=== PATIENT | male | born 1960 | race Two or more races ===

== ENCOUNTER 2020-05-11 13:43 | Inpatient (IN) | payer OTHER ==
[~2020-05-11] VITALS: Ht 165.1 cm; Wt 67.6 kg
[2020-05-11 14:25] VITALS: BP 196/66
[2020-05-11 14:31] LABS: BASOPHILS % (AUTO) 0.3 % (0.0-2.0); HEMATOCRIT 39.4 % (42.0-52.0); HEMOGLOBIN 13.6 G/DL (14.2-18.0); LYMPHOCYTES % (AUTO) 9.6 % (20.0-45.0); MEAN CORPUSCULAR VOLUME 82 FL (80-99); MONOCYTES % (AUTO) 8.8 % (1.0-10.0); NEUTROPHILS % (AUTO) 81.3 % (45.0-75.0); PLATELET COUNT 132 K/UL (150-450); RED BLOOD COUNT 4.82 M/UL (4.70-6.10); RED CELL DISTRIBUTION WIDTH 12.6 % (11.6-14.8); WHITE BLOOD COUNT 3.5 K/UL (4.8-10.8)
[2020-05-11 15:03] LABS: ANION GAP 9 mmol/L (5-15); BLOOD UREA NITROGEN 16 mg/dL (7-18); CALCIUM 8.4 MG/DL (8.5-10.1); CARBON DIOXIDE 25 MMOL/L (21-32); CHLORIDE 94 MMOL/L (98-107); CREATININE 1.1 MG/DL (0.55-1.30); POTASSIUM 4.6 MMOL/L (3.5-5.1); SODIUM 128 MMOL/L (136-145)
[2020-05-11 15:08] LABS: FERRITIN 1217 NG/ML (8-388)
[2020-05-11 15:08] LABS: APPEARANCE,URINE CLEAR; BILIRUBIN, URINE NEGATIVE (NEGATIVE); GLUCOSE, URINE (UA) 4+ (NEGATIVE); KETONES,URINE 4+ (NEGATIVE); LEUKOCYTE ESTERASE ,URINE NEGATIVE (NEGATIVE); NITRITE,URINE NEGATIVE (NEGATIVE); PH,URINE 6 (4.5-8.0); PROTEIN,URINE 3+ (NEGATIVE); UROBILINOGEN,URINE 8 MG/DL (0.0-1.0)
[2020-05-11 15:09] LABS: ALANINE AMINOTRANSFERASE 61 U/L (12-78); ALBUMIN 3.5 G/DL (3.4-5.0); ALBUMIN/GLOBULIN RATIO 0.8 (1.0-2.7); ASPARTATE AMINO TRANSFERASE 62 U/L (15-37); BILIRUBIN,TOTAL 0.7 MG/DL (0.2-1.0); CKMB 1.5 NG/ML (0.0-3.6); CREATINE KINASE 334 U/L (26-140); LACTATE DEHYDROGENASE 588 U/L (135-225)
[2020-05-11 15:10] LABS: COLOR,URINE YELLOW
[2020-05-11 15:10] LABS: ALKALINE PHOSPHATASE 92 U/L (46-116)
[2020-05-11] MEDS ORDERED: Azithromycin 500 MG in NS 275 ML IV ONE (15:15)
[2020-05-11] MEDS ORDERED: cefTRIAXone 1 GM in NS 55 ML IVPB ONE (15:15)
--- NOTE | 2020-05-11 15:18 | Emergency Room Report ---
History of Present Illness General Chief Complaint: Dyspnea/Respdistress Source: Patient (Sixto Blood MD) Present Illness HPI Patient is a 59-year-old male brought in by EMS after increased difficulty with breathing. Prior history of type 2 diabetes. Patient had previous coronavirus testing on Friday which was positive. Had been more short of breath today. Patient presented via EMS and was noted to have diminished oxygen saturation. He was started on supplemental oxygen. Patient reports being compliant with his medications. Reports of increased fever. Denies any leg pain or swelling. Nonproductive cough. (Sixto Blood MD) Allergies: Coded Allergies: No Known Allergies (Unverified , 05/11/20) COVID-19 Screening Contact w/high risk pt: No Experienced COVID-19 symptoms?: Yes COVID-19 Testing performed WEAVER TIRE CORD: Yes - 05/05/20 COVID-19 Screening: Positive COVID-19 COVID-19 Testing Source: clinic (Sixto Blood MD) Patient History Past Medical History: see triage record Reviewed Nursing Documentation: PMH: Agreed; PSxH: Agreed (Sixto Blood MD) Nursing Documentation-PMH Past Medical History: No Stated History (Sixto Blood MD) Review of Systems All Other Systems: negative except mentioned in HPI (Sixto Blood MD) Physical Exam Vital Signs Date Time Temp Pulse Resp B/P (MAP) Pulse Ox O2 Delivery O2 Flow Rate FiO2 05/11/20 13:37 100.9 125 24 158/90 (112) 85 Room Air 05/11/20 14:25 2.0 General Appearance: alert, GCS 15, moderate distress ENT: normal ENT inspection Neck: normal inspection, full range of motion Respiratory: normal inspection, lungs clear Cardiovascular #1: tachycardia Gastrointestinal: normal inspection, soft Musculoskeletal: normal inspection, back normal Neurologic: alert, motor strength/tone normal, 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 Total critical care time excluding procedures approximately 45 minutes. (Sixto Blood MD) Critical Care Time Total critical care time: Approximately 35 minutes. Due to a high probability of clinically significant, life threatening deterioration, the patient required my highest level of preparedness to intervene emergently and I personally spent this critical care time directly and personally managing the patient. This critical care time included obtaining a history; examining the patient; pulse oximetry; ordering and review of studies; arranging urgent treatment with development of a management plan; evaluation of patient's response to treatment; frequent reassessment; and, discussions with other providers.This critical care time was performed to assess and manage the high probability of imminent, life- threatening deterioration that could result in multi-organ failure. It was e xclusive of separately billable procedures and treating other patients and teaching time. Please see MDM section and the rest of the note for further information on patient assessment and treatment. (Marisa Dior M.D.) Medical Decision Making Diagnostic Impression: Primary Impression: Coronavirus infection Additional Impressions: Abnormal EKG Lactic acid acidosis Diabetes ER Course Patient presented for increased fever and generalized shortness of breath. Differential diagnosis include was not limited to coronavirus infection, myocardial infarction, congestive heart failure, pneumonia among others. Because of complexity of patient's case laboratory tests and imaging studies were ordered. Patient was noted to have prior history of coronavirus infection with diminished oxygen saturation. He was maintained on supplemental oxygen. He was given IV steroids. He was started on IV fluids and given Tylenol. Patient was noted to have significant difficulty with respirations. Lactic acid levels noted be somewhat elevated. Patient was leukopenic. Patient was endorsed to Dr. Dior pending authorization for admission. Patient will barb require hospitalization due to hypoxia. Labs Test 05/11/20 14:10 05/11/20 14:45 White Blood Count 3.5 K/UL (4.8-10.8) Red Blood Count 4.82 M/UL (4.70-6.10) Hemoglobin 13.6 G/DL (14.2-18.0) Hematocrit 39.4 % (42.0-52.0) Mean Corpuscular Volume 82 FL (80-99) Mean Corpuscular Hemoglobin 28.3 PG (27.0-31.0) Mean Corpuscular Hemoglobin Concent 34.6 G/DL (32.0-36.0) Red Cell Distribution Width 12.6 % (11.6-14.8) Platelet Count 132 K/UL (150-450) Mean Platelet Volume 7.4 FL (6.5-10.1) Neutrophils (%) (Auto) 81.3 % (45.0-75.0) Lymphocytes (%) (Auto) 9.6 % (20.0-45.0) Monocytes (%) (Auto) 8.8 % (1.0-10.0) Eosinophils (%) (Auto) 0.0 % (0.0-3.0) Basophils (%) (Auto) 0.3 % (0.0-2.0) Prothrombin Time 10.6 SEC (9.30-11.50) Prothromb Time International Ratio 1.0 (0.9-1.1) Activated Partial Thromboplast Time 31 SEC (23-33) D-Dimer 0.58 mg/L FEU (0.00-0.49) Sodium Level 128 MMOL/L (136-145) Potassium Level 4.6 MMOL/L (3.5-5.1) Chloride Level 94 MMOL/L (98-107) Carbon Dioxide Level 25 MMOL/L (21-32) Anion Gap 9 mmol/L (5-15) Blood Urea Nitrogen 16 mg/dL (7-18) Creatinine 1.1 MG/DL (0.55-1.30) Estimat Glomerular Filtration Rate > 60 mL/min (>60) Glucose Level 331 MG/DL (74-106) Lactic Acid Level 2.80 mmol/L (0.4-2.0) Calcium Level 8.4 MG/DL (8.5-10.1) Ferritin 1217 NG/ML (8-388) Total Bilirubin 0.7 MG/DL (0.2-1.0) Aspartate Amino Transf (AST/SGOT) 62 U/L (15-37) Alanine Aminotransferase (ALT/SGPT) 61 U/L (12-78) Alkaline Phosphatase 92 U/L (46-116) Lactate Dehydrogenase 588 U/L (135-225) Total Creatine Kinase 334 U/L (26-140) Creatine Kinase MB 1.5 NG/ML (0.0-3.6) Creatine Kinase MB Relative Index 0.4 Troponin I 0.048 ng/mL (0.000-0.056) C-Reactive Protein, Quantitative 24.9 mg/dL (0.00-0.90) Pro-B-Type Natriuretic Peptide 115 pg/mL (0-125) Total Protein 8.1 G/DL (6.4-8.2) Albumin 3.5 G/DL (3.4-5.0) Globulin 4.6 g/dL Albumin/Globulin Ratio 0.8 (1.0-2.7) Lipase 204 U/L (73-393) Urine Color Yellow Urine Appearance Clear Urine pH 6 (4.5-8.0) Urine Specific [place] 1.015 (1.005-1.035) Urine Protein 3+ (NEGATIVE) Urine Glucose (UA) 4+ (NEGATIVE) Urine Ketones 4+ (NEGATIVE) Urine Blood 2+ (NEGATIVE) Urine Nitrite Negative (NEGATIVE) Urine Bilirubin Negative (NEGATIVE) Urine Urobilinogen 8 MG/DL (0.0-1.0) Urine Leukocyte Esterase Negative (NEGATIVE) (Sixto Blood MD) ER Course Patient signed out by Dr. Blood pending insurance approval. Patient has been approved for admission to stepdown unit at our facility. I have paged Dr. Jung at 1415 p.m. to inform him of the admission. (Marisa Dior M.D.) EKG Diagnostic Results Rate: tachycardiac Rhythm: NSR ST Segments: other - st depression (Sixto Blood MD) Last Vital Signs Date Time Temp Pulse Resp B/P (MAP) Pulse Ox O2 Delivery O2 Flow Rate FiO2 05/11/20 14:56 100.6 05/11/20 14:25 113 32 Nasal Cannula 2.0 05/11/20 14:25 196/66 96 Status: unchanged (Sixto Blood MD) Disposition: ADMITTED INPATIENT Condition: Serious Referrals: Pedro DURON,REFERRING (PCP) Sixto Blood MD May 11, 2020 15:18 Marisa Dior M.D. May 11, 2020 16:14
[2020-05-11] MEDS: Albuterol ud Inhalation HHN SCH ×2 (15:35→15:36)
[2020-05-11 15:57] VITALS: BP 177/88
[2020-05-11] MEDS ORDERED: Labetalol 5mg/ml 20ml vial IV ONE (16:15)
[2020-05-11 16:35] VITALS: BP 124/66
--- NOTE | 2020-05-11 16:56 | Diagnostic Imaging Report ---
Indication: Shortness of breath Technique: One view of the chest Comparison: none Findings: Lungs and pleural spaces are clear. Heart size is normal. Impression: No acute process
[2020-05-11] MEDS ORDERED: METFORMIN HCL500 M1 ORAL (16:58)
[2020-05-11] MEDS ORDERED: LISINOPRIL10 MG ORAL (16:58)
[2020-05-11] MEDS ORDERED: Albuterol/Ipratropium 3ml neb HHN PRN (18:15)
[2020-05-11] MEDS ORDERED: Miralax 17gm pkt ORAL PRN (18:15)
[2020-05-11 19:27] VITALS: BP 157/77
[2020-05-11] MEDS: Heparin 5000 units/ml inj SUBQ SCH (23:19)
[2020-05-11 23:38] VITALS: BP 144/75
[2020-05-12 04:00] VITALS: BP 148/81
[2020-05-12 05:27] LABS: HEMOGLOBIN 13.7 G/DL (14.2-18.0); MEAN CORPUSCULAR VOLUME 83 FL (80-99); PLATELET COUNT 153 K/UL (150-450); RED BLOOD COUNT 4.82 M/UL (4.70-6.10); RED CELL DISTRIBUTION WIDTH 13.3 % (11.6-14.8); WHITE BLOOD COUNT 3.1 K/UL (4.8-10.8)
[2020-05-12 05:44] LABS: ALBUMIN 2.9 G/DL (3.4-5.0); ANION GAP 17 mmol/L (5-15); BLOOD UREA NITROGEN 18 mg/dL (7-18); CALCIUM 7.5 MG/DL (8.5-10.1); CARBON DIOXIDE 17 MMOL/L (21-32); CHLORIDE 100 MMOL/L (98-107); CREATININE 1.2 MG/DL (0.55-1.30); PHOSPHORUS 3.8 MG/DL (2.5-4.9); POTASSIUM 4.4 MMOL/L (3.5-5.1); SODIUM 134 MMOL/L (136-145)
[2020-05-12 08:00] VITALS: BP 153/76
[2020-05-12] MEDS: Heparin 5000 units/ml inj SUBQ SCH ×2 (08:58→21:59)
--- NOTE | 2020-05-12 09:05 | Consultation ---
History of Present Illness General Date patient seen: May 12, 2020 Time patient seen: 12:38 Chief Complaint: Dyspnea/Respdistress Referring physician: PCP Reason for Consultation: COVID pna Present Illness HPI 59yo M who p/w SOB, had COVID testing Saturday 05/05 which was positive. PMH of DM2. Pt febrile to 100.9, on NRB mask due to SOB. Doing well, feels better than day prior, sitting up and eating lunch Denies any fevers/chills, minimal cough, no pain. Reports he was tested via a nasal swab on Saturday 05/05 and received a phone call saying that his test for Coronavirus was positive Allergies: Coded Allergies: No Known Allergies (Unverified , 05/11/20) Medication History Scheduled Lisinopril* (Lisinopril*), 10 MG ORAL DAILY, (Reported) Metformin Hcl* (Metformin Hcl*), 500 MG ORAL TWICE A DAY, (Reported) Metformin Hcl* (Metformin Hcl*), 500 MG ORAL TWICE A DAY, (Reported) Patient History Healthcare decision maker N Resuscitation status Advanced Directive on File Review of Systems ROS Narrative 10-point ROS neg except as noted in HPI Physical Exam Physical Exam Narrative Gen: NAD HEENT: NCAT Pulm: BL chest rise on NRB Abd: Non-distended Ext: No c/c/e Skin: No visible rashes Neuro: Awake, alert, interactive en espanol Last 24 Hour Vital Signs Date Time Temp Pulse Resp B/P (MAP) Pulse Ox O2 Delivery O2 Flow Rate FiO2 05/12/20 04:00 97.2 104 20 148/81 (103) 100 05/12/20 04:00 15.0 05/12/20 04:00 Non-Rebreather 15.0 05/12/20 04:00 104 05/12/20 00:00 Non-Rebreather 15.0 05/12/20 00:00 93 05/12/20 00:00 15.0 05/11/20 23:38 96.5 96 20 144/75 (98) 100 05/11/20 23:37 Non-Rebreather 15.0 05/11/20 22:25 99.1 102 28 157/77 100 Simple Mask 15.0 05/11/20 19:27 102 28 157/77 100 15.0 05/11/20 16:35 99.1 102 37 124/66 95 Simple Mask 10.0 05/11/20 16:13 137 151/73 05/11/20 16:03 99.3 05/11/20 15:57 100.2 126 35 177/88 100 Nasal Cannula 2.0 05/11/20 14:56 100.6 05/11/20 14:25 113 32 Nasal Cannula 2.0 05/11/20 14:25 100.2 113 32 196/66 96 Nasal Cannula 2.0 05/11/20 13:37 100.9 125 24 158/90 (112) 85 Room Air Intake and Output 05/11/20 05/12/20 19:00 07:00 Intake Total 1275 ml 300 ml Output Total 700 ml Balance 1275 ml -400 ml Intake Oral 300 ml IV Total 1275 ml Output Urine Total 700 ml # Voids 1 Laboratory Tests Test 05/11/20 14:10 05/11/20 14:45 05/11/20 15:36 05/11/20 15:40 White Blood Count 3.5 K/UL (4.8-10.8) L Red Blood Count 4.82 M/UL (4.70-6.10) Hemoglobin 13.6 G/DL (14.2-18.0) L Hematocrit 39.4 % (42.0-52.0) L Mean Corpuscular Volume 82 FL (80-99) Mean Corpuscular Hemoglobin 28.3 PG (27.0-31.0) Mean Corpuscular Hemoglobin Concent 34.6 G/DL (32.0-36.0) Red Cell Distribution Width 12.6 % (11.6-14.8) Platelet Count 132 K/UL (150-450) L Mean Platelet Volume 7.4 FL (6.5-10.1) Neutrophils (%) (Auto) 81.3 % (45.0-75.0) H Lymphocytes (%) (Auto) 9.6 % (20.0-45.0) L Monocytes (%) (Auto) 8.8 % (1.0-10.0) Eosinophils (%) (Auto) 0.0 % (0.0-3.0) Basophils (%) (Auto) 0.3 % (0.0-2.0) Prothrombin Time 10.6 SEC (9.30-11.50) Prothromb Time International Ratio 1.0 (0.9-1.1) Activated Partial Thromboplast Time 31 SEC (23-33) D-Dimer 0.58 mg/L FEU (0.00-0.49) H Sodium Level 128 MMOL/L (136-145) L Potassium Level 4.6 MMOL/L (3.5-5.1) Chloride Level 94 MMOL/L (98-107) L Carbon Dioxide Level 25 MMOL/L (21-32) Anion Gap 9 mmol/L (5-15) Blood Urea Nitrogen 16 mg/dL (7-18) Creatinine 1.1 MG/DL (0.55-1.30) Estimat Glomerular Filtration Rate > 60 mL/min (>60) Glucose Level 331 MG/DL (74-106) H Lactic Acid Level 2.80 mmol/L (0.4-2.0) H 1.90 mmol/L (0.66-2.22) Calcium Level 8.4 MG/DL (8.5-10.1) L Ferritin 1217 NG/ML (8-388) H Total Bilirubin 0.7 MG/DL (0.2-1.0) Aspartate Amino Transf (AST/SGOT) 62 U/L (15-37) H Alanine Aminotransferase (ALT/SGPT) 61 U/L (12-78) Alkaline Phosphatase 92 U/L (46-116) Lactate Dehydrogenase 588 U/L (135-225) H Total Creatine Kinase 334 U/L (26-140) H Creatine Kinase MB 1.5 NG/ML (0.0-3.6) Creatine Kinase MB Relative Index 0.4 Troponin I 0.048 ng/mL (0.000-0.056) C-Reactive Protein, Quantitative 24.9 mg/dL (0.00-0.90) H Pro-B-Type Natriuretic Peptide 115 pg/mL (0-125) Total Protein 8.1 G/DL (6.4-8.2) Albumin 3.5 G/DL (3.4-5.0) Globulin 4.6 g/dL Albumin/Globulin Ratio 0.8 (1.0-2.7) L Lipase 204 U/L (73-393) Urine Color Yellow Urine Appearance Clear Urine pH 6 (4.5-8.0) Urine Specific [place] 1.015 (1.005-1.035) Urine Protein 3+ (NEGATIVE) H Urine Glucose (UA) 4+ (NEGATIVE) H Urine Ketones 4+ (NEGATIVE) H Urine Blood 2+ (NEGATIVE) H Urine Nitrite Negative (NEGATIVE) Urine Bilirubin Negative (NEGATIVE) Urine Urobilinogen 8 MG/DL (0.0-1.0) H Urine Leukocyte Esterase Negative (NEGATIVE) Urine RBC 0-2 /HPF (0 - 0) H Urine WBC 0-2 /HPF (0 - 0) Urine Squamous Epithelial Cells Occasional /LPF Urine Bacteria Occasional /HPF (NONE) Arterial Blood pH 7.399 (7.350-7.450) Arterial Blood Partial Pressure CO2 34.3 mmHg (35.0-45.0) L Arterial Blood Partial Pressure O2 93.2 mmHg (75.0-100.0) Arterial Blood HCO3 20.7 mmol/L (22.0-26.0) L Arterial Blood Oxygen Saturation 96.8 % (95-100) Arterial Blood Base Excess -3.4 (-2-2) L Haim Test Positive Test 05/12/20 04:00 White Blood Count 3.1 K/UL (4.8-10.8) L Red Blood Count 4.82 M/UL (4.70-6.10) Hemoglobin 13.7 G/DL (14.2-18.0) L Hematocrit 40.0 % (42.0-52.0) L Mean Corpuscular Volume 83 FL (80-99) Mean Corpuscular Hemoglobin 28.4 PG (27.0-31.0) Mean Corpuscular Hemoglobin Concent 34.3 G/DL (32.0-36.0) Red Cell Distribution Width 13.3 % (11.6-14.8) Platelet Count 153 K/UL (150-450) Mean Platelet Volume 7.5 FL (6.5-10.1) Neutrophils (%) (Auto) % (45.0-75.0) Lymphocytes (%) (Auto) % (20.0-45.0) Monocytes (%) (Auto) % (1.0-10.0) Eosinophils (%) (Auto) % (0.0-3.0) Basophils (%) (Auto) % (0.0-2.0) Neutrophils % (Manual) Pending Lymphocytes % (Manual) Pending Platelet Estimate Pending Platelet Morphology Pending Sodium Level 134 MMOL/L (136-145) L Potassium Level 4.4 MMOL/L (3.5-5.1) Chloride Level 100 MMOL/L (98-107) Carbon Dioxide Level 17 MMOL/L (21-32) L Anion Gap 17 mmol/L (5-15) H Blood Urea Nitrogen 18 mg/dL (7-18) Creatinine 1.2 MG/DL (0.55-1.30) Estimat Glomerular Filtration Rate > 60 mL/min (>60) Glucose Level 409 MG/DL (74-106) H Calcium Level 7.5 MG/DL (8.5-10.1) L Phosphorus Level 3.8 MG/DL (2.5-4.9) Albumin 2.9 G/DL (3.4-5.0) L Microbiology Date/Time Source Procedure Growth Status 05/11/20 15:40 Nasal Nares - Final Complete 05/11/20 15:40 Nasal Nares - Final Complete Height (Feet): 5 Height (Inches): 5.00 Weight (Pounds): 149 Medications Current Medications Medications (Trade) Dose Ordered Sig/Vasiliy Route PRN Reason Start Time Stop Time Status Last Admin Dose Admin Acetaminophen (Tylenol) 650 mg Q4H PRN ORAL Temp >100.5 05/11/20 18:15 06/10/20 18:14 Albuterol/ Ipratropium (Combivent Respimat) 1 puff Q4H PRN INH Shortness of Breath 05/11/20 21:30 06/10/20 21:29 Azithromycin 250 mg/Dextrose 275 ml @ 275 mls/hr Q24HRS IV 05/12/20 15:00 05/17/20 14:59 Ceftriaxone Sodium 1 gm/ Dextrose 55 ml @ 110 mls/hr Q24H IVPB 05/12/20 15:00 05/19/20 14:59 Dexamethasone (Decadron) 6 mg DAILY ORAL 05/12/20 09:00 05/21/20 09:01 05/12/20 08:58 Dextrose (Dextrose 50%) 25 ml Q30M PRN IV Hypoglycemia 05/11/20 18:15 08/09/20 18:14 Dextrose (Dextrose 50%) 50 ml Q30M PRN IV Hypoglycemia 05/11/20 18:15 08/09/20 18:14 Heparin Sodium (Porcine) (Heparin 5000 units/ml) 5,000 units EVERY 12 HOURS SUBQ 05/11/20 22:00 06/25/20 21:59 05/12/20 08:58 Ondansetron HCl (Zofran) 4 mg Q6H PRN IVP Nausea & Vomiting 05/11/20 18:15 06/10/20 18:14 Polyethylene Glycol (Miralax) 17 gm DAILYPRN PRN ORAL Constipation 05/11/20 18:15 06/10/20 18:14 Promethazine HCl/ Codeine (Phenergan with Codeine) 5 ml Q6H PRN ORAL cough 05/11/20 18:15 06/10/20 18:14 Assessment/Plan Assessment/Plan: 59yo M with: Febrile to 100.9 Normal WBC Lymphopenia Hypoxic resp failure 07/11 COVID pna, on NRB mask Severe COVID pna, tested positive 05/05 05/05 COVID positive 05/11 BCx p Resp cx p COVID PCR p CXR: No acute process DM2 Plan: Start remdesivir #1/5 given COVID+, hypoxia on NRB and appropriate labs - awaiting approval, RN to f/u approval and make sure it is started this PM Cont CTX/azithro #2/5 Cont dexamethasone 6mg daily #2 This [facility] does not have convalescent plasma, and as pt 1 week out from diagnosis, unlikely to benefit from it at this point F/u BCx, Resp cx Monitor CBC/CMP Monitor temp curve, hemodynamics Monitor resp status D/w RN Thank you for this consult. [facility] will continue to follow. Meme Leggett M.D. May 12, 2020 09:05
--- NOTE | 2020-05-12 11:03 | Consultation ---
History of Present Illness General Date patient seen: May 12, 2020 Chief Complaint: Dyspnea/Respdistress Referring physician: PCP Reason for Consultation: COVID pna Present Illness HPI 59-year-old male with hx of DM brought in by EMS with CC of difficulty with breathing. Patient had previous coronavirus testing on Friday which was positive. Had been more short of breath today. Patient presented via EMS and was noted to have diminished oxygen saturation. . Reports of increased fever. Denies any leg pain or swelling. Nonproductive cough. Allergies: Coded Allergies: No Known Allergies (Unverified , 05/11/20) Medication History Scheduled Lisinopril* (Lisinopril*), 10 MG ORAL DAILY, (Reported) Metformin Hcl* (Metformin Hcl*), 500 MG ORAL TWICE A DAY, (Reported) Metformin Hcl* (Metformin Hcl*), 500 MG ORAL TWICE A DAY, (Reported) Patient History Healthcare decision maker N Resuscitation status Advanced Directive on File Past Medical/Surgical History Past Medical/Surgical History: (1) Coronavirus infection (2) Diabetes Review of Systems All Other Systems: negative except mentioned in HPI Physical Exam General Appearance: WD/WN, no apparent distress Lines, tubes and drains: peripheral HEENT: normocephalic, atraumatic Neck: non-tender, normal alignment Respiratory/Chest: chest wall non-tender, lungs clear Cardiovascular/Chest: normal peripheral pulses, normal rate Abdomen: normal bowel sounds, non tender Genitourinary/Rectal: normal genital exam Last 24 Hour Vital Signs Date Time Temp Pulse Resp B/P (MAP) Pulse Ox O2 Delivery O2 Flow Rate FiO2 05/12/20 08:00 103 05/12/20 08:00 Non-Rebreather 15.0 05/12/20 08:00 97.2 107 22 153/76 (101) 100 05/12/20 08:00 15.0 05/12/20 04:00 97.2 104 20 148/81 (103) 100 05/12/20 04:00 15.0 05/12/20 04:00 Non-Rebreather 15.0 05/12/20 04:00 104 05/12/20 00:00 Non-Rebreather 15.0 05/12/20 00:00 93 05/12/20 00:00 15.0 05/11/20 23:38 96.5 96 20 144/75 (98) 100 05/11/20 23:37 Non-Rebreather 15.0 05/11/20 22:25 99.1 102 28 157/77 100 Simple Mask 15.0 05/11/20 19:27 102 28 157/77 100 15.0 05/11/20 16:35 99.1 102 37 124/66 95 Simple Mask 10.0 05/11/20 16:13 137 151/73 05/11/20 16:03 99.3 05/11/20 15:57 100.2 126 35 177/88 100 Nasal Cannula 2.0 05/11/20 14:56 100.6 05/11/20 14:25 113 32 Nasal Cannula 2.0 05/11/20 14:25 100.2 113 32 196/66 96 Nasal Cannula 2.0 05/11/20 13:37 100.9 125 24 158/90 (112) 85 Room Air Intake and Output 05/11/20 05/12/20 19:00 07:00 Intake Total 1275 ml 300 ml Output Total 700 ml Balance 1275 ml -400 ml Intake Oral 300 ml IV Total 1275 ml Output Urine Total 700 ml # Voids 1 Laboratory Tests Test 05/11/20 14:10 05/11/20 14:45 05/11/20 15:36 05/11/20 15:40 White Blood Count 3.5 K/UL (4.8-10.8) L Red Blood Count 4.82 M/UL (4.70-6.10) Hemoglobin 13.6 G/DL (14.2-18.0) L Hematocrit 39.4 % (42.0-52.0) L Mean Corpuscular Volume 82 FL (80-99) Mean Corpuscular Hemoglobin 28.3 PG (27.0-31.0) Mean Corpuscular Hemoglobin Concent 34.6 G/DL (32.0-36.0) Red Cell Distribution Width 12.6 % (11.6-14.8) Platelet Count 132 K/UL (150-450) L Mean Platelet Volume 7.4 FL (6.5-10.1) Neutrophils (%) (Auto) 81.3 % (45.0-75.0) H Lymphocytes (%) (Auto) 9.6 % (20.0-45.0) L Monocytes (%) (Auto) 8.8 % (1.0-10.0) Eosinophils (%) (Auto) 0.0 % (0.0-3.0) Basophils (%) (Auto) 0.3 % (0.0-2.0) Prothrombin Time 10.6 SEC (9.30-11.50) Prothromb Time International Ratio 1.0 (0.9-1.1) Activated Partial Thromboplast Time 31 SEC (23-33) D-Dimer 0.58 mg/L FEU (0.00-0.49) H Sodium Level 128 MMOL/L (136-145) L Potassium Level 4.6 MMOL/L (3.5-5.1) Chloride Level 94 MMOL/L (98-107) L Carbon Dioxide Level 25 MMOL/L (21-32) Anion Gap 9 mmol/L (5-15) Blood Urea Nitrogen 16 mg/dL (7-18) Creatinine 1.1 MG/DL (0.55-1.30) Estimat Glomerular Filtration Rate > 60 mL/min (>60) Glucose Level 331 MG/DL (74-106) H Lactic Acid Level 2.80 mmol/L (0.4-2.0) H 1.90 mmol/L (0.66-2.22) Calcium Level 8.4 MG/DL (8.5-10.1) L Ferritin 1217 NG/ML (8-388) H Total Bilirubin 0.7 MG/DL (0.2-1.0) Aspartate Amino Transf (AST/SGOT) 62 U/L (15-37) H Alanine Aminotransferase (ALT/SGPT) 61 U/L (12-78) Alkaline Phosphatase 92 U/L (46-116) Lactate Dehydrogenase 588 U/L (135-225) H Total Creatine Kinase 334 U/L (26-140) H Creatine Kinase MB 1.5 NG/ML (0.0-3.6) Creatine Kinase MB Relative Index 0.4 Troponin I 0.048 ng/mL (0.000-0.056) C-Reactive Protein, Quantitative 24.9 mg/dL (0.00-0.90) H Pro-B-Type Natriuretic Peptide 115 pg/mL (0-125) Total Protein 8.1 G/DL (6.4-8.2) Albumin 3.5 G/DL (3.4-5.0) Globulin 4.6 g/dL Albumin/Globulin Ratio 0.8 (1.0-2.7) L Lipase 204 U/L (73-393) Urine Color Yellow Urine Appearance Clear Urine pH 6 (4.5-8.0) Urine Specific [place] 1.015 (1.005-1.035) Urine Protein 3+ (NEGATIVE) H Urine Glucose (UA) 4+ (NEGATIVE) H Urine Ketones 4+ (NEGATIVE) H Urine Blood 2+ (NEGATIVE) H Urine Nitrite Negative (NEGATIVE) Urine Bilirubin Negative (NEGATIVE) Urine Urobilinogen 8 MG/DL (0.0-1.0) H Urine Leukocyte Esterase Negative (NEGATIVE) Urine RBC 0-2 /HPF (0 - 0) H Urine WBC 0-2 /HPF (0 - 0) Urine Squamous Epithelial Cells Occasional /LPF Urine Bacteria Occasional /HPF (NONE) Arterial Blood pH 7.399 (7.350-7.450) Arterial Blood Partial Pressure CO2 34.3 mmHg (35.0-45.0) L Arterial Blood Partial Pressure O2 93.2 mmHg (75.0-100.0) Arterial Blood HCO3 20.7 mmol/L (22.0-26.0) L Arterial Blood Oxygen Saturation 96.8 % (95-100) Arterial Blood Base Excess -3.4 (-2-2) L Haim Test Positive Test 05/12/20 04:00 White Blood Count 3.1 K/UL (4.8-10.8) L Red Blood Count 4.82 M/UL (4.70-6.10) Hemoglobin 13.7 G/DL (14.2-18.0) L Hematocrit 40.0 % (42.0-52.0) L Mean Corpuscular Volume 83 FL (80-99) Mean Corpuscular Hemoglobin 28.4 PG (27.0-31.0) Mean Corpuscular Hemoglobin Concent 34.3 G/DL (32.0-36.0) Red Cell Distribution Width 13.3 % (11.6-14.8) Platelet Count 153 K/UL (150-450) Mean Platelet Volume 7.5 FL (6.5-10.1) Neutrophils (%) (Auto) % (45.0-75.0) Lymphocytes (%) (Auto) % (20.0-45.0) Monocytes (%) (Auto) % (1.0-10.0) Eosinophils (%) (Auto) % (0.0-3.0) Basophils (%) (Auto) % (0.0-2.0) Differential Total Cells Counted 100 Neutrophils % (Manual) 73 % (45-75) Lymphocytes % (Manual) 19 % (20-45) L Monocytes % (Manual) 7 % (1-10) Eosinophils % (Manual) 0 % (0-3) Basophils % (Manual) 0 % (0-2) Band Neutrophils 1 % (0-8) Platelet Estimate Adequate Platelet Morphology Normal Red Blood Cell Morphology Normal Sodium Level 134 MMOL/L (136-145) L Potassium Level 4.4 MMOL/L (3.5-5.1) Chloride Level 100 MMOL/L (98-107) Carbon Dioxide Level 17 MMOL/L (21-32) L Anion Gap 17 mmol/L (5-15) H Blood Urea Nitrogen 18 mg/dL (7-18) Creatinine 1.2 MG/DL (0.55-1.30) Estimat Glomerular Filtration Rate > 60 mL/min (>60) Glucose Level 409 MG/DL (74-106) H Calcium Level 7.5 MG/DL (8.5-10.1) L Phosphorus Level 3.8 MG/DL (2.5-4.9) Albumin 2.9 G/DL (3.4-5.0) L Microbiology Date/Time Source Procedure Growth Status 05/11/20 15:40 Nasal Nares - Final Complete 05/11/20 15:40 Nasal Nares - Final Complete Height (Feet): 5 Height (Inches): 5.00 Weight (Pounds): 149 Medications Current Medications Medications (Trade) Dose Ordered Sig/Vasiliy Route PRN Reason Start Time Stop Time Status Last Admin Dose Admin Acetaminophen (Tylenol) 650 mg Q4H PRN ORAL Temp >100.5 05/11/20 18:15 06/10/20 18:14 Albuterol/ Ipratropium (Combivent Respimat) 1 puff Q4H PRN INH Shortness of Breath 05/11/20 21:30 06/10/20 21:29 Azithromycin 250 mg/Dextrose 275 ml @ 275 mls/hr Q24HRS IV 05/12/20 15:00 05/17/20 14:59 Ceftriaxone Sodium 1 gm/ Dextrose 55 ml @ 110 mls/hr Q24H IVPB 05/12/20 15:00 05/19/20 14:59 Dexamethasone (Decadron) 6 mg DAILY ORAL 05/12/20 09:00 05/21/20 09:01 05/12/20 08:58 Dextrose (Dextrose 50%) 25 ml Q30M PRN IV Hypoglycemia 05/11/20 18:15 08/09/20 18:14 Dextrose (Dextrose 50%) 50 ml Q30M PRN IV Hypoglycemia 05/11/20 18:15 08/09/20 18:14 Heparin Sodium (Porcine) (Heparin 5000 units/ml) 5,000 units EVERY 12 HOURS SUBQ 05/11/20 22:00 06/25/20 21:59 05/12/20 08:58 Ondansetron HCl (Zofran) 4 mg Q6H PRN IVP Nausea & Vomiting 05/11/20 18:15 06/10/20 18:14 Polyethylene Glycol (Miralax) 17 gm DAILYPRN PRN ORAL Constipation 05/11/20 18:15 06/10/20 18:14 Promethazine HCl/ Codeine (Phenergan with Codeine) 5 ml Q6H PRN ORAL cough 05/11/20 18:15 06/10/20 18:14 Assessment/Plan Problem List: (1) Coronavirus infection ICD Codes: B34.2 - Coronavirus infection, unspecified SNOMED: 424569030 (2) Diabetes ICD Codes: E11.9 - Type 2 diabetes mellitus without complications SNOMED: [id number] Assessment/Plan: check sputum ani-virals and abx by ID respiratory isolation titrate fio2 to sat of 92% dvt prophylaxis Yohannes Gibson MD May 12, 2020 11:03
[2020-05-12 12:00] VITALS: BP 159/81
[2020-05-12] MEDS: NovoLOG Insulin Flexpen SUBQ SCH ×3 (12:42→22:08)
[2020-05-12] MEDS: Azithromycin 250 MG in D5W 275 ML IV SCH (15:17)
[2020-05-12] MEDS: cefTRIAXone 1 GM in D5W 55 ML IVPB SCH (15:18)
[2020-05-12 16:00] VITALS: BP 140/86
[2020-05-12] MEDS ORDERED: Loading Dose:Remdesivir 200mg/NS 210ml IV SCH ×2 (16:00)
[2020-05-12 20:00] VITALS: BP 160/87
[2020-05-12] MEDS: Promethazine/Codeine 5ml UD ORAL PRN (22:10)
[2020-05-13] VITALS: BP 155/84
[2020-05-13 04:00] VITALS: BP 162/88
[2020-05-13 04:02] LABS: HEMATOCRIT 36.2 % (42.0-52.0); HEMOGLOBIN 12.8 G/DL (14.2-18.0); MEAN CORPUSCULAR VOLUME 80 FL (80-99); PLATELET COUNT 194 K/UL (150-450); RED BLOOD COUNT 4.54 M/UL (4.70-6.10); RED CELL DISTRIBUTION WIDTH 13.3 % (11.6-14.8); WHITE BLOOD COUNT 8.4 K/UL (4.8-10.8)
[2020-05-13 04:24] LABS: ALANINE AMINOTRANSFERASE 64 U/L (12-78); ALBUMIN 2.6 G/DL (3.4-5.0); ALBUMIN/GLOBULIN RATIO 0.7 (1.0-2.7); ALKALINE PHOSPHATASE 88 U/L (46-116); ANION GAP 12 mmol/L (5-15); ASPARTATE AMINO TRANSFERASE 76 U/L (15-37); BILIRUBIN,TOTAL 0.5 MG/DL (0.2-1.0); BLOOD UREA NITROGEN 23 mg/dL (7-18); CALCIUM 7.7 MG/DL (8.5-10.1); CARBON DIOXIDE 23 MMOL/L (21-32); CHLORIDE 102 MMOL/L (98-107); CREATININE 0.8 MG/DL (0.55-1.30); SODIUM 137 MMOL/L (136-145)
[2020-05-13] MEDS: NovoLOG Insulin Flexpen SUBQ SCH ×5 (05:52→20:42)
[2020-05-13 07:57] VITALS: BP 147/76
--- NOTE | 2020-05-13 08:55 | Diagnostic Imaging Report ---
EXAM: US Duplex Bilateral Upper Extremities Veins CLINICAL HISTORY: DVT TECHNIQUE: Real-time duplex ultrasound scan of the bilateral upper extremity veins integrating B-mode two-dimensional vascular structure, Doppler spectral analysis, color flow Doppler imaging and compression. COMPARISON: No relevant prior studies available. FINDINGS: Right deep veins: No DVT in the right internal jugular, subclavian, axillary, or brachial veins. The veins demonstrate normal color flow, are normally compressible, with normal phasic flow and/or augmentation response. Right superficial veins: No thrombus in the visualized right basilic and cephalic veins. ----- Left deep veins: No DVT in the left internal jugular, subclavian, axillary, or brachial veins. The veins demonstrate normal color flow, are normally compressible, with normal phasic flow and/or augmentation response. Left superficial veins: No thrombus in the visualized left basilic and cephalic veins. IMPRESSION: No deep venous thrombosis of the bilateral lower extremities.
[2020-05-13] MEDS ORDERED: NS 275ml ONE (09:09)
[2020-05-13] MEDS: Heparin 5000 units/ml inj SUBQ SCH ×2 (09:22→20:42)
[2020-05-13 12:00] VITALS: BP 161/80
--- NOTE | 2020-05-13 13:03 | Cardiology Report ---
APPROVED REPORT EKG Measurement Heart [id number] <Conclusion> Sinus tachycardia ST & T wave abnormality, consider inferolateral ischemia Abnormal ECG
[2020-05-13] MEDS: cefTRIAXone 1 GM in D5W 55 ML IVPB SCH (14:54)
[2020-05-13] MEDS: Azithromycin 250 MG in D5W 275 ML IV SCH (15:00)
[2020-05-13 16:00] VITALS: BP 165/89
[2020-05-13] MEDS: Maintenance Dose:Remdesivir 100mg/NS 230ml x 4 Doses IV SCH ×2 (16:14)
--- NOTE | 2020-05-13 16:55 | Infectious Diseases Prog Note ---
Assessment/Plan 59yo M with: Febrile to 100.9; SP Normal WBC Lymphopenia Hypoxic resp failure / COVID pna, on NRB mask Severe COVID pna, tested positive 05/05 05/05 COVID positive 05/11 BCx NTD Resp cx p COVID PCR + CXR: No acute process Influenza EIA neg DM2 Plan: Start remdesivir #2/5 given COVID+, hypoxia on NRB and appropriate labs - awaiting approval, RN to f/u approval and make sure it is started this PM Cont CTX/azithro #3/ Cont dexamethasone 6mg daily #08/16 [facility] does not have convalescent plasma, and as pt 1 week out from diagnosis, unlikely to benefit from it at this point F/u BCx, Resp cx Monitor CBC/CMP Monitor temp curve, hemodynamics Monitor resp status CXR am D/w RN Thank you for this consult. [facility] will continue to follow. Subjective Allergies: Coded Allergies: No Known Allergies (Unverified , 05/11/20) afebrile >48hrs on NRB no leukocytosis Objective Last 24 Hour Vital Signs Date Time Temp Pulse Resp B/P (MAP) Pulse Ox O2 Delivery O2 Flow Rate FiO2 05/13/20 16:00 98.2 89 21 165/89 (114) 98 05/13/20 16:00 Non-Rebreather 15.0 05/13/20 12:00 97.7 93 21 161/80 (107) 98 05/13/20 12:00 Non-Rebreather 15.0 05/13/20 12:00 107 05/13/20 08:00 Non-Rebreather 15.0 05/13/20 08:00 95 05/13/20 07:57 96.4 87 21 147/76 (99) 98 05/13/20 04:00 Non-Rebreather 15.0 05/13/20 04:00 15.0 05/13/20 04:00 97.6 85 20 162/88 (112) 98 05/13/20 04:00 82 05/13/20 00:00 97.5 104 20 155/84 (107) 98 05/13/20 00:00 Non-Rebreather 15.0 05/13/20 00:00 87 05/12/20 20:00 Non-Rebreather 15.0 05/12/20 20:00 104 05/12/20 20:00 15.0 05/12/20 20:00 97.2 84 20 160/87 (111) 98 05/12/20 18:57 100 Non-Rebreather 15.0 100 Height (Feet): 5 Height (Inches): 5.00 Weight (Pounds): 149 Gen: NAD HEENT: NCAT Pulm: BL chest rise on NRB Abd: Non-distended Ext: No c/c/e Skin: No visible rashes Neuro: Awake, alert, interactive en espanol Microbiology Date/Time Source Procedure Growth Status 05/11/20 15:40 Nasal Nares - Final Complete 05/11/20 15:40 Nasal Nares - Final Complete 05/11/20 15:40 Nasopharynx Coronavirus COVID-19 PCR ([facility]ANSA) - Final Complete 05/11/20 14:10 Blood Blood Culture - Preliminary NO GROWTH AFTER 24 HOURS Resulted 05/11/20 13:55 Blood Blood Culture - Preliminary NO GROWTH AFTER 24 HOURS Resulted Laboratory Tests Test 05/12/20 22:02 05/13/20 03:25 05/13/20 05:44 05/13/20 11:40 POC Whole Blood Glucose 361 MG/DL (74-106) H 348 MG/DL (74-106) H 303 MG/DL (74-106) H White Blood Count 8.4 K/UL (4.8-10.8) # Red Blood Count 4.54 M/UL (4.70-6.10) L Hemoglobin 12.8 G/DL (14.2-18.0) L Hematocrit 36.2 % (42.0-52.0) L Mean Corpuscular Volume 80 FL (80-99) Mean Corpuscular Hemoglobin 28.3 PG (27.0-31.0) Mean Corpuscular Hemoglobin Concent 35.4 G/DL (32.0-36.0) Red Cell Distribution Width 13.3 % (11.6-14.8) Platelet Count 194 K/UL (150-450) Mean Platelet Volume 7.8 FL (6.5-10.1) Neutrophils (%) (Auto) % (45.0-75.0) Lymphocytes (%) (Auto) % (20.0-45.0) Monocytes (%) (Auto) % (1.0-10.0) Eosinophils (%) (Auto) % (0.0-3.0) Basophils (%) (Auto) % (0.0-2.0) Differential Total Cells Counted 100 Neutrophils % (Manual) 85 % (45-75) H Lymphocytes % (Manual) 4 % (20-45) L Monocytes % (Manual) 11 % (1-10) H Eosinophils % (Manual) 0 % (0-3) Basophils % (Manual) 0 % (0-2) Band Neutrophils 0 % (0-8) Platelet Estimate Adequate Platelet Morphology Normal Red Blood Cell Morphology Normal Erythrocyte Sedimentation Rate 40 MM/HR (0-20) H Sodium Level 137 MMOL/L (136-145) Potassium Level 4.0 MMOL/L (3.5-5.1) Chloride Level 102 MMOL/L (98-107) Carbon Dioxide Level 23 MMOL/L (21-32) Anion Gap 12 mmol/L (5-15) Blood Urea Nitrogen 23 mg/dL (7-18) H Creatinine 0.8 MG/DL (0.55-1.30) Estimat Glomerular Filtration Rate > 60 mL/min (>60) Glucose Level 316 MG/DL (74-106) H Calcium Level 7.7 MG/DL (8.5-10.1) L Phosphorus Level 3.0 MG/DL (2.5-4.9) Magnesium Level 2.5 MG/DL (1.8-2.4) H Total Bilirubin 0.5 MG/DL (0.2-1.0) Direct Bilirubin 0.2 MG/DL (0.0-0.3) Aspartate Amino Transf (AST/SGOT) 76 U/L (15-37) H Alanine Aminotransferase (ALT/SGPT) 64 U/L (12-78) Alkaline Phosphatase 88 U/L (46-116) C-Reactive Protein, Quantitative 7.2 mg/dL (0.00-0.90) H Total Protein 6.5 G/DL (6.4-8.2) Albumin 2.6 G/DL (3.4-5.0) L Globulin 3.9 g/dL Albumin/Globulin Ratio 0.7 (1.0-2.7) L Current Medications Medications (Trade) Dose Ordered Sig/Vasiliy Route PRN Reason Start Time Stop Time Status Last Admin Dose Admin Acetaminophen (Tylenol) 650 mg Q4H PRN ORAL Temp >100.5 05/11/20 18:15 06/10/20 18:14 Albuterol/ Ipratropium (Combivent Respimat) 1 puff Q4H PRN INH Shortness of Breath 05/11/20 21:30 06/10/20 21:29 Azithromycin 250 mg/Dextrose 275 ml @ 275 mls/hr Q24HRS IV 05/12/20 15:00 05/17/20 14:59 05/12/20 15:17 Ceftriaxone Sodium 1 gm/ Dextrose 55 ml @ 110 mls/hr Q24H IVPB 05/12/20 15:00 05/19/20 14:59 05/13/20 14:54 Dexamethasone (Decadron) 6 mg DAILY ORAL 05/12/20 09:00 05/21/20 09:01 05/13/20 09:19 Dextrose (Dextrose 50%) 25 ml Q30M PRN IV Hypoglycemia 05/12/20 11:00 08/10/20 10:59 Dextrose (Dextrose 50%) 50 ml Q30M PRN IV Hypoglycemia 05/12/20 11:00 08/10/20 10:59 Heparin Sodium (Porcine) (Heparin 5000 units/ml) 5,000 units EVERY 12 HOURS SUBQ 05/11/20 22:00 06/25/20 21:59 05/13/20 09:22 Insulin Aspart (NovoLOG) BEFORE MEALS AND HS SUBQ 05/13/20 10:00 08/10/20 09:59 05/13/20 10:00 Ondansetron HCl (Zofran) 4 mg Q6H PRN IVP Nausea & Vomiting 05/11/20 18:15 06/10/20 18:14 Polyethylene Glycol (Miralax) 17 gm DAILYPRN PRN ORAL Constipation 05/11/20 18:15 06/10/20 18:14 Promethazine HCl/ Codeine (Phenergan with Codeine) 5 ml Q6H PRN ORAL cough 05/11/20 18:15 06/10/20 18:14 05/12/20 22:10 Remdesivir 100 mg/ Sodium Chloride 250 ml @ 250 mls/hr Q24H IV 05/13/20 16:00 05/16/20 16:59 05/13/20 16:14 Carmen Steve M.D. May 13, 2020 16:54
--- NOTE | 2020-05-13 17:10 | History & Physical ---
History and Physical History & Physicial Dictated for Int Med-DR Jung no. [id number] Frederick Chirinos MD May 13, 2020 17:10
[2020-05-13] MEDS ORDERED: Promethazine/Codeine 5ml UD ORAL PRN (17:15)
[2020-05-13] MEDS: Promethazine/Codeine 5ml UD ORAL PRN (17:27)
--- NOTE | 2020-05-13 19:15 | History and Physical Report ---
DATE OF ADMISSION: 05/11/2020 CHIEF COMPLAINT: The patient is a 59-year-old male who presents with chief complaint of increased difficulty breathing. HISTORY OF PRESENT ILLNESS: The patient states he has been feeling ill for about a week. The patient had coronavirus testing on May 12, 2020. COVID test was positive. He wad noted to have a COVID test on May 05, which was positive. The patient began to have increased difficulty breathing on May 11, 2020. The patient is admitted with respiratory distress and probable COVID-19 pneumonia. REVIEW OF SYSTEMS: CONSTITUTIONAL: The patient denies weight loss or weight gain. The patient denies fevers or chills. HEENT: The patient denies ear or throat pain. The patient denies headache. CARDIOVASCULAR: The patient denies palpitations or chest pain. CHEST: The patient complains of shortness of breath as above. The patient denies wheezes or cough. ABDOMEN: The patient denies nausea, vomiting, diarrhea, or constipation. GENITOURINARY: The patient denies dysuria or increased frequency of urination. NEUROMUSCULAR: The patient denies seizures or generalized weakness. PAST MEDICAL HISTORY: Significant for: 1. Type 2 diabetes. 2. Hypertension. PAST SURGICAL HISTORY: The patient denies. CURRENT MEDICATIONS: 1. Lisinopril 10 mg p.o. daily. 2. Metformin 500 mg p.o. twice daily. ALLERGIES: No known drug allergies. SOCIAL HISTORY: The patient is single and lives alone. The patient denies tobacco or alcohol use. PHYSICAL EXAMINATION: VITAL SIGNS: Temperature 100.9, respirations 24, pulse 125, and blood pressure 150/90. GENERAL: The patient is a well-developed, well-nourished male, in no apparent distress. HEENT: Eyes, pupils equal and responsive to light and accommodation. Extraocular movements are intact. NECK: Supple without lymphadenopathy. CHEST: Lungs with decreased breath sounds at bilateral bases without wheezes or rales. CARDIOVASCULAR: Regular rhythm and rate. S1, S2 normal without murmurs, rubs, or gallops. ABDOMEN: Soft, nontender, and nondistended. Positive bowel sounds. No evidence of hepatosplenomegaly. Currently, no rebound or guarding noted. EXTREMITIES: Negative for clubbing, cyanosis, or edema. RECTAL: Not performed. GENITAL: Not performed. NEUROLOGIC: Cranial nerves II through XII are grossly intact without focal deficits. Motor strength is 5/5 bilaterally intact. Deep tendon reflexes are 2+, plantar. LABORATORY AND DIAGNOSTIC DATA: A chest x-ray revealed no acute process. Laboratory studies, WBC 3.5, hemoglobin 13.6, hematocrit 39.4, platelets 132,000. Sodium 137, potassium 4.0, chloride 102, CO2 of 23, BUN 23, creatinine 0.8, and glucose 316. ASSESSMENT: This is a 59-year-old male with: 1. COVID-19 positive. 2. COVID-19 pneumonia. 3. Respiratory failure. 4. Diabetes type 2. 5. Hypertension. TREATMENT: 1. COVID-19 positive/pneumonia. An Infectious Diseases consultation has been obtained with Dr. Craft. Follow recommendations of Infectious Disease. The patient has been started empirically on remdesivir and Decadron per Infectious Disease. The patient has been started on azithromycin intravenously. 2. Respiratory failure. A Pulmonary consultation has been obtained with Dr. Yohannes Gibson. The patient is currently tolerating a simple mask. Follow recommendations of Pulmonary. 3. Diabetes type 2. NovoLog sliding scale has been instituted. 4. Hypertension. Continue lisinopril as above. Frederick Chirinos M.D. DR: Charity JOB#: [id number] CC:
[2020-05-13 20:00] VITALS: BP 151/81
[2020-05-14] VITALS: BP 148/72
[2020-05-14 04:00] VITALS: BP 147/75
[2020-05-14 06:02] LABS: HEMATOCRIT 35.2 % (42.0-52.0); HEMOGLOBIN 12.6 G/DL (14.2-18.0); MEAN CORPUSCULAR VOLUME 80 FL (80-99); PLATELET COUNT 202 K/UL (150-450); RED BLOOD COUNT 4.39 M/UL (4.70-6.10); WHITE BLOOD COUNT 8.7 K/UL (4.8-10.8)
[2020-05-14] MEDS: NovoLOG Insulin Flexpen SUBQ SCH ×4 (06:10→20:37)
[2020-05-14 06:42] LABS: ALANINE AMINOTRANSFERASE 62 U/L (12-78); ALBUMIN 2.6 G/DL (3.4-5.0); ALBUMIN/GLOBULIN RATIO 0.7 (1.0-2.7); ALKALINE PHOSPHATASE 104 U/L (46-116); ANION GAP 9 mmol/L (5-15); ASPARTATE AMINO TRANSFERASE 50 U/L (15-37); BILIRUBIN,DIRECT 0.1 MG/DL (0.0-0.3); BILIRUBIN,TOTAL 0.4 MG/DL (0.2-1.0); BLOOD UREA NITROGEN 26 mg/dL (7-18); CALCIUM 7.8 MG/DL (8.5-10.1); CARBON DIOXIDE 27 MMOL/L (21-32); CHLORIDE 103 MMOL/L (98-107); CREATININE 0.7 MG/DL (0.55-1.30); POTASSIUM 3.8 MMOL/L (3.5-5.1); SODIUM 139 MMOL/L (136-145)
[2020-05-14 08:19] VITALS: BP 141/69
[2020-05-14] MEDS: Promethazine/Codeine 5ml UD ORAL PRN (09:13)
[2020-05-14] MEDS: Heparin 5000 units/ml inj SUBQ SCH ×2 (09:21→20:40)
--- NOTE | 2020-05-14 11:08 | Diagnostic Imaging Report ---
EXAM: XR Chest, 1 View CLINICAL HISTORY: COUGH TECHNIQUE: Frontal view of the chest. COMPARISON: Chest x-rays dated 05/11/20 FINDINGS: Lungs: Mildly increased interstitial markings. The lungs are otherwise clear without focal consolidation. Pleural space: Unremarkable. The costophrenic angles are sharp. No visible pneumothorax. Heart: Unremarkable. No cardiomegaly. Mediastinum: Unremarkable. Bones/joints: Unremarkable. IMPRESSION: Mildly increased interstitial markings. This is nonspecific but may suggest mild pulmonary vascular congestion or pneumonitis. No focal consolidation.
[2020-05-14 12:00] VITALS: BP 138/72
--- NOTE | 2020-05-14 14:16 | Internal Med Progress Note ---
Subjective Date of Service: May 14, 2020 Physician Name Frederick Chirinos Attending Physician Daniel Jung MD Current Medications Medications (Trade) Dose Ordered Sig/Vasiliy Route PRN Reason Start Time Stop Time Status Last Admin Dose Admin Acetaminophen (Tylenol) 650 mg Q4H PRN ORAL Temp >100.5 05/11/20 18:15 06/10/20 18:14 Albuterol/ Ipratropium (Combivent Respimat) 1 puff Q4H PRN INH Shortness of Breath 05/11/20 21:30 06/10/20 21:29 Azithromycin 250 mg/Dextrose 275 ml @ 275 mls/hr Q24HRS IV 05/12/20 15:00 05/17/20 14:59 05/13/20 15:00 Ceftriaxone Sodium 1 gm/ Dextrose 55 ml @ 110 mls/hr Q24H IVPB 05/12/20 15:00 05/19/20 14:59 05/13/20 14:54 Dexamethasone (Decadron) 6 mg DAILY ORAL 05/12/20 09:00 05/21/20 09:01 05/14/20 09:13 Dextrose (Dextrose 50%) 25 ml Q30M PRN IV Hypoglycemia 05/12/20 11:00 08/10/20 10:59 Dextrose (Dextrose 50%) 50 ml Q30M PRN IV Hypoglycemia 05/12/20 11:00 08/10/20 10:59 Heparin Sodium (Porcine) (Heparin 5000 units/ml) 5,000 units EVERY 12 HOURS SUBQ 05/11/20 22:00 06/25/20 21:59 05/14/20 09:21 Insulin Aspart (NovoLOG) BEFORE MEALS AND HS SUBQ 05/13/20 10:00 08/10/20 09:59 05/14/20 11:29 Ondansetron HCl (Zofran) 4 mg Q6H PRN IVP Nausea & Vomiting 05/11/20 18:15 06/10/20 18:14 Polyethylene Glycol (Miralax) 17 gm DAILYPRN PRN ORAL Constipation 05/11/20 18:15 06/10/20 18:14 Promethazine HCl/ Codeine (Phenergan with Codeine) 5 ml Q4H PRN ORAL For Cough 05/13/20 17:15 06/12/20 17:14 05/13/20 22:50 Remdesivir 100 mg/ Sodium Chloride 250 ml @ 250 mls/hr Q24H IV 05/13/20 16:00 05/16/20 16:59 05/13/20 16:14 Allergies: Coded Allergies: No Known Allergies (Unverified , 05/11/20) ROS Limited/Unobtainable: Yes Subjective 59 YO M admitted with respiratory failure. Now COVID 19 pneumonia. Cover for Int Med-DR Jung. Step down unit Objective Last Vital Signs Date Time Temp Pulse Resp B/P (MAP) Pulse Ox O2 Delivery O2 Flow Rate FiO2 05/14/20 12:18 98 05/14/20 12:00 97.4 16 138/72 (94) 96 05/14/20 11:13 Non-Rebreather 15.0 05/13/20 19:44 100 Laboratory Tests Test 05/13/20 17:40 05/13/20 20:10 05/14/20 03:30 05/14/20 05:55 POC Whole Blood Glucose 315 MG/DL (74-106) H 296 MG/DL (74-106) H 229 MG/DL (74-106) H White Blood Count 8.7 K/UL (4.8-10.8) Red Blood Count 4.39 M/UL (4.70-6.10) L Hemoglobin 12.6 G/DL (14.2-18.0) L Hematocrit 35.2 % (42.0-52.0) L Mean Corpuscular Volume 80 FL (80-99) Mean Corpuscular Hemoglobin 28.6 PG (27.0-31.0) Mean Corpuscular Hemoglobin Concent 35.7 G/DL (32.0-36.0) Red Cell Distribution Width 13.0 % (11.6-14.8) Platelet Count 202 K/UL (150-450) Mean Platelet Volume 6.7 FL (6.5-10.1) Neutrophils (%) (Auto) % (45.0-75.0) Lymphocytes (%) (Auto) % (20.0-45.0) Monocytes (%) (Auto) % (1.0-10.0) Eosinophils (%) (Auto) % (0.0-3.0) Basophils (%) (Auto) % (0.0-2.0) Differential Total Cells Counted 100 Neutrophils % (Manual) 86 % (45-75) H Lymphocytes % (Manual) 6 % (20-45) L Monocytes % (Manual) 8 % (1-10) Eosinophils % (Manual) 0 % (0-3) Basophils % (Manual) 0 % (0-2) Band Neutrophils 0 % (0-8) Platelet Estimate Adequate Platelet Morphology Normal Red Blood Cell Morphology Normal Sodium Level 139 MMOL/L (136-145) Potassium Level 3.8 MMOL/L (3.5-5.1) Chloride Level 103 MMOL/L (98-107) Carbon Dioxide Level 27 MMOL/L (21-32) Anion Gap 9 mmol/L (5-15) Blood Urea Nitrogen 26 mg/dL (7-18) H Creatinine 0.7 MG/DL (0.55-1.30) Estimat Glomerular Filtration Rate > 60 mL/min (>60) Glucose Level 227 MG/DL (74-106) H Calcium Level 7.8 MG/DL (8.5-10.1) L Total Bilirubin 0.4 MG/DL (0.2-1.0) Direct Bilirubin 0.1 MG/DL (0.0-0.3) Aspartate Amino Transf (AST/SGOT) 50 U/L (15-37) H Alanine Aminotransferase (ALT/SGPT) 62 U/L (12-78) Alkaline Phosphatase 104 U/L (46-116) Total Protein 6.5 G/DL (6.4-8.2) Albumin 2.6 G/DL (3.4-5.0) L Globulin 3.9 g/dL Albumin/Globulin Ratio 0.7 (1.0-2.7) L Microbiology Date/Time Source Procedure Growth Status 05/11/20 15:40 Nasal Nares - Final Complete 05/11/20 15:40 Nasal Nares - Final Complete 05/11/20 15:40 Nasopharynx Coronavirus COVID-19 PCR ([facility]) - Final Complete Intake and Output 05/13/20 05/14/20 19:00 07:00 Intake Total 630 ml 240 ml Output Total 400 ml Balance 630 ml -160 ml Intake Oral 630 ml 240 ml Output Urine Total 400 ml # Voids 2 2 Objective PHYSICAL EXAMINATION: GENERAL: The patient is a well-developed, well-nourished male, in no apparent distress. HEENT: Eyes, pupils equal and responsive to light and accommodation. Extraocular movements are intact. NECK: Supple without lymphadenopathy. CHEST: Nonrebreather mask; Lungs with decreased breath sounds at bilateral bases without wheezes or rales. CARDIOVASCULAR: Regular rhythm and rate. S1, S2 normal without murmurs, rubs, or gallops. ABDOMEN: Soft, nontender, and nondistended. Positive bowel sounds. No evidence of hepatosplenomegaly. Currently, no rebound or guarding noted. EXTREMITIES: Negative for clubbing, cyanosis, or edema. RECTAL: Not performed. GENITAL: Not performed. NEUROLOGIC: Cranial nerves II through XII are grossly intact without focal deficits. Motor strength is 5/5 bilaterally intact. Deep tendon reflexes are 2+ bilat Assessment/Plan Assessment/Plan ASSESSMENT: This is a 59-year-old male with: 1. COVID-19 positive. 2. COVID-19 pneumonia. 3. Respiratory failure. 4. Diabetes type 2. 5. Hypertension. TREATMENT: 1. COVID-19 positive/pneumonia. Infectious Disease= Dr. Craft. Follow recommendations of Infectious Disease. Continue remdesivir and Decadron per Infectious Disease. ABX= azithromycin and ceftriaxone 2. Respiratory failure. Pulmonary/critical care= Dr. Yohannes Gibson. The patient is currently on 100% nonrebreather mask. Follow recommendations of Pulmonary. 3. Diabetes type 2. NovoLog sliding scale has been instituted. 4. Hypertension. Continue lisinopril as above. Frederick Chirinos MD May 14, 2020 14:16
[2020-05-14] MEDS: cefTRIAXone 1 GM in D5W 55 ML IVPB SCH (15:00)
[2020-05-14] MEDS: Azithromycin 250 MG in D5W 275 ML IV SCH (15:00)
[2020-05-14 15:51] VITALS: BP 147/75
[2020-05-14] MEDS: Maintenance Dose:Remdesivir 100mg/NS 230ml x 4 Doses IV SCH ×2 (16:25)
[2020-05-14 20:00] VITALS: BP 159/83
[2020-05-15] VITALS: BP 162/91
[2020-05-15 04:00] VITALS: BP 151/73
[2020-05-15] MEDS: NovoLOG Insulin Flexpen SUBQ SCH ×7 (05:41→20:45)
[2020-05-15 07:10] LABS: ALANINE AMINOTRANSFERASE 73 U/L (12-78); ALBUMIN 2.6 G/DL (3.4-5.0); ALBUMIN/GLOBULIN RATIO 0.7 (1.0-2.7); ALKALINE PHOSPHATASE 117 U/L (46-116); ANION GAP 8 mmol/L (5-15); ASPARTATE AMINO TRANSFERASE 46 U/L (15-37); BILIRUBIN,DIRECT 0.1 MG/DL (0.0-0.3); BILIRUBIN,TOTAL 0.4 MG/DL (0.2-1.0); BLOOD UREA NITROGEN 20 mg/dL (7-18); CALCIUM 7.8 MG/DL (8.5-10.1); CARBON DIOXIDE 29 MMOL/L (21-32); CHLORIDE 102 MMOL/L (98-107); CREATININE 0.5 MG/DL (0.55-1.30); POTASSIUM 3.5 MMOL/L (3.5-5.1); SODIUM 138 MMOL/L (136-145)
[2020-05-15 07:15] LABS: BASOPHILS % (AUTO) 0.1 % (0.0-2.0); EOSINOPHILS % (AUTO) 0.2 % (0.0-3.0); HEMATOCRIT 36.2 % (42.0-52.0); HEMOGLOBIN 12.9 G/DL (14.2-18.0); LYMPHOCYTES % (AUTO) 6.1 % (20.0-45.0); MEAN CORPUSCULAR VOLUME 80 FL (80-99); MONOCYTES % (AUTO) 9.9 % (1.0-10.0); NEUTROPHILS % (AUTO) 83.7 % (45.0-75.0); PLATELET COUNT 242 K/UL (150-450); RED BLOOD COUNT 4.54 M/UL (4.70-6.10); RED CELL DISTRIBUTION WIDTH 12.9 % (11.6-14.8)
--- NOTE | 2020-05-15 07:15 | Consultation ---
DATE OF CONSULTATION: 05/15/2020 ENDOCRINOLOGY CONSULTATION CONSULTING PHYSICIAN: Jose Brown MD. REFERRING PHYSICIAN: Daniel Jung MD. REASON FOR CONSULTATION: Diabetes management. HISTORY OF PRESENT ILLNESS: The patient is a 59-year-old male with past medical history of diabetes on metformin therapy who presents to the hospital with COVID pneumonia, admitted in the isolation. The patient is started on dexamethasone which raised the glucose. Endocrinology was consulted. PAST MEDICAL HISTORY: Type 2 diabetes. PAST SURGICAL HISTORY: None. ALLERGIES TO MEDICATIONS: None. MEDICATIONS: Reviewed and reconciled. FAMILY HISTORY: Diabetes. SOCIAL HISTORY: No smoking, alcohol, or drug use. REVIEW OF SYSTEMS: As per HPI. LABORATORY VALUES: WBC 8.7, hemoglobin 12.6, hematocrit 35.2, platelets of 203. Sodium 139, potassium 3.8, chloride 103, bicarb 27, BUN 26, creatinine 0.7. DIAGNOSES: 1. Diabetes out of control exacerbated by steroids. 2. COVID pneumonia. PLAN: 1. Start Levemir 14 units daily. 2. Start NovoLog 6 units before each meal. 3. NovoLog sliding scale before meals and at bedtime. 4. Further adjustment according to blood glucose values. Thank you Dr. Jung, for the courtesy of this consultation. Jose Brown M.D. DR: Alexis JOB#: [id number] CC: ROBERTO CARLOS
[2020-05-15 08:00] VITALS: BP 165/77
[2020-05-15] MEDS: Heparin 5000 units/ml inj SUBQ SCH ×2 (08:44→20:44)
[2020-05-15] MEDS: Levemir Flexpen SUBQ SCH (08:44)
--- NOTE | 2020-05-15 08:54 | Pulmonology Progress Note ---
Subjective ROS Limited/Unobtainable: No Interval Events: still on 100% NRM Allergies: Coded Allergies: No Known Allergies (Unverified , 05/11/20) Objective Last 24 Hour Vital Signs Date Time Temp Pulse Resp B/P (MAP) Pulse Ox O2 Delivery O2 Flow Rate FiO2 05/15/20 08:00 97.1 88 22 165/77 (106) 97 05/15/20 04:00 96.1 74 20 151/73 (99) 100 05/15/20 04:00 Non-Rebreather 15.0 05/15/20 03:37 88 05/15/20 00:00 97.3 83 20 162/91 (114) 100 05/15/20 00:00 Non-Rebreather 15.0 05/14/20 23:28 79 05/14/20 20:00 Non-Rebreather 15.0 05/14/20 20:00 98.2 94 22 159/83 (108) 98 05/14/20 19:54 88 05/14/20 19:11 100 Non-Rebreather 15.0 100 05/14/20 16:00 94 05/14/20 15:51 98.2 89 20 147/75 (99) 98 05/14/20 15:51 Non-Rebreather 15.0 05/14/20 12:18 98 05/14/20 12:00 97.4 101 16 138/72 (94) 96 05/14/20 11:13 Non-Rebreather 15.0 Intake and Output 05/14/20 05/15/20 19:00 07:00 Intake Total 600 ml 100 ml Balance 600 ml 100 ml Intake Oral 600 ml 100 ml # Voids 2 2 General Appearance: cachetic HEENT: normocephalic, atraumatic Respiratory: chest wall non-tender, lungs clear Cardiovascular: normal peripheral pulses, normal rate, regular rhythm Abdomen: normal bowel sounds, soft, non tender Genitourinary: normal external genitalia Skin: no rash 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: 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 II-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 grossly normal Laboratory Tests 05/14/20 20:34: POC Whole Blood Glucose 317H 05/15/20 03:31: White Blood Count 9.0, Red Blood Count 4.54L, Hemoglobin 12.9L, Hematocrit 36.2L , Mean Corpuscular Volume 80, Mean Corpuscular Hemoglobin 28.4, Mean Corpuscular Hemoglobin Concent 35.7, Red Cell Distribution Width 12.9, Platelet Count 242, Mean Platelet Volume 6.6, Neutrophils (%) (Auto) 83.7H, Lymphocytes (%) (Auto) 6.1L, Monocytes (%) (Auto) 9.9, Eosinophils (%) (Auto) 0.2, Basophils (%) (Auto) 0.1, Sodium Level 138, Potassium Level 3.5, Chloride Level 102, Carbon Dioxide Level 29, Anion Gap 8, Blood Urea Nitrogen 20H, Creatinine 0.5L, Estimat Glomerular Filtration Rate > 60, Glucose Level 217H, Calcium Level 7.8L, Total Bilirubin 0.4, Direct Bilirubin 0.1, Aspartate Amino Transf (AST/SGOT) 46H, Alanine Aminotransferase (ALT/SGPT) 73, Alkaline Phosphatase 117H, Total Protein 6.4, Albumin 2.6L, Globulin 3.8, Albumin/Globulin Ratio 0.7L 05/15/20 05:34: POC Whole Blood Glucose 216H Current Medications Medications (Trade) Dose Ordered Sig/Vasiliy Route PRN Reason Start Time Stop Time Status Last Admin Dose Admin Acetaminophen (Tylenol) 650 mg Q4H PRN ORAL Temp >100.5 05/11/20 18:15 06/10/20 18:14 Albuterol/ Ipratropium (Combivent Respimat) 1 puff Q4H PRN INH Shortness of Breath 05/11/20 21:30 06/10/20 21:29 Azithromycin 250 mg/Dextrose 275 ml @ 275 mls/hr Q24HRS IV 05/12/20 15:00 05/17/20 14:59 05/14/20 15:00 Ceftriaxone Sodium 1 gm/ Dextrose 55 ml @ 110 mls/hr Q24H IVPB 05/12/20 15:00 05/19/20 14:59 05/14/20 15:00 Dexamethasone (Decadron) 6 mg DAILY ORAL 05/12/20 09:00 05/21/20 09:01 05/15/20 08:42 Dextrose (Dextrose 50%) 25 ml Q30M PRN IV Hypoglycemia 05/12/20 11:00 08/10/20 10:59 Dextrose (Dextrose 50%) 50 ml Q30M PRN IV Hypoglycemia 05/12/20 11:00 08/10/20 10:59 Heparin Sodium (Porcine) (Heparin 5000 units/ml) 5,000 units EVERY 12 HOURS SUBQ 05/11/20 22:00 06/25/20 21:59 05/15/20 08:44 Insulin Aspart (NovoLOG) BEFORE MEALS AND HS SUBQ 05/13/20 10:00 08/10/20 09:59 05/15/20 05:41 Insulin Aspart (NovoLOG) 6 units NOVOTIAC SUBQ 05/15/20 06:30 08/13/20 06:29 Insulin Detemir (Levemir) 14 units DAILY SUBQ 05/15/20 09:00 08/13/20 08:59 05/15/20 08:44 Ondansetron HCl (Zofran) 4 mg Q6H PRN IVP Nausea & Vomiting 05/11/20 18:15 06/10/20 18:14 Polyethylene Glycol (Miralax) 17 gm DAILYPRN PRN ORAL Constipation 05/11/20 18:15 06/10/20 18:14 Promethazine HCl/ Codeine (Phenergan with Codeine) 5 ml Q4H PRN ORAL For Cough 05/13/20 17:15 06/12/20 17:14 05/13/20 22:50 Remdesivir 100 mg/ Sodium Chloride 250 ml @ 250 mls/hr Q24H IV 05/13/20 16:00 05/16/20 16:59 05/14/20 16:25 Assessment/Plan Problems: (1) Acute respiratory failure (2) Coronavirus infection (3) Diabetes Assessment/Plan still needs NRM on Remdesivir and Decadron sliding scale BS better Endo note appreciated. Yohannes Gibson MD May 15, 2020 08:54
--- NOTE | 2020-05-15 08:58 | Infectious Diseases Prog Note ---
Assessment/Plan 59yo M with: Febrile to 100.9; SP Normal WBC Lymphopenia Hypoxic resp failure / COVID pna, on NRB mask Severe COVID pna, tested positive 05/05 05/05 COVID positive 05/11 BCx NTD Resp cx p COVID PCR+ CXR: No acute process Influenza EIA neg 05/14 CXR: Mildly increased interstitial markings. This is nonspecific but m ay suggest mild pulmonary vascular congestion or pneumonitis. No focal consolidation. BLE US neg for DVT DM2 Plan: Cont remdesivir #4/5 Cont CTX/azithro #5/5 Cont dexamethasone 6mg daily #10/16 This medical center does not have convalescent plasma, and as pt 1 week out from diagnosis, unlikely to benefit from it at this point Monitor CBC/CMP Monitor temp curve, hemodynamics Monitor resp status CXR am D/w RN Thank you for this consult. [facility] will continue to follow. Subjective Allergies: Coded Allergies: No Known Allergies (Unverified , 05/11/20) AF WBC 9.0 On 15L NRB mask NAD, sitting up on side of bed, eating lunch, feels that breathing is slightly improving Objective Last 24 Hour Vital Signs Date Time Temp Pulse Resp B/P (MAP) Pulse Ox O2 Delivery O2 Flow Rate FiO2 05/15/20 08:00 97.1 88 22 165/77 (106) 97 05/15/20 04:00 96.1 74 20 151/73 (99) 100 05/15/20 04:00 Non-Rebreather 15.0 05/15/20 03:37 88 05/15/20 00:00 97.3 83 20 162/91 (114) 100 05/15/20 00:00 Non-Rebreather 15.0 05/14/20 23:28 79 05/14/20 20:00 Non-Rebreather 15.0 05/14/20 20:00 98.2 94 22 159/83 (108) 98 05/14/20 19:54 88 05/14/20 19:11 100 Non-Rebreather 15.0 100 05/14/20 16:00 94 05/14/20 15:51 98.2 89 20 147/75 (99) 98 05/14/20 15:51 Non-Rebreather 15.0 05/14/20 12:18 98 05/14/20 12:00 97.4 101 16 138/72 (94) 96 05/14/20 11:13 Non-Rebreather 15.0 Height (Feet): 5 Height (Inches): 5.00 Weight (Pounds): 149 Gen: NAD HEENT: NCAT Pulm: BL chest rise Abd: Non-distended Ext: No c/c/e Skin: No visible rashes Neuro: Awake Laboratory Tests Test 05/14/20 20:34 05/15/20 03:31 05/15/20 05:34 POC Whole Blood Glucose 317 MG/DL (74-106) H 216 MG/DL (74-106) H White Blood Count 9.0 K/UL (4.8-10.8) Red Blood Count 4.54 M/UL (4.70-6.10) L Hemoglobin 12.9 G/DL (14.2-18.0) L Hematocrit 36.2 % (42.0-52.0) L Mean Corpuscular Volume 80 FL (80-99) Mean Corpuscular Hemoglobin 28.4 PG (27.0-31.0) Mean Corpuscular Hemoglobin Concent 35.7 G/DL (32.0-36.0) Red Cell Distribution Width 12.9 % (11.6-14.8) Platelet Count 242 K/UL (150-450) Mean Platelet Volume 6.6 FL (6.5-10.1) Neutrophils (%) (Auto) 83.7 % (45.0-75.0) H Lymphocytes (%) (Auto) 6.1 % (20.0-45.0) L Monocytes (%) (Auto) 9.9 % (1.0-10.0) Eosinophils (%) (Auto) 0.2 % (0.0-3.0) Basophils (%) (Auto) 0.1 % (0.0-2.0) Sodium Level 138 MMOL/L (136-145) Potassium Level 3.5 MMOL/L (3.5-5.1) Chloride Level 102 MMOL/L (98-107) Carbon Dioxide Level 29 MMOL/L (21-32) Anion Gap 8 mmol/L (5-15) Blood Urea Nitrogen 20 mg/dL (7-18) H Creatinine 0.5 MG/DL (0.55-1.30) L Estimat Glomerular Filtration Rate > 60 mL/min (>60) Glucose Level 217 MG/DL (74-106) H Calcium Level 7.8 MG/DL (8.5-10.1) L Total Bilirubin 0.4 MG/DL (0.2-1.0) Direct Bilirubin 0.1 MG/DL (0.0-0.3) Aspartate Amino Transf (AST/SGOT) 46 U/L (15-37) H Alanine Aminotransferase (ALT/SGPT) 73 U/L (12-78) Alkaline Phosphatase 117 U/L (46-116) H Total Protein 6.4 G/DL (6.4-8.2) Albumin 2.6 G/DL (3.4-5.0) L Globulin 3.8 g/dL Albumin/Globulin Ratio 0.7 (1.0-2.7) L Current Medications Medications (Trade) Dose Ordered Sig/Vasiliy Route PRN Reason Start Time Stop Time Status Last Admin Dose Admin Acetaminophen (Tylenol) 650 mg Q4H PRN ORAL Temp >100.5 05/11/20 18:15 06/10/20 18:14 Albuterol/ Ipratropium (Combivent Respimat) 1 puff Q4H PRN INH Shortness of Breath 05/11/20 21:30 06/10/20 21:29 Azithromycin 250 mg/Dextrose 275 ml @ 275 mls/hr Q24HRS IV 05/12/20 15:00 05/17/20 14:59 05/14/20 15:00 Ceftriaxone Sodium 1 gm/ Dextrose 55 ml @ 110 mls/hr Q24H IVPB 05/12/20 15:00 05/19/20 14:59 05/14/20 15:00 Dexamethasone (Decadron) 6 mg DAILY ORAL 05/12/20 09:00 05/21/20 09:01 05/15/20 08:42 Dextrose (Dextrose 50%) 25 ml Q30M PRN IV Hypoglycemia 05/12/20 11:00 08/10/20 10:59 Dextrose (Dextrose 50%) 50 ml Q30M PRN IV Hypoglycemia 05/12/20 11:00 08/10/20 10:59 Heparin Sodium (Porcine) (Heparin 5000 units/ml) 5,000 units EVERY 12 HOURS SUBQ 05/11/20 22:00 06/25/20 21:59 05/15/20 08:44 Insulin Aspart (NovoLOG) BEFORE MEALS AND HS SUBQ 05/13/20 10:00 08/10/20 09:59 05/15/20 05:41 Insulin Aspart (NovoLOG) 6 units NOVOTIAC SUBQ 05/15/20 06:30 08/13/20 06:29 Insulin Detemir (Levemir) 14 units DAILY SUBQ 05/15/20 09:00 08/13/20 08:59 05/15/20 08:44 Ondansetron HCl (Zofran) 4 mg Q6H PRN IVP Nausea & Vomiting 05/11/20 18:15 06/10/20 18:14 Polyethylene Glycol (Miralax) 17 gm DAILYPRN PRN ORAL Constipation 05/11/20 18:15 06/10/20 18:14 Promethazine HCl/ Codeine (Phenergan with Codeine) 5 ml Q4H PRN ORAL For Cough 05/13/20 17:15 06/12/20 17:14 05/13/20 22:50 Remdesivir 100 mg/ Sodium Chloride 250 ml @ 250 mls/hr Q24H IV 05/13/20 16:00 05/16/20 16:59 05/14/20 16:25 Meme Leggett M.D. May 15, 2020 08:58
[2020-05-15 12:00] VITALS: BP 158/83
--- NOTE | 2020-05-15 13:05 | Internal Med Progress Note ---
Subjective Date of Service: May 15, 2020 Physician Name Frederick Chirinos Attending Physician Daniel Jung MD Current Medications Medications (Trade) Dose Ordered Sig/Vasiliy Route PRN Reason Start Time Stop Time Status Last Admin Dose Admin Acetaminophen (Tylenol) 650 mg Q4H PRN ORAL Temp >100.5 05/11/20 18:15 06/10/20 18:14 Albuterol/ Ipratropium (Combivent Respimat) 1 puff Q4H PRN INH Shortness of Breath 05/11/20 21:30 06/10/20 21:29 Azithromycin 250 mg/Dextrose 275 ml @ 275 mls/hr Q24HRS IV 05/12/20 15:00 05/17/20 14:59 05/14/20 15:00 Ceftriaxone Sodium 1 gm/ Dextrose 55 ml @ 110 mls/hr Q24H IVPB 05/12/20 15:00 05/19/20 14:59 05/14/20 15:00 Dexamethasone (Decadron) 6 mg DAILY ORAL 05/12/20 09:00 05/21/20 09:01 05/15/20 08:42 Dextrose (Dextrose 50%) 25 ml Q30M PRN IV Hypoglycemia 05/12/20 11:00 08/10/20 10:59 Dextrose (Dextrose 50%) 50 ml Q30M PRN IV Hypoglycemia 05/12/20 11:00 08/10/20 10:59 Heparin Sodium (Porcine) (Heparin 5000 units/ml) 5,000 units EVERY 12 HOURS SUBQ 05/11/20 22:00 06/25/20 21:59 05/15/20 08:44 Insulin Aspart (NovoLOG) BEFORE MEALS AND HS SUBQ 05/13/20 10:00 08/10/20 09:59 05/15/20 12:16 Insulin Aspart (NovoLOG) 6 units NOVOTIAC SUBQ 05/15/20 06:30 08/13/20 06:29 05/15/20 12:17 Insulin Detemir (Levemir) 14 units DAILY SUBQ 05/15/20 09:00 08/13/20 08:59 05/15/20 08:44 Ondansetron HCl (Zofran) 4 mg Q6H PRN IVP Nausea & Vomiting 05/11/20 18:15 06/10/20 18:14 Polyethylene Glycol (Miralax) 17 gm DAILYPRN PRN ORAL Constipation 05/11/20 18:15 06/10/20 18:14 Promethazine HCl/ Codeine (Phenergan with Codeine) 5 ml Q4H PRN ORAL For Cough 05/13/20 17:15 06/12/20 17:14 05/13/20 22:50 Remdesivir 100 mg/ Sodium Chloride 250 ml @ 250 mls/hr Q24H IV 05/13/20 16:00 05/16/20 16:59 05/14/20 16:25 Allergies: Coded Allergies: No Known Allergies (Unverified , 05/11/20) ROS Limited/Unobtainable: No Constitutional: Reports: no symptoms HEENT: Reports: no symptoms Cardiovascular: Reports: no symptoms Respiratory: Reports: shortness of breath Gastrointestinal/Abdominal: Reports: no symptoms Genitourinary: Reports: no symptoms Neurologic/Psychiatric: Reports: no symptoms Subjective 59 YO M admitted with respiratory failure. Now COVID 19 pneumonia. Cover for Int Med-DR Jung. Step down unit Objective Last Vital Signs Date Time Temp Pulse Resp B/P (MAP) Pulse Ox O2 Delivery O2 Flow Rate FiO2 05/15/20 08:00 Non-Rebreather 15.0 05/15/20 08:00 90 05/15/20 08:00 97.1 22 165/77 (106) 97 05/14/20 19:11 100 Laboratory Tests Test 05/14/20 20:34 05/15/20 03:31 05/15/20 05:34 05/15/20 12:09 POC Whole Blood Glucose 317 MG/DL (74-106) H 216 MG/DL (74-106) H Pending White Blood Count 9.0 K/UL (4.8-10.8) Red Blood Count 4.54 M/UL (4.70-6.10) L Hemoglobin 12.9 G/DL (14.2-18.0) L Hematocrit 36.2 % (42.0-52.0) L Mean Corpuscular Volume 80 FL (80-99) Mean Corpuscular Hemoglobin 28.4 PG (27.0-31.0) Mean Corpuscular Hemoglobin Concent 35.7 G/DL (32.0-36.0) Red Cell Distribution Width 12.9 % (11.6-14.8) Platelet Count 242 K/UL (150-450) Mean Platelet Volume 6.6 FL (6.5-10.1) Neutrophils (%) (Auto) 83.7 % (45.0-75.0) H Lymphocytes (%) (Auto) 6.1 % (20.0-45.0) L Monocytes (%) (Auto) 9.9 % (1.0-10.0) Eosinophils (%) (Auto) 0.2 % (0.0-3.0) Basophils (%) (Auto) 0.1 % (0.0-2.0) Sodium Level 138 MMOL/L (136-145) Potassium Level 3.5 MMOL/L (3.5-5.1) Chloride Level 102 MMOL/L (98-107) Carbon Dioxide Level 29 MMOL/L (21-32) Anion Gap 8 mmol/L (5-15) Blood Urea Nitrogen 20 mg/dL (7-18) H Creatinine 0.5 MG/DL (0.55-1.30) L Estimat Glomerular Filtration Rate > 60 mL/min (>60) Glucose Level 217 MG/DL (74-106) H Calcium Level 7.8 MG/DL (8.5-10.1) L Total Bilirubin 0.4 MG/DL (0.2-1.0) Direct Bilirubin 0.1 MG/DL (0.0-0.3) Aspartate Amino Transf (AST/SGOT) 46 U/L (15-37) H Alanine Aminotransferase (ALT/SGPT) 73 U/L (12-78) Alkaline Phosphatase 117 U/L (46-116) H Total Protein 6.4 G/DL (6.4-8.2) Albumin 2.6 G/DL (3.4-5.0) L Globulin 3.8 g/dL Albumin/Globulin Ratio 0.7 (1.0-2.7) L Intake and Output 05/14/20 05/15/20 19:00 07:00 Intake Total 600 ml 100 ml Balance 600 ml 100 ml Intake Oral 600 ml 100 ml # Voids 2 2 Objective PHYSICAL EXAMINATION: GENERAL: The patient is a well-developed, well-nourished male, in no apparent distress. HEENT: Eyes, pupils equal and responsive to light and accommodation. Extraocular movements are intact. NECK: Supple without lymphadenopathy. CHEST: Nonrebreather mask; Lungs with decreased breath sounds at bilateral bases without wheezes or rales. CARDIOVASCULAR: Regular rhythm and rate. S1, S2 normal without murmurs, rubs, or gallops. ABDOMEN: Soft, nontender, and nondistended. Positive bowel sounds. No evidence of hepatosplenomegaly. Currently, no rebound or guarding noted. EXTREMITIES: Negative for clubbing, cyanosis, or edema. RECTAL: Not performed. GENITAL: Not performed. NEUROLOGIC: Cranial nerves II through XII are grossly intact without focal deficits. Motor strength is 5/5 bilaterally intact. Deep tendon reflexes are 2+ bilat Assessment/Plan Assessment/Plan ASSESSMENT: This is a 59-year-old male with: 1. COVID-19 positive. 2. COVID-19 pneumonia. 3. Respiratory failure. 4. Diabetes type 2. 5. Hypertension. TREATMENT: 1. COVID-19 positive/pneumonia. Infectious Disease= Dr. Craft. Follow recommendations of Infectious Disease. Continue remdesivir and Decadron per Infectious Disease. ABX= azithromycin and ceftriaxone 2. Respiratory failure. Pulmonary/critical care= Dr. Yohannes Gibson. The patient is currently on 100% nonrebreather mask. Follow recommendations of Pulmonary. 3. Diabetes type 2. NovoLog sliding scale has been instituted. 4. Hypertension. Continue lisinopril as above. Frederick Chirinos MD May 15, 2020 13:05
[2020-05-15] MEDS: cefTRIAXone 1 GM in D5W 55 ML IVPB SCH (15:07)
[2020-05-15] MEDS: Azithromycin 250 MG in D5W 275 ML IV SCH (15:09)
[2020-05-15 15:52] VITALS: BP 164/92
[2020-05-15] MEDS: Maintenance Dose:Remdesivir 100mg/NS 230ml x 4 Doses IV SCH ×2 (17:20)
[2020-05-15 20:00] VITALS: BP 168/94
[2020-05-16] VITALS (7 sets, daily range): BP systolic 132–167; BP diastolic 59–90
[2020-05-16 05:00] LABS: BASOPHILS % (AUTO) 0.4 % (0.0-2.0); HEMATOCRIT 36.3 % (42.0-52.0); HEMOGLOBIN 13.3 G/DL (14.2-18.0); LYMPHOCYTES % (AUTO) 7.5 % (20.0-45.0); MEAN CORPUSCULAR VOLUME 79 FL (80-99); MONOCYTES % (AUTO) 8.8 % (1.0-10.0); NEUTROPHILS % (AUTO) 83.4 % (45.0-75.0); PLATELET COUNT 331 K/UL (150-450); RED BLOOD COUNT 4.61 M/UL (4.70-6.10); RED CELL DISTRIBUTION WIDTH 12.7 % (11.6-14.8); WHITE BLOOD COUNT 10.5 K/UL (4.8-10.8)
[2020-05-16 05:42] LABS: PHOSPHORUS 3.4 MG/DL (2.5-4.9)
[2020-05-16 05:48] LABS: ALANINE AMINOTRANSFERASE 73 U/L (12-78); ALBUMIN 2.7 G/DL (3.4-5.0); ALBUMIN/GLOBULIN RATIO 0.7 (1.0-2.7); ALKALINE PHOSPHATASE 114 U/L (46-116); ASPARTATE AMINO TRANSFERASE 35 U/L (15-37); BILIRUBIN,DIRECT 0.1 MG/DL (0.0-0.3); BILIRUBIN,TOTAL 0.6 MG/DL (0.2-1.0); BLOOD UREA NITROGEN 20 mg/dL (7-18); CALCIUM 7.9 MG/DL (8.5-10.1); CARBON DIOXIDE 28 MMOL/L (21-32); CHLORIDE 102 MMOL/L (98-107); CREATININE 0.6 MG/DL (0.55-1.30); POTASSIUM 3.4 MMOL/L (3.5-5.1); SODIUM 138 MMOL/L (136-145)
[2020-05-16] MEDS: NovoLOG Insulin Flexpen SUBQ SCH ×7 (06:24→22:07)
--- NOTE | 2020-05-16 06:32 | General Progress Note ---
Subjective ROS Limited/Unobtainable: Yes Allergies: Coded Allergies: No Known Allergies (Unverified , 05/11/20) Subjective events noted fasting glucose improved mealtime glucose still elevated in COVID insolation Item Value Date Time Bedside Blood Glucose 149 mg/dl H 05/16/20 0626 Bedside Blood Glucose 354 mg/dl H 05/15/20 2100 Bedside Blood Glucose 354 mg/dl H 05/15/20 1730 Bedside Blood Glucose 293 mg/dl H 05/15/20 1217 Bedside Blood Glucose 217 mg/dl H 05/15/20 0844 Objective Last 24 Hour Vital Signs Date Time Temp Pulse Resp B/P (MAP) Pulse Ox O2 Delivery O2 Flow Rate FiO2 05/16/20 04:00 97.9 89 26 150/78 (102) 93 05/16/20 04:00 Non-Rebreather 15.0 05/16/20 03:30 92 05/16/20 00:00 85 05/16/20 00:00 98.4 92 32 167/89 (115) 99 05/16/20 00:00 Non-Rebreather 15.0 05/15/20 20:00 98.1 96 22 168/94 (118) 99 05/15/20 20:00 Non-Rebreather 15.0 05/15/20 19:26 100 Non-Rebreather 15.0 100 05/15/20 19:09 105 05/15/20 16:05 Non-Rebreather 15.0 05/15/20 16:00 102 05/15/20 15:52 98.2 94 20 164/92 (116) 98 05/15/20 12:00 102 05/15/20 12:00 Non-Rebreather 15.0 05/15/20 12:00 97.2 101 20 158/83 (108) 97 05/15/20 08:00 Non-Rebreather 15.0 05/15/20 08:00 90 05/15/20 08:00 97.1 88 22 165/77 (106) 97 Intake and Output 05/15/20 05/16/20 19:00 07:00 Intake Total 780 ml Output Total 1250 ml Balance -470 ml Intake Oral 780 ml Output Urine Total 1250 ml Laboratory Tests 05/15/20 12:09: POC Whole Blood Glucose [Pending] 05/15/20 17:23: POC Whole Blood Glucose 354H 05/15/20 20:33: POC Whole Blood Glucose [Pending] 05/16/20 03:45: White Blood Count 10.5, Red Blood Count 4.61L, Hemoglobin 13.3L, Hematocrit 36 .3L, Mean Corpuscular Volume 79L, Mean Corpuscular Hemoglobin 28.8, Mean Corpuscular Hemoglobin Concent 36.6H, Red Cell Distribution Width 12.7, Platelet Count 331, Mean Platelet Volume 6.9, Neutrophils (%) (Auto) 83.4H, Lymphocytes (%) (Auto) 7.5L, Monocytes (%) (Auto) 8.8, Eosinophils (%) (Auto) 0.0, Basophils (%) (Auto) 0.4, Erythrocyte Sedimentation Rate 52H, Sodium Level 138, Potassium Level 3.4L, Chloride Level 102, Carbon Dioxide Level 28, Blood Urea Nitrogen 20H, Creatinine 0.6, Estimat Glomerular Filtration Rate > 60, Glucose Level 152H , Calcium Level 7.9L, Phosphorus Level 3.4, Magnesium Level 2.2, Total Bilirubin 0.6, Direct Bilirubin 0.1, Aspartate Amino Transf (AST/SGOT) 35, Alanine Aminotransferase (ALT/SGPT) 73, Alkaline Phosphatase 114, C-Reactive Protein, Quantitative 5.1H, Total Protein 6.6, Albumin 2.7L, Globulin 3.9, Albumin/Globulin Ratio 0.7L 05/16/20 05:03: POC Whole Blood Glucose 149H Height (Feet): 5 Height (Inches): 5.00 Weight (Pounds): 149 Objective Current Medications Medications (Trade) Dose Ordered Sig/Vasiliy Route PRN Reason Start Time Stop Time Status Last Admin Dose Admin Acetaminophen (Tylenol) 650 mg Q4H PRN ORAL Temp >100.5 05/11/20 18:15 06/10/20 18:14 Albuterol/ Ipratropium (Combivent Respimat) 1 puff Q4H PRN INH Shortness of Breath 05/11/20 21:30 06/10/20 21:29 Azithromycin 250 mg/Dextrose 275 ml @ 275 mls/hr Q24HRS IV 05/12/20 15:00 05/17/20 14:59 05/15/20 15:09 Ceftriaxone Sodium 1 gm/ Dextrose 55 ml @ 110 mls/hr Q24H IVPB 05/12/20 15:00 05/19/20 14:59 05/15/20 15:07 Dexamethasone (Decadron) 6 mg DAILY ORAL 05/12/20 09:00 05/21/20 09:01 05/15/20 08:42 Dextrose (Dextrose 50%) 25 ml Q30M PRN IV Hypoglycemia 05/12/20 11:00 08/10/20 10:59 Dextrose (Dextrose 50%) 50 ml Q30M PRN IV Hypoglycemia 05/12/20 11:00 08/10/20 10:59 Heparin Sodium (Porcine) (Heparin 5000 units/ml) 5,000 units EVERY 12 HOURS SUBQ 05/11/20 22:00 06/25/20 21:59 05/15/20 20:44 Insulin Aspart (NovoLOG) BEFORE MEALS AND HS SUBQ 05/13/20 10:00 08/10/20 09:59 05/16/20 06:24 Insulin Aspart (NovoLOG) 6 units NOVOTIAC SUBQ 05/15/20 06:30 08/13/20 06:29 05/16/20 06:26 Insulin Detemir (Levemir) 14 units DAILY SUBQ 05/15/20 09:00 08/13/20 08:59 05/15/20 08:44 Ondansetron HCl (Zofran) 4 mg Q6H PRN IVP Nausea & Vomiting 05/11/20 18:15 06/10/20 18:14 Polyethylene Glycol (Miralax) 17 gm DAILYPRN PRN ORAL Constipation 05/11/20 18:15 06/10/20 18:14 Promethazine HCl/ Codeine (Phenergan with Codeine) 5 ml Q4H PRN ORAL For Cough 05/13/20 17:15 06/12/20 17:14 05/13/20 22:50 Remdesivir 100 mg/ Sodium Chloride 250 ml @ 250 mls/hr Q24H IV 05/13/20 16:00 05/16/20 16:59 05/15/20 17:20 Assessment/Plan Problem List: (1) Coronavirus infection ICD Codes: B34.2 - Coronavirus infection, unspecified SNOMED: 894445874 (2) Diabetes ICD Codes: E11.9 - Type 2 diabetes mellitus without complications SNOMED: 56327813 (3) Lactic acid acidosis ICD Codes: E87.2 - Acidosis SNOMED: 19506350 Assessment/Plan: increase Novolog to 10 units ac tid continue Levemir 14 units daily continue to hold Metformin due to lactic acidosis on presentation start Januvia 100 mg daily continue Novolog sliding scale ac hs hypoglycemia protocol in order Jose Brown MD May 16, 2020 06:31
--- NOTE | 2020-05-16 08:37 | Infectious Diseases Prog Note ---
Assessment/Plan 59yo M with: Febrile to 100.9; SP Normal WBC Lymphopenia Hypoxic resp failure / COVID pna, on NRB mask Severe COVID pna, tested positive 05/05 05/05 COVID positive 05/11 BCx NTD Resp cx p COVID PCR+ CXR: No acute process Influenza EIA neg 05/14 CXR: Mildly increased interstitial markings. This is nonspecific but m ay suggest mild pulmonary vascular congestion or pneumonitis. No focal consolidation. BLE US neg for DVT DM2 Plan: Stop CTX/azithro #5/5 Cont remdesivir #5/5 Cont dexamethasone 6mg daily #11/16 This medical center does not have convalescent plasma, and as pt 1 week out from diagnosis, unlikely to benefit from it at this point Monitor CBC/CMP Monitor temp curve, hemodynamics Monitor resp status D/w RN Thank you for this consult. [facility] will continue to follow. Subjective Allergies: Coded Allergies: No Known Allergies (Unverified , 05/11/20) AF WBC 10.5 On 15L NRB mask still Objective Last 24 Hour Vital Signs Date Time Temp Pulse Resp B/P (MAP) Pulse Ox O2 Delivery O2 Flow Rate FiO2 05/16/20 07:16 96 Non-Rebreather 15.0 100 05/16/20 04:00 97.9 89 26 150/78 (102) 93 05/16/20 04:00 Non-Rebreather 15.0 05/16/20 03:30 92 05/16/20 00:00 85 05/16/20 00:00 98.4 92 32 167/89 (115) 99 05/16/20 00:00 Non-Rebreather 15.0 05/15/20 20:00 98.1 96 22 168/94 (118) 99 05/15/20 20:00 Non-Rebreather 15.0 05/15/20 19:26 100 Non-Rebreather 15.0 100 05/15/20 19:09 105 05/15/20 16:05 Non-Rebreather 15.0 05/15/20 16:00 102 05/15/20 15:52 98.2 94 20 164/92 (116) 98 05/15/20 12:00 102 05/15/20 12:00 Non-Rebreather 15.0 05/15/20 12:00 97.2 101 20 158/83 (108) 97 Height (Feet): 5 Height (Inches): 5.00 Weight (Pounds): 149 Gen: NAD HEENT: NCAT Pulm: BL chest rise Abd: Non-distended Ext: No c/c/e Skin: No visible rashes Neuro: Awake Laboratory Tests Test 05/15/20 12:09 05/15/20 17:23 05/15/20 20:33 05/16/20 03:45 POC Whole Blood Glucose Pending 354 MG/DL (74-106) H Pending White Blood Count 10.5 K/UL (4.8-10.8) Red Blood Count 4.61 M/UL (4.70-6.10) L Hemoglobin 13.3 G/DL (14.2-18.0) L Hematocrit 36.3 % (42.0-52.0) L Mean Corpuscular Volume 79 FL (80-99) L Mean Corpuscular Hemoglobin 28.8 PG (27.0-31.0) Mean Corpuscular Hemoglobin Concent 36.6 G/DL (32.0-36.0) H Red Cell Distribution Width 12.7 % (11.6-14.8) Platelet Count 331 K/UL (150-450) Mean Platelet Volume 6.9 FL (6.5-10.1) Neutrophils (%) (Auto) 83.4 % (45.0-75.0) H Lymphocytes (%) (Auto) 7.5 % (20.0-45.0) L Monocytes (%) (Auto) 8.8 % (1.0-10.0) Eosinophils (%) (Auto) 0.0 % (0.0-3.0) Basophils (%) (Auto) 0.4 % (0.0-2.0) Erythrocyte Sedimentation Rate 52 MM/HR (0-20) H Sodium Level 138 MMOL/L (136-145) Potassium Level 3.4 MMOL/L (3.5-5.1) L Chloride Level 102 MMOL/L (98-107) Carbon Dioxide Level 28 MMOL/L (21-32) Blood Urea Nitrogen 20 mg/dL (7-18) H Creatinine 0.6 MG/DL (0.55-1.30) Estimat Glomerular Filtration Rate > 60 mL/min (>60) Glucose Level 152 MG/DL (74-106) H Calcium Level 7.9 MG/DL (8.5-10.1) L Phosphorus Level 3.4 MG/DL (2.5-4.9) Magnesium Level 2.2 MG/DL (1.8-2.4) Total Bilirubin 0.6 MG/DL (0.2-1.0) Direct Bilirubin 0.1 MG/DL (0.0-0.3) Aspartate Amino Transf (AST/SGOT) 35 U/L (15-37) Alanine Aminotransferase (ALT/SGPT) 73 U/L (12-78) Alkaline Phosphatase 114 U/L (46-116) C-Reactive Protein, Quantitative 5.1 mg/dL (0.00-0.90) H Total Protein 6.6 G/DL (6.4-8.2) Albumin 2.7 G/DL (3.4-5.0) L Globulin 3.9 g/dL Albumin/Globulin Ratio 0.7 (1.0-2.7) L Test 05/16/20 05:03 POC Whole Blood Glucose 149 MG/DL (74-106) H Current Medications Medications (Trade) Dose Ordered Sig/Vasiliy Route PRN Reason Start Time Stop Time Status Last Admin Dose Admin Acetaminophen (Tylenol) 650 mg Q4H PRN ORAL Temp >100.5 05/11/20 18:15 06/10/20 18:14 Albuterol/ Ipratropium (Combivent Respimat) 1 puff Q4H PRN INH Shortness of Breath 05/11/20 21:30 06/10/20 21:29 Azithromycin 250 mg/Dextrose 275 ml @ 275 mls/hr Q24HRS IV 05/12/20 15:00 05/17/20 14:59 05/15/20 15:09 Ceftriaxone Sodium 1 gm/ Dextrose 55 ml @ 110 mls/hr Q24H IVPB 05/12/20 15:00 05/19/20 14:59 05/15/20 15:07 Dexamethasone (Decadron) 6 mg DAILY ORAL 05/12/20 09:00 05/21/20 09:01 05/15/20 08:42 Dextrose (Dextrose 50%) 25 ml Q30M PRN IV Hypoglycemia 05/12/20 11:00 08/10/20 10:59 Dextrose (Dextrose 50%) 50 ml Q30M PRN IV Hypoglycemia 05/12/20 11:00 08/10/20 10:59 Heparin Sodium (Porcine) (Heparin 5000 units/ml) 5,000 units EVERY 12 HOURS SUBQ 05/11/20 22:00 06/25/20 21:59 05/15/20 20:44 Insulin Aspart (NovoLOG) BEFORE MEALS AND HS SUBQ 05/13/20 10:00 08/10/20 09:59 05/16/20 06:24 Insulin Aspart (NovoLOG) 10 units NOVOTIAC SUBQ 05/16/20 11:50 08/13/20 06:29 Insulin Detemir (Levemir) 14 units DAILY SUBQ 05/15/20 09:00 08/13/20 08:59 05/15/20 08:44 Ondansetron HCl (Zofran) 4 mg Q6H PRN IVP Nausea & Vomiting 05/11/20 18:15 06/10/20 18:14 Polyethylene Glycol (Miralax) 17 gm DAILYPRN PRN ORAL Constipation 05/11/20 18:15 06/10/20 18:14 Promethazine HCl/ Codeine (Phenergan with Codeine) 5 ml Q4H PRN ORAL For Cough 05/13/20 17:15 06/12/20 17:14 05/13/20 22:50 Remdesivir 100 mg/ Sodium Chloride 250 ml @ 250 mls/hr Q24H IV 05/13/20 16:00 05/16/20 16:59 05/15/20 17:20 Sitagliptin Phosphate (Januvia) 100 mg ACBREAKFAST ORAL 05/16/20 08:00 06/15/20 06:29 Meme Leggett M.D. May 16, 2020 08:37
[2020-05-16] MEDS: Heparin 5000 units/ml inj SUBQ SCH (08:59)
[2020-05-16] MEDS: Levemir Flexpen SUBQ SCH (09:19)
--- NOTE | 2020-05-16 12:07 | Pulmonology Progress Note ---
Subjective ROS Limited/Unobtainable: Yes Interval Events: still on 100% NRM Allergies: Coded Allergies: No Known Allergies (Unverified , 05/11/20) Objective Last 24 Hour Vital Signs Date Time Temp Pulse Resp B/P (MAP) Pulse Ox O2 Delivery O2 Flow Rate FiO2 05/16/20 08:00 98.0 107 23 132/59 (83) 97 05/16/20 08:00 94 05/16/20 07:16 96 Non-Rebreather 15.0 100 05/16/20 04:00 97.9 89 26 150/78 (102) 93 05/16/20 04:00 Non-Rebreather 15.0 05/16/20 03:30 92 05/16/20 00:00 85 05/16/20 00:00 98.4 92 32 167/89 (115) 99 05/16/20 00:00 Non-Rebreather 15.0 05/15/20 20:00 98.1 96 22 168/94 (118) 99 05/15/20 20:00 Non-Rebreather 15.0 05/15/20 19:26 100 Non-Rebreather 15.0 100 05/15/20 19:09 105 05/15/20 16:05 Non-Rebreather 15.0 05/15/20 16:00 102 05/15/20 15:52 98.2 94 20 164/92 (116) 98 Intake and Output 05/15/20 05/16/20 19:00 07:00 Intake Total 780 ml 100 ml Output Total 1250 ml 350 ml Balance -470 ml -250 ml Intake Oral 780 ml 100 ml Output Urine Total 1250 ml 350 ml General Appearance: cachetic HEENT: normocephalic, atraumatic Respiratory: chest wall non-tender, lungs clear Cardiovascular: normal peripheral pulses, normal rate, regular rhythm Abdomen: normal bowel sounds, soft, non tender Genitourinary: normal external genitalia Skin: no rash 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 Laboratory Tests 05/15/20 12:09: POC Whole Blood Glucose [Pending] 05/15/20 17:23: POC Whole Blood Glucose 354H 05/15/20 20:33: POC Whole Blood Glucose [Pending] 05/16/20 03:45: White Blood Count 10.5, Red Blood Count 4.61L, Hemoglobin 13.3L, Hematocrit 36.3L, Mean Corpuscular Volume 79L, Mean Corpuscular Hemoglobin 28.8, Mean Corpuscular Hemoglobin Concent 36.6H, Red Cell Distribution Width 12.7, Platelet Count 331, Mean Platelet Volume 6.9, Neutrophils (%) (Auto) 83.4H, Lymphocytes (%) (Auto) 7.5L, Monocytes (%) (Auto) 8.8, Eosinophils (%) (Auto) 0.0, Basophils (%) (Auto) 0.4, Erythrocyte Sedimentation Rate 52H, Sodium Level 138, Potassium Level 3.4L, Chloride Level 102, Carbon Dioxide Level 28, Blood Urea Nitrogen 20H, Creatinine 0.6, Estimat Glomerular Filtration Rate > 60, Glucose Level 152H , Calcium Level 7.9L, Phosphorus Level 3.4, Magnesium Level 2.2, Total Bilirubin 0.6, Direct Bilirubin 0.1, Aspartate Amino Transf (AST/SGOT) 35, Alanine Aminotransferase (ALT/SGPT) 73, Alkaline Phosphatase 114, C-Reactive Protein, Quantitative 5.1H, Total Protein 6.6, Albumin 2.7L, Globulin 3.9, Albumin/Globulin Ratio 0.7L 05/16/20 05:03: POC Whole Blood Glucose 149H 05/16/20 09:03: POC Whole Blood Glucose [Pending] 05/16/20 11:13: POC Whole Blood Glucose [Pending] Current Medications Medications (Trade) Dose Ordered Sig/Vasiliy Route PRN Reason Start Time Stop Time Status Last Admin Dose Admin Acetaminophen (Tylenol) 650 mg Q4H PRN ORAL Temp >100.5 05/11/20 18:15 06/10/20 18:14 Albuterol/ Ipratropium (Combivent Respimat) 1 puff Q4H PRN INH Shortness of Breath 05/11/20 21:30 06/10/20 21:29 Dexamethasone (Decadron) 6 mg DAILY ORAL 05/12/20 09:00 05/21/20 09:01 05/16/20 08:58 Dextrose (Dextrose 50%) 25 ml Q30M PRN IV Hypoglycemia 05/12/20 11:00 08/10/20 10:59 Dextrose (Dextrose 50%) 50 ml Q30M PRN IV Hypoglycemia 05/12/20 11:00 08/10/20 10:59 Heparin Sodium (Porcine) (Heparin 5000 units/ml) 5,000 units EVERY 12 HOURS SUBQ 05/11/20 22:00 06/25/20 21:59 05/16/20 08:59 Insulin Aspart (NovoLOG) BEFORE MEALS AND HS SUBQ 05/13/20 10:00 08/10/20 09:59 05/16/20 11:19 Insulin Aspart (NovoLOG) 10 units NOVOTIAC SUBQ 05/16/20 11:50 08/13/20 06:29 05/16/20 11:20 Insulin Detemir (Levemir) 14 units DAILY SUBQ 05/15/20 09:00 08/13/20 08:59 05/16/20 09:19 Ondansetron HCl (Zofran) 4 mg Q6H PRN IVP Nausea & Vomiting 05/11/20 18:15 06/10/20 18:14 Polyethylene Glycol (Miralax) 17 gm DAILYPRN PRN ORAL Constipation 05/11/20 18:15 06/10/20 18:14 Promethazine HCl/ Codeine (Phenergan with Codeine) 5 ml Q4H PRN ORAL For Cough 05/13/20 17:15 06/12/20 17:14 05/13/20 22:50 Remdesivir 100 mg/ Sodium Chloride 250 ml @ 250 mls/hr Q24H IV 05/13/20 16:00 05/16/20 16:59 05/15/20 17:20 Sitagliptin Phosphate (Januvia) 100 mg ACBREAKFAST ORAL 05/16/20 08:00 06/15/20 06:29 05/16/20 08:58 Assessment/Plan Problems: (1) Acute respiratory failure (2) Coronavirus infection (3) Diabetes Assessment/Plan still needs NRM CRP is down to 5 on Remdesivir and Decadron sliding scale BS better repeat CXR in am Yohannes Gibson MD May 16, 2020 12:07
[2020-05-16] MEDS: Maintenance Dose:Remdesivir 100mg/NS 230ml x 4 Doses IV SCH ×2 (15:56)
--- NOTE | 2020-05-16 17:48 | Internal Med Progress Note ---
Subjective Date of Service: May 16, 2020 Physician Name CandisFrederick Attending Physician Daniel Jung MD Current Medications Medications (Trade) Dose Ordered Sig/Vasiliy Route PRN Reason Start Time Stop Time Status Last Admin Dose Admin Acetaminophen (Tylenol) 650 mg Q4H PRN ORAL Temp >100.5 05/11/20 18:15 06/10/20 18:14 Albuterol/ Ipratropium (Combivent Respimat) 1 puff Q4H PRN INH Shortness of Breath 05/11/20 21:30 06/10/20 21:29 Dexamethasone (Decadron) 6 mg DAILY ORAL 05/12/20 09:00 05/21/20 09:01 05/16/20 08:58 Dextrose (Dextrose 50%) 25 ml Q30M PRN IV Hypoglycemia 05/12/20 11:00 08/10/20 10:59 Dextrose (Dextrose 50%) 50 ml Q30M PRN IV Hypoglycemia 05/12/20 11:00 08/10/20 10:59 Heparin Sodium (Porcine) (Heparin 5000 units/ml) 5,000 units EVERY 12 HOURS SUBQ 05/11/20 22:00 06/25/20 21:59 05/16/20 08:59 Insulin Aspart (NovoLOG) BEFORE MEALS AND HS SUBQ 05/13/20 10:00 08/10/20 09:59 05/16/20 17:04 Insulin Aspart (NovoLOG) 10 units NOVOTIAC SUBQ 05/16/20 11:50 08/13/20 06:29 05/16/20 17:05 Insulin Detemir (Levemir) 14 units DAILY SUBQ 05/15/20 09:00 08/13/20 08:59 05/16/20 09:19 Ondansetron HCl (Zofran) 4 mg Q6H PRN IVP Nausea & Vomiting 05/11/20 18:15 06/10/20 18:14 Polyethylene Glycol (Miralax) 17 gm DAILYPRN PRN ORAL Constipation 05/11/20 18:15 06/10/20 18:14 Promethazine HCl/ Codeine (Phenergan with Codeine) 5 ml Q4H PRN ORAL For Cough 05/13/20 17:15 06/12/20 17:14 05/13/20 22:50 Sitagliptin Phosphate (Januvia) 100 mg ACBREAKFAST ORAL 05/16/20 08:00 06/15/20 06:29 05/16/20 08:58 Allergies: Coded Allergies: No Known Allergies (Unverified , 05/11/20) ROS Limited/Unobtainable: No Constitutional: Reports: no symptoms HEENT: Reports: no symptoms Cardiovascular: Reports: no symptoms Respiratory: Reports: no symptoms Gastrointestinal/Abdominal: Reports: no symptoms Genitourinary: Reports: no symptoms Neurologic/Psychiatric: Reports: no symptoms Subjective 59 YO M admitted with respiratory failure. Now COVID 19 pneumonia. Cover for Int Med-DR Jung. Step down unit Objective Last Vital Signs Date Time Temp Pulse Resp B/P (MAP) Pulse Ox O2 Delivery O2 Flow Rate FiO2 05/16/20 12:00 103 05/16/20 12:00 97.9 20 151/86 (107) 95 05/16/20 12:00 Non-Rebreather 15.0 05/16/20 07:16 100 Laboratory Tests Test 05/15/20 20:33 05/16/20 03:45 05/16/20 05:03 05/16/20 09:03 POC Whole Blood Glucose Pending 149 MG/DL (74-106) H Pending White Blood Count 10.5 K/UL (4.8-10.8) Red Blood Count 4.61 M/UL (4.70-6.10) L Hemoglobin 13.3 G/DL (14.2-18.0) L Hematocrit 36.3 % (42.0-52.0) L Mean Corpuscular Volume 79 FL (80-99) L Mean Corpuscular Hemoglobin 28.8 PG (27.0-31.0) Mean Corpuscular Hemoglobin Concent 36.6 G/DL (32.0-36.0) H Red Cell Distribution Width 12.7 % (11.6-14.8) Platelet Count 331 K/UL (150-450) Mean Platelet Volume 6.9 FL (6.5-10.1) Neutrophils (%) (Auto) 83.4 % (45.0-75.0) H Lymphocytes (%) (Auto) 7.5 % (20.0-45.0) L Monocytes (%) (Auto) 8.8 % (1.0-10.0) Eosinophils (%) (Auto) 0.0 % (0.0-3.0) Basophils (%) (Auto) 0.4 % (0.0-2.0) Erythrocyte Sedimentation Rate 52 MM/HR (0-20) H Sodium Level 138 MMOL/L (136-145) Potassium Level 3.4 MMOL/L (3.5-5.1) L Chloride Level 102 MMOL/L (98-107) Carbon Dioxide Level 28 MMOL/L (21-32) Blood Urea Nitrogen 20 mg/dL (7-18) H Creatinine 0.6 MG/DL (0.55-1.30) Estimat Glomerular Filtration Rate > 60 mL/min (>60) Glucose Level 152 MG/DL (74-106) H Calcium Level 7.9 MG/DL (8.5-10.1) L Phosphorus Level 3.4 MG/DL (2.5-4.9) Magnesium Level 2.2 MG/DL (1.8-2.4) Total Bilirubin 0.6 MG/DL (0.2-1.0) Direct Bilirubin 0.1 MG/DL (0.0-0.3) Aspartate Amino Transf (AST/SGOT) 35 U/L (15-37) Alanine Aminotransferase (ALT/SGPT) 73 U/L (12-78) Alkaline Phosphatase 114 U/L (46-116) C-Reactive Protein, Quantitative 5.1 mg/dL (0.00-0.90) H Total Protein 6.6 G/DL (6.4-8.2) Albumin 2.7 G/DL (3.4-5.0) L Globulin 3.9 g/dL Albumin/Globulin Ratio 0.7 (1.0-2.7) L Test 05/16/20 11:13 05/16/20 15:58 POC Whole Blood Glucose Pending Pending Intake and Output 05/15/20 05/16/20 18:59 06:59 Intake Total 780 ml 100 ml Output Total 1250 ml 350 ml Balance -470 ml -250 ml Intake Oral 780 ml 100 ml Output Urine Total 1250 ml 350 ml Objective PHYSICAL EXAMINATION: GENERAL: The patient is a well-developed, well-nourished male, in no apparent distress. HEENT: Eyes, pupils equal and responsive to light and accommodation. Extraocular movements are intact. NECK: Supple without lymphadenopathy. CHEST: Nonrebreather mask; Lungs with decreased breath sounds at bilateral bases without wheezes or rales. CARDIOVASCULAR: Regular rhythm and rate. S1, S2 normal without murmurs, rubs, or gallops. ABDOMEN: Soft, nontender, and nondistended. Positive bowel sounds. No evidence of hepatosplenomegaly. Currently, no rebound or guarding noted. EXTREMITIES: Negative for clubbing, cyanosis, or edema. RECTAL: Not performed. GENITAL: Not performed. NEUROLOGIC: Cranial nerves II through XII are grossly intact without focal deficits. Motor strength is 5/5 bilaterally intact. Deep tendon reflexes are 2+ bilat Assessment/Plan Assessment/Plan ASSESSMENT: This is a 59-year-old male with: 1. COVID-19 positive. 2. COVID-19 pneumonia. 3. Respiratory failure. 4. Diabetes type 2. 5. Hypertension. TREATMENT: 1. COVID-19 positive/pneumonia. Infectious Disease= Dr. Craft. Follow recommendations of Infectious Disease. Continue remdesivir and Decadron per Infectious Disease. ABX= azithromycin and ceftriaxone 2. Respiratory failure. Pulmonary/critical care= Dr. Yohannes Gibson. The patient is currently on 100% nonrebreather mask. Follow recommendations of Pulmonary. 3. Diabetes type 2. NovoLog sliding scale has been instituted. 4. Hypertension. Continue lisinopril as above. Frederick Chirinos MD May 16, 2020 17:48
[2020-05-16] MEDS ORDERED: Digoxin 0.5mg/2ml Inj IVP SCH (19:15)
[2020-05-16] MEDS ORDERED: dilTIAZem HCl 25mg/5ml Inj IVP SCH (20:00)
[2020-05-16] MEDS ORDERED: dilTIAZem Premix 125mg/125ml 125 ML IVPB SCH (20:00)
[2020-05-16] MEDS ORDERED: Heparin 25,000u/D5W 500ml 500 ML IV SCH (20:45)
[2020-05-16] MEDS ORDERED: Heparin 5000 units/ml inj IV SCH (20:45)
[2020-05-17] VITALS (24 sets, daily range): BP systolic 121–178; BP diastolic 49–80
[2020-05-17 03:00] LABS: HEMATOCRIT 37.6 % (42.0-52.0); HEMOGLOBIN 13.6 G/DL (14.2-18.0); MEAN CORPUSCULAR VOLUME 77 FL (80-99); PLATELET COUNT 346 K/UL (150-450); RED BLOOD COUNT 4.85 M/UL (4.70-6.10); RED CELL DISTRIBUTION WIDTH 13.9 % (11.6-14.8); WHITE BLOOD COUNT 12.2 K/UL (4.8-10.8)
[2020-05-17 03:21] LABS: ALANINE AMINOTRANSFERASE 53 U/L (12-78); ALBUMIN 2.4 G/DL (3.4-5.0); ALBUMIN/GLOBULIN RATIO 0.6 (1.0-2.7); ALKALINE PHOSPHATASE 120 U/L (46-116); ANION GAP 9 mmol/L (5-15); ASPARTATE AMINO TRANSFERASE 20 U/L (15-37); BILIRUBIN,TOTAL 0.6 MG/DL (0.2-1.0); BLOOD UREA NITROGEN 21 mg/dL (7-18); CALCIUM 7.9 MG/DL (8.5-10.1); CARBON DIOXIDE 26 MMOL/L (21-32); CHLORIDE 103 MMOL/L (98-107); PHOSPHORUS 3.3 MG/DL (2.5-4.9); POTASSIUM 3.8 MMOL/L (3.5-5.1); SODIUM 138 MMOL/L (136-145)
[2020-05-17] MEDS ORDERED: Heparin 5000 units/ml inj IV SCH ×2 (03:45→11:05)
[2020-05-17] MEDS ORDERED: Heparin 25,000u/D5W 500ml 500 ML IV SCH (03:45)
[2020-05-17] MEDS: NovoLOG Insulin Flexpen SUBQ SCH ×7 (06:32→21:08)
--- NOTE | 2020-05-17 06:46 | General Progress Note ---
Subjective Allergies: Coded Allergies: No Known Allergies (Unverified , 05/11/20) All Systems: reviewed and negative except above Subjective events noted on NRB mask transferred to ICU for Cardizem drip mealtime glucose still elevated Item Value Date Time Bedside Blood Glucose 222 mg/dl H 05/17/20 0632 Bedside Blood Glucose 348 mg/dl H 05/16/20 2207 Bedside Blood Glucose 344 mg/dl H 05/16/20 1705 Bedside Blood Glucose 199 mg/dl H 05/16/20 1130 Bedside Blood Glucose 198 mg/dl H 05/16/20 0919 Bedside Blood Glucose 149 mg/dl H 05/16/20 0630 Objective Last 24 Hour Vital Signs Date Time Temp Pulse Resp B/P (MAP) Pulse Ox O2 Delivery O2 Flow Rate FiO2 05/17/20 06:00 107 26 164/65 (98) 93 05/17/20 05:00 104 27 128/53 (78) 94 05/17/20 04:00 98.0 104 28 138/61 (86) 91 05/17/20 04:00 Non-Rebreather 15.0 05/17/20 03:27 99 05/17/20 03:00 102 32 121/49 (73) 88 05/17/20 02:00 94 28 134/67 (89) 92 05/17/20 01:00 93 27 130/66 (87) 93 05/17/20 00:47 88 05/17/20 00:12 98 134/75 05/17/20 00:00 Non-Rebreather 15.0 05/17/20 00:00 98.3 96 29 134/75 (94) 96 05/16/20 23:44 103 05/16/20 23:30 Non-Rebreather 15.0 05/16/20 20:15 156 134/79 05/16/20 20:00 Non-Rebreather 15.0 05/16/20 20:00 98.1 156 25 134/77 (96) 95 05/16/20 20:00 125 05/16/20 19:09 165 05/16/20 18:53 151 05/16/20 18:52 100 Non-Rebreather 15.0 100 05/16/20 18:30 97.8 141 20 160/90 (113) 95 05/16/20 16:00 Non-Rebreather 15.0 05/16/20 16:00 97.7 108 20 155/87 (109) 98 05/16/20 15:57 108 05/16/20 12:00 103 05/16/20 12:00 97.9 103 20 151/86 (107) 95 05/16/20 12:00 Non-Rebreather 15.0 05/16/20 08:00 98.0 107 23 132/59 (83) 97 05/16/20 08:00 94 05/16/20 08:00 Non-Rebreather 15.0 05/16/20 07:16 96 Non-Rebreather 15.0 100 Intake and Output 05/16/20 05/17/20 19:00 07:00 Intake Total 1000 ml 480.1706 ml Output Total 1800 ml 400 ml Balance -800 ml 80.1706 ml Intake Oral 1000 ml 300 ml IV Total 180.1706 ml Output Urine Total 1800 ml 400 ml # Voids 5 1 # Bowel Movements 2 Laboratory Tests 05/16/20 09:03: POC Whole Blood Glucose [Pending] 05/16/20 11:13: POC Whole Blood Glucose [Pending] 05/16/20 15:58: POC Whole Blood Glucose [Pending] 05/16/20 20:22: Activated Partial Thromboplast Time 23 05/16/20 22:00: POC Whole Blood Glucose 348H 05/17/20 02:50: White Blood Count 12.2H, Red Blood Count 4.85, Hemoglobin 13.6L, Hematocrit 37.6L, Mean Corpuscular Volume 77L, Mean Corpuscular Hemoglobin 28.0, Mean Corpuscular Hemoglobin Concent 36.1H, Red Cell Distribution Width 13.9, Platelet Count 346, Mean Platelet Volume 6.8, Neutrophils (%) (Auto) , Lymphocytes (%) (Auto) , Monocytes (%) (Auto) , Eosinophils (%) (Auto) , Basophils (%) (Auto) , Erythrocyte Sedimentation Rate 72H, Activated Partial Thromboplast Time 59H, Sodium Level 138, Potassium Level 3.8, Chloride Level 103, Carbon Dioxide Level 26, Anion Gap 9, Blood Urea Nitrogen 21H, Creatinine 1.0#, Estimat Glomerular Filtration Rate > 60, Glucose Level 212H, Calcium Level 7.9L, Phosphorus Level 3.3, Magnesium Level 2.2, Total Bilirubin 0.6, Aspartate Amino Transf (AST/SGOT) 20, Alanine Aminotransferase (ALT/SGPT) 53, Alkaline Phosphatase 120H, C- Reactive Protein, Quantitative 9.8H, Total Protein 6.4, Albumin 2.4L, Globulin 4.0, Albumin/Globulin Ratio 0.6L Height (Feet): 5 Height (Inches): 5.00 Weight (Pounds): 149 Objective Current Medications Medications (Trade) Dose Ordered Sig/Vasiliy Route PRN Reason Start Time Stop Time Status Last Admin Dose Admin Acetaminophen (Tylenol) 650 mg Q4H PRN ORAL Temp >100.5 05/11/20 18:15 06/10/20 18:14 Albuterol/ Ipratropium (Combivent Respimat) 1 puff Q4H PRN INH Shortness of Breath 05/11/20 21:30 06/10/20 21:29 Dexamethasone (Decadron) 6 mg DAILY ORAL 05/12/20 09:00 05/21/20 09:01 05/16/20 08:58 Dextrose (Dextrose 50%) 25 ml Q30M PRN IV Hypoglycemia 05/12/20 11:00 08/10/20 10:59 Dextrose (Dextrose 50%) 50 ml Q30M PRN IV Hypoglycemia 05/12/20 11:00 08/10/20 10:59 Diltiazem HCl 125 mg/Dextrose 125 ml @ 0 mls/hr Q24H IVPB 05/16/20 21:00 05/17/20 20:59 Heparin Sodium/ Dextrose 500 ml @ 24.76 mls/ hr ADJUST PER PROTOCOL IV 05/17/20 03:45 06/16/20 03:44 05/17/20 03:53 Insulin Aspart (NovoLOG) BEFORE MEALS AND HS SUBQ 05/13/20 10:00 08/10/20 09:59 05/17/20 06:32 Insulin Aspart (NovoLOG) 10 units NOVOTIAC SUBQ 05/16/20 11:50 08/13/20 06:29 05/17/20 06:32 Insulin Detemir (Levemir) 14 units DAILY SUBQ 05/15/20 09:00 08/13/20 08:59 05/16/20 09:19 Metoprolol Tartrate (Lopressor) 5 mg Q1H PRN IVP SBP more than 120 05/16/20 19:45 08/14/20 19:44 Ondansetron HCl (Zofran) 4 mg Q6H PRN IVP Nausea & Vomiting 05/11/20 18:15 06/10/20 18:14 Polyethylene Glycol (Miralax) 17 gm DAILYPRN PRN ORAL Constipation 05/11/20 18:15 06/10/20 18:14 Promethazine HCl/ Codeine (Phenergan with Codeine) 5 ml Q4H PRN ORAL For Cough 05/13/20 17:15 06/12/20 17:14 05/13/20 22:50 Sitagliptin Phosphate (Januvia) 100 mg ACBREAKFAST ORAL 05/16/20 08:00 06/15/20 06:29 05/17/20 06:31 Assessment/Plan Problem List: (1) Coronavirus infection ICD Codes: B34.2 - Coronavirus infection, unspecified SNOMED: 448522955 (2) Diabetes ICD Codes: E11.9 - Type 2 diabetes mellitus without complications SNOMED: 44755171 (3) Lactic acid acidosis ICD Codes: E87.2 - Acidosis SNOMED: 07367534 Assessment/Plan: increase Novolog to 12 units ac tid continue Levemir 14 units daily continue to hold Metformin due to lactic acidosis on presentation continue Januvia 100 mg daily continue Novolog sliding scale ac hs hypoglycemia protocol in order Jose Brown MD May 17, 2020 06:46
[2020-05-17] MEDS: Levemir Flexpen SUBQ SCH (08:33)
--- NOTE | 2020-05-17 09:03 | Cardiac Electrophysiology PN ---
Subjective Subjective [id number] Objective Last 24 Hour Vital Signs Date Time Temp Pulse Resp B/P (MAP) Pulse Ox O2 Delivery O2 Flow Rate FiO2 05/17/20 08:00 Non-Rebreather 15.0 05/17/20 07:00 107 25 146/74 (98) 87 05/17/20 06:00 107 26 164/65 (98) 93 05/17/20 05:00 104 27 128/53 (78) 94 05/17/20 04:00 98.0 104 28 138/61 (86) 91 05/17/20 04:00 Non-Rebreather 15.0 05/17/20 03:27 99 05/17/20 03:00 102 32 121/49 (73) 88 05/17/20 02:00 94 28 134/67 (89) 92 05/17/20 01:00 93 27 130/66 (87) 93 05/17/20 00:47 88 05/17/20 00:12 98 134/75 05/17/20 00:00 Non-Rebreather 15.0 05/17/20 00:00 98.3 96 29 134/75 (94) 96 05/16/20 23:44 103 05/16/20 23:30 Non-Rebreather 15.0 05/16/20 20:15 156 134/79 05/16/20 20:00 Non-Rebreather 15.0 05/16/20 20:00 98.1 156 25 134/77 (96) 95 05/16/20 20:00 125 05/16/20 19:09 165 05/16/20 18:53 151 05/16/20 18:52 100 Non-Rebreather 15.0 100 05/16/20 18:30 97.8 141 20 160/90 (113) 95 05/16/20 16:00 Non-Rebreather 15.0 05/16/20 16:00 97.7 108 20 155/87 (109) 98 05/16/20 15:57 108 05/16/20 12:00 103 05/16/20 12:00 97.9 103 20 151/86 (107) 95 05/16/20 12:00 Non-Rebreather 15.0 Intake and Output0 05/16/20 05/17/20 19:00 07:00 Intake Total 1000 ml 504.9306 ml Output Total 1800 ml 400 ml Balance -800 ml 104.9306 ml Intake Oral 1000 ml 300 ml IV Total 204.9306 ml Output Urine Total 1800 ml 400 ml # Voids 5 1 # Bowel Movements 2 Laboratory Tests Test 05/16/20 09:03 05/16/20 11:13 05/16/20 15:58 05/16/20 20:22 POC Whole Blood Glucose Pending Pending Pending Activated Partial Thromboplast Time 23 SEC (23-33) Test 05/16/20 22:00 05/17/20 02:50 POC Whole Blood Glucose 348 MG/DL (74-106) H White Blood Count 12.2 K/UL (4.8-10.8) H Red Blood Count 4.85 M/UL (4.70-6.10) Hemoglobin 13.6 G/DL (14.2-18.0) L Hematocrit 37.6 % (42.0-52.0) L Mean Corpuscular Volume 77 FL (80-99) L Mean Corpuscular Hemoglobin 28.0 PG (27.0-31.0) Mean Corpuscular Hemoglobin Concent 36.1 G/DL (32.0-36.0) H Red Cell Distribution Width 13.9 % (11.6-14.8) Platelet Count 346 K/UL (150-450) Mean Platelet Volume 6.8 FL (6.5-10.1) Neutrophils (%) (Auto) % (45.0-75.0) Lymphocytes (%) (Auto) % (20.0-45.0) Monocytes (%) (Auto) % (1.0-10.0) Eosinophils (%) (Auto) % (0.0-3.0) Basophils (%) (Auto) % (0.0-2.0) Erythrocyte Sedimentation Rate 72 MM/HR (0-20) H Activated Partial Thromboplast Time 59 SEC (23-33) H Sodium Level 138 MMOL/L (136-145) Potassium Level 3.8 MMOL/L (3.5-5.1) Chloride Level 103 MMOL/L (98-107) Carbon Dioxide Level 26 MMOL/L (21-32) Anion Gap 9 mmol/L (5-15) Blood Urea Nitrogen 21 mg/dL (7-18) H Creatinine 1.0 MG/DL (0.55-1.30) # Estimat Glomerular Filtration Rate > 60 mL/min (>60) Glucose Level 212 MG/DL (74-106) H Calcium Level 7.9 MG/DL (8.5-10.1) L Phosphorus Level 3.3 MG/DL (2.5-4.9) Magnesium Level 2.2 MG/DL (1.8-2.4) Total Bilirubin 0.6 MG/DL (0.2-1.0) Aspartate Amino Transf (AST/SGOT) 20 U/L (15-37) Alanine Aminotransferase (ALT/SGPT) 53 U/L (12-78) Alkaline Phosphatase 120 U/L (46-116) H C-Reactive Protein, Quantitative 9.8 mg/dL (0.00-0.90) H Total Protein 6.4 G/DL (6.4-8.2) Albumin 2.4 G/DL (3.4-5.0) L Globulin 4.0 g/dL Albumin/Globulin Ratio 0.6 (1.0-2.7) L Al Alarcon MD May 17, 2020 09:03
--- NOTE | 2020-05-17 09:20 | Infectious Diseases Prog Note ---
Assessment/Plan 59yo M with: Febrile to 100.9; SP Normal WBC Lymphopenia Hypoxic resp failure 2/2 COVID pna, on NRB mask Severe COVID pna, tested positive 05/05 05/05 COVID positive 05/11 BCx NTD Resp cx p COVID PCR+ CXR: No acute process Influenza EIA neg 05/14 CXR: Mildly increased interstitial markings. This is nonspecific but m ay suggest mild pulmonary vascular congestion or pneumonitis. No focal consolidation. BLE US neg for DVT DM2 Plan: Cont dexamethasone 6mg daily #7/10 12 SP CTX/azithro #5 05/16 SP RDV #5 This medical center does not have convalescent plasma, and as pt 1 week out from diagnosis, unlikely to benefit from it at this point Monitor CBC/CMP Monitor temp curve, hemodynamics Monitor resp status D/w RN Thank you for this consult. [facility] will continue to follow. Subjective Allergies: Coded Allergies: No Known Allergies (Unverified , 05/11/20) AF WBC 12 on steroids On 15L NRB mask still, now in ICU given Afib w/ RVR overnight, HR improved to 100s Objective Last 24 Hour Vital Signs Date Time Temp Pulse Resp B/P (MAP) Pulse Ox O2 Delivery O2 Flow Rate FiO2 05/17/20 08:00 Non-Rebreather 15.0 05/17/20 07:00 107 25 146/74 (98) 87 05/17/20 06:00 107 26 164/65 (98) 93 05/17/20 05:00 104 27 128/53 (78) 94 05/17/20 04:00 98.0 104 28 138/61 (86) 91 05/17/20 04:00 Non-Rebreather 15.0 05/17/20 03:27 99 05/17/20 03:00 102 32 121/49 (73) 88 05/17/20 02:00 94 28 134/67 (89) 92 05/17/20 01:00 93 27 130/66 (87) 93 05/17/20 00:47 88 05/17/20 00:12 98 134/75 05/17/20 00:00 Non-Rebreather 15.0 05/17/20 00:00 98.3 96 29 134/75 (94) 96 05/16/20 23:44 103 05/16/20 23:30 Non-Rebreather 15.0 05/16/20 20:15 156 134/79 05/16/20 20:00 Non-Rebreather 15.0 05/16/20 20:00 98.1 156 25 134/77 (96) 95 05/16/20 20:00 125 05/16/20 19:09 165 05/16/20 18:53 151 05/16/20 18:52 100 Non-Rebreather 15.0 100 05/16/20 18:30 97.8 141 20 160/90 (113) 95 05/16/20 16:00 Non-Rebreather 15.0 05/16/20 16:00 97.7 108 20 155/87 (109) 98 05/16/20 15:57 108 05/16/20 12:00 103 05/16/20 12:00 97.9 103 20 151/86 (107) 95 05/16/20 12:00 Non-Rebreather 15.0 Height (Feet): 5 Height (Inches): 5.00 Weight (Pounds): 149 Gen: NAD HEENT: NCAT Pulm: BL chest rise Abd: Non-distended Ext: No c/c/e Skin: No visible rashes Neuro: Awake Laboratory Tests Test 05/16/20 11:13 05/16/20 15:58 05/16/20 20:22 05/16/20 22:00 POC Whole Blood Glucose Pending Pending 348 MG/DL (74-106) H Activated Partial Thromboplast Time 23 SEC (23-33) Test 05/17/20 02:50 White Blood Count 12.2 K/UL (4.8-10.8) H Red Blood Count 4.85 M/UL (4.70-6.10) Hemoglobin 13.6 G/DL (14.2-18.0) L Hematocrit 37.6 % (42.0-52.0) L Mean Corpuscular Volume 77 FL (80-99) L Mean Corpuscular Hemoglobin 28.0 PG (27.0-31.0) Mean Corpuscular Hemoglobin Concent 36.1 G/DL (32.0-36.0) H Red Cell Distribution Width 13.9 % (11.6-14.8) Platelet Count 346 K/UL (150-450) Mean Platelet Volume 6.8 FL (6.5-10.1) Neutrophils (%) (Auto) % (45.0-75.0) Lymphocytes (%) (Auto) % (20.0-45.0) Monocytes (%) (Auto) % (1.0-10.0) Eosinophils (%) (Auto) % (0.0-3.0) Basophils (%) (Auto) % (0.0-2.0) Erythrocyte Sedimentation Rate 72 MM/HR (0-20) H Activated Partial Thromboplast Time 59 SEC (23-33) H Sodium Level 138 MMOL/L (136-145) Potassium Level 3.8 MMOL/L (3.5-5.1) Chloride Level 103 MMOL/L (98-107) Carbon Dioxide Level 26 MMOL/L (21-32) Anion Gap 9 mmol/L (5-15) Blood Urea Nitrogen 21 mg/dL (7-18) H Creatinine 1.0 MG/DL (0.55-1.30) # Estimat Glomerular Filtration Rate > 60 mL/min (>60) Glucose Level 212 MG/DL (74-106) H Calcium Level 7.9 MG/DL (8.5-10.1) L Phosphorus Level 3.3 MG/DL (2.5-4.9) Magnesium Level 2.2 MG/DL (1.8-2.4) Total Bilirubin 0.6 MG/DL (0.2-1.0) Aspartate Amino Transf (AST/SGOT) 20 U/L (15-37) Alanine Aminotransferase (ALT/SGPT) 53 U/L (12-78) Alkaline Phosphatase 120 U/L (46-116) H C-Reactive Protein, Quantitative 9.8 mg/dL (0.00-0.90) H Total Protein 6.4 G/DL (6.4-8.2) Albumin 2.4 G/DL (3.4-5.0) L Globulin 4.0 g/dL Albumin/Globulin Ratio 0.6 (1.0-2.7) L Current Medications Medications (Trade) Dose Ordered Sig/Vasiliy Route PRN Reason Start Time Stop Time Status Last Admin Dose Admin Acetaminophen (Tylenol) 650 mg Q4H PRN ORAL Temp >100.5 05/11/20 18:15 06/10/20 18:14 Albuterol/ Ipratropium (Combivent Respimat) 1 puff Q4H PRN INH Shortness of Breath 05/11/20 21:30 06/10/20 21:29 Dexamethasone (Decadron) 6 mg DAILY ORAL 05/12/20 09:00 05/21/20 09:01 05/17/20 08:33 Dextrose (Dextrose 50%) 25 ml Q30M PRN IV Hypoglycemia 05/12/20 11:00 08/10/20 10:59 Dextrose (Dextrose 50%) 50 ml Q30M PRN IV Hypoglycemia 05/12/20 11:00 08/10/20 10:59 Diltiazem HCl (Cardizem Tab) 60 mg EVERY 6 HOURS ORAL 05/17/20 12:00 06/16/20 11:59 Diltiazem HCl 125 mg/Dextrose 125 ml @ 0 mls/hr Q24H IVPB 05/16/20 21:00 05/17/20 20:59 Heparin Sodium/ Dextrose 500 ml @ 24.76 mls/ hr ADJUST PER PROTOCOL IV 05/17/20 03:45 06/16/20 03:44 05/17/20 03:53 Insulin Aspart (NovoLOG) BEFORE MEALS AND HS SUBQ 05/13/20 10:00 08/10/20 09:59 05/17/20 06:32 Insulin Aspart (NovoLOG) 12 units NOVOTIAC SUBQ 05/17/20 11:50 08/13/20 06:29 Insulin Detemir (Levemir) 14 units DAILY SUBQ 05/15/20 09:00 08/13/20 08:59 05/17/20 08:33 Metoprolol Tartrate (Lopressor) 5 mg Q1H PRN IVP SBP more than 120 05/16/20 19:45 08/14/20 19:44 Ondansetron HCl (Zofran) 4 mg Q6H PRN IVP Nausea & Vomiting 05/11/20 18:15 06/10/20 18:14 Polyethylene Glycol (Miralax) 17 gm DAILYPRN PRN ORAL Constipation 05/11/20 18:15 06/10/20 18:14 Promethazine HCl/ Codeine (Phenergan with Codeine) 5 ml Q4H PRN ORAL For Cough 05/13/20 17:15 06/12/20 17:14 05/13/20 22:50 Sitagliptin Phosphate (Januvia) 100 mg ACBREAKFAST ORAL 05/16/20 08:00 06/15/20 06:29 05/17/20 06:31 Meme Leggett M.D. May 17, 2020 09:20
--- NOTE | 2020-05-17 10:00 | Consultation ---
DATE OF CONSULTATION: 05/17/2020 CARDIOLOGY CONSULTATION CONSULTING PHYSICIAN: lA Alarcon MD REFERRING PHYSICIAN: Daniel Jung MD REASON FOR CONSULTATION: Atrial fibrillation with rapid ventricular response. HISTORY OF PRESENT ILLNESS: The patient is a 59-year-old gentleman with history of hypertension, diabetes brought in by paramedics for difficulty breathing. The patient had a positive [place] test last Friday and has become more short of breath. The patient was admitted and initially was in sinus rhythm. The patient yesterday however developed atrial fibrillation with rapid ventricular response with heart rate of 160s. The patient received 10 mg of IV Cardizem and started on Cardizem drip and transferred to intensive care unit. Overnight, the patient converted to sinus rhythm. At the time of my evaluation, the patient is still on 100% non-rebreather face mask with saturation of 93% and is already on heparin drip. REVIEW OF SYSTEMS: Negative other than what was mentioned in the history of present illness. PAST MEDICAL HISTORY: As mentioned above. FAMILY HISTORY: Noncontributory. SOCIAL HISTORY: Does not smoke or drink alcohol. PHYSICAL EXAMINATION: VITAL SIGNS: Blood pressure of , pulse is 100, it was up to 160s last night. HEAD AND NECK: Showed no JVD. LUNGS: Coarse rhonchi. CARDIOVASCULAR: Regular S1 and S2 with no gallop. ABDOMEN: Soft. EXTREMITIES: No pitting edema. LABORATORY AND DIAGNOSTIC DATA: Labs show white count of 12.2, hemoglobin of 13.6, hematocrit 37.6, and platelet count is 346. Sodium is 138, potassium 3.8, BUN of 21, creatinine 1.1, glucose of 212. ASSESSMENT AND PLAN: 1. Atrial fibrillation with rapid ventricular response, heart rate of 160s. This is in the setting of COVID. He already converted back to sinus rhythm after he got 10 mg of IV Cardizem. Switch IV Cardizem to Cardizem 60 mg p.o. every 6 hours. We will completely rule out NM protocol and get an echocardiogram to evaluate for ejection fraction and wall motion abnormality. In the meantime, keep the patient on heparin drip as well. If he has recurrence of atrial fibrillation, I will start him on antiarrhythmics. 2. COVID pneumonia. The patient is on isolation, 100% non-rebreather face mask. Saturations 93%. 3. Diabetes on insulin and Januvia, per Dr. Brown. 4. Lactic acidosis. Thank you very much for allowing me to participate in the care of this patient. Please do not hesitate to contact me for any questions regarding my evaluation. The case was discussed with the ICU team. I will transfer the patient out of intensive care unit as currently he is off Cardizem drip. Al Alarcon M.D. DR: Dorcas JOB#: [id number] CC:
[2020-05-17] MEDS: dilTIAZem HCl 60mg tab ORAL SCH ×3 (11:45→23:53)
[2020-05-17] MEDS: Metoprolol Tartrate 5mg/5ml Inj IVP PRN (11:45)
--- NOTE | 2020-05-17 12:00 | Pulmonolgy Critical Care Note ---
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, ID Critical Care - Objective Last 24 Hour Vital Signs Date Time Temp Pulse Resp B/P (MAP) Pulse Ox O2 Delivery O2 Flow Rate FiO2 05/17/20 11:45 112 178/80 05/17/20 11:45 112 178/80 05/17/20 10:00 111 29 143/56 (85) 91 05/17/20 09:00 111 28 143/56 (85) 94 05/17/20 08:00 Non-Rebreather 15.0 05/17/20 08:00 110 05/17/20 08:00 97.8 114 29 131/64 (86) 91 05/17/20 07:00 107 25 146/74 (98) 87 05/17/20 06:00 107 26 164/65 (98) 93 05/17/20 05:00 104 27 128/53 (78) 94 05/17/20 04:00 98.0 104 28 138/61 (86) 91 05/17/20 04:00 Non-Rebreather 15.0 05/17/20 03:27 99 05/17/20 03:00 102 32 121/49 (73) 88 05/17/20 02:00 94 28 134/67 (89) 92 05/17/20 01:00 93 27 130/66 (87) 93 05/17/20 00:47 88 05/17/20 00:12 98 134/75 05/17/20 00:00 Non-Rebreather 15.0 05/17/20 00:00 98.3 96 29 134/75 (94) 96 05/16/20 23:44 103 05/16/20 23:30 Non-Rebreather 15.0 05/16/20 20:15 156 134/79 05/16/20 20:00 Non-Rebreather 15.0 05/16/20 20:00 98.1 156 25 134/77 (96) 95 05/16/20 20:00 125 05/16/20 19:09 165 05/16/20 18:53 151 05/16/20 18:52 100 Non-Rebreather 15.0 100 05/16/20 18:30 97.8 141 20 160/90 (113) 95 05/16/20 16:00 Non-Rebreather 15.0 05/16/20 16:00 97.7 108 20 155/87 (109) 98 05/16/20 15:57 108 05/16/20 12:00 103 05/16/20 12:00 97.9 103 20 151/86 (107) 95 05/16/20 12:00 Non-Rebreather 15.0 Status: awake Condition: improving HEENT: atraumatic Lungs: rales, rhonchi Heart: HR/BP stable Abdomen: soft Extremities: no C/C/E Accucheck: 222 Critical Care - Subjective ROS Limited/Unobtainable: Yes Interval Events: had a new onset afib last night and transferred to ICU FI02: 100 I&O: Intake and Output 05/16/20 05/17/20 19:00 07:00 Intake Total 1000 ml 504.9306 ml Output Total 1800 ml 400 ml Balance -800 ml 104.9306 ml Intake Oral 1000 ml 300 ml IV Total 204.9306 ml Output Urine Total 1800 ml 400 ml # Voids 5 1 # Bowel Movements 2 Labs: Laboratory Tests Test 05/16/20 15:58 05/16/20 20:22 05/16/20 22:00 05/17/20 02:50 POC Whole Blood Glucose Pending 348 MG/DL (74-106) H Activated Partial Thromboplast Time 23 SEC (23-33) 59 SEC (23-33) H White Blood Count 12.2 K/UL (4.8-10.8) H Red Blood Count 4.85 M/UL (4.70-6.10) Hemoglobin 13.6 G/DL (14.2-18.0) L Hematocrit 37.6 % (42.0-52.0) L Mean Corpuscular Volume 77 FL (80-99) L Mean Corpuscular Hemoglobin 28.0 PG (27.0-31.0) Mean Corpuscular Hemoglobin Concent 36.1 G/DL (32.0-36.0) H Red Cell Distribution Width 13.9 % (11.6-14.8) Platelet Count 346 K/UL (150-450) Mean Platelet Volume 6.8 FL (6.5-10.1) Neutrophils (%) (Auto) % (45.0-75.0) Lymphocytes (%) (Auto) % (20.0-45.0) Monocytes (%) (Auto) % (1.0-10.0) Eosinophils (%) (Auto) % (0.0-3.0) Basophils (%) (Auto) % (0.0-2.0) Erythrocyte Sedimentation Rate 72 MM/HR (0-20) H Sodium Level 138 MMOL/L (136-145) Potassium Level 3.8 MMOL/L (3.5-5.1) Chloride Level 103 MMOL/L (98-107) Carbon Dioxide Level 26 MMOL/L (21-32) Anion Gap 9 mmol/L (5-15) Blood Urea Nitrogen 21 mg/dL (7-18) H Creatinine 1.0 MG/DL (0.55-1.30) # Estimat Glomerular Filtration Rate > 60 mL/min (>60) Glucose Level 212 MG/DL (74-106) H Calcium Level 7.9 MG/DL (8.5-10.1) L Phosphorus Level 3.3 MG/DL (2.5-4.9) Magnesium Level 2.2 MG/DL (1.8-2.4) Total Bilirubin 0.6 MG/DL (0.2-1.0) Aspartate Amino Transf (AST/SGOT) 20 U/L (15-37) Alanine Aminotransferase (ALT/SGPT) 53 U/L (12-78) Alkaline Phosphatase 120 U/L (46-116) H C-Reactive Protein, Quantitative 9.8 mg/dL (0.00-0.90) H Total Protein 6.4 G/DL (6.4-8.2) Albumin 2.4 G/DL (3.4-5.0) L Globulin 4.0 g/dL Albumin/Globulin Ratio 0.6 (1.0-2.7) L Test 05/17/20 10:25 Activated Partial Thromboplast Time 59 SEC (23-33) H Troponin I 0.230 ng/mL (0.000-0.056) Yohannes Gibson MD May 17, 2020 12:00
[2020-05-17] MEDS: Heparin 25,000u/D5W 500ml 500 ML IV SCH ×2 (12:01→17:23)
--- NOTE | 2020-05-17 12:39 | Internal Med Progress Note ---
Subjective Date of Service: May 17, 2020 Physician Name Frederick Chirinos Attending Physician Daniel Jung MD Current Medications Medications (Trade) Dose Ordered Sig/Vasiliy Route PRN Reason Start Time Stop Time Status Last Admin Dose Admin Acetaminophen (Tylenol) 650 mg Q4H PRN ORAL Temp >100.5 05/11/20 18:15 06/10/20 18:14 Albuterol/ Ipratropium (Combivent Respimat) 1 puff Q4H PRN INH Shortness of Breath 05/11/20 21:30 06/10/20 21:29 Dexamethasone (Decadron) 6 mg DAILY ORAL 05/12/20 09:00 05/21/20 09:01 05/17/20 08:33 Dextrose (Dextrose 50%) 25 ml Q30M PRN IV Hypoglycemia 05/12/20 11:00 08/10/20 10:59 Dextrose (Dextrose 50%) 50 ml Q30M PRN IV Hypoglycemia 05/12/20 11:00 08/10/20 10:59 Diltiazem HCl (Cardizem Tab) 60 mg EVERY 6 HOURS ORAL 05/17/20 12:00 06/16/20 11:59 05/17/20 11:45 Diltiazem HCl 125 mg/Dextrose 125 ml @ 0 mls/hr Q24H IVPB 05/16/20 21:00 05/17/20 20:59 Heparin Sodium (Porcine) (Heparin 5000 units/ml) 2,500 units ONCE IV 05/17/20 11:05 05/17/20 14:00 05/17/20 12:03 Heparin Sodium/ Dextrose 500 ml @ 27.236 mls/ hr ADJUST PER PROTOCOL IV 05/17/20 11:05 06/16/20 11:04 05/17/20 12:01 Insulin Aspart (NovoLOG) BEFORE MEALS AND HS SUBQ 05/13/20 10:00 08/10/20 09:59 05/17/20 06:32 Insulin Aspart (NovoLOG) 12 units NOVOTIAC SUBQ 05/17/20 11:50 08/13/20 06:29 Insulin Detemir (Levemir) 14 units DAILY SUBQ 05/15/20 09:00 08/13/20 08:59 05/17/20 08:33 Metoprolol Tartrate (Lopressor) 5 mg Q1H PRN IVP SBP more than 120 05/16/20 19:45 08/14/20 19:44 05/17/20 11:45 Ondansetron HCl (Zofran) 4 mg Q6H PRN IVP Nausea & Vomiting 05/11/20 18:15 06/10/20 18:14 Polyethylene Glycol (Miralax) 17 gm DAILYPRN PRN ORAL Constipation 05/11/20 18:15 06/10/20 18:14 Promethazine HCl/ Codeine (Phenergan with Codeine) 5 ml Q4H PRN ORAL For Cough 05/13/20 17:15 06/12/20 17:14 05/13/20 22:50 Sitagliptin Phosphate (Januvia) 100 mg ACBREAKFAST ORAL 05/16/20 08:00 06/15/20 06:29 05/17/20 06:31 Allergies: Coded Allergies: No Known Allergies (Unverified , 05/11/20) ROS Limited/Unobtainable: Yes Subjective 59 YO M admitted with respiratory failure. Now COVID 19 pneumonia. Cover for Int Med-DR Jung. ICU. 100% nonrebreather mask Objective Last Vital Signs Date Time Temp Pulse Resp B/P (MAP) Pulse Ox O2 Delivery O2 Flow Rate FiO2 05/17/20 11:45 112 178/80 05/17/20 10:00 29 91 05/17/20 08:00 Non-Rebreather 15.0 05/17/20 08:00 97.8 05/16/20 18:52 100 Laboratory Tests Test 05/16/20 15:58 05/16/20 20:22 05/16/20 22:00 05/17/20 02:50 POC Whole Blood Glucose Pending 348 MG/DL (74-106) H Activated Partial Thromboplast Time 23 SEC (23-33) 59 SEC (23-33) H White Blood Count 12.2 K/UL (4.8-10.8) H Red Blood Count 4.85 M/UL (4.70-6.10) Hemoglobin 13.6 G/DL (14.2-18.0) L Hematocrit 37.6 % (42.0-52.0) L Mean Corpuscular Volume 77 FL (80-99) L Mean Corpuscular Hemoglobin 28.0 PG (27.0-31.0) Mean Corpuscular Hemoglobin Concent 36.1 G/DL (32.0-36.0) H Red Cell Distribution Width 13.9 % (11.6-14.8) Platelet Count 346 K/UL (150-450) Mean Platelet Volume 6.8 FL (6.5-10.1) Neutrophils (%) (Auto) % (45.0-75.0) Lymphocytes (%) (Auto) % (20.0-45.0) Monocytes (%) (Auto) % (1.0-10.0) Eosinophils (%) (Auto) % (0.0-3.0) Basophils (%) (Auto) % (0.0-2.0) Erythrocyte Sedimentation Rate 72 MM/HR (0-20) H Sodium Level 138 MMOL/L (136-145) Potassium Level 3.8 MMOL/L (3.5-5.1) Chloride Level 103 MMOL/L (98-107) Carbon Dioxide Level 26 MMOL/L (21-32) Anion Gap 9 mmol/L (5-15) Blood Urea Nitrogen 21 mg/dL (7-18) H Creatinine 1.0 MG/DL (0.55-1.30) # Estimat Glomerular Filtration Rate > 60 mL/min (>60) Glucose Level 212 MG/DL (74-106) H Calcium Level 7.9 MG/DL (8.5-10.1) L Phosphorus Level 3.3 MG/DL (2.5-4.9) Magnesium Level 2.2 MG/DL (1.8-2.4) Total Bilirubin 0.6 MG/DL (0.2-1.0) Aspartate Amino Transf (AST/SGOT) 20 U/L (15-37) Alanine Aminotransferase (ALT/SGPT) 53 U/L (12-78) Alkaline Phosphatase 120 U/L (46-116) H C-Reactive Protein, Quantitative 9.8 mg/dL (0.00-0.90) H Total Protein 6.4 G/DL (6.4-8.2) Albumin 2.4 G/DL (3.4-5.0) L Globulin 4.0 g/dL Albumin/Globulin Ratio 0.6 (1.0-2.7) L Test 05/17/20 10:25 Activated Partial Thromboplast Time 59 SEC (23-33) H Troponin I 0.230 ng/mL (0.000-0.056) Intake and Output 05/16/20 05/17/20 19:00 07:00 Intake Total 1000 ml 504.9306 ml Output Total 1800 ml 400 ml Balance -800 ml 104.9306 ml Intake Oral 1000 ml 300 ml IV Total 204.9306 ml Output Urine Total 1800 ml 400 ml # Voids 5 1 # Bowel Movements 2 Objective PHYSICAL EXAMINATION: GENERAL: The patient is a well-developed, well-nourished male, in no apparent distress. HEENT: Eyes, pupils equal and responsive to light and accommodation. Extraocular movements are intact. NECK: Supple without lymphadenopathy. CHEST: Nonrebreather mask; Lungs with decreased breath sounds at bilateral bases without wheezes or rales. CARDIOVASCULAR: Regular rhythm and rate. S1, S2 normal without murmurs, rubs, or gallops. ABDOMEN: Soft, nontender, and nondistended. Positive bowel sounds. No evidence of hepatosplenomegaly. Currently, no rebound or guarding noted. EXTREMITIES: Negative for clubbing, cyanosis, or edema. RECTAL: Not performed. GENITAL: Not performed. NEUROLOGIC: Cranial nerves II through XII are grossly intact without focal deficits. Motor strength is 5/5 bilaterally intact. Deep tendon reflexes are 2+ bilat Assessment/Plan Assessment/Plan ASSESSMENT: This is a 59-year-old male with: 1. COVID-19 positive. 2. COVID-19 pneumonia. 3. Respiratory failure. 4. Diabetes type 2. 5. Hypertension. TREATMENT: 1. COVID-19 positive/pneumonia. Infectious Disease= Dr. Craft. Follow recommendations of Infectious Disease. Continue remdesivir per Infectious Disease. S/P ceftriaxone, azithromycin and decadron 2. Respiratory failure. Pulmonary/critical care= Dr. Yohannes Gibson. The patient is currently on 100% nonrebreather mask. Follow recommendations of Pulmonary. 3. Diabetes type 2. NovoLog sliding scale has been instituted. 4. Hypertension. Continue lisinopril as above. Frederick Chirinos MD May 17, 2020 12:39
--- NOTE | 2020-05-17 16:41 | Diagnostic Imaging Report ---
Indication: Reason For Exam: DYSPNEA Technique: Single AP view of the chest. Comparison: Chest radiograph dated 05/14/2020 Findings: Heart is unchanged in size. There is new lucency projecting over the left heart border and upper mediastinum. New moderate right apical pneumothorax. Interval development of diffuse bilateral interstitial opacities as well as patchy scattered airspace opacities. No pleural effusion. There is bilateral supraclavicular subcutaneous emphysema. IMPRESSION: 1. New moderate right apical pneumothorax. 2. New pneumomediastinum. 3. New supraclavicular bilateral subcutaneous emphysema. 4. Development of bilateral airspace disease suspicious for atypical/viral pneumonia. Clinical findings reported to nurse Webb at 1630 on 05/17/2020
[2020-05-18] VITALS (24 sets, daily range): BP systolic 127–163; BP diastolic 50–67
[2020-05-18 04:09] LABS: HEMATOCRIT 33.3 % (42.0-52.0); HEMOGLOBIN 12.2 G/DL (14.2-18.0); MEAN CORPUSCULAR VOLUME 78 FL (80-99); PLATELET COUNT 316 K/UL (150-450); RED BLOOD COUNT 4.29 M/UL (4.70-6.10); RED CELL DISTRIBUTION WIDTH 13.9 % (11.6-14.8); WHITE BLOOD COUNT 10.2 K/UL (4.8-10.8)
[2020-05-18 04:26] LABS: PHOSPHORUS 2.8 MG/DL (2.5-4.9)
[2020-05-18 04:49] LABS: ALANINE AMINOTRANSFERASE 36 U/L (12-78); ALBUMIN 2.2 G/DL (3.4-5.0); ALBUMIN/GLOBULIN RATIO 0.6 (1.0-2.7); ALKALINE PHOSPHATASE 109 U/L (46-116); ANION GAP 10 mmol/L (5-15); ASPARTATE AMINO TRANSFERASE 19 U/L (15-37); BILIRUBIN,TOTAL 0.5 MG/DL (0.2-1.0); BLOOD UREA NITROGEN 21 mg/dL (7-18); CALCIUM 7.7 MG/DL (8.5-10.1); CARBON DIOXIDE 24 MMOL/L (21-32); CHLORIDE 101 MMOL/L (98-107); CREATININE 0.6 MG/DL (0.55-1.30); POTASSIUM 3.7 MMOL/L (3.5-5.1); SODIUM 135 MMOL/L (136-145)
[2020-05-18] MEDS: dilTIAZem HCl 60mg tab ORAL SCH ×3 (06:20→17:41)
[2020-05-18] MEDS: NovoLOG Insulin Flexpen SUBQ SCH ×6 (06:30→20:24)
[2020-05-18] MEDS: Levemir Flexpen SUBQ SCH (08:58)
--- NOTE | 2020-05-18 09:15 | Infectious Diseases Prog Note ---
Assessment/Plan 59yo M with: Febrile to 100.9; SP Normal WBC Lymphopenia Hypoxic resp failure 2/2 COVID pna, on NRB mask Severe COVID pna, tested positive 05/05 R apical PTX and pneumomediastinum, new 05/17, awaiting chest tube placement 05/05 COVID positive 05/11 BCx NTD Resp cx p COVID PCR+ CXR: No acute process Influenza EIA neg 05/14 CXR: Mildly increased interstitial markings. This is nonspecific but may suggest mild pulmonary vascular congestion or pneumonitis. No focal consolidation. 05/17 CXR: 1. New moderate right apical pneumothorax. 2. New pneumomediastinum. 3. New supraclavicular bilateral subcutaneous emphysema. 4. Development of bilateral airspace disease suspicious for atypical/viral pneumonia. BLE US neg for DVT DM2 Plan: Cont dexamethasone 6mg daily #8/ Monitor R PTX 05/16 SP CTX/azithro #5 05/16 SP RDV #5 [facility] not have convalescent plasma, and as pt 1 week out from diagnosis, unlikely to benefit from it at this point Monitor CBC/CMP Monitor temp curve, hemodynamics Monitor resp status D/w RN Thank you for this consult. [facility] will continue to follow. Subjective Allergies: Coded Allergies: No Known Allergies (Unverified , 05/11/20) AF WBC 10, improving On 15L NRB mask CXR with: 1. New moderate right apical pneumothorax. 2. New pneumomediastinum. 3. New supraclavicular bilateral subcutaneous emphysema. 4. Development of bilateral airspace disease suspicious for atypical/viral pneumonia. Objective Last 24 Hour Vital Signs Date Time Temp Pulse Resp B/P (MAP) Pulse Ox O2 Delivery O2 Flow Rate FiO2 05/18/20 07:00 79 20 161/66 (97) 95 05/18/20 06:20 77 163/65 05/18/20 06:00 80 25 163/65 (97) 95 05/18/20 05:00 98.4 79 24 150/58 (88) 95 05/18/20 04:00 79 25 158/63 (94) 94 05/18/20 04:00 Non-Rebreather 15.0 05/18/20 03:10 76 05/18/20 03:00 82 30 154/63 (93) 94 05/18/20 02:00 84 31 147/59 (88) 92 05/18/20 01:00 86 29 154/61 (92) 94 05/18/20 00:00 98.0 87 28 158/62 (94) 96 05/18/20 00:00 Non-Rebreather 15.0 05/17/20 23:53 84 159/66 05/17/20 23:01 89 05/17/20 23:00 85 29 159/66 (97) 96 05/17/20 22:00 86 27 159/66 (97) 95 05/17/20 21:00 87 27 154/61 (92) 97 05/17/20 20:00 Non-Rebreather 15.0 05/17/20 20:00 98.0 90 29 148/60 (89) 95 05/17/20 19:59 86 05/17/20 19:29 96 Non-Rebreather 15.0 100 05/17/20 19:00 136 30 136/60 (85) 98 05/17/20 18:00 102 28 143/58 (86) 92 05/17/20 17:19 99 162/69 05/17/20 17:00 92 28 162/69 (100) 93 05/17/20 16:00 Non-Rebreather 15.0 05/17/20 16:00 97.2 88 25 161/72 (101) 96 05/17/20 16:00 91 05/17/20 15:00 93 27 152/68 (96) 96 05/17/20 14:00 91 31 159/71 (100) 96 05/17/20 13:00 92 32 159/71 (100) 96 05/17/20 12:00 100 05/17/20 12:00 Non-Rebreather 15.0 05/17/20 12:00 99.2 93 29 140/66 (90) 92 05/17/20 11:45 112 178/80 05/17/20 11:45 112 178/80 05/17/20 11:00 107 29 178/80 (112) 95 05/17/20 10:00 111 29 143/56 (85) 91 Height (Feet): 5 Height (Inches): 5.00 Weight (Pounds): 149 Gen: NAD HEENT: NCAT Pulm: BL chest rise Abd: Non-distended Ext: No c/c/e Skin: No visible rashes Neuro: Awake Laboratory Tests Test 05/17/20 10:25 05/17/20 18:30 05/18/20 04:00 Activated Partial Thromboplast Time 59 SEC (23-33) H 72 SEC (23-33) H 71 SEC (23-33) H Troponin I 0.230 ng/mL (0.000-0.056) 0.188 ng/mL (0.000-0.056) 0.168 ng/mL (0.000-0.056) White Blood Count 10.2 K/UL (4.8-10.8) Red Blood Count 4.29 M/UL (4.70-6.10) L Hemoglobin 12.2 G/DL (14.2-18.0) L Hematocrit 33.3 % (42.0-52.0) L Mean Corpuscular Volume 78 FL (80-99) L Mean Corpuscular Hemoglobin 28.5 PG (27.0-31.0) Mean Corpuscular Hemoglobin Concent 36.8 G/DL (32.0-36.0) H Red Cell Distribution Width 13.9 % (11.6-14.8) Platelet Count 316 K/UL (150-450) Mean Platelet Volume 6.3 FL (6.5-10.1) L Neutrophils (%) (Auto) % (45.0-75.0) Lymphocytes (%) (Auto) % (20.0-45.0) Monocytes (%) (Auto) % (1.0-10.0) Eosinophils (%) (Auto) % (0.0-3.0) Basophils (%) (Auto) % (0.0-2.0) Erythrocyte Sedimentation Rate 88 MM/HR (0-20) H Sodium Level 135 MMOL/L (136-145) L Potassium Level 3.7 MMOL/L (3.5-5.1) Chloride Level 101 MMOL/L (98-107) Carbon Dioxide Level 24 MMOL/L (21-32) Anion Gap 10 mmol/L (5-15) Blood Urea Nitrogen 21 mg/dL (7-18) H Creatinine 0.6 MG/DL (0.55-1.30) Estimat Glomerular Filtration Rate > 60 mL/min (>60) Glucose Level 252 MG/DL (74-106) H Calcium Level 7.7 MG/DL (8.5-10.1) L Phosphorus Level 2.8 MG/DL (2.5-4.9) Magnesium Level 2.0 MG/DL (1.8-2.4) Total Bilirubin 0.5 MG/DL (0.2-1.0) Aspartate Amino Transf (AST/SGOT) 19 U/L (15-37) Alanine Aminotransferase (ALT/SGPT) 36 U/L (12-78) Alkaline Phosphatase 109 U/L (46-116) C-Reactive Protein, Quantitative 9.6 mg/dL (0.00-0.90) H Pro-B-Type Natriuretic Peptide 248 pg/mL (0-125) H Total Protein 6.1 G/DL (6.4-8.2) L Albumin 2.2 G/DL (3.4-5.0) L Globulin 3.9 g/dL Albumin/Globulin Ratio 0.6 (1.0-2.7) L Thyroid Stimulating Hormone (TSH) 0.412 uiU/mL (0.358-3.740) Free Thyroxine 1.59 NG/DL (0.76-1.46) H Current Medications Medications (Trade) Dose Ordered Sig/Vasiliy Route PRN Reason Start Time Stop Time Status Last Admin Dose Admin Acetaminophen (Tylenol) 650 mg Q4H PRN ORAL Temp >100.5 05/11/20 18:15 06/10/20 18:14 Albuterol/ Ipratropium (Combivent Respimat) 1 puff Q4H PRN INH Shortness of Breath 05/11/20 21:30 06/10/20 21:29 Dexamethasone (Decadron) 6 mg DAILY ORAL 05/12/20 09:00 05/21/20 09:01 05/18/20 08:57 Dextrose (Dextrose 50%) 25 ml Q30M PRN IV Hypoglycemia 05/12/20 11:00 08/10/20 10:59 Dextrose (Dextrose 50%) 50 ml Q30M PRN IV Hypoglycemia 05/12/20 11:00 08/10/20 10:59 Diltiazem HCl (Cardizem Tab) 60 mg EVERY 6 HOURS ORAL 05/17/20 12:00 06/16/20 11:59 05/18/20 06:20 Heparin Sodium/ Dextrose 500 ml @ 27.236 mls/ hr ADJUST PER PROTOCOL IV 05/17/20 11:05 06/16/20 11:04 05/17/20 17:23 Insulin Aspart (NovoLOG) BEFORE MEALS AND HS SUBQ 05/13/20 10:00 08/10/20 09:59 05/17/20 21:08 Insulin Aspart (NovoLOG) 12 units NOVOTIAC SUBQ 05/17/20 11:50 08/13/20 06:29 05/17/20 17:24 Insulin Detemir (Levemir) 14 units DAILY SUBQ 05/15/20 09:00 08/13/20 08:59 05/18/20 08:58 Metoprolol Tartrate (Lopressor) 5 mg Q1H PRN IVP SBP more than 120 05/16/20 19:45 08/14/20 19:44 05/17/20 11:45 Ondansetron HCl (Zofran) 4 mg Q6H PRN IVP Nausea & Vomiting 05/11/20 18:15 06/10/20 18:14 Polyethylene Glycol (Miralax) 17 gm DAILYPRN PRN ORAL Constipation 05/11/20 18:15 06/10/20 18:14 Promethazine HCl/ Codeine (Phenergan with Codeine) 5 ml Q4H PRN ORAL For Cough 05/13/20 17:15 06/12/20 17:14 05/13/20 22:50 Sitagliptin Phosphate (Januvia) 100 mg ACBREAKFAST ORAL 05/16/20 08:00 06/15/20 06:29 05/18/20 06:20 Meme Leggett M.D. May 18, 2020 09:15
--- NOTE | 2020-05-18 10:34 | Cardiac Electrophysiology PN ---
Assessment/Plan Status Narrative 1. New moderate right apical pneumothorax. 2. New pneumomediastinum. 3. New supraclavicular bilateral subcutaneous emphysema. 4. Development of bilateral airspace disease suspicious for atypical/viral pneumonia. Assessment/Plan 1. Atrial fibrillation with rapid ventricular response, heart rate of 160s. This is in the setting of COVID. He already converted back to sinus rhythm after he got 10 mg of IV Cardizem. Switched IV Cardizem to Cardizem 60 mg p.o. every 6 hours. Continue on heparin drip ECho Nl EF 2. COVID pneumonia. The patient is on isolation, 100% non-rebreather face mask. Saturations 93%. 3. Right Apical PTX and Pneumomediastinum. Evaluation by Dr Mtz pending 4. Diabetes on insulin and Januvia, per Dr. Brown. 5. Lactic acidosis. KIM RN Subjective Subjective In ICU on 100% NRBFM. Repeat CXr to R/O PTX pending. Dr Mtz evaluation for possible chest tube pending Objective Last 24 Hour Vital Signs Date Time Temp Pulse Resp B/P (MAP) Pulse Ox O2 Delivery O2 Flow Rate FiO2 05/18/20 07:00 79 20 161/66 (97) 95 05/18/20 06:20 77 163/65 05/18/20 06:00 80 25 163/65 (97) 95 05/18/20 05:00 98.4 79 24 150/58 (88) 95 05/18/20 04:00 79 25 158/63 (94) 94 05/18/20 04:00 Non-Rebreather 15.0 05/18/20 03:10 76 05/18/20 03:00 82 30 154/63 (93) 94 05/18/20 02:00 84 31 147/59 (88) 92 05/18/20 01:00 86 29 154/61 (92) 94 05/18/20 00:00 98.0 87 28 158/62 (94) 96 05/18/20 00:00 Non-Rebreather 15.0 05/17/20 23:53 84 159/66 05/17/20 23:01 89 05/17/20 23:00 85 29 159/66 (97) 96 05/17/20 22:00 86 27 159/66 (97) 95 05/17/20 21:00 87 27 154/61 (92) 97 05/17/20 20:00 Non-Rebreather 15.0 05/17/20 20:00 98.0 90 29 148/60 (89) 95 05/17/20 19:59 86 05/17/20 19:29 96 Non-Rebreather 15.0 100 05/17/20 19:00 136 30 136/60 (85) 98 05/17/20 18:00 102 28 143/58 (86) 92 05/17/20 17:19 99 162/69 05/17/20 17:00 92 28 162/69 (100) 93 05/17/20 16:00 Non-Rebreather 15.0 05/17/20 16:00 97.2 88 25 161/72 (101) 96 05/17/20 16:00 91 05/17/20 15:00 93 27 152/68 (96) 96 05/17/20 14:00 91 31 159/71 (100) 96 05/17/20 13:00 92 32 159/71 (100) 96 05/17/20 12:00 100 05/17/20 12:00 Non-Rebreather 15.0 05/17/20 12:00 99.2 93 29 140/66 (90) 92 05/17/20 11:45 112 178/80 05/17/20 11:45 112 178/80 05/17/20 11:00 107 29 178/80 (112) 95 Intake and Output 05/17/20 05/18/20 19:00 07:00 Intake Total 1432.744 ml 626.832 ml Output Total 700 ml 350 ml Balance 732.744 ml 276.832 ml Intake Oral 1200 ml 300 ml IV Total 232.744 ml 326.832 ml Output Urine Total 700 ml 350 ml # Voids 1 # Bowel Movements 2 Laboratory Tests Test 05/17/20 18:30 05/18/20 04:00 Activated Partial Thromboplast Time 72 SEC (23-33) H 71 SEC (23-33) H Troponin I 0.188 ng/mL (0.000-0.056) 0.168 ng/mL (0.000-0.056) White Blood Count 10.2 K/UL (4.8-10.8) Red Blood Count 4.29 M/UL (4.70-6.10) L Hemoglobin 12.2 G/DL (14.2-18.0) L Hematocrit 33.3 % (42.0-52.0) L Mean Corpuscular Volume 78 FL (80-99) L Mean Corpuscular Hemoglobin 28.5 PG (27.0-31.0) Mean Corpuscular Hemoglobin Concent 36.8 G/DL (32.0-36.0) H Red Cell Distribution Width 13.9 % (11.6-14.8) Platelet Count 316 K/UL (150-450) Mean Platelet Volume 6.3 FL (6.5-10.1) L Neutrophils (%) (Auto) % (45.0-75.0) Lymphocytes (%) (Auto) % (20.0-45.0) Monocytes (%) (Auto) % (1.0-10.0) Eosinophils (%) (Auto) % (0.0-3.0) Basophils (%) (Auto) % (0.0-2.0) Erythrocyte Sedimentation Rate 88 MM/HR (0-20) H Sodium Level 135 MMOL/L (136-145) L Potassium Level 3.7 MMOL/L (3.5-5.1) Chloride Level 101 MMOL/L (98-107) Carbon Dioxide Level 24 MMOL/L (21-32) Anion Gap 10 mmol/L (5-15) Blood Urea Nitrogen 21 mg/dL (7-18) H Creatinine 0.6 MG/DL (0.55-1.30) Estimat Glomerular Filtration Rate > 60 mL/min (>60) Glucose Level 252 MG/DL (74-106) H Calcium Level 7.7 MG/DL (8.5-10.1) L Phosphorus Level 2.8 MG/DL (2.5-4.9) Magnesium Level 2.0 MG/DL (1.8-2.4) Total Bilirubin 0.5 MG/DL (0.2-1.0) Aspartate Amino Transf (AST/SGOT) 19 U/L (15-37) Alanine Aminotransferase (ALT/SGPT) 36 U/L (12-78) Alkaline Phosphatase 109 U/L (46-116) C-Reactive Protein, Quantitative 9.6 mg/dL (0.00-0.90) H Pro-B-Type Natriuretic Peptide 248 pg/mL (0-125) H Total Protein 6.1 G/DL (6.4-8.2) L Albumin 2.2 G/DL (3.4-5.0) L Globulin 3.9 g/dL Albumin/Globulin Ratio 0.6 (1.0-2.7) L Thyroid Stimulating Hormone (TSH) 0.412 uiU/mL (0.358-3.740) Free Thyroxine 1.59 NG/DL (0.76-1.46) H Objective HEAD AND NECK: Showed no JVD. LUNGS: Coarse rhonchi. CARDIOVASCULAR: Regular S1 and S2 with no gallop. ABDOMEN: Soft. EXTREMITIES: No pitting edema. Al Alarcon MD May 18, 2020 10:34
--- NOTE | 2020-05-18 11:59 | Pulmonolgy Critical Care Note ---
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 Critical Care - Objective Last 24 Hour Vital Signs Date Time Temp Pulse Resp B/P (MAP) Pulse Ox O2 Delivery O2 Flow Rate FiO2 05/18/20 11:00 90 28 138/63 (88) 89 05/18/20 10:00 80 26 140/67 (91) 95 05/18/20 09:00 82 26 135/55 (81) 92 05/18/20 08:00 Non-Rebreather 15.0 05/18/20 08:00 84 05/18/20 08:00 97.9 84 29 135/60 (85) 95 05/18/20 07:00 79 20 161/66 (97) 95 05/18/20 06:20 77 163/65 05/18/20 06:00 80 25 163/65 (97) 95 05/18/20 05:00 98.4 79 24 150/58 (88) 95 05/18/20 04:00 79 25 158/63 (94) 94 05/18/20 04:00 Non-Rebreather 15.0 05/18/20 03:10 76 05/18/20 03:00 82 30 154/63 (93) 94 05/18/20 02:00 84 31 147/59 (88) 92 05/18/20 01:00 86 29 154/61 (92) 94 05/18/20 00:00 98.0 87 28 158/62 (94) 96 05/18/20 00:00 Non-Rebreather 15.0 05/17/20 23:53 84 159/66 05/17/20 23:01 89 05/17/20 23:00 85 29 159/66 (97) 96 05/17/20 22:00 86 27 159/66 (97) 95 05/17/20 21:00 87 27 154/61 (92) 97 05/17/20 20:00 Non-Rebreather 15.0 05/17/20 20:00 98.0 90 29 148/60 (89) 95 05/17/20 19:59 86 05/17/20 19:29 96 Non-Rebreather 15.0 100 05/17/20 19:00 136 30 136/60 (85) 98 05/17/20 18:00 102 28 143/58 (86) 92 05/17/20 17:19 99 162/69 05/17/20 17:00 92 28 162/69 (100) 93 05/17/20 16:00 Non-Rebreather 15.0 05/17/20 16:00 97.2 88 25 161/72 (101) 96 05/17/20 16:00 91 05/17/20 15:00 93 27 152/68 (96) 96 05/17/20 14:00 91 31 159/71 (100) 96 05/17/20 13:00 92 32 159/71 (100) 96 05/17/20 12:00 100 05/17/20 12:00 Non-Rebreather 15.0 05/17/20 12:00 99.2 93 29 140/66 (90) 92 Status: awake Condition: improving HEENT: atraumatic Lungs: clear Heart: HR/BP stable, regular Abdomen: non-tender Extremities: edema Accucheck: 377 Critical Care - Subjective ROS Limited/Unobtainable: No Condition: critical EKG Rhythm: Sinus Rhythm FI02: 100 I&O: Intake and Output 05/17/20 05/18/20 19:00 07:00 Intake Total 1432.744 ml 626.832 ml Output Total 700 ml 350 ml Balance 732.744 ml 276.832 ml Intake Oral 1200 ml 300 ml IV Total 232.744 ml 326.832 ml Output Urine Total 700 ml 350 ml # Voids 1 # Bowel Movements 2 CXR: pneumothorax > 10% Labs: Laboratory Tests Test 05/17/20 18:30 05/18/20 04:00 Activated Partial Thromboplast Time 72 SEC (23-33) H 71 SEC (23-33) H Troponin I 0.188 ng/mL (0.000-0.056) 0.168 ng/mL (0.000-0.056) White Blood Count 10.2 K/UL (4.8-10.8) Red Blood Count 4.29 M/UL (4.70-6.10) L Hemoglobin 12.2 G/DL (14.2-18.0) L Hematocrit 33.3 % (42.0-52.0) L Mean Corpuscular Volume 78 FL (80-99) L Mean Corpuscular Hemoglobin 28.5 PG (27.0-31.0) Mean Corpuscular Hemoglobin Concent 36.8 G/DL (32.0-36.0) H Red Cell Distribution Width 13.9 % (11.6-14.8) Platelet Count 316 K/UL (150-450) Mean Platelet Volume 6.3 FL (6.5-10.1) L Neutrophils (%) (Auto) % (45.0-75.0) Lymphocytes (%) (Auto) % (20.0-45.0) Monocytes (%) (Auto) % (1.0-10.0) Eosinophils (%) (Auto) % (0.0-3.0) Basophils (%) (Auto) % (0.0-2.0) Erythrocyte Sedimentation Rate 88 MM/HR (0-20) H Sodium Level 135 MMOL/L (136-145) L Potassium Level 3.7 MMOL/L (3.5-5.1) Chloride Level 101 MMOL/L (98-107) Carbon Dioxide Level 24 MMOL/L (21-32) Anion Gap 10 mmol/L (5-15) Blood Urea Nitrogen 21 mg/dL (7-18) H Creatinine 0.6 MG/DL (0.55-1.30) Estimat Glomerular Filtration Rate > 60 mL/min (>60) Glucose Level 252 MG/DL (74-106) H Calcium Level 7.7 MG/DL (8.5-10.1) L Phosphorus Level 2.8 MG/DL (2.5-4.9) Magnesium Level 2.0 MG/DL (1.8-2.4) Total Bilirubin 0.5 MG/DL (0.2-1.0) Aspartate Amino Transf (AST/SGOT) 19 U/L (15-37) Alanine Aminotransferase (ALT/SGPT) 36 U/L (12-78) Alkaline Phosphatase 109 U/L (46-116) C-Reactive Protein, Quantitative 9.6 mg/dL (0.00-0.90) H Pro-B-Type Natriuretic Peptide 248 pg/mL (0-125) H Total Protein 6.1 G/DL (6.4-8.2) L Albumin 2.2 G/DL (3.4-5.0) L Globulin 3.9 g/dL Albumin/Globulin Ratio 0.6 (1.0-2.7) L Thyroid Stimulating Hormone (TSH) 0.412 uiU/mL (0.358-3.740) Free Thyroxine 1.59 NG/DL (0.76-1.46) H Yohannes Gibson MD May 18, 2020 11:59
--- NOTE | 2020-05-18 13:54 | Diagnostic Imaging Report ---
Indication: Reason For Exam: SOB Technique: Single AP view of the chest. Comparison: Chest radiograph dated 05/17/2020 Findings: The cardiomediastinal silhouette is unchanged in appearance. Continued worsening in aeration of the lungs, with increasing perihilar consolidation and bibasilar airspace opacities. No significant change in size of right apical pneumothorax. Pneumomediastinum is again demonstrated. No increasing pleural effusion. Slight interval increase in left supraclavicular subcutaneous emphysema. IMPRESSION: 1. Interval worsening in aeration of the lungs with increasing airspace consolidation bilaterally. 2. Stable right apical pneumothorax. 3. Persistent pneumomediastinum.
--- NOTE | 2020-05-18 14:01 | Internal Med Progress Note ---
Subjective Physician Name Daniel Jung Attending Physician Daniel Jung MD Current Medications Medications (Trade) Dose Ordered Sig/Vasiliy Route PRN Reason Start Time Stop Time Status Last Admin Dose Admin Acetaminophen (Tylenol) 650 mg Q4H PRN ORAL Temp >100.5 05/11/20 18:15 06/10/20 18:14 Albuterol/ Ipratropium (Combivent Respimat) 1 puff Q4H PRN INH Shortness of Breath 05/11/20 21:30 06/10/20 21:29 Dexamethasone (Decadron) 6 mg DAILY ORAL 05/12/20 09:00 05/21/20 09:01 05/18/20 08:57 Dextrose (Dextrose 50%) 25 ml Q30M PRN IV Hypoglycemia 05/12/20 11:00 08/10/20 10:59 Dextrose (Dextrose 50%) 50 ml Q30M PRN IV Hypoglycemia 05/12/20 11:00 08/10/20 10:59 Diltiazem HCl (Cardizem Tab) 60 mg EVERY 6 HOURS ORAL 05/17/20 12:00 06/16/20 11:59 05/18/20 13:01 Heparin Sodium/ Dextrose 500 ml @ 27.236 mls/ hr ADJUST PER PROTOCOL IV 05/17/20 11:05 06/16/20 11:04 05/17/20 17:23 Insulin Aspart (NovoLOG) BEFORE MEALS AND HS SUBQ 05/13/20 10:00 08/10/20 09:59 05/18/20 13:19 Insulin Aspart (NovoLOG) 12 units NOVOTIAC SUBQ 05/17/20 11:50 08/13/20 06:29 05/18/20 13:19 Insulin Detemir (Levemir) 14 units DAILY SUBQ 05/15/20 09:00 08/13/20 08:59 05/18/20 08:58 Metoprolol Tartrate (Lopressor) 5 mg Q1H PRN IVP SBP more than 120 05/16/20 19:45 08/14/20 19:44 05/17/20 11:45 Ondansetron HCl (Zofran) 4 mg Q6H PRN IVP Nausea & Vomiting 05/11/20 18:15 06/10/20 18:14 Polyethylene Glycol (Miralax) 17 gm DAILYPRN PRN ORAL Constipation 05/11/20 18:15 06/10/20 18:14 Promethazine HCl/ Codeine (Phenergan with Codeine) 5 ml Q4H PRN ORAL For Cough 05/13/20 17:15 06/12/20 17:14 05/13/20 22:50 Sitagliptin Phosphate (Januvia) 100 mg ACBREAKFAST ORAL 05/16/20 08:00 06/15/20 06:29 05/18/20 06:20 Allergies: Coded Allergies: No Known Allergies (Unverified , 05/11/20) Subjective in ICU, on 100% Ventimask, awake, responsive, open his eyes, on COVID respiratory isolation room. Objective Last Vital Signs Date Time Temp Pulse Resp B/P (MAP) Pulse Ox O2 Delivery O2 Flow Rate FiO2 05/18/20 13:01 90 140/60 05/18/20 12:00 Non-Rebreather 15.0 05/18/20 12:00 97.9 29 95 05/17/20 19:29 100 Laboratory Tests Test 05/17/20 18:30 05/18/20 04:00 Activated Partial Thromboplast Time 72 SEC (23-33) H 71 SEC (23-33) H Troponin I 0.188 ng/mL (0.000-0.056) 0.168 ng/mL (0.000-0.056) White Blood Count 10.2 K/UL (4.8-10.8) Red Blood Count 4.29 M/UL (4.70-6.10) L Hemoglobin 12.2 G/DL (14.2-18.0) L Hematocrit 33.3 % (42.0-52.0) L Mean Corpuscular Volume 78 FL (80-99) L Mean Corpuscular Hemoglobin 28.5 PG (27.0-31.0) Mean Corpuscular Hemoglobin Concent 36.8 G/DL (32.0-36.0) H Red Cell Distribution Width 13.9 % (11.6-14.8) Platelet Count 316 K/UL (150-450) Mean Platelet Volume 6.3 FL (6.5-10.1) L Neutrophils (%) (Auto) % (45.0-75.0) Lymphocytes (%) (Auto) % (20.0-45.0) Monocytes (%) (Auto) % (1.0-10.0) Eosinophils (%) (Auto) % (0.0-3.0) Basophils (%) (Auto) % (0.0-2.0) Erythrocyte Sedimentation Rate 88 MM/HR (0-20) H Sodium Level 135 MMOL/L (136-145) L Potassium Level 3.7 MMOL/L (3.5-5.1) Chloride Level 101 MMOL/L (98-107) Carbon Dioxide Level 24 MMOL/L (21-32) Anion Gap 10 mmol/L (5-15) Blood Urea Nitrogen 21 mg/dL (7-18) H Creatinine 0.6 MG/DL (0.55-1.30) Estimat Glomerular Filtration Rate > 60 mL/min (>60) Glucose Level 252 MG/DL (74-106) H Calcium Level 7.7 MG/DL (8.5-10.1) L Phosphorus Level 2.8 MG/DL (2.5-4.9) Magnesium Level 2.0 MG/DL (1.8-2.4) Total Bilirubin 0.5 MG/DL (0.2-1.0) Aspartate Amino Transf (AST/SGOT) 19 U/L (15-37) Alanine Aminotransferase (ALT/SGPT) 36 U/L (12-78) Alkaline Phosphatase 109 U/L (46-116) C-Reactive Protein, Quantitative 9.6 mg/dL (0.00-0.90) H Pro-B-Type Natriuretic Peptide 248 pg/mL (0-125) H Total Protein 6.1 G/DL (6.4-8.2) L Albumin 2.2 G/DL (3.4-5.0) L Globulin 3.9 g/dL Albumin/Globulin Ratio 0.6 (1.0-2.7) L Thyroid Stimulating Hormone (TSH) 0.412 uiU/mL (0.358-3.740) Free Thyroxine 1.59 NG/DL (0.76-1.46) H Intake and Output 05/17/20 05/18/20 19:00 07:00 Intake Total 1432.744 ml 626.832 ml Output Total 700 ml 350 ml Balance 732.744 ml 276.832 ml Intake Oral 1200 ml 300 ml IV Total 232.744 ml 326.832 ml Output Urine Total 700 ml 350 ml # Voids 1 # Bowel Movements 2 Objective limited examination due to COVID isolation room Patient is awake, responsive, on Ventimask 100% Assessment/Plan Assessment/Plan ASSESSMENT: This is a 59-year-old male with: 1. acute hypoxemic respiratory failure. 2. COVID-19 pneumonia. 3. right apical pneumothorax. 4. Diabetes type 2. 5. Hypertension. 6. atrial fibrillation with rapid ventricular rate. TREATMENT: 1. COVID-19 positive/pneumonia. Infectious Disease= Dr. Craft. Follow recommendations of Infectious Disease. completed remdesivir per Infectious Disease. On Decadron 2. Respiratory failure. Pulmonary/critical care= Dr. Yohannes Gibson. The patient is currently on 100% nonrebreather mask. Follow recommendations of Pulmonary. 3. Diabetes type 2. NovoLog sliding scale has been instituted. 4. Hypertension. Continue lisinopril as above. CODE STATUS: Full code DVT prophylaxis: Heparin Daniel Winn MD May 18, 2020 14:01
[2020-05-18] MEDS: Heparin 25,000u/D5W 500ml 500 ML IV SCH (14:35)
--- NOTE | 2020-05-18 17:38 | General Progress Note ---
Subjective ROS Limited/Unobtainable: Yes Allergies: Coded Allergies: No Known Allergies (Unverified , 05/11/20) Subjective events noted in ICU glucose values are very high Item Value Date Time Bedside Blood Glucose 319 mg/dl H 05/18/20 1319 Bedside Blood Glucose 377 mg/dl H 05/18/20 0858 Bedside Blood Glucose 377 mg/dl H 05/18/20 0630 Bedside Blood Glucose 311 mg/dl H 05/17/20 2108 Bedside Blood Glucose 274 mg/dl H 05/17/20 1724 Bedside Blood Glucose 240 mg/dl H 05/17/20 1302 Objective Last 24 Hour Vital Signs Date Time Temp Pulse Resp B/P (MAP) Pulse Ox O2 Delivery O2 Flow Rate FiO2 05/18/20 17:00 90 28 140/55 (83) 99 05/18/20 16:00 99 05/18/20 16:00 95 30 141/50 (80) 100 05/18/20 16:00 Non-Rebreather 15.0 05/18/20 15:00 98 30 134/57 (82) 100 05/18/20 14:00 80 20 135/52 (79) 96 05/18/20 13:01 90 140/60 05/18/20 13:00 82 20 134/60 (84) 98 05/18/20 12:00 Non-Rebreather 15.0 05/18/20 12:00 97.9 80 29 140/60 (86) 95 05/18/20 12:00 84 05/18/20 11:00 90 28 138/63 (88) 89 05/18/20 10:00 80 26 140/67 (91) 95 05/18/20 09:00 82 26 135/55 (81) 92 05/18/20 08:00 Non-Rebreather 15.0 05/18/20 08:00 84 05/18/20 08:00 97.9 84 29 135/60 (85) 95 05/18/20 07:00 79 20 161/66 (97) 95 05/18/20 06:20 77 163/65 05/18/20 06:00 80 25 163/65 (97) 95 05/18/20 05:00 98.4 79 24 150/58 (88) 95 05/18/20 04:00 79 25 158/63 (94) 94 05/18/20 04:00 Non-Rebreather 15.0 05/18/20 03:10 76 05/18/20 03:00 82 30 154/63 (93) 94 05/18/20 02:00 84 31 147/59 (88) 92 05/18/20 01:00 86 29 154/61 (92) 94 05/18/20 00:00 98.0 87 28 158/62 (94) 96 05/18/20 00:00 Non-Rebreather 15.0 05/17/20 23:53 84 159/66 05/17/20 23:01 89 05/17/20 23:00 85 29 159/66 (97) 96 05/17/20 22:00 86 27 159/66 (97) 95 05/17/20 21:00 87 27 154/61 (92) 97 05/17/20 20:00 Non-Rebreather 15.0 05/17/20 20:00 98.0 90 29 148/60 (89) 95 05/17/20 19:59 86 05/17/20 19:29 96 Non-Rebreather 15.0 100 05/17/20 19:00 136 30 136/60 (85) 98 05/17/20 18:00 102 28 143/58 (86) 92 Intake and Output 05/17/20 05/18/20 19:00 07:00 Intake Total 1432.744 ml 626.832 ml Output Total 700 ml 350 ml Balance 732.744 ml 276.832 ml Intake Oral 1200 ml 300 ml IV Total 232.744 ml 326.832 ml Output Urine Total 700 ml 350 ml # Voids 1 # Bowel Movements 2 Laboratory Tests 05/17/20 18:30: Activated Partial Thromboplast Time 72H, Troponin I 0.188H 05/18/20 04:00: Activated Partial Thromboplast Time 71H, Troponin I 0.168H, White Blood Count 10.2, Red Blood Count 4.29L, Hemoglobin 12.2L, Hematocrit 33.3L, Mean Corpuscular Volume 78L, Mean Corpuscular Hemoglobin 28.5, Mean Corpuscular Hemoglobin Concent 36.8H, Red Cell Distribution Width 13.9, Platelet Count 316, Mean Platelet Volume 6.3L, Neutrophils (%) (Auto) , Lymphocytes (%) (Auto) , Monocytes (%) (Auto) , Eosinophils (%) (Auto) , Basophils (%) (Auto) , Erythrocyte Sedimentation Rate 88H, Sodium Level 135L, Potassium Level 3.7, Chloride Level 101, Carbon Dioxide Level 24, Anion Gap 10, Blood Urea Nitrogen 21H, Creatinine 0.6, Estimat Glomerular Filtration Rate > 60, Glucose Level 252H , Calcium Level 7.7L, Phosphorus Level 2.8, Magnesium Level 2.0, Total Bilirubin 0.5, Aspartate Amino Transf (AST/SGOT) 19, Alanine Aminotransferase (ALT/SGPT) 36, Alkaline Phosphatase 109, C-Reactive Protein, Quantitative 9.6H, Pro-B-Type Natriuretic Peptide 248H, Total Protein 6.1L, Albumin 2.2L, Globulin 3.9, Albumin/Globulin Ratio 0.6L, Thyroid Stimulating Hormone (TSH) 0.412, Free Thyroxine 1.59H Height (Feet): 5 Height (Inches): 5.00 Weight (Pounds): 149 Objective Current Medications Medications (Trade) Dose Ordered Sig/Vasiliy Route PRN Reason Start Time Stop Time Status Last Admin Dose Admin Acetaminophen (Tylenol) 650 mg Q4H PRN ORAL Temp >100.5 05/11/20 18:15 06/10/20 18:14 Albuterol/ Ipratropium (Combivent Respimat) 1 puff Q4H PRN INH Shortness of Breath 05/11/20 21:30 06/10/20 21:29 Dexamethasone (Decadron) 6 mg DAILY ORAL 05/12/20 09:00 05/21/20 09:01 05/18/20 08:57 Dextrose (Dextrose 50%) 25 ml Q30M PRN IV Hypoglycemia 05/12/20 11:00 08/10/20 10:59 Dextrose (Dextrose 50%) 50 ml Q30M PRN IV Hypoglycemia 05/12/20 11:00 08/10/20 10:59 Diltiazem HCl (Cardizem Tab) 60 mg EVERY 6 HOURS ORAL 05/17/20 12:00 06/16/20 11:59 05/18/20 13:01 Heparin Sodium/ Dextrose 500 ml @ 27.236 mls/ hr ADJUST PER PROTOCOL IV 05/17/20 11:05 06/16/20 11:04 05/18/20 14:35 Insulin Aspart (NovoLOG) BEFORE MEALS AND HS SUBQ 05/13/20 10:00 08/10/20 09:59 05/18/20 13:19 Insulin Aspart (NovoLOG) 12 units NOVOTIAC SUBQ 05/17/20 11:50 08/13/20 06:29 05/18/20 13:19 Insulin Detemir (Levemir) 14 units DAILY SUBQ 05/15/20 09:00 08/13/20 08:59 05/18/20 08:58 Metoprolol Tartrate (Lopressor) 5 mg Q1H PRN IVP SBP more than 120 05/16/20 19:45 08/14/20 19:44 05/17/20 11:45 Ondansetron HCl (Zofran) 4 mg Q6H PRN IVP Nausea & Vomiting 05/11/20 18:15 06/10/20 18:14 Polyethylene Glycol (Miralax) 17 gm DAILYPRN PRN ORAL Constipation 05/11/20 18:15 06/10/20 18:14 Promethazine HCl/ Codeine (Phenergan with Codeine) 5 ml Q4H PRN ORAL For Cough 05/13/20 17:15 06/12/20 17:14 05/13/20 22:50 Sitagliptin Phosphate (Januvia) 100 mg ACBREAKFAST ORAL 05/16/20 08:00 06/15/20 06:29 05/18/20 06:20 Assessment/Plan Problem List: (1) Coronavirus infection ICD Codes: B34.2 - Coronavirus infection, unspecified SNOMED: 835518702 (2) Diabetes ICD Codes: E11.9 - Type 2 diabetes mellitus without complications SNOMED: 67790379 (3) Lactic acid acidosis ICD Codes: E87.2 - Acidosis SNOMED: 03067073 Assessment/Plan: increase Novolog to 22 units ac tid increase Levemir to 20 units bid continue to hold Metformin due to lactic acidosis on presentation continue Januvia 100 mg daily continue Novolog sliding scale ac hs hypoglycemia protocol in order Jose Brown MD May 18, 2020 17:38
[2020-05-18] MEDS ORDERED: Levemir Flexpen SUBQ SCH (18:00)
[2020-05-19] VITALS (25 sets, daily range): BP systolic 128–175; BP diastolic 51–73
[2020-05-19] MEDS: dilTIAZem HCl 60mg tab ORAL SCH ×4 (00:07→17:31)
[2020-05-19 04:48] LABS: HEMATOCRIT 32.7 % (42.0-52.0); HEMOGLOBIN 12.4 G/DL (14.2-18.0); MEAN CORPUSCULAR VOLUME 77 FL (80-99); PLATELET COUNT 327 K/UL (150-450); RED BLOOD COUNT 4.28 M/UL (4.70-6.10); RED CELL DISTRIBUTION WIDTH 13.6 % (11.6-14.8); WHITE BLOOD COUNT 13.2 K/UL (4.8-10.8)
[2020-05-19 05:15] LABS: ALANINE AMINOTRANSFERASE 34 U/L (12-78); ALBUMIN 2.3 G/DL (3.4-5.0); ALBUMIN/GLOBULIN RATIO 0.6 (1.0-2.7); ALKALINE PHOSPHATASE 128 U/L (46-116); ANION GAP 9 mmol/L (5-15); ASPARTATE AMINO TRANSFERASE 23 U/L (15-37); BILIRUBIN,TOTAL 0.5 MG/DL (0.2-1.0); BLOOD UREA NITROGEN 21 mg/dL (7-18); CARBON DIOXIDE 24 MMOL/L (21-32); CHLORIDE 101 MMOL/L (98-107); CREATININE 0.6 MG/DL (0.55-1.30); PHOSPHORUS 3.4 MG/DL (2.5-4.9); POTASSIUM 3.6 MMOL/L (3.5-5.1); SODIUM 134 MMOL/L (136-145)
[2020-05-19] MEDS ORDERED: NovoLOG Insulin Flexpen SUBQ SCH (06:30)
[2020-05-19] MEDS: NovoLOG Insulin Flexpen SUBQ SCH ×6 (06:37→21:03)
[2020-05-19] MEDS ORDERED: Heparin 5000 units/ml inj IV SCH ×2 (06:39→21:30)
[2020-05-19] MEDS: Heparin 25,000u/D5W 500ml 500 ML IV SCH ×3 (06:46→21:38)
--- NOTE | 2020-05-19 07:02 | General Progress Note ---
Subjective ROS Limited/Unobtainable: Yes Allergies: Coded Allergies: No Known Allergies (Unverified , 05/11/20) Subjective events noted in ICU glucose values are very high despite aggressive insulin dose adjustment Item Value Date Time Bedside Blood Glucose 342 mg/dl H 05/19/20 0638 Bedside Blood Glucose 288 mg/dl H 05/18/20 2100 Bedside Blood Glucose 261 mg/dl H 05/18/20 1746 Bedside Blood Glucose 319 mg/dl H 05/18/20 1319 Bedside Blood Glucose 377 mg/dl H 05/18/20 0858 Bedside Blood Glucose 377 mg/dl H 05/18/20 0630 Objective Last 24 Hour Vital Signs Date Time Temp Pulse Resp B/P (MAP) Pulse Ox O2 Delivery O2 Flow Rate FiO2 05/19/20 06:31 86 170/65 05/19/20 06:00 88 21 170/65 (100) 100 05/19/20 05:00 90 27 165/67 (99) 98 05/19/20 04:00 Non-Rebreather 15.0 05/19/20 04:00 99.4 82 27 167/67 (100) 99 05/19/20 03:01 82 05/19/20 03:00 81 28 165/64 (97) 97 05/19/20 02:00 82 28 129/53 (78) 96 05/19/20 01:00 83 30 128/51 (76) 96 05/19/20 00:07 86 158/33 05/19/20 00:00 Non-Rebreather 15.0 05/19/20 00:00 99.0 83 30 128/51 (76) 96 05/18/20 23:00 83 26 152/67 (95) 100 05/18/20 22:59 84 05/18/20 22:00 86 28 136/58 (84) 100 05/18/20 21:00 90 31 134/56 (82) 100 05/18/20 20:00 Non-Rebreather 15.0 05/18/20 20:00 99.4 100 29 141/61 (87) 92 05/18/20 19:44 98 Non-Rebreather 15.0 100 05/18/20 19:23 93 05/18/20 19:00 102 28 127/52 (77) 98 05/18/20 18:00 100 29 149/62 (91) 100 05/18/20 17:41 90 140/62 05/18/20 17:00 90 28 140/55 (83) 99 05/18/20 16:00 99 05/18/20 16:00 98.2 95 30 141/50 (80) 100 05/18/20 16:00 Non-Rebreather 15.0 05/18/20 15:00 98 30 134/57 (82) 100 05/18/20 14:00 80 20 135/52 (79) 96 05/18/20 13:01 90 140/60 05/18/20 13:00 82 20 134/60 (84) 98 05/18/20 12:00 Non-Rebreather 15.0 05/18/20 12:00 97.9 80 29 140/60 (86) 95 05/18/20 12:00 84 05/18/20 11:00 90 28 138/63 (88) 89 05/18/20 10:00 80 26 140/67 (91) 95 05/18/20 09:00 82 26 135/55 (81) 92 05/18/20 08:00 Non-Rebreather 15.0 05/18/20 08:00 84 05/18/20 08:00 97.9 84 29 135/60 (85) 95 Intake and Output 05/18/20 05/19/20 19:00 07:00 Intake Total 1023.214 ml 732.360 ml Output Total 1200 ml 350 ml Balance -176.786 ml 382.360 ml Intake Oral 710 ml 460 ml IV Total 313.214 ml 272.360 ml Output Urine Total 1200 ml 350 ml # Voids 7 1 # Bowel Movements 2 Laboratory Tests 05/19/20 04:00: White Blood Count 13.2H, Red Blood Count 4.28L, Hemoglobin 12.4L, Hematocrit 32.7L, Mean Corpuscular Volume 77L, Mean Corpuscular Hemoglobin 29.0, Mean Corpuscular Hemoglobin Concent 37.9H, Red Cell Distribution Width 13.6, Platelet Count 327, Mean Platelet Volume 6.1L, Neutrophils (%) (Auto) , Lymphocytes (%) (Auto) , Monocytes (%) (Auto) , Eosinophils (%) (Auto) , Basophils (%) (Auto) , Neutrophils % (Manual) [Pending], Lymphocytes % (Manual) [Pending], Platelet Estimate [Pending], Platelet Morphology [Pending], Erythrocyte Sedimentation Rate 92H, Activated Partial Thromboplast Time 46H, Sodium Level 134L, Potassium Level 3.6, Chloride Level 101, Carbon Dioxide Level 24, Anion Gap 9, Blood Urea Nitrogen 21H, Creatinine 0.6, Estimat Glomerular Filtration Rate > 60, Glucose Level 190H, Calcium Level 8.0L, Phosphorus Level 3.4, Magnesium Level 2.1, Total Bilirubin 0.5, Aspartate Amino Transf (AST/SGOT) 23, Alanine Aminotransferase (ALT/SGPT) 34, Alkaline Phosphatase 128H, C-Reactive Protein, Quantitative 5.4H, Total Protein 6.4, Albumin 2.3L, Globulin 4.1, Albumin/Globulin Ratio 0.6L Height (Feet): 5 Height (Inches): 5.00 Weight (Pounds): 149 Objective Current Medications Medications (Trade) Dose Ordered Sig/Vasiliy Route PRN Reason Start Time Stop Time Status Last Admin Dose Admin Acetaminophen (Tylenol) 650 mg Q4H PRN ORAL Temp >100.5 05/11/20 18:15 06/10/20 18:14 Albuterol/ Ipratropium (Combivent Respimat) 1 puff Q4H PRN INH Shortness of Breath 05/11/20 21:30 06/10/20 21:29 Dexamethasone (Decadron) 6 mg DAILY ORAL 05/12/20 09:00 05/21/20 09:01 05/18/20 08:57 Dextrose (Dextrose 50%) 25 ml Q30M PRN IV Hypoglycemia 05/12/20 11:00 08/10/20 10:59 Dextrose (Dextrose 50%) 50 ml Q30M PRN IV Hypoglycemia 05/12/20 11:00 08/10/20 10:59 Diltiazem HCl (Cardizem Tab) 60 mg EVERY 6 HOURS ORAL 05/17/20 12:00 06/16/20 11:59 05/19/20 06:31 Heparin Sodium (Porcine) (Heparin 5000 units/ml) 5,000 units ONCE IV 05/19/20 06:39 05/19/20 09:30 05/19/20 06:46 Heparin Sodium/ Dextrose 500 ml @ 32.188 mls/ hr ADJUST PER PROTOCOL IV 05/19/20 06:40 06/18/20 06:39 05/19/20 06:46 Insulin Aspart (NovoLOG) BEFORE MEALS AND HS SUBQ 05/13/20 10:00 08/10/20 09:59 05/19/20 06:37 Insulin Aspart (NovoLOG) 22 units NOVOTIAC SUBQ 05/19/20 06:30 08/13/20 06:29 05/19/20 06:38 Insulin Detemir (Levemir) 20 units BID SUBQ 05/18/20 18:00 08/13/20 08:59 05/18/20 17:46 Metoprolol Tartrate (Lopressor) 5 mg Q1H PRN IVP SBP more than 120 05/16/20 19:45 08/14/20 19:44 05/17/20 11:45 Ondansetron HCl (Zofran) 4 mg Q6H PRN IVP Nausea & Vomiting 05/11/20 18:15 06/10/20 18:14 Polyethylene Glycol (Miralax) 17 gm DAILYPRN PRN ORAL Constipation 05/11/20 18:15 06/10/20 18:14 Promethazine HCl/ Codeine (Phenergan with Codeine) 5 ml Q4H PRN ORAL For Cough 05/13/20 17:15 06/12/20 17:14 05/13/20 22:50 Sitagliptin Phosphate (Januvia) 100 mg ACBREAKFAST ORAL 05/16/20 08:00 06/15/20 06:29 05/19/20 06:31 Assessment/Plan Problem List: (1) Coronavirus infection ICD Codes: B34.2 - Coronavirus infection, unspecified SNOMED: 288565519 (2) Diabetes ICD Codes: E11.9 - Type 2 diabetes mellitus without complications SNOMED: 06517939 (3) Lactic acid acidosis ICD Codes: E87.2 - Acidosis SNOMED: 31201269 Assessment/Plan: increase Novolog to 30 units ac tid increase Levemir to 30 units bid continue to hold Metformin due to lactic acidosis on presentation continue Januvia 100 mg daily continue Novolog sliding scale ac hs hypoglycemia protocol in order Jose Brown MD May 19, 2020 07:02
[2020-05-19] MEDS: Levemir Flexpen SUBQ SCH ×2 (09:15→17:28)
--- NOTE | 2020-05-19 09:24 | Infectious Diseases Prog Note ---
Assessment/Plan 59yo M with: Febrile to 100.9; SP Normal WBC Lymphopenia Hypoxic resp failure 2/2 COVID pna, on NRB mask Severe COVID pna, tested positive 05/05 R apical PTX and pneumomediastinum, new 05/17, awaiting chest tube placement 05/05 COVID positive 05/11 BCx NTD COVID PCR+ CXR: No acute process Influenza EIA neg 05/14 CXR: Mildly increased interstitial markings. This is nonspecific but may suggest mild pulmonary vascular congestion or pneumonitis. No focal consolidation. 05/17 CXR: 1. New moderate right apical pneumothorax. 2. New pneumomediastinum. 3. New supraclavicular bilateral subcutaneous emphysema. 4. Development of bilateral airspace disease suspicious for atypical/viral pneum onia. 05/18 CXR: 1. Interval worsening in aeration of the lungs with increasing airspace consolidation bilaterally. 2. Stable right apical pneumothorax. 3. Persistent pneumomediastinum. 05/19 Resp cx ordered BLE US neg for DVT DM2 Plan: Cont dexamethasone 6mg daily #02/16 Obtain resp cx if able Monitor R PTX 05/16 SP CTX/azithro #5 05/16 SP RDV #5 This medical center does not have convalescent plasma, and as pt 1 week out from diagnosis, unlikely to benefit from it at this point Monitor CBC/CMP Monitor temp curve, hemodynamics Monitor resp status D/w RN Thank you for this consult. [facility] will continue to follow. Subjective Allergies: Coded Allergies: No Known Allergies (Unverified , 05/11/20) AF WBC 13 Remains on NRB mask tried weaning to venturi mask but desatting to 70s-80s Objective Last 24 Hour Vital Signs Date Time Temp Pulse Resp B/P (MAP) Pulse Ox O2 Delivery O2 Flow Rate FiO2 05/19/20 08:00 97.9 98 23 154/57 (89) 95 05/19/20 07:00 88 17 164/67 (99) 100 05/19/20 06:31 86 170/65 05/19/20 06:00 88 21 170/65 (100) 100 05/19/20 05:00 90 27 165/67 (99) 98 05/19/20 04:00 Non-Rebreather 15.0 05/19/20 04:00 99.4 82 27 167/67 (100) 99 05/19/20 03:01 82 05/19/20 03:00 81 28 165/64 (97) 97 05/19/20 02:00 82 28 129/53 (78) 96 05/19/20 01:00 83 30 128/51 (76) 96 05/19/20 00:07 86 158/33 05/19/20 00:00 Non-Rebreather 15.0 05/19/20 00:00 99.0 83 30 128/51 (76) 96 05/18/20 23:00 83 26 152/67 (95) 100 05/18/20 22:59 84 05/18/20 22:00 86 28 136/58 (84) 100 05/18/20 21:00 90 31 134/56 (82) 100 05/18/20 20:00 Non-Rebreather 15.0 05/18/20 20:00 99.4 100 29 141/61 (87) 92 05/18/20 19:44 98 Non-Rebreather 15.0 100 05/18/20 19:23 93 05/18/20 19:00 102 28 127/52 (77) 98 05/18/20 18:00 100 29 149/62 (91) 100 05/18/20 17:41 90 140/62 05/18/20 17:00 90 28 140/55 (83) 99 05/18/20 16:00 99 05/18/20 16:00 98.2 95 30 141/50 (80) 100 05/18/20 16:00 Non-Rebreather 15.0 05/18/20 15:00 98 30 134/57 (82) 100 05/18/20 14:00 80 20 135/52 (79) 96 05/18/20 13:01 90 140/60 05/18/20 13:00 82 20 134/60 (84) 98 05/18/20 12:00 Non-Rebreather 15.0 05/18/20 12:00 97.9 80 29 140/60 (86) 95 05/18/20 12:00 84 05/18/20 11:00 90 28 138/63 (88) 89 05/18/20 10:00 80 26 140/67 (91) 95 Height (Feet): 5 Height (Inches): 5.00 Weight (Pounds): 149 Gen: NAD HEENT: NCAT Pulm: BL chest rise Abd: Non-distended Ext: No c/c/e Skin: No visible rashes Neuro: Awake Laboratory Tests Test 05/19/20 04:00 White Blood Count 13.2 K/UL (4.8-10.8) H Red Blood Count 4.28 M/UL (4.70-6.10) L Hemoglobin 12.4 G/DL (14.2-18.0) L Hematocrit 32.7 % (42.0-52.0) L Mean Corpuscular Volume 77 FL (80-99) L Mean Corpuscular Hemoglobin 29.0 PG (27.0-31.0) Mean Corpuscular Hemoglobin Concent 37.9 G/DL (32.0-36.0) H Red Cell Distribution Width 13.6 % (11.6-14.8) Platelet Count 327 K/UL (150-450) Mean Platelet Volume 6.1 FL (6.5-10.1) L Neutrophils (%) (Auto) % (45.0-75.0) Lymphocytes (%) (Auto) % (20.0-45.0) Monocytes (%) (Auto) % (1.0-10.0) Eosinophils (%) (Auto) % (0.0-3.0) Basophils (%) (Auto) % (0.0-2.0) Neutrophils % (Manual) Pending Lymphocytes % (Manual) Pending Platelet Estimate Pending Platelet Morphology Pending Erythrocyte Sedimentation Rate 92 MM/HR (0-20) H Activated Partial Thromboplast Time 46 SEC (23-33) H Sodium Level 134 MMOL/L (136-145) L Potassium Level 3.6 MMOL/L (3.5-5.1) Chloride Level 101 MMOL/L (98-107) Carbon Dioxide Level 24 MMOL/L (21-32) Anion Gap 9 mmol/L (5-15) Blood Urea Nitrogen 21 mg/dL (7-18) H Creatinine 0.6 MG/DL (0.55-1.30) Estimat Glomerular Filtration Rate > 60 mL/min (>60) Glucose Level 190 MG/DL (74-106) H Calcium Level 8.0 MG/DL (8.5-10.1) L Phosphorus Level 3.4 MG/DL (2.5-4.9) Magnesium Level 2.1 MG/DL (1.8-2.4) Total Bilirubin 0.5 MG/DL (0.2-1.0) Aspartate Amino Transf (AST/SGOT) 23 U/L (15-37) Alanine Aminotransferase (ALT/SGPT) 34 U/L (12-78) Alkaline Phosphatase 128 U/L (46-116) H C-Reactive Protein, Quantitative 5.4 mg/dL (0.00-0.90) H Total Protein 6.4 G/DL (6.4-8.2) Albumin 2.3 G/DL (3.4-5.0) L Globulin 4.1 g/dL Albumin/Globulin Ratio 0.6 (1.0-2.7) L Current Medications Medications (Trade) Dose Ordered Sig/Vasiliy Route PRN Reason Start Time Stop Time Status Last Admin Dose Admin Acetaminophen (Tylenol) 650 mg Q4H PRN ORAL Temp >100.5 05/11/20 18:15 06/10/20 18:14 Albuterol/ Ipratropium (Combivent Respimat) 1 puff Q4H PRN INH Shortness of Breath 05/11/20 21:30 06/10/20 21:29 Dexamethasone (Decadron) 6 mg DAILY ORAL 05/12/20 09:00 05/21/20 09:01 05/19/20 08:52 Dextrose (Dextrose 50%) 25 ml Q30M PRN IV Hypoglycemia 05/12/20 11:00 08/10/20 10:59 Dextrose (Dextrose 50%) 50 ml Q30M PRN IV Hypoglycemia 05/12/20 11:00 08/10/20 10:59 Diltiazem HCl (Cardizem Tab) 60 mg EVERY 6 HOURS ORAL 05/17/20 12:00 06/16/20 11:59 05/19/20 06:31 Heparin Sodium (Porcine) (Heparin 5000 units/ml) 5,000 units ONCE IV 05/19/20 06:39 05/19/20 09:30 05/19/20 06:46 Heparin Sodium/ Dextrose 500 ml @ 32.188 mls/ hr ADJUST PER PROTOCOL IV 05/19/20 06:40 06/18/20 06:39 05/19/20 06:46 Insulin Aspart (NovoLOG) BEFORE MEALS AND HS SUBQ 05/13/20 10:00 08/10/20 09:59 05/19/20 06:37 Insulin Aspart (NovoLOG) 30 units NOVOTIAC SUBQ 05/19/20 11:50 08/13/20 06:29 Insulin Detemir (Levemir) 30 units BID SUBQ 05/19/20 09:00 08/13/20 08:59 05/19/20 09:15 Metoprolol Tartrate (Lopressor) 5 mg Q1H PRN IVP SBP more than 120 05/16/20 19:45 08/14/20 19:44 05/17/20 11:45 Ondansetron HCl (Zofran) 4 mg Q6H PRN IVP Nausea & Vomiting 05/11/20 18:15 06/10/20 18:14 Polyethylene Glycol (Miralax) 17 gm DAILYPRN PRN ORAL Constipation 05/11/20 18:15 06/10/20 18:14 Promethazine HCl/ Codeine (Phenergan with Codeine) 5 ml Q4H PRN ORAL For Cough 05/13/20 17:15 06/12/20 17:14 05/13/20 22:50 Sitagliptin Phosphate (Januvia) 100 mg ACBREAKFAST ORAL 05/16/20 08:00 06/15/20 06:29 05/19/20 06:31 Meme Leggett M.D. May 19, 2020 09:24
--- NOTE | 2020-05-19 10:47 | Pulmonolgy Critical Care Note ---
Critical Care - Asmt/Plan Problems: (1) Rapid atrial fibrillation (2) Acute respiratory failure (3) Coronavirus infection (4) Diabetes Respiratory: monitor respiratory rate, adjust FIO2, CXR Cardiac: continue to monitor HR/BP Renal: F/U I&O, keep IV fluid Infectious Disease: check cultures Gastrointestinal: continue feedings/current rate Endocrine: monitor blood sugar, continue sliding scale insulin Hematologic: monitor H/H, transfuse if hgb<8.5 Neurologic: PRN Ativan, PRN Morphine, keep patient comfortable Affect: PRN ativan Disposition: keep in ICU Time Spent (Minutes): 40 Notes Reviewed: master ship, cardio, renal Discussed with: nurses, consultants, 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 [employer] - Objective Last 24 Hour Vital Signs Date Time Temp Pulse Resp B/P (MAP) Pulse Ox O2 Delivery O2 Flow Rate FiO2 05/19/20 09:00 89 27 146/68 (94) 96 05/19/20 08:00 97.9 98 23 154/57 (89) 95 05/19/20 08:00 Non-Rebreather 15.0 05/19/20 07:00 88 17 164/67 (99) 100 05/19/20 06:31 86 170/65 05/19/20 06:00 88 21 170/65 (100) 100 05/19/20 05:00 90 27 165/67 (99) 98 05/19/20 04:00 Non-Rebreather 15.0 05/19/20 04:00 99.4 82 27 167/67 (100) 99 05/19/20 03:01 82 05/19/20 03:00 81 28 165/64 (97) 97 05/19/20 02:00 82 28 129/53 (78) 96 05/19/20 01:00 83 30 128/51 (76) 96 05/19/20 00:07 86 158/33 05/19/20 00:00 Non-Rebreather 15.0 05/19/20 00:00 99.0 83 30 128/51 (76) 96 05/18/20 23:00 83 26 152/67 (95) 100 05/18/20 22:59 84 05/18/20 22:00 86 28 136/58 (84) 100 05/18/20 21:00 90 31 134/56 (82) 100 05/18/20 20:00 Non-Rebreather 15.0 05/18/20 20:00 99.4 100 29 141/61 (87) 92 05/18/20 19:44 98 Non-Rebreather 15.0 100 05/18/20 19:23 93 05/18/20 19:00 102 28 127/52 (77) 98 05/18/20 18:00 100 29 149/62 (91) 100 05/18/20 17:41 90 140/62 05/18/20 17:00 90 28 140/55 (83) 99 05/18/20 16:00 99 05/18/20 16:00 98.2 95 30 141/50 (80) 100 05/18/20 16:00 Non-Rebreather 15.0 05/18/20 15:00 98 30 134/57 (82) 100 05/18/20 14:00 80 20 135/52 (79) 96 05/18/20 13:01 90 140/60 05/18/20 13:00 82 20 134/60 (84) 98 05/18/20 12:00 Non-Rebreather 15.0 05/18/20 12:00 97.9 80 29 140/60 (86) 95 05/18/20 12:00 84 05/18/20 11:00 90 28 138/63 (88) 89 Status: awake Condition: critical HEENT: atraumatic Neck: full ROM Lungs: clear Heart: HR/BP stable Abdomen: soft, non-tender Extremities: no C/C/E Accucheck: 438 Critical Care - Subjective ROS Limited/Unobtainable: Yes Condition: critical EKG Rhythm: Sinus Rhythm FI02: 100 I&O: Intake and Output 05/18/20 05/19/20 19:00 07:00 Intake Total 1023.214 ml 739.870 ml Output Total 1200 ml 350 ml Balance -176.786 ml 389.870 ml Intake Oral 710 ml 460 ml IV Total 313.214 ml 279.870 ml Output Urine Total 1200 ml 350 ml # Voids 7 1 # Bowel Movements 2 CXR: worsening infiltrate Labs: Laboratory Tests Test 05/19/20 04:00 White Blood Count 13.2 K/UL (4.8-10.8) H Red Blood Count 4.28 M/UL (4.70-6.10) L Hemoglobin 12.4 G/DL (14.2-18.0) L Hematocrit 32.7 % (42.0-52.0) L Mean Corpuscular Volume 77 FL (80-99) L Mean Corpuscular Hemoglobin 29.0 PG (27.0-31.0) Mean Corpuscular Hemoglobin Concent 37.9 G/DL (32.0-36.0) H Red Cell Distribution Width 13.6 % (11.6-14.8) Platelet Count 327 K/UL (150-450) Mean Platelet Volume 6.1 FL (6.5-10.1) L Neutrophils (%) (Auto) % (45.0-75.0) Lymphocytes (%) (Auto) % (20.0-45.0) Monocytes (%) (Auto) % (1.0-10.0) Eosinophils (%) (Auto) % (0.0-3.0) Basophils (%) (Auto) % (0.0-2.0) Differential Total Cells Counted 100 Neutrophils % (Manual) 93 % (45-75) H Lymphocytes % (Manual) 4 % (20-45) L Monocytes % (Manual) 3 % (1-10) Eosinophils % (Manual) 0 % (0-3) Basophils % (Manual) 0 % (0-2) Band Neutrophils 0 % (0-8) Platelet Estimate Adequate Platelet Morphology Normal Microcytosis 1+ Erythrocyte Sedimentation Rate 92 MM/HR (0-20) H Activated Partial Thromboplast Time 46 SEC (23-33) H Sodium Level 134 MMOL/L (136-145) L Potassium Level 3.6 MMOL/L (3.5-5.1) Chloride Level 101 MMOL/L (98-107) Carbon Dioxide Level 24 MMOL/L (21-32) Anion Gap 9 mmol/L (5-15) Blood Urea Nitrogen 21 mg/dL (7-18) H Creatinine 0.6 MG/DL (0.55-1.30) Estimat Glomerular Filtration Rate > 60 mL/min (>60) Glucose Level 190 MG/DL (74-106) H Calcium Level 8.0 MG/DL (8.5-10.1) L Phosphorus Level 3.4 MG/DL (2.5-4.9) Magnesium Level 2.1 MG/DL (1.8-2.4) Total Bilirubin 0.5 MG/DL (0.2-1.0) Aspartate Amino Transf (AST/SGOT) 23 U/L (15-37) Alanine Aminotransferase (ALT/SGPT) 34 U/L (12-78) Alkaline Phosphatase 128 U/L (46-116) H C-Reactive Protein, Quantitative 5.4 mg/dL (0.00-0.90) H Total Protein 6.4 G/DL (6.4-8.2) Albumin 2.3 G/DL (3.4-5.0) L Globulin 4.1 g/dL Albumin/Globulin Ratio 0.6 (1.0-2.7) L Yohannes Gibson MD May 19, 2020 10:47
[2020-05-19] MEDS ORDERED: Heparin 25,000u/D5W 500ml 500 ML IV SCH (14:00)
--- NOTE | 2020-05-19 14:06 | Cardiac Electrophysiology PN ---
Assessment/Plan Status Narrative 1. New moderate right apical pneumothorax. 2. New pneumomediastinum. 3. New supraclavicular bilateral subcutaneous emphysema. 4. Development of bilateral airspace disease suspicious for atypical/viral pneumonia. Assessment/Plan 1. Atrial fibrillation with rapid ventricular response, heart rate of 160s. This is in the setting of COVID. He already converted back to sinus rhythm after he got 10 mg of IV Cardizem. On Cardizem 60 mg p.o. every 6 hours. Continue on heparin drip ECho Nl EF 2. COVID pneumonia. The patient is on isolation, 100% non-rebreather face mask. Saturations 93%. 3. Right Apical PTX and Pneumomediastinum. Evaluation by Dr Mtz pending 4. Diabetes on insulin and Januvia, per Dr. Brown. 5. Lactic acidosis. KIM RN Subjective Subjective In ICU on 100% NRBFM. Dr Mtz evaluation for possible chest tube for pneumothorax pending Converted to SR Objective Last 24 Hour Vital Signs Date Time Temp Pulse Resp B/P (MAP) Pulse Ox O2 Delivery O2 Flow Rate FiO2 05/19/20 13:00 103 25 166/68 (100) 99 05/19/20 12:34 93 167/61 05/19/20 12:00 Non-Rebreather 15.0 05/19/20 12:00 98.0 101 22 167/61 (96) 99 05/19/20 12:00 90 05/19/20 11:00 83 29 146/66 (92) 99 05/19/20 10:00 87 28 146/60 (88) 96 05/19/20 09:00 89 27 146/68 (94) 96 05/19/20 08:03 97 Non-Rebreather 15.0 100 05/19/20 08:00 105 05/19/20 08:00 97.9 98 23 154/57 (89) 95 05/19/20 08:00 Non-Rebreather 15.0 05/19/20 07:00 88 17 164/67 (99) 100 05/19/20 06:31 86 170/65 05/19/20 06:00 88 21 170/65 (100) 100 05/19/20 05:00 90 27 165/67 (99) 98 05/19/20 04:00 Non-Rebreather 15.0 05/19/20 04:00 99.4 82 27 167/67 (100) 99 05/19/20 03:01 82 05/19/20 03:00 81 28 165/64 (97) 97 05/19/20 02:00 82 28 129/53 (78) 96 05/19/20 01:00 83 30 128/51 (76) 96 05/19/20 00:07 86 158/33 05/19/20 00:00 Non-Rebreather 15.0 05/19/20 00:00 99.0 83 30 128/51 (76) 96 05/18/20 23:00 83 26 152/67 (95) 100 05/18/20 22:59 84 05/18/20 22:00 86 28 136/58 (84) 100 05/18/20 21:00 90 31 134/56 (82) 100 05/18/20 20:00 Non-Rebreather 15.0 05/18/20 20:00 99.4 100 29 141/61 (87) 92 05/18/20 19:44 98 Non-Rebreather 15.0 100 05/18/20 19:23 93 05/18/20 19:00 102 28 127/52 (77) 98 05/18/20 18:00 100 29 149/62 (91) 100 05/18/20 17:41 90 140/62 05/18/20 17:00 90 28 140/55 (83) 99 05/18/20 16:00 99 05/18/20 16:00 98.2 95 30 141/50 (80) 100 05/18/20 16:00 Non-Rebreather 15.0 05/18/20 15:00 98 30 134/57 (82) 100 Intake and Output 05/18/20 05/19/20 19:00 07:00 Intake Total 1023.214 ml 739.870 ml Output Total 1200 ml 350 ml Balance -176.786 ml 389.870 ml Intake Oral 710 ml 460 ml IV Total 313.214 ml 279.870 ml Output Urine Total 1200 ml 350 ml # Voids 7 1 # Bowel Movements 2 Laboratory Tests Test 05/19/20 04:00 05/19/20 12:40 White Blood Count 13.2 K/UL (4.8-10.8) H Red Blood Count 4.28 M/UL (4.70-6.10) L Hemoglobin 12.4 G/DL (14.2-18.0) L Hematocrit 32.7 % (42.0-52.0) L Mean Corpuscular Volume 77 FL (80-99) L Mean Corpuscular Hemoglobin 29.0 PG (27.0-31.0) Mean Corpuscular Hemoglobin Concent 37.9 G/DL (32.0-36.0) H Red Cell Distribution Width 13.6 % (11.6-14.8) Platelet Count 327 K/UL (150-450) Mean Platelet Volume 6.1 FL (6.5-10.1) L Neutrophils (%) (Auto) % (45.0-75.0) Lymphocytes (%) (Auto) % (20.0-45.0) Monocytes (%) (Auto) % (1.0-10.0) Eosinophils (%) (Auto) % (0.0-3.0) Basophils (%) (Auto) % (0.0-2.0) Differential Total Cells Counted 100 Neutrophils % (Manual) 93 % (45-75) H Lymphocytes % (Manual) 4 % (20-45) L Monocytes % (Manual) 3 % (1-10) Eosinophils % (Manual) 0 % (0-3) Basophils % (Manual) 0 % (0-2) Band Neutrophils 0 % (0-8) Platelet Estimate Adequate Platelet Morphology Normal Microcytosis 1+ Erythrocyte Sedimentation Rate 92 MM/HR (0-20) H Activated Partial Thromboplast Time 46 SEC (23-33) H 116 SEC (23-33) H Sodium Level 134 MMOL/L (136-145) L Potassium Level 3.6 MMOL/L (3.5-5.1) Chloride Level 101 MMOL/L (98-107) Carbon Dioxide Level 24 MMOL/L (21-32) Anion Gap 9 mmol/L (5-15) Blood Urea Nitrogen 21 mg/dL (7-18) H Creatinine 0.6 MG/DL (0.55-1.30) Estimat Glomerular Filtration Rate > 60 mL/min (>60) Glucose Level 190 MG/DL (74-106) H Calcium Level 8.0 MG/DL (8.5-10.1) L Phosphorus Level 3.4 MG/DL (2.5-4.9) Magnesium Level 2.1 MG/DL (1.8-2.4) Total Bilirubin 0.5 MG/DL (0.2-1.0) Aspartate Amino Transf (AST/SGOT) 23 U/L (15-37) Alanine Aminotransferase (ALT/SGPT) 34 U/L (12-78) Alkaline Phosphatase 128 U/L (46-116) H C-Reactive Protein, Quantitative 5.4 mg/dL (0.00-0.90) H Total Protein 6.4 G/DL (6.4-8.2) Albumin 2.3 G/DL (3.4-5.0) L Globulin 4.1 g/dL Albumin/Globulin Ratio 0.6 (1.0-2.7) L Objective HEAD AND NECK: Showed no JVD. LUNGS: Coarse rhonchi. CARDIOVASCULAR: Regular S1 and S2 with no gallop. ABDOMEN: Soft. EXTREMITIES: No pitting edema. Al Alarcon MD May 19, 2020 14:06
--- NOTE | 2020-05-19 14:10 | Diagnostic Imaging Report ---
Indication: Reason For Exam: DYSPNEA Technique: Single AP view of the chest. Comparison: Chest radiograph dated 05/18/2020 Findings: The cardiomediastinal silhouette is unchanged in appearance, with persistent pneumomediastinum. Apparent interval worsening in aeration of the lungs, which may be partly due to technique. Likely interval decrease in size of right apical pneumothorax. No left pneumothorax. No increasing pleural effusion Interval worsening of bilateral chest wall an supraclavicular subcutaneous emphysema. IMPRESSION: 1. Apparent worsening aeration of the lungs, which may be partly due to technique. 2. Slight decrease in size of right apical pneumothorax. 3. Worsening diffuse subcutaneous emphysema. 4. Persistent pneumomediastinum.
--- NOTE | 2020-05-19 17:45 | Internal Med Progress Note ---
Subjective Physician Name Daniel Jung Attending Physician Daniel Jung MD Current Medications Medications (Trade) Dose Ordered Sig/Vasiliy Route PRN Reason Start Time Stop Time Status Last Admin Dose Admin Acetaminophen (Tylenol) 650 mg Q4H PRN ORAL Temp >100.5 05/11/20 18:15 06/10/20 18:14 Albuterol/ Ipratropium (Combivent Respimat) 1 puff Q4H PRN INH Shortness of Breath 05/11/20 21:30 06/10/20 21:29 Dexamethasone (Decadron) 6 mg DAILY ORAL 05/12/20 09:00 05/21/20 09:01 05/19/20 08:52 Dextrose (Dextrose 50%) 25 ml Q30M PRN IV Hypoglycemia 05/12/20 11:00 08/10/20 10:59 Dextrose (Dextrose 50%) 50 ml Q30M PRN IV Hypoglycemia 05/12/20 11:00 08/10/20 10:59 Diltiazem HCl (Cardizem Tab) 60 mg EVERY 6 HOURS ORAL 05/17/20 12:00 06/16/20 11:59 05/19/20 17:31 Heparin Sodium/ Dextrose 500 ml @ 28.474 mls/ hr ADJUST PER PROTOCOL IV 05/19/20 14:00 06/18/20 13:59 05/19/20 14:06 Insulin Aspart (NovoLOG) BEFORE MEALS AND HS SUBQ 05/13/20 10:00 08/10/20 09:59 05/19/20 17:14 Insulin Aspart (NovoLOG) 30 units NOVOTIAC SUBQ 05/19/20 11:50 08/13/20 06:29 05/19/20 17:15 Insulin Detemir (Levemir) 30 units BID SUBQ 05/19/20 09:00 08/13/20 08:59 05/19/20 17:28 Metoprolol Tartrate (Lopressor) 5 mg Q1H PRN IVP SBP more than 120 05/16/20 19:45 08/14/20 19:44 05/17/20 11:45 Ondansetron HCl (Zofran) 4 mg Q6H PRN IVP Nausea & Vomiting 05/11/20 18:15 06/10/20 18:14 Polyethylene Glycol (Miralax) 17 gm DAILYPRN PRN ORAL Constipation 05/11/20 18:15 06/10/20 18:14 Promethazine HCl/ Codeine (Phenergan with Codeine) 5 ml Q4H PRN ORAL For Cough 05/13/20 17:15 06/12/20 17:14 05/13/20 22:50 Sitagliptin Phosphate (Januvia) 100 mg ACBREAKFAST ORAL 05/16/20 08:00 06/15/20 06:29 05/19/20 06:31 Allergies: Coded Allergies: No Known Allergies (Unverified , 05/11/20) Subjective in ICU, on 100% Ventimask, awake, responsive, open his eyes, on COVID respiratory isolation room. Objective Last Vital Signs Date Time Temp Pulse Resp B/P (MAP) Pulse Ox O2 Delivery O2 Flow Rate FiO2 05/19/20 17:31 97 176/70 05/19/20 16:00 97.9 22 100 05/19/20 16:00 Non-Rebreather 15.0 05/19/20 08:03 100 Laboratory Tests Test 05/19/20 04:00 05/19/20 12:40 White Blood Count 13.2 K/UL (4.8-10.8) H Red Blood Count 4.28 M/UL (4.70-6.10) L Hemoglobin 12.4 G/DL (14.2-18.0) L Hematocrit 32.7 % (42.0-52.0) L Mean Corpuscular Volume 77 FL (80-99) L Mean Corpuscular Hemoglobin 29.0 PG (27.0-31.0) Mean Corpuscular Hemoglobin Concent 37.9 G/DL (32.0-36.0) H Red Cell Distribution Width 13.6 % (11.6-14.8) Platelet Count 327 K/UL (150-450) Mean Platelet Volume 6.1 FL (6.5-10.1) L Neutrophils (%) (Auto) % (45.0-75.0) Lymphocytes (%) (Auto) % (20.0-45.0) Monocytes (%) (Auto) % (1.0-10.0) Eosinophils (%) (Auto) % (0.0-3.0) Basophils (%) (Auto) % (0.0-2.0) Differential Total Cells Counted 100 Neutrophils % (Manual) 93 % (45-75) H Lymphocytes % (Manual) 4 % (20-45) L Monocytes % (Manual) 3 % (1-10) Eosinophils % (Manual) 0 % (0-3) Basophils % (Manual) 0 % (0-2) Band Neutrophils 0 % (0-8) Platelet Estimate Adequate Platelet Morphology Normal Microcytosis 1+ Erythrocyte Sedimentation Rate 92 MM/HR (0-20) H Activated Partial Thromboplast Time 46 SEC (23-33) H 116 SEC (23-33) H Sodium Level 134 MMOL/L (136-145) L Potassium Level 3.6 MMOL/L (3.5-5.1) Chloride Level 101 MMOL/L (98-107) Carbon Dioxide Level 24 MMOL/L (21-32) Anion Gap 9 mmol/L (5-15) Blood Urea Nitrogen 21 mg/dL (7-18) H Creatinine 0.6 MG/DL (0.55-1.30) Estimat Glomerular Filtration Rate > 60 mL/min (>60) Glucose Level 190 MG/DL (74-106) H Calcium Level 8.0 MG/DL (8.5-10.1) L Phosphorus Level 3.4 MG/DL (2.5-4.9) Magnesium Level 2.1 MG/DL (1.8-2.4) Total Bilirubin 0.5 MG/DL (0.2-1.0) Aspartate Amino Transf (AST/SGOT) 23 U/L (15-37) Alanine Aminotransferase (ALT/SGPT) 34 U/L (12-78) Alkaline Phosphatase 128 U/L (46-116) H C-Reactive Protein, Quantitative 5.4 mg/dL (0.00-0.90) H Total Protein 6.4 G/DL (6.4-8.2) Albumin 2.3 G/DL (3.4-5.0) L Globulin 4.1 g/dL Albumin/Globulin Ratio 0.6 (1.0-2.7) L Intake and Output 05/18/20 05/19/20 19:00 07:00 Intake Total 1023.214 ml 739.870 ml Output Total 1200 ml 350 ml Balance -176.786 ml 389.870 ml Intake Oral 710 ml 460 ml IV Total 313.214 ml 279.870 ml Output Urine Total 1200 ml 350 ml # Voids 7 1 # Bowel Movements 2 Objective limited examination due to COVID isolation room Patient is awake, responsive, on Ventimask 100% Assessment/Plan Assessment/Plan ASSESSMENT: This is a 59-year-old male with: 1. acute hypoxemic respiratory failure. 2. COVID-19 pneumonia. 3. right apical pneumothorax. 4. Diabetes type 2. 5. Hypertension. 6. atrial fibrillation with rapid ventricular rate. TREATMENT: 1. COVID-19 positive/pneumonia. Infectious Disease= Dr. Craft. Follow recommendations of Infectious Disease. completed remdesivir per Infectious Disease. On Decadron 2. Respiratory failure. Pulmonary/critical care= Dr. Yohannes Gibson. The patient is currently on 100% nonrebreather mask. Follow recommendations of Pulmonary. 3. Diabetes type 2. NovoLog sliding scale has been instituted. 4. Hypertension. Continue lisinopril as above. CODE STATUS: Full code DVT prophylaxis: Heparin drip. Abx: None monitor chest x-ray. Daniel Jung MD May 19, 2020 17:44
[2020-05-19] MEDS: cloNIDine 0.2mg Tab ORAL PRN (21:38)
[2020-05-20] VITALS (24 sets, daily range): BP systolic 141–188; BP diastolic 57–95
[2020-05-20] MEDS: dilTIAZem HCl 60mg tab ORAL SCH ×4 (00:02→17:40)
[2020-05-20] MEDS: Heparin 25,000u/D5W 500ml 500 ML IV SCH ×2 (02:51→17:49)
[2020-05-20 04:38] LABS: HEMATOCRIT 33.6 % (42.0-52.0); HEMOGLOBIN 12.3 G/DL (14.2-18.0); MEAN CORPUSCULAR VOLUME 77 FL (80-99); PLATELET COUNT 356 K/UL (150-450); RED BLOOD COUNT 4.35 M/UL (4.70-6.10); RED CELL DISTRIBUTION WIDTH 13.7 % (11.6-14.8); WHITE BLOOD COUNT 16.3 K/UL (4.8-10.8)
[2020-05-20 04:58] LABS: ALANINE AMINOTRANSFERASE 37 U/L (12-78); ALBUMIN 2.1 G/DL (3.4-5.0); ALBUMIN/GLOBULIN RATIO 0.5 (1.0-2.7); ALKALINE PHOSPHATASE 135 U/L (46-116); ANION GAP 6 mmol/L (5-15); ASPARTATE AMINO TRANSFERASE 32 U/L (15-37); BILIRUBIN,TOTAL 0.4 MG/DL (0.2-1.0); BLOOD UREA NITROGEN 17 mg/dL (7-18); CALCIUM 7.8 MG/DL (8.5-10.1); CARBON DIOXIDE 25 MMOL/L (21-32); CHLORIDE 101 MMOL/L (98-107); CREATININE 0.7 MG/DL (0.55-1.30); PHOSPHORUS 3.6 MG/DL (2.5-4.9); POTASSIUM 3.5 MMOL/L (3.5-5.1); SODIUM 132 MMOL/L (136-145)
[2020-05-20] MEDS: NovoLOG Insulin Flexpen SUBQ SCH ×7 (06:30→21:14)
[2020-05-20] MEDS: Levemir Flexpen SUBQ SCH ×2 (08:53→17:58)
--- NOTE | 2020-05-20 09:17 | Diagnostic Imaging Report ---
EXAM: XR Chest, 1 View CLINICAL HISTORY: DYSPNEA TECHNIQUE: Frontal view of the chest. COMPARISON: Chest radiograph May 19, 2020 FINDINGS/IMPRESSION: EKG leads overlie the chest. Stable, mild right apical pneumothorax. NEW MILD-MODERATE LEFT APICAL PNEUMOTHORAX. Suspect, mild pneumomediastinum. Subcutaneous emphysema overlies the chest and neck soft tissues. Bilateral airspace consolidations, similar in appearance to May 19, 2020. Suspect, small pleural effusions. Jose. <MYCVCSECTION> Communications: 05/20/20 09:34 Call Doctor Regarding Other, called Dr Jung on 05/20 09: 35 (-08:00)
[2020-05-20] MEDS: cloNIDine 0.2mg Tab ORAL PRN ×2 (10:36→16:06)
--- NOTE | 2020-05-20 13:53 | Pulmonology Progress Note ---
Subjective ROS Limited/Unobtainable: No Interval Events: still on 100% NRM Constitutional: Reports: no symptoms HEENT: Repors: no symptoms Allergies: Coded Allergies: No Known Allergies (Unverified , 05/11/20) All Systems: reviewed and negative except above Objective Last 24 Hour Vital Signs Date Time Temp Pulse Resp B/P (MAP) Pulse Ox O2 Delivery O2 Flow Rate FiO2 05/20/20 13:00 92 34 162/67 (98) 99 05/20/20 12:04 79 142/68 05/20/20 12:00 84 05/20/20 12:00 Non-Rebreather 15.0 05/20/20 12:00 98.3 77 22 142/68 (92) 99 05/20/20 11:00 85 22 174/70 (104) 97 05/20/20 10:36 179/70 05/20/20 10:00 81 25 166/68 (100) 99 05/20/20 09:00 86 29 160/68 (98) 100 05/20/20 08:00 Non-Rebreather 15.0 05/20/20 08:00 98.2 91 30 150/60 (90) 93 05/20/20 08:00 100 05/20/20 07:25 97 Non-Rebreather 15.0 100 05/20/20 07:00 83 24 169/69 (102) 96 05/20/20 06:00 93 31 176/78 (110) 97 05/20/20 05:53 87 170/74 05/20/20 05:00 82 24 158/79 (105) 99 05/20/20 04:00 Non-Rebreather 15.0 05/20/20 04:00 97.8 85 29 162/78 (106) 100 05/20/20 04:00 83 05/20/20 03:00 82 30 155/63 (93) 97 05/20/20 02:00 89 26 154/64 (94) 100 05/20/20 01:00 86 30 151/65 (93) 99 05/20/20 00:02 76 150/68 05/20/20 00:00 77 05/20/20 00:00 Non-Rebreather 15.0 05/20/20 00:00 97.7 74 20 150/68 (95) 100 05/19/20 23:00 74 19 146/67 (93) 100 05/19/20 22:00 83 27 170/73 (105) 100 05/19/20 21:38 174/67 05/19/20 21:00 85 27 174/67 (102) 100 05/19/20 20:00 98.0 88 25 169/65 (99) 100 05/19/20 20:00 Non-Rebreather 15.0 05/19/20 20:00 93 05/19/20 19:00 93 25 165/73 (103) 100 05/19/20 18:20 97.9 95 19 165/70 (101) 100 05/19/20 18:00 19 165/70 (101) 100 05/19/20 17:31 97 176/70 05/19/20 17:00 97.9 88 22 175/65 (101) 100 05/19/20 16:00 87 05/19/20 16:00 97.9 90 22 168/71 (103) 100 05/19/20 16:00 Non-Rebreather 15.0 05/19/20 15:00 86 30 164/67 (99) 99 05/19/20 14:00 88 25 164/68 (100) 100 Intake and Output 05/19/20 05/20/20 19:00 07:00 Intake Total 1438.910 ml 662.383 ml Output Total 1175 ml 1000 ml Balance 263.910 ml -337.617 ml Intake Oral 1200 ml 300 ml IV Total 238.910 ml 362.383 ml Output Urine Total 1175 ml 1000 ml General Appearance: cachetic HEENT: normocephalic, atraumatic Respiratory: chest wall non-tender, lungs clear Cardiovascular: normal peripheral pulses, normal rate, regular rhythm Abdomen: normal bowel sounds, soft, non tender Genitourinary: normal external genitalia Skin: no rash Neurologic: director of collections II-XII grossly normal Laboratory Tests 05/19/20 20:15: Activated Partial Thromboplast Time 54H 05/20/20 03:45: Activated Partial Thromboplast Time 84H, White Blood Count 16.3H, Red Blood Count 4.35L, Hemoglobin 12.3L, Hematocrit 33.6L, Mean Corpuscular Volume 77L, Mean Corpuscular Hemoglobin 28.3, Mean Corpuscular Hemoglobin Concent 36.7H, Red Cell Distribution Width 13.7, Platelet Count 356, Mean Platelet Volume 6.2L, Neutrophils (%) (Auto) , Lymphocytes (%) (Auto) , Monocytes (%) (Auto) , Eosinophils (%) (Auto) , Basophils (%) (Auto) , Differential Total Cells Counted 100, Neutrophils % (Manual) 93H, Lymphocytes % (Manual) 3L, Monocytes % (Manual) 4, Eosinophils % (Manual) 0, Basophils % (Manual) 0, Band Neutrophils 0, Platelet Estimate Adequate, Platelet Morphology Normal, Microcytosis 1+, Erythrocyte Sedimentation Rate 60H, Sodium Level 132L, Potassium Level 3.5, Chloride Level 101, Carbon Dioxide Level 25, Anion Gap 6, Blood Urea Nitrogen 17, Creatinine 0.7, Estimat Glomerular Filtration Rate > 60, Glucose Level 147H, Calcium Level 7.8L, Phosphorus Level 3.6, Magnesium Level 2.0, Total Bilirubin 0.4, Aspartate Amino Transf (AST/SGOT) 32, Alanine Aminotransferase (ALT/SGPT) 37, Alkaline Phosphatase 135H, C-Reactive Protein, Quantitative 2.7H, Total Protein 6.2L, Albumin 2.1L, Globulin 4.1, Albumin/Globulin Ratio 0.5L Current Medications Medications (Trade) Dose Ordered Sig/Vasiliy Route PRN Reason Start Time Stop Time Status Last Admin Dose Admin Acetaminophen (Tylenol) 650 mg Q4H PRN ORAL Temp >100.5 05/11/20 18:15 06/10/20 18:14 Albuterol/ Ipratropium (Combivent Respimat) 1 puff Q4H PRN INH Shortness of Breath 05/11/20 21:30 06/10/20 21:29 Clonidine HCl (Catapres tab) 0.2 mg Q2H PRN ORAL For High Blood Pressure 05/19/20 21:15 08/17/20 21:14 05/20/20 10:36 Dexamethasone (Decadron) 6 mg DAILY ORAL 05/12/20 09:00 05/21/20 09:01 05/20/20 08:32 Dextrose (Dextrose 50%) 25 ml Q30M PRN IV Hypoglycemia 05/12/20 11:00 08/10/20 10:59 Dextrose (Dextrose 50%) 50 ml Q30M PRN IV Hypoglycemia 05/12/20 11:00 3/4/21 10:59 Diltiazem HCl (Cardizem Tab) 60 mg EVERY 6 HOURS ORAL 05/17/20 12:00 06/16/20 11:59 05/20/20 12:04 Heparin Sodium/ Dextrose 500 ml @ 33.75 mls/ hr ADJUST PER PROTOCOL IV 05/19/20 21:30 06/18/20 21:29 05/20/20 02:51 Insulin Aspart (NovoLOG) BEFORE MEALS AND HS SUBQ 05/13/20 10:00 08/10/20 09:59 05/19/20 21:03 Insulin Aspart (NovoLOG) 30 units NOVOTIAC SUBQ 05/19/20 11:50 08/13/20 06:29 05/20/20 06:48 Insulin Detemir (Levemir) 30 units BID SUBQ 05/19/20 09:00 08/13/20 08:59 05/20/20 08:53 Metoprolol Tartrate (Lopressor) 5 mg Q1H PRN IVP SBP more than 120 05/16/20 19:45 08/14/20 19:44 05/17/20 11:45 Ondansetron HCl (Zofran) 4 mg Q6H PRN IVP Nausea & Vomiting 05/11/20 18:15 06/10/20 18:14 Polyethylene Glycol (Miralax) 17 gm DAILYPRN PRN ORAL Constipation 05/11/20 18:15 06/10/20 18:14 Promethazine HCl/ Codeine (Phenergan with Codeine) 5 ml Q4H PRN ORAL For Cough 05/13/20 17:15 06/12/20 17:14 05/13/20 22:50 Sitagliptin Phosphate (Januvia) 100 mg ACBREAKFAST ORAL 05/16/20 08:00 06/15/20 06:29 05/20/20 05:54 Assessment/Plan Problems: (1) Acute respiratory failure (2) Pneumothorax (3) Diabetes (4) Coronavirus infection Assessment/Plan small bilateral pneumothoracis still needs NRM sliding scale BS better repeat CXR in am Yohannes Gibson MD May 20, 2020 13:53
[2020-05-20] MEDS ORDERED: NS 275ml ONE (15:36)
--- NOTE | 2020-05-20 16:22 | Cardiac Electrophysiology PN ---
Assessment/Plan Status Narrative 1. New moderate right apical pneumothorax. 2. New pneumomediastinum. 3. New supraclavicular bilateral subcutaneous emphysema. 4. Development of bilateral airspace disease suspicious for atypical/viral pneumonia. Assessment/Plan 1. Atrial fibrillation with rapid ventricular response, heart rate of 160s. This is in the setting of COVID. He already converted back to sinus rhythm after he got 10 mg of IV Cardizem. On Cardizem 60 mg p.o. every 6 hours and heparin drip Echo Nl EF 2. COVID pneumonia. The patient is on isolation, 100% non-rebreather face mask. Saturations 93%. 3. BiApical PTX and Pneumomediastinum. Evaluation and chest tube by Dr Mtz pending 4. Diabetes on insulin and Januvia, per Dr. Brown. 5. Lactic acidosis. KIM RN Subjective Subjective In ICU on 100% NRBFM. Awaiting Dr Mtz evaluation for possible chest tube for now bilateral pneumothorax Converted to SR Objective Last 24 Hour Vital Signs Date Time Temp Pulse Resp B/P (MAP) Pulse Ox O2 Delivery O2 Flow Rate FiO2 05/20/20 16:06 198/81 05/20/20 15:00 83 26 162/70 (100) 100 05/20/20 14:00 94 28 184/73 (110) 96 05/20/20 13:00 92 34 162/67 (98) 99 05/20/20 12:04 79 142/68 05/20/20 12:00 84 05/20/20 12:00 Non-Rebreather 15.0 05/20/20 12:00 98.3 77 22 142/68 (92) 99 05/20/20 11:00 85 22 174/70 (104) 97 05/20/20 10:36 179/70 05/20/20 10:00 81 25 166/68 (100) 99 05/20/20 09:00 86 29 160/68 (98) 100 05/20/20 08:00 Non-Rebreather 15.0 05/20/20 08:00 98.2 91 30 150/60 (90) 93 05/20/20 08:00 100 05/20/20 07:25 97 Non-Rebreather 15.0 100 05/20/20 07:00 83 24 169/69 (102) 96 05/20/20 06:00 93 31 176/78 (110) 97 05/20/20 05:53 87 170/74 05/20/20 05:00 82 24 158/79 (105) 99 05/20/20 04:00 Non-Rebreather 15.0 05/20/20 04:00 97.8 85 29 162/78 (106) 100 05/20/20 04:00 83 05/20/20 03:00 82 30 155/63 (93) 97 05/20/20 02:00 89 26 154/64 (94) 100 05/20/20 01:00 86 30 151/65 (93) 99 05/20/20 00:02 76 150/68 05/20/20 00:00 77 05/20/20 00:00 Non-Rebreather 15.0 05/20/20 00:00 97.7 74 20 150/68 (95) 100 05/19/20 23:00 74 19 146/67 (93) 100 05/19/20 22:00 83 27 170/73 (105) 100 05/19/20 21:38 174/67 05/19/20 21:00 85 27 174/67 (102) 100 05/19/20 20:00 98.0 88 25 169/65 (99) 100 05/19/20 20:00 Non-Rebreather 15.0 05/19/20 20:00 93 05/19/20 19:00 93 25 165/73 (103) 100 05/19/20 18:20 97.9 95 19 165/70 (101) 100 05/19/20 18:00 19 165/70 (101) 100 05/19/20 17:31 97 176/70 05/19/20 17:00 97.9 88 22 175/65 (101) 100 Intake and Output0 05/19/20 05/20/20 19:00 07:00 Intake Total 1438.910 ml 662.383 ml Output Total 1175 ml 1000 ml Balance 263.910 ml -337.617 ml Intake Oral 1200 ml 300 ml IV Total 238.910 ml 362.383 ml Output Urine Total 1175 ml 1000 ml Laboratory Tests Test 05/19/20 20:15 05/20/20 03:45 Activated Partial Thromboplast Time 54 SEC (23-33) H 84 SEC (23-33) H White Blood Count 16.3 K/UL (4.8-10.8) H Red Blood Count 4.35 M/UL (4.70-6.10) L Hemoglobin 12.3 G/DL (14.2-18.0) L Hematocrit 33.6 % (42.0-52.0) L Mean Corpuscular Volume 77 FL (80-99) L Mean Corpuscular Hemoglobin 28.3 PG (27.0-31.0) Mean Corpuscular Hemoglobin Concent 36.7 G/DL (32.0-36.0) H Red Cell Distribution Width 13.7 % (11.6-14.8) Platelet Count 356 K/UL (150-450) Mean Platelet Volume 6.2 FL (6.5-10.1) L Neutrophils (%) (Auto) % (45.0-75.0) Lymphocytes (%) (Auto) % (20.0-45.0) Monocytes (%) (Auto) % (1.0-10.0) Eosinophils (%) (Auto) % (0.0-3.0) Basophils (%) (Auto) % (0.0-2.0) Differential Total Cells Counted 100 Neutrophils % (Manual) 93 % (45-75) H Lymphocytes % (Manual) 3 % (20-45) L Monocytes % (Manual) 4 % (1-10) Eosinophils % (Manual) 0 % (0-3) Basophils % (Manual) 0 % (0-2) Band Neutrophils 0 % (0-8) Platelet Estimate Adequate Platelet Morphology Normal Microcytosis 1+ Erythrocyte Sedimentation Rate 60 MM/HR (0-20) H Sodium Level 132 MMOL/L (136-145) L Potassium Level 3.5 MMOL/L (3.5-5.1) Chloride Level 101 MMOL/L (98-107) Carbon Dioxide Level 25 MMOL/L (21-32) Anion Gap 6 mmol/L (5-15) Blood Urea Nitrogen 17 mg/dL (7-18) Creatinine 0.7 MG/DL (0.55-1.30) Estimat Glomerular Filtration Rate > 60 mL/min (>60) Glucose Level 147 MG/DL (74-106) H Calcium Level 7.8 MG/DL (8.5-10.1) L Phosphorus Level 3.6 MG/DL (2.5-4.9) Magnesium Level 2.0 MG/DL (1.8-2.4) Total Bilirubin 0.4 MG/DL (0.2-1.0) Aspartate Amino Transf (AST/SGOT) 32 U/L (15-37) Alanine Aminotransferase (ALT/SGPT) 37 U/L (12-78) Alkaline Phosphatase 135 U/L (46-116) H C-Reactive Protein, Quantitative 2.7 mg/dL (0.00-0.90) H Total Protein 6.2 G/DL (6.4-8.2) L Albumin 2.1 G/DL (3.4-5.0) L Globulin 4.1 g/dL Albumin/Globulin Ratio 0.5 (1.0-2.7) L Objective HEAD AND NECK: Showed no JVD. LUNGS: Coarse rhonchi. CARDIOVASCULAR: Regular S1 and S2 with no gallop. ABDOMEN: Soft. EXTREMITIES: No pitting edema. Al Alarcon MD May 20, 2020 16:22
[2020-05-20] MEDS: Metoprolol Tartrate 5mg/5ml Inj IVP PRN (17:40)
--- NOTE | 2020-05-20 18:54 | Internal Med Progress Note ---
Subjective Date of Service: May 20, 2020 Physician Name Chirinos,Frederick Attending Physician Daniel Jung MD Current Medications Medications (Trade) Dose Ordered Sig/Vasiliy Route PRN Reason Start Time Stop Time Status Last Admin Dose Admin Acetaminophen (Tylenol) 650 mg Q4H PRN ORAL Temp >100.5 05/11/20 18:15 06/10/20 18:14 Albuterol/ Ipratropium (Combivent Respimat) 1 puff Q4H PRN INH Shortness of Breath 05/11/20 21:30 06/10/20 21:29 Clonidine HCl (Catapres tab) 0.2 mg Q2H PRN ORAL For High Blood Pressure 05/19/20 21:15 08/17/20 21:14 05/20/20 16:06 Dexamethasone (Decadron) 6 mg DAILY ORAL 05/12/20 09:00 05/21/20 09:01 05/20/20 08:32 Dextrose (Dextrose 50%) 25 ml Q30M PRN IV Hypoglycemia 05/12/20 11:00 08/10/20 10:59 Dextrose (Dextrose 50%) 50 ml Q30M PRN IV Hypoglycemia 05/12/20 11:00 08/10/20 10:59 Diltiazem HCl (Cardizem Tab) 60 mg EVERY 6 HOURS ORAL 05/17/20 12:00 06/16/20 11:59 05/20/20 17:40 Heparin Sodium/ Dextrose 500 ml @ 33.75 mls/ hr ADJUST PER PROTOCOL IV 05/19/20 21:30 06/18/20 21:29 05/20/20 17:49 Hydralazine HCl (Apresoline) 10 mg Q2H PRN IV For High Blood Pressure 05/20/20 17:45 08/18/20 17:44 05/20/20 18:37 Insulin Aspart (NovoLOG) BEFORE MEALS AND HS SUBQ 05/13/20 10:00 08/10/20 09:59 05/20/20 16:16 Insulin Aspart (NovoLOG) 30 units NOVOTIAC SUBQ 05/19/20 11:50 08/13/20 06:29 05/20/20 06:48 Insulin Detemir (Levemir) 30 units BID SUBQ 05/19/20 09:00 08/13/20 08:59 05/20/20 17:58 Metoprolol Tartrate (Lopressor) 5 mg Q1H PRN IVP SBP more than 120 05/16/20 19:45 08/14/20 19:44 05/20/20 17:40 Ondansetron HCl (Zofran) 4 mg Q6H PRN IVP Nausea & Vomiting 05/11/20 18:15 06/10/20 18:14 Polyethylene Glycol (Miralax) 17 gm DAILYPRN PRN ORAL Constipation 05/11/20 18:15 06/10/20 18:14 Promethazine HCl/ Codeine (Phenergan with Codeine) 5 ml Q4H PRN ORAL For Cough 05/13/20 17:15 06/12/20 17:14 05/13/20 22:50 Sitagliptin Phosphate (Januvia) 100 mg ACBREAKFAST ORAL 05/16/20 08:00 06/15/20 06:29 05/20/20 05:54 Allergies: Coded Allergies: No Known Allergies (Unverified , 05/11/20) ROS Limited/Unobtainable: Yes Subjective 59 YO M admitted with respiratory failure. Now COVID 19 pneumonia. Cover for Int Med-DR Jung. ICU. 100% nonrebreather mask Objective Last Vital Signs Date Time Temp Pulse Resp B/P (MAP) Pulse Ox O2 Delivery O2 Flow Rate FiO2 05/20/20 18:37 191/82 05/20/20 18:00 87 29 97 05/20/20 16:00 Non-Rebreather 15.0 05/20/20 12:00 98.3 05/20/20 07:25 100 Laboratory Tests Test 05/19/20 20:15 05/20/20 03:45 Activated Partial Thromboplast Time 54 SEC (23-33) H 84 SEC (23-33) H White Blood Count 16.3 K/UL (4.8-10.8) H Red Blood Count 4.35 M/UL (4.70-6.10) L Hemoglobin 12.3 G/DL (14.2-18.0) L Hematocrit 33.6 % (42.0-52.0) L Mean Corpuscular Volume 77 FL (80-99) L Mean Corpuscular Hemoglobin 28.3 PG (27.0-31.0) Mean Corpuscular Hemoglobin Concent 36.7 G/DL (32.0-36.0) H Red Cell Distribution Width 13.7 % (11.6-14.8) Platelet Count 356 K/UL (150-450) Mean Platelet Volume 6.2 FL (6.5-10.1) L Neutrophils (%) (Auto) % (45.0-75.0) Lymphocytes (%) (Auto) % (20.0-45.0) Monocytes (%) (Auto) % (1.0-10.0) Eosinophils (%) (Auto) % (0.0-3.0) Basophils (%) (Auto) % (0.0-2.0) Differential Total Cells Counted 100 Neutrophils % (Manual) 93 % (45-75) H Lymphocytes % (Manual) 3 % (20-45) L Monocytes % (Manual) 4 % (1-10) Eosinophils % (Manual) 0 % (0-3) Basophils % (Manual) 0 % (0-2) Band Neutrophils 0 % (0-8) Platelet Estimate Adequate Platelet Morphology Normal Microcytosis 1+ Erythrocyte Sedimentation Rate 60 MM/HR (0-20) H Sodium Level 132 MMOL/L (136-145) L Potassium Level 3.5 MMOL/L (3.5-5.1) Chloride Level 101 MMOL/L (98-107) Carbon Dioxide Level 25 MMOL/L (21-32) Anion Gap 6 mmol/L (5-15) Blood Urea Nitrogen 17 mg/dL (7-18) Creatinine 0.7 MG/DL (0.55-1.30) Estimat Glomerular Filtration Rate > 60 mL/min (>60) Glucose Level 147 MG/DL (74-106) H Calcium Level 7.8 MG/DL (8.5-10.1) L Phosphorus Level 3.6 MG/DL (2.5-4.9) Magnesium Level 2.0 MG/DL (1.8-2.4) Total Bilirubin 0.4 MG/DL (0.2-1.0) Aspartate Amino Transf (AST/SGOT) 32 U/L (15-37) Alanine Aminotransferase (ALT/SGPT) 37 U/L (12-78) Alkaline Phosphatase 135 U/L (46-116) H C-Reactive Protein, Quantitative 2.7 mg/dL (0.00-0.90) H Total Protein 6.2 G/DL (6.4-8.2) L Albumin 2.1 G/DL (3.4-5.0) L Globulin 4.1 g/dL Albumin/Globulin Ratio 0.5 (1.0-2.7) L Intake and Output 05/19/20 05/20/20 19:00 07:00 Intake Total 1438.910 ml 662.383 ml Output Total 1175 ml 1000 ml Balance 263.910 ml -337.617 ml Intake Oral 1200 ml 300 ml IV Total 238.910 ml 362.383 ml Output Urine Total 1175 ml 1000 ml Objective PHYSICAL EXAMINATION: GENERAL: The patient is a well-developed, well-nourished male, in no apparent distress. HEENT: Eyes, pupils equal and responsive to light and accommodation. Extraocular movements are intact. NECK: Supple without lymphadenopathy. CHEST: Nonrebreather mask; Lungs with decreased breath sounds at bilateral bases without wheezes or rales. CARDIOVASCULAR: Regular rhythm and rate. S1, S2 normal without murmurs, rubs, or gallops. ABDOMEN: Soft, nontender, and nondistended. Positive bowel sounds. No evidence of hepatosplenomegaly. Currently, no rebound or guarding noted. EXTREMITIES: Negative for clubbing, cyanosis, or edema. RECTAL: Not performed. GENITAL: Not performed. NEUROLOGIC: Cranial nerves II through XII are grossly intact without focal deficits. Motor strength is 5/5 bilaterally intact. Deep tendon reflexes are 2+ bilat Assessment/Plan Assessment/Plan ASSESSMENT: This is a 59-year-old male with: 1. COVID-19 positive. 2. COVID-19 pneumonia. 3. Respiratory failure. 4. Diabetes type 2. 5. Hypertension. TREATMENT: 1. COVID-19 positive/pneumonia. Infectious Disease= Dr. Craft. Follow recommendations of Infectious Disease. Continue remdesivir per Infectious Disease. S/P ceftriaxone, azithromycin and decadron 2. Respiratory failure. Pulmonary/critical care= Dr. Yohannes Gibson. The patient is currently on 100% nonrebreather mask. Follow recommendations of Pulmonary. 3. Diabetes type 2. NovoLog sliding scale has been instituted. 4. Hypertension. Continue lisinopril as above. Frederick Chirinos MD May 20, 2020 18:54
[2020-05-21] VITALS (28 sets, daily range): BP systolic 109–193; BP diastolic 47–86
[2020-05-21] MEDS: dilTIAZem HCl 60mg tab ORAL SCH ×3 (00:04→11:48)
[2020-05-21 06:10] LABS: HEMATOCRIT 35.9 % (42.0-52.0); HEMOGLOBIN 13.6 G/DL (14.2-18.0); MEAN CORPUSCULAR VOLUME 76 FL (80-99); PLATELET COUNT 388 K/UL (150-450); RED CELL DISTRIBUTION WIDTH 14.2 % (11.6-14.8)
[2020-05-21] MEDS: cloNIDine 0.2mg Tab ORAL PRN (06:19)
[2020-05-21] MEDS: NovoLOG Insulin Flexpen SUBQ SCH ×6 (06:30→16:57)
[2020-05-21 06:31] LABS: ALANINE AMINOTRANSFERASE 36 U/L (12-78); ALBUMIN 2.3 G/DL (3.4-5.0); ALBUMIN/GLOBULIN RATIO 0.5 (1.0-2.7); ALKALINE PHOSPHATASE 161 U/L (46-116); ANION GAP 9 mmol/L (5-15); ASPARTATE AMINO TRANSFERASE 30 U/L (15-37); BILIRUBIN,TOTAL 0.5 MG/DL (0.2-1.0); BLOOD UREA NITROGEN 17 mg/dL (7-18); CALCIUM 7.7 MG/DL (8.5-10.1); CARBON DIOXIDE 25 MMOL/L (21-32); CHLORIDE 97 MMOL/L (98-107); CREATININE 0.7 MG/DL (0.55-1.30); PHOSPHORUS 3.8 MG/DL (2.5-4.9); POTASSIUM 3.6 MMOL/L (3.5-5.1); SODIUM 131 MMOL/L (136-145)
[2020-05-21 06:33] LABS: WHITE BLOOD COUNT 24.3 K/UL (4.8-10.8)
[2020-05-21] MEDS ORDERED: EPINEPHrine 1mg/1ml Amp 1 MG in D5W 249 ML IV SCH (07:45)
[2020-05-21] MEDS: Heparin 25,000u/D5W 500ml 500 ML IV SCH (08:01)
[2020-05-21] MEDS: Levemir Flexpen SUBQ SCH ×2 (08:03→17:23)
--- NOTE | 2020-05-21 09:20 | Diagnostic Imaging Report ---
EXAM: XR Chest, 1 View CLINICAL HISTORY: PNEUMOTX TECHNIQUE: Frontal view of the chest. COMPARISON: Chest radiograph May 20, 2020 FINDINGS/IMPRESSION: REDEMONSTRATION OF RIGHT MILD PNEUMOTHORAX. REDEMONSTRATION OF LEFT MILD- MODERATE LEFT PNEUMOTHORAX. THESE ARE SIMILAR IN APPEARANCE TO THE PREVIOUS STUDY FROM MAY 20, 2020. Airspace consolidations within the lungs consistent with infiltrates, similar in appearance to previous study. Suspect, small bilateral pleural effusions. Stable pneumomediastinum and subcutaneous air within the chest wall and neck soft tissues. Cardiomegaly. Calcified aorta. <MYCVCSECTION> Communications: 05/21/20 09:36 Verify Receipt Verified receipt with JENY Raya on 05/21 09:36 (-08:00)
--- NOTE | 2020-05-21 11:39 | Diagnostic Imaging Report ---
EXAM: XR Chest, 1 View CLINICAL HISTORY: TUBE PLCMT TECHNIQUE: Frontal view of the chest. COMPARISON: Chest radiograph on 05/21/2020 at 907 hours. FINDINGS: Hardware: Interval placement of a left-sided chest tube. Lungs/pleura: Decreased left-sided pneumothorax with residual left apical pneumothorax. Stable small right apical pneumothorax. Similar patchy opacities predominantly in the mid and lower lungs. Heart/mediastinum: Stable mild enlargement of the cardiac silhouette. Similar pneumomediastinum. Soft tissues: Extensive subcutaneous emphysema again noted is compared to prior exam. Bones: No acute fracture. Upper abdomen: Nonspecific gas-filled stomach. IMPRESSION: 1. Interval placement of a left-sided chest tube. Decreased left-sided pneumothorax with residual left apical pneumothorax. Stable small right apical pneumothorax. 2. Similar pneumomediastinum. 3. Similar patchy opacities predominantly in the mid and lower lungs. 4. Extensive subcutaneous emphysema again noted is compared to prior exam.
--- NOTE | 2020-05-21 12:04 | Operative Note - PDOC ---
Operative Note Operative Note Date of Operation/Procedure: May 21, 2020 Pre-op Diagnosis: Spontaneous left pneumothorax Procedure: Left tube thoracostomy Thora vent insertion Post-op Diagnosis: same as pre-op Surgeon: Erik Avendaño MD Anesthesia: local Specimen: none Complications: none Estimated Blood Loss: minimal Implant(s) used?: No Indications for Procedure 59-year-old male [facility] Patient prior developed a small right pneumothorax to been stable and being monitored. Currently today he developed a mild to moderate sized left pneumothorax as well spontaneously. Given bilateral pneumothoraces left greater than right significant risk for potential complication tube thoracostomy Serenity recommended restarting Xarelto discussed patient in detail consent obtained procedure performed at bedside in ICU. Description of Procedure Patient was made comfortable at the bedside intensive care unit. The left chest wall is prepped draped in the same surgical fashion. Anatomic landmarks identified. Local anesthetic infiltrated. A Thora vent was prepped and ready. A small skin incision was made. Thora vent was slowly advanced through the subcutaneous tissue through the dermis towards intercostal muscles. The rib margin was identified and the vent was slowly advanced above the rib margin through the intercostal and into the pleural space once the pleural space was obtained the trocar was removed and the catheter was slowly advanced. Tube was placed to Thora vent Pleur-evac suction. Chest x-ray obtained resolution of pneumothorax. Patient tolerated procedure well. Erik Avnedaño May 21, 2020 12:04
--- NOTE | 2020-05-21 14:26 | Infectious Diseases Prog Note ---
Assessment/Plan 59yo M with: Febrile to 100.9; SP Luekocytosis ( Sp steroids,) Lymphopenia Hypoxic resp failure 2/ COVID pna, on NRB mask Severe COVID pna, tested positive 05/05 R apical PTX and pneumomediastinum, new 05/17, 05/21 Sp chest tube placement 05/05 COVID positive 05/11 BCx NTD COVID PCR+ CXR: No acute process Influenza EIA neg 05/14 CXR: Mildly increased interstitial markings. This is nonspecific but may suggest mild pulmonary vascular congestion or pneumonitis. No focal consolidation. 05/17 CXR: 1. New moderate right apical pneumothorax. 2. New pneumomediastinum. 3. New supraclavicular bilateral subcutaneous emphysema. 4. Development of bilateral airspace disease suspicious for atypical/viral pneumonia. 05/18 CXR: 1. Interval worsening in aeration of the lungs with increasing airspace consolidation bilaterally. 2. Stable right apical pneumothorax. 3. Persistent pneumomediastinum. 05/19 Resp cx ordered BLE US neg for DVT DM2 Plan: Start zosyn# 1 in view of increase in WBC 05/20 Sp dexamethasone 6mg daily # 10 Monitor R PTX 05/16 SP CTX/azithro #5 05/16 SP RDV #5 This medical center does not have convalescent plasma, and as pt 1 week out from diagnosis, unlikely to benefit from it at this point Monitor CBC/CMP Monitor temp curve, hemodynamics Monitor resp status munoz Cx (B, U, S) D/w RN Thank you for this consult. [facility] will continue to follow. Subjective Allergies: Coded Allergies: No Known Allergies (Unverified , 05/11/20) on RRB FM Objective Last 24 Hour Vital Signs Date Time Temp Pulse Resp B/P (MAP) Pulse Ox O2 Delivery O2 Flow Rate FiO2 05/21/20 13:00 91 33 173/76 (108) 91 05/21/20 12:00 Non-Rebreather 15.0 05/21/20 12:00 98.2 85 32 178/75 (109) 95 05/21/20 12:00 88 05/21/20 11:48 91 149/73 05/21/20 11:00 91 44 189/76 (113) 89 05/21/20 10:00 89 32 157/72 (100) 89 05/21/20 09:00 93 34 178/69 (105) 86 05/21/20 08:00 98.0 93 31 169/75 (106) 92 05/21/20 08:00 Non-Rebreather 15.0 05/21/20 08:00 75 05/21/20 07:30 98 Non-Rebreather 15.0 100 05/21/20 07:00 80 26 173/71 (105) 96 05/21/20 06:19 184/86 05/21/20 06:00 88 32 184/86 (118) 94 05/21/20 05:48 90 200/76 05/21/20 05:00 89 30 170/73 (105) 93 05/21/20 04:00 Non-Rebreather 15.0 05/21/20 04:00 97.4 90 29 170/82 (111) 95 05/21/20 04:00 91 05/21/20 03:00 82 25 169/71 (103) 95 05/21/20 02:00 83 26 159/67 (97) 96 05/21/20 01:00 88 29 162/74 (103) 96 05/21/20 00:04 100 141/59 05/21/20 00:00 98.1 90 25 141/59 (86) 97 05/21/20 00:00 Non-Rebreather 15.0 05/21/20 00:00 95 05/20/20 23:00 87 27 151/59 (89) 96 05/20/20 22:00 89 28 160/61 (94) 97 05/20/20 21:00 91 28 169/77 (107) 97 05/20/20 20:18 94 Non-Rebreather 15.0 100 05/20/20 20:00 98.1 94 30 164/73 (103) 97 05/20/20 20:00 82 05/20/20 20:00 Non-Rebreather 15.0 05/20/20 19:00 78 30 141/57 (85) 96 20 18:37 191/82 05/20/20 18:00 87 29 160/95 (116) 97 05/20/20 17:40 94 193/81 05/20/20 17:40 93 193/81 05/20/20 17:00 88 30 177/72 (107) 97 05/20/20 16:06 198/81 05/20/20 16:00 106 05/20/20 16:00 102 32 188/83 (118) 97 05/20/20 16:00 Non-Rebreather 15.0 05/20/20 15:00 83 26 162/70 (100) 100 Height (Feet): 5 Height (Inches): 5.00 Weight (Pounds): 149 HEENT: atraumatic Cardiovascular: regular rhythm Abdomen: soft, non tender Microbiology Date/Time Source Procedure Growth Status 05/20/20 04:00 Sputum Expectorated Gram Stain - Final Resulted 05/20/20 04:00 Sputum Expectorated Sputum Culture - Preliminary NORMAL UPPER RESPIRATORY MACARIO AT 24 ... Resulted Laboratory Tests Test 05/21/20 05:30 05/21/20 08:58 White Blood Count 24.3 K/UL (4.8-10.8) *H Red Blood Count 4.70 M/UL (4.70-6.10) Hemoglobin 13.6 G/DL (14.2-18.0) L Hematocrit 35.9 % (42.0-52.0) L Mean Corpuscular Volume 76 FL (80-99) L Mean Corpuscular Hemoglobin 28.9 PG (27.0-31.0) Mean Corpuscular Hemoglobin Concent 37.8 G/DL (32.0-36.0) H Red Cell Distribution Width 14.2 % (11.6-14.8) Platelet Count 388 K/UL (150-450) Mean Platelet Volume 6.3 FL (6.5-10.1) L Neutrophils (%) (Auto) % (45.0-75.0) Lymphocytes (%) (Auto) % (20.0-45.0) Monocytes (%) (Auto) % (1.0-10.0) Eosinophils (%) (Auto) % (0.0-3.0) Basophils (%) (Auto) % (0.0-2.0) Differential Total Cells Counted 100 Neutrophils % (Manual) 88 % (45-75) H Lymphocytes % (Manual) 5 % (20-45) L Monocytes % (Manual) 7 % (1-10) Eosinophils % (Manual) 0 % (0-3) Basophils % (Manual) 0 % (0-2) Band Neutrophils 0 % (0-8) Platelet Estimate Adequate Platelet Morphology Normal Anisocytosis 1+ Microcytosis 1+ Erythrocyte Sedimentation Rate 61 MM/HR (0-20) H Activated Partial Thromboplast Time 84 SEC (23-33) H Sodium Level 131 MMOL/L (136-145) L Potassium Level 3.6 MMOL/L (3.5-5.1) Chloride Level 97 MMOL/L (98-107) L Carbon Dioxide Level 25 MMOL/L (21-32) Anion Gap 9 mmol/L (5-15) Blood Urea Nitrogen 17 mg/dL (7-18) Creatinine 0.7 MG/DL (0.55-1.30) Estimat Glomerular Filtration Rate > 60 mL/min (>60) Glucose Level 119 MG/DL (74-106) H Calcium Level 7.7 MG/DL (8.5-10.1) L Phosphorus Level 3.8 MG/DL (2.5-4.9) Magnesium Level 1.9 MG/DL (1.8-2.4) Total Bilirubin 0.5 MG/DL (0.2-1.0) Aspartate Amino Transf (AST/SGOT) 30 U/L (15-37) Alanine Aminotransferase (ALT/SGPT) 36 U/L (12-78) Alkaline Phosphatase 161 U/L (46-116) H C-Reactive Protein, Quantitative 5.4 mg/dL (0.00-0.90) H Total Protein 6.8 G/DL (6.4-8.2) Albumin 2.3 G/DL (3.4-5.0) L Globulin 4.5 g/dL Albumin/Globulin Ratio 0.5 (1.0-2.7) L Arterial Blood pH 7.510 (7.350-7.450) Arterial Blood Partial Pressure CO2 29.7 mmHg (35.0-45.0) L Arterial Blood Partial Pressure O2 48.4 mmHg (75.0-100.0) Arterial Blood HCO3 23.2 mmol/L (22.0-26.0) Arterial Blood Oxygen Saturation 86.1 % (95-100) *L Arterial Blood Base Excess 1.1 (-2-2) Haim Test Positive Current Medications Medications (Trade) Dose Ordered Sig/Vasiliy Route PRN Reason Start Time Stop Time Status Last Admin Dose Admin Acetaminophen (Tylenol) 650 mg Q4H PRN ORAL Temp >100.5 05/11/20 18:15 06/10/20 18:14 Albuterol/ Ipratropium (Combivent Respimat) 1 puff Q4H PRN INH Shortness of Breath 05/11/20 21:30 06/10/20 21:29 Clonidine HCl (Catapres tab) 0.2 mg Q2H PRN ORAL For High Blood Pressure 05/19/20 21:15 08/17/20 21:14 05/21/20 06:19 Dextrose (Dextrose 50%) 25 ml Q30M PRN IV Hypoglycemia 05/12/20 11:00 08/10/20 10:59 Dextrose (Dextrose 50%) 50 ml Q30M PRN IV Hypoglycemia 05/12/20 11:00 08/10/20 10:59 Diltiazem HCl (Cardizem Tab) 60 mg EVERY 6 HOURS ORAL 05/17/20 12:00 06/16/20 11:59 05/21/20 11:48 Heparin Sodium (Porcine) (Heparin 5000 units/ml) 5,000 units EVERY 12 HOURS SUBQ 05/21/20 21:00 07/05/20 20:59 Hydralazine HCl (Apresoline) 10 mg Q2H PRN IV For High Blood Pressure 05/20/20 17:45 08/18/20 17:44 05/20/20 18:37 Insulin Aspart (NovoLOG) BEFORE MEALS AND HS SUBQ 05/13/20 10:00 08/10/20 09:59 05/20/20 21:14 Insulin Aspart (NovoLOG) 20 units NOVOTIAC SUBQ 05/21/20 06:30 08/13/20 06:29 Insulin Detemir (Levemir) 30 units BID SUBQ 05/19/20 09:00 08/13/20 08:59 05/21/20 08:03 Metoprolol Tartrate (Lopressor) 5 mg Q1H PRN IVP SBP more than 120 05/16/20 19:45 08/14/20 19:44 05/20/20 17:40 Ondansetron HCl (Zofran) 4 mg Q6H PRN IVP Nausea & Vomiting 05/11/20 18:15 06/10/20 18:14 Polyethylene Glycol (Miralax) 17 gm DAILYPRN PRN ORAL Constipation 05/11/20 18:15 06/10/20 18:14 05/21/20 04:43 Promethazine HCl/ Codeine (Phenergan with Codeine) 5 ml Q4H PRN ORAL For Cough 05/13/20 17:15 06/12/20 17:14 05/13/20 22:50 Sitagliptin Phosphate (Januvia) 100 mg ACBREAKFAST ORAL 05/16/20 08:00 06/15/20 06:29 05/21/20 05:48 Sodium Chloride 1,000 ml @ 50 mls/hr Q20H IV 05/21/20 18:00 06/20/20 17:59 Surendra Craft MD May 21, 2020 14:26
--- NOTE | 2020-05-21 14:34 | Pulmonolgy Critical Care Note ---
Critical Care - Asmt/Plan Problems: (1) Rapid atrial fibrillation (2) Acute respiratory failure (3) Coronavirus infection (4) Diabetes Respiratory: monitor respiratory rate, adjust FIO2, other - chest tube is in place Cardiac: continue pressors, d/c quality assurance monitor chassis Renal: F/U I&O, keep IV fluid Infectious Disease: check cultures Gastrointestinal: continue feedings/current rate Endocrine: monitor blood sugar Hematologic: monitor H/H Neurologic: PRN Morphine Time Spent (Minutes): 40 Notes Reviewed: label paster, cardio, renal Discussed with: nurses, consultants Critical Care - Objective Last 24 Hour Vital Signs Date Time Temp Pulse Resp B/P (MAP) Pulse Ox O2 Delivery O2 Flow Rate FiO2 05/21/20 13:00 91 33 173/76 (108) 91 05/21/20 12:00 Non-Rebreather 15.0 05/21/20 12:00 98.2 85 32 178/75 (109) 95 05/21/20 12:00 88 05/21/20 11:48 91 149/73 05/21/20 11:00 91 44 189/76 (113) 89 05/21/20 10:00 89 32 157/72 (100) 89 05/21/20 09:00 93 34 178/69 (105) 86 05/21/20 08:00 98.0 93 31 169/75 (106) 92 05/21/20 08:00 Non-Rebreather 15.0 05/21/20 08:00 75 05/21/20 07:30 98 Non-Rebreather 15.0 100 05/21/20 07:00 80 26 173/71 (105) 96 05/21/20 06:19 184/86 05/21/20 06:00 88 32 184/86 (118) 94 05/21/20 05:48 90 200/76 05/21/20 05:00 89 30 170/73 (105) 93 05/21/20 04:00 Non-Rebreather 15.0 05/21/20 04:00 97.4 90 29 170/82 (111) 95 05/21/20 04:00 91 05/21/20 03:00 82 25 169/71 (103) 95 05/21/20 02:00 83 26 159/67 (97) 96 05/21/20 01:00 88 29 162/74 (103) 96 05/21/20 00:04 100 141/59 05/21/20 00:00 98.1 90 25 141/59 (86) 97 05/21/20 00:00 Non-Rebreather 15.0 05/21/20 00:00 95 05/20/20 23:00 87 27 151/59 (89) 96 05/20/20 22:00 89 28 160/61 (94) 97 05/20/20 21:00 91 28 169/77 (107) 97 05/20/20 20:18 94 Non-Rebreather 15.0 100 05/20/20 20:00 98.1 94 30 164/73 (103) 97 05/20/20 20:00 82 05/20/20 20:00 Non-Rebreather 15.0 05/20/20 19:00 78 30 141/57 (85) 96 05/20/20 18:37 191/82 05/20/20 18:00 87 29 160/95 (116) 97 05/20/20 17:40 94 193/81 05/20/20 17:40 93 193/81 05/20/20 17:00 88 30 177/72 (107) 97 05/20/20 16:06 198/81 05/20/20 16:00 106 05/20/20 16:00 102 32 188/83 (118) 97 05/20/20 16:00 Non-Rebreather 15.0 05/20/20 15:00 83 26 162/70 (100) 100 Status: somnolent Condition: critical HEENT: atraumatic, normocephalic Neck: full ROM Lungs: rales, rhonchi Heart: HR/BP stable Abdomen: soft, non-tender Extremities: no C/C/E Micro: Microbiology Date/Time Source Procedure Growth Status 05/20/20 04:00 Sputum Expectorated Gram Stain - Final Resulted 05/20/20 04:00 Sputum Expectorated Sputum Culture - Preliminary NORMAL UPPER RESPIRATORY MACARIO AT 24 ... Resulted Accucheck: 118 Critical Care - Subjective ROS Limited/Unobtainable: Yes Condition: critical FI02: 100 I&O: Intake and Output 0 05/20/20 05/21/20 19:00 07:00 Intake Total 764.4375 ml 645.00 ml Output Total 800 ml 900 ml Balance -35.5625 ml -255.00 ml Intake Oral 360 ml 240 ml IV Total 404.4375 ml 405.00 ml Output Urine Total 800 ml 900 ml Labs: Laboratory Tests Test 05/21/20 05:30 05/21/20 08:58 White Blood Count 24.3 K/UL (4.8-10.8) *H Red Blood Count 4.70 M/UL (4.70-6.10) Hemoglobin 13.6 G/DL (14.2-18.0) L Hematocrit 35.9 % (42.0-52.0) L Mean Corpuscular Volume 76 FL (80-99) L Mean Corpuscular Hemoglobin 28.9 PG (27.0-31.0) Mean Corpuscular Hemoglobin Concent 37.8 G/DL (32.0-36.0) H Red Cell Distribution Width 14.2 % (11.6-14.8) Platelet Count 388 K/UL (150-450) Mean Platelet Volume 6.3 FL (6.5-10.1) L Neutrophils (%) (Auto) % (45.0-75.0) Lymphocytes (%) (Auto) % (20.0-45.0) Monocytes (%) (Auto) % (1.0-10.0) Eosinophils (%) (Auto) % (0.0-3.0) Basophils (%) (Auto) % (0.0-2.0) Differential Total Cells Counted 100 Neutrophils % (Manual) 88 % (45-75) H Lymphocytes % (Manual) 5 % (20-45) L Monocytes % (Manual) 7 % (1-10) Eosinophils % (Manual) 0 % (0-3) Basophils % (Manual) 0 % (0-2) Band Neutrophils 0 % (0-8) Platelet Estimate Adequate Platelet Morphology Normal Anisocytosis 1+ Microcytosis 1+ Erythrocyte Sedimentation Rate 61 MM/HR (0-20) H Activated Partial Thromboplast Time 84 SEC (23-33) H Sodium Level 131 MMOL/L (136-145) L Potassium Level 3.6 MMOL/L (3.5-5.1) Chloride Level 97 MMOL/L (98-107) L Carbon Dioxide Level 25 MMOL/L (21-32) Anion Gap 9 mmol/L (5-15) Blood Urea Nitrogen 17 mg/dL (7-18) Creatinine 0.7 MG/DL (0.55-1.30) Estimat Glomerular Filtration Rate > 60 mL/min (>60) Glucose Level 119 MG/DL (74-106) H Calcium Level 7.7 MG/DL (8.5-10.1) L Phosphorus Level 3.8 MG/DL (2.5-4.9) Magnesium Level 1.9 MG/DL (1.8-2.4) Total Bilirubin 0.5 MG/DL (0.2-1.0) Aspartate Amino Transf (AST/SGOT) 30 U/L (15-37) Alanine Aminotransferase (ALT/SGPT) 36 U/L (12-78) Alkaline Phosphatase 161 U/L (46-116) H C-Reactive Protein, Quantitative 5.4 mg/dL (0.00-0.90) H Total Protein 6.8 G/DL (6.4-8.2) Albumin 2.3 G/DL (3.4-5.0) L Globulin 4.5 g/dL Albumin/Globulin Ratio 0.5 (1.0-2.7) L Arterial Blood pH 7.510 (7.350-7.450) Arterial Blood Partial Pressure CO2 29.7 mmHg (35.0-45.0) L Arterial Blood Partial Pressure O2 48.4 mmHg (75.0-100.0) Arterial Blood HCO3 23.2 mmol/L (22.0-26.0) Arterial Blood Oxygen Saturation 86.1 % (95-100) *L Arterial Blood Base Excess 1.1 (-2-2) Haim Test Positive Yohannes Gibson MD May 21, 2020 14:34
[2020-05-21] MEDS ORDERED: Piperacillin/Tazobactam 4.5 GM in NS 110 ML IVPB SCH (15:00)
--- NOTE | 2020-05-21 15:44 | Internal Med Progress Note ---
Subjective Date of Service: May 21, 2020 Physician Name Chirinos,Frederick Attending Physician Daniel Jung MD Current Medications Medications (Trade) Dose Ordered Sig/Vasiliy Route PRN Reason Start Time Stop Time Status Last Admin Dose Admin Acetaminophen (Tylenol) 650 mg Q4H PRN ORAL Temp >100.5 05/11/20 18:15 06/10/20 18:14 Albuterol/ Ipratropium (Combivent Respimat) 1 puff Q4H PRN INH Shortness of Breath 05/11/20 21:30 06/10/20 21:29 Clonidine HCl (Catapres tab) 0.2 mg Q2H PRN ORAL For High Blood Pressure 05/19/20 21:15 08/17/20 21:14 05/21/20 06:19 Dextrose (Dextrose 50%) 25 ml Q30M PRN IV Hypoglycemia 05/12/20 11:00 08/10/20 10:59 Dextrose (Dextrose 50%) 50 ml Q30M PRN IV Hypoglycemia 05/12/20 11:00 08/10/20 10:59 Diltiazem HCl (Cardizem Tab) 90 mg EVERY 6 HOURS ORAL 05/21/20 18:00 06/16/20 11:59 Heparin Sodium (Porcine) (Heparin 5000 units/ml) 5,000 units EVERY 12 HOURS SUBQ 05/21/20 21:00 07/05/20 20:59 Hydralazine HCl (Apresoline) 10 mg Q2H PRN IV For High Blood Pressure 05/20/20 17:45 08/18/20 17:44 05/20/20 18:37 Insulin Aspart (NovoLOG) BEFORE MEALS AND HS SUBQ 05/13/20 10:00 08/10/20 09:59 05/20/20 21:14 Insulin Aspart (NovoLOG) 20 units NOVOTIAC SUBQ 05/21/20 06:30 08/13/20 06:29 Insulin Detemir (Levemir) 30 units BID SUBQ 05/19/20 09:00 08/13/20 08:59 05/21/20 08:03 Metoprolol Tartrate (Lopressor) 5 mg Q1H PRN IVP SBP more than 120 05/16/20 19:45 08/14/20 19:44 05/20/20 17:40 Ondansetron HCl (Zofran) 4 mg Q6H PRN IVP Nausea & Vomiting 05/11/20 18:15 06/10/20 18:14 Piperacillin Sod/ Tazobactam Sod 4.5 gm/Sodium Chloride 110 ml @ 27.5 mls/hr Q8H IVPB 05/21/20 18:00 05/28/20 17:59 Polyethylene Glycol (Miralax) 17 gm DAILYPRN PRN ORAL Constipation 05/11/20 18:15 06/10/20 18:14 05/21/20 04:43 Promethazine HCl/ Codeine (Phenergan with Codeine) 5 ml Q4H PRN ORAL For Cough 05/13/20 17:15 06/12/20 17:14 05/13/20 22:50 Sitagliptin Phosphate (Januvia) 100 mg ACBREAKFAST ORAL 05/16/20 08:00 06/15/20 06:29 05/21/20 05:48 Sodium Chloride 1,000 ml @ 50 mls/hr Q20H IV 05/21/20 18:00 06/20/20 17:59 Allergies: Coded Allergies: No Known Allergies (Unverified , 05/11/20) ROS Limited/Unobtainable: Yes Subjective 59 YO M admitted with respiratory failure. Now COVID 19 pneumonia. Cover for Int Med-DR Jung. ICU. S/P Intubation 05/21/20 Objective Last Vital Signs Date Time Temp Pulse Resp B/P (MAP) Pulse Ox O2 Delivery O2 Flow Rate FiO2 05/21/20 13:00 91 33 173/76 (108) 91 05/21/20 12:00 Non-Rebreather 15.0 05/21/20 12:00 98.2 05/21/20 07:30 100 Laboratory Tests Test 05/21/20 05:30 05/21/20 08:58 White Blood Count 24.3 K/UL (4.8-10.8) *H Red Blood Count 4.70 M/UL (4.70-6.10) Hemoglobin 13.6 G/DL (14.2-18.0) L Hematocrit 35.9 % (42.0-52.0) L Mean Corpuscular Volume 76 FL (80-99) L Mean Corpuscular Hemoglobin 28.9 PG (27.0-31.0) Mean Corpuscular Hemoglobin Concent 37.8 G/DL (32.0-36.0) H Red Cell Distribution Width 14.2 % (11.6-14.8) Platelet Count 388 K/UL (150-450) Mean Platelet Volume 6.3 FL (6.5-10.1) L Neutrophils (%) (Auto) % (45.0-75.0) Lymphocytes (%) (Auto) % (20.0-45.0) Monocytes (%) (Auto) % (1.0-10.0) Eosinophils (%) (Auto) % (0.0-3.0) Basophils (%) (Auto) % (0.0-2.0) Differential Total Cells Counted 100 Neutrophils % (Manual) 88 % (45-75) H Lymphocytes % (Manual) 5 % (20-45) L Monocytes % (Manual) 7 % (1-10) Eosinophils % (Manual) 0 % (0-3) Basophils % (Manual) 0 % (0-2) Band Neutrophils 0 % (0-8) Platelet Estimate Adequate Platelet Morphology Normal Anisocytosis 1+ Microcytosis 1+ Erythrocyte Sedimentation Rate 61 MM/HR (0-20) H Activated Partial Thromboplast Time 84 SEC (23-33) H Sodium Level 131 MMOL/L (136-145) L Potassium Level 3.6 MMOL/L (3.5-5.1) Chloride Level 97 MMOL/L (98-107) L Carbon Dioxide Level 25 MMOL/L (21-32) Anion Gap 9 mmol/L (5-15) Blood Urea Nitrogen 17 mg/dL (7-18) Creatinine 0.7 MG/DL (0.55-1.30) Estimat Glomerular Filtration Rate > 60 mL/min (>60) Glucose Level 119 MG/DL (74-106) H Calcium Level 7.7 MG/DL (8.5-10.1) L Phosphorus Level 3.8 MG/DL (2.5-4.9) Magnesium Level 1.9 MG/DL (1.8-2.4) Total Bilirubin 0.5 MG/DL (0.2-1.0) Aspartate Amino Transf (AST/SGOT) 30 U/L (15-37) Alanine Aminotransferase (ALT/SGPT) 36 U/L (12-78) Alkaline Phosphatase 161 U/L (46-116) H C-Reactive Protein, Quantitative 5.4 mg/dL (0.00-0.90) H Total Protein 6.8 G/DL (6.4-8.2) Albumin 2.3 G/DL (3.4-5.0) L Globulin 4.5 g/dL Albumin/Globulin Ratio 0.5 (1.0-2.7) L Arterial Blood pH 7.510 (7.350-7.450) Arterial Blood Partial Pressure CO2 29.7 mmHg (35.0-45.0) L Arterial Blood Partial Pressure O2 48.4 mmHg (75.0-100.0) Arterial Blood HCO3 23.2 mmol/L (22.0-26.0) Arterial Blood Oxygen Saturation 86.1 % (95-100) *L Arterial Blood Base Excess 1.1 (-2-2) Haim Test Positive Microbiology Date/Time Source Procedure Growth Status 05/20/20 04:00 Sputum Expectorated Gram Stain - Final Resulted 05/20/20 04:00 Sputum Expectorated Sputum Culture - Preliminary NORMAL UPPER RESPIRATORY MACARIO AT 24 ... Resulted Intake and Output 05/20/20 05/21/20 19:00 07:00 Intake Total 764.4375 ml 645.00 ml Output Total 800 ml 900 ml Balance -35.5625 ml -255.00 ml Intake Oral 360 ml 240 ml IV Total 404.4375 ml 405.00 ml Output Urine Total 800 ml 900 ml Objective PHYSICAL EXAMINATION: GENERAL: The patient is a well-developed, well-nourished male, in no apparent distress. HEENT: Eyes, pupils equal and responsive to light and accommodation. Extraocular movements are intact. NECK: Supple without lymphadenopathy. CHEST: Mech vent; Lungs with decreased breath sounds at bilateral bases without wheezes or rales. CARDIOVASCULAR: Regular rhythm and rate. S1, S2 normal without murmurs, rubs, or gallops. ABDOMEN: Soft, nontender, and nondistended. Positive bowel sounds. No evidence of hepatosplenomegaly. Currently, no rebound or guarding noted. EXTREMITIES: Negative for clubbing, cyanosis, or edema. RECTAL: Not performed. GENITAL: Not performed. NEUROLOGIC: Cranial nerves II through XII are grossly intact without focal deficits. Motor strength is 5/5 bilaterally intact. Deep tendon reflexes are 2+ bilat Assessment/Plan Assessment/Plan ASSESSMENT: This is a 59-year-old male with: 1. COVID-19 positive. 2. COVID-19 pneumonia. 3. Respiratory failure. 4. Diabetes type 2. 5. Hypertension. TREATMENT: 1. COVID-19 positive/pneumonia. Infectious Disease= Dr. Craft. Follow recommendations of Infectious Disease. Continue remdesivir per Infectious Disease. S/P ceftriaxone, azithromycin and decadron 2. Respiratory failure. Pulmonary/critical care= Dr. Yohannes Gibson. The patient is currently intubated and sedated. Follow recommendations of Pulmonary. 3. Diabetes type 2. NovoLog sliding scale has been instituted. 4. Hypertension. Continue lisinopril as above. Frederick Chirions MD May 21, 2020 15:44
--- NOTE | 2020-05-21 15:49 | Emergency Room Report ---
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: Yes - 05/05/20 COVID-19 Screening: Positive COVID-19 COVID-19 Testing Source: clinic Patient History Reviewed Nursing Documentation: PMH: Agreed; PSxH: Agreed Nursing Documentation-PMH Past Medical History: No Stated History Hx Cardiac Problems: No Hx Cancer: No Hx Gastrointestinal Problems: No Hx Neurological Problems: No Physical Exam Vital Signs Date Time Temp Pulse Resp B/P (MAP) Pulse Ox O2 Delivery O2 Flow Rate FiO2 05/17/20 07:00 107 25 146/74 (98) 87 05/17/20 08:00 97.8 05/17/20 08:00 Non-Rebreather 15.0 05/17/20 19:29 100 Procedures Intubation Intubation : Consent: Emergent Time of Intubation: 15:37 Intubation Method: orotracheal Tube Size (cm): 7.5 Medications: Etomidate, Rocuronium Breath Sounds after Intubation: equal Intubation Complications: no complications Post Intubation Xray: Yes Progress/Xray Impression: Post procedure x-ray showed left-sided pneumothorax had increased in size. Attempts: One Patient Tolerated: Well Complications: None Medical Decision Making Diagnostic Impression: Primary Impression: Coronavirus infection Additional Impressions: Lactic acid acidosis Abnormal EKG Diabetes Last Vital Signs Date Time Temp Pulse Resp B/P (MAP) Pulse Ox O2 Delivery O2 Flow Rate FiO2 05/21/20 13:00 91 33 173/76 (108) 91 05/21/20 12:00 Non-Rebreather 15.0 05/21/20 12:00 98.2 05/21/20 07:30 100 Disposition: ADMITTED INPATIENT Condition: Serious Referrals: Pedro DURON,REFERRING (PCP) Sixto Blood MD May 21, 2020 15:49
--- NOTE | 2020-05-21 15:50 | Cardiac Electrophysiology PN ---
Assessment/Plan Status Narrative 1. New moderate right apical pneumothorax. 2. New pneumomediastinum. 3. New supraclavicular bilateral subcutaneous emphysema. 4. Development of bilateral airspace disease suspicious for atypical/viral pneumonia. Assessment/Plan 1. Atrial fibrillation with rapid ventricular response, heart rate of 160s. This is in the setting of COVID. He already converted back to sinus rhythm after he got 10 mg of IV Cardizem. Incease Cardizemto 90 mg p.o. every 6 hours and DC heparin drip Echo Nl EF 2. COVID pneumonia. The patient is on isolation, 100% non-rebreather face mask. Saturations 93%. 3. Left Apical PTX and Pneumomediastinum. Evaluation and S/P chest tube by Dr GIBSON 4. Diabetes on insulin and Januvia, per Dr. Brown. 5. Lactic acidosis. KIM RN Subjective Subjective In ICU on 100% NRBFM. S/P Left side chest tube placement by Dr GIBSON for pneumothorax Converted to SR. Off heparin drip Objective Last 24 Hour Vital Signs Date Time Temp Pulse Resp B/P (MAP) Pulse Ox O2 Delivery O2 Flow Rate FiO2 05/21/20 13:00 91 33 173/76 (108) 91 05/21/20 12:00 Non-Rebreather 15.0 05/21/20 12:00 98.2 85 32 178/75 (109) 95 05/21/20 12:00 88 05/21/20 11:48 91 149/73 05/21/20 11:00 91 44 189/76 (113) 89 05/21/20 10:00 89 32 157/72 (100) 89 05/21/20 09:00 93 34 178/69 (105) 86 05/21/20 08:00 98.0 93 31 169/75 (106) 92 05/21/20 08:00 Non-Rebreather 15.0 05/21/20 08:00 75 05/21/20 07:30 98 Non-Rebreather 15.0 100 05/21/20 07:00 80 26 173/71 (105) 96 05/21/20 06:19 184/86 05/21/20 06:00 88 32 184/86 (118) 94 05/21/20 05:48 90 200/76 05/21/20 05:00 89 30 170/73 (105) 93 05/21/20 04:00 Non-Rebreather 15.0 05/21/20 04:00 97.4 90 29 170/82 (111) 95 05/21/20 04:00 91 05/21/20 03:00 82 25 169/71 (103) 95 05/21/20 02:00 83 26 159/67 (97) 96 05/21/20 01:00 88 29 162/74 (103) 96 05/21/20 00:04 100 141/59 05/21/20 00:00 98.1 90 25 141/59 (86) 97 05/21/20 00:00 Non-Rebreather 15.0 05/21/20 00:00 95 05/20/20 23:00 87 27 151/59 (89) 96 05/20/20 22:00 89 28 160/61 (94) 97 05/20/20 21:00 91 28 169/77 (107) 97 05/20/20 20:18 94 Non-Rebreather 15.0 100 05/20/20 20:00 98.1 94 30 164/73 (103) 97 05/20/20 20:00 82 05/20/20 20:00 Non-Rebreather 15.0 05/20/20 19:00 78 30 141/57 (85) 96 05/20/20 18:37 191/82 05/20/20 18:00 87 29 160/95 (116) 97 05/20/20 17:40 94 193/81 05/20/20 17:40 93 193/81 05/20/20 17:00 88 30 177/72 (107) 97 05/20/20 16:06 198/81 05/20/20 16:00 106 05/20/20 16:00 102 32 188/83 (118) 97 05/20/20 16:00 Non-Rebreather 15.0 Intake and Output 05/20/20 05/21/20 19:00 07:00 Intake Total 764.4375 ml 645.00 ml Output Total 800 ml 900 ml Balance -35.5625 ml -255.00 ml Intake Oral 360 ml 240 ml IV Total 404.4375 ml 405.00 ml Output Urine Total 800 ml 900 ml Laboratory Tests Test 05/21/20 05:30 05/21/20 08:58 White Blood Count 24.3 K/UL (4.8-10.8) *H Red Blood Count 4.70 M/UL (4.70-6.10) Hemoglobin 13.6 G/DL (14.2-18.0) L Hematocrit 35.9 % (42.0-52.0) L Mean Corpuscular Volume 76 FL (80-99) L Mean Corpuscular Hemoglobin 28.9 PG (27.0-31.0) Mean Corpuscular Hemoglobin Concent 37.8 G/DL (32.0-36.0) H Red Cell Distribution Width 14.2 % (11.6-14.8) Platelet Count 388 K/UL (150-450) Mean Platelet Volume 6.3 FL (6.5-10.1) L Neutrophils (%) (Auto) % (45.0-75.0) Lymphocytes (%) (Auto) % (20.0-45.0) Monocytes (%) (Auto) % (1.0-10.0) Eosinophils (%) (Auto) % (0.0-3.0) Basophils (%) (Auto) % (0.0-2.0) Differential Total Cells Counted 100 Neutrophils % (Manual) 88 % (45-75) H Lymphocytes % (Manual) 5 % (20-45) L Monocytes % (Manual) 7 % (1-10) Eosinophils % (Manual) 0 % (0-3) Basophils % (Manual) 0 % (0-2) Band Neutrophils 0 % (0-8) Platelet Estimate Adequate Platelet Morphology Normal Anisocytosis 1+ Microcytosis 1+ Erythrocyte Sedimentation Rate 61 MM/HR (0-20) H Activated Partial Thromboplast Time 84 SEC (23-33) H Sodium Level 131 MMOL/L (136-145) L Potassium Level 3.6 MMOL/L (3.5-5.1) Chloride Level 97 MMOL/L (98-107) L Carbon Dioxide Level 25 MMOL/L (21-32) Anion Gap 9 mmol/L (5-15) Blood Urea Nitrogen 17 mg/dL (7-18) Creatinine 0.7 MG/DL (0.55-1.30) Estimat Glomerular Filtration Rate > 60 mL/min (>60) Glucose Level 119 MG/DL (74-106) H Calcium Level 7.7 MG/DL (8.5-10.1) L Phosphorus Level 3.8 MG/DL (2.5-4.9) Magnesium Level 1.9 MG/DL (1.8-2.4) Total Bilirubin 0.5 MG/DL (0.2-1.0) Aspartate Amino Transf (AST/SGOT) 30 U/L (15-37) Alanine Aminotransferase (ALT/SGPT) 36 U/L (12-78) Alkaline Phosphatase 161 U/L (46-116) H C-Reactive Protein, Quantitative 5.4 mg/dL (0.00-0.90) H Total Protein 6.8 G/DL (6.4-8.2) Albumin 2.3 G/DL (3.4-5.0) L Globulin 4.5 g/dL Albumin/Globulin Ratio 0.5 (1.0-2.7) L Arterial Blood pH 7.510 (7.350-7.450) Arterial Blood Partial Pressure CO2 29.7 mmHg (35.0-45.0) L Arterial Blood Partial Pressure O2 48.4 mmHg (75.0-100.0) Arterial Blood HCO3 23.2 mmol/L (22.0-26.0) Arterial Blood Oxygen Saturation 86.1 % (95-100) *L Arterial Blood Base Excess 1.1 (-2-2) Haim Test Positive Microbiology Date/Time Source Procedure Growth Status 05/20/20 04:00 Sputum Expectorated Gram Stain - Final Resulted 05/20/20 04:00 Sputum Expectorated Sputum Culture - Preliminary NORMAL UPPER RESPIRATORY MACARIO AT 24 ... Resulted Objective HEAD AND NECK: Showed no JVD. LUNGS: Coarse rhonchi. CARDIOVASCULAR: Regular S1 and S2 with no gallop. ABDOMEN: Soft. EXTREMITIES: No pitting edema. Al Alarcon MD May 21, 2020 15:50
[2020-05-21] MEDS ORDERED: LORazepam Inj 2mg/ml 1ml IV PRN ×2 (16:00→18:00)
[2020-05-21] MEDS ORDERED: Morphine Sulfate 4mg/ml Inj (IV USE ONLY) IVP PRN (16:00)
--- NOTE | 2020-05-21 16:41 | Diagnostic Imaging Report ---
ADDENDUM - Added by Nancy Kuhn M.D. on 05/21/2020 4:43 PM (-08:00) CORRECTION: 3. Interval placement of an ENDOTRACHEAL tube which terminates in the region of the mid thoracic trachea, approximately 3.7 cm above the shamar. EXAM: XR Chest, 1 View CLINICAL HISTORY: DYSPNEA TECHNIQUE: Frontal view of the chest. COMPARISON: Chest radiograph on 05/21/2020 at 1100 hrs. FINDINGS: Hardware: Left-sided chest tube. Interval placement of an enteric tube which terminates in the region of the mid thoracic trachea, approximately 3.7 cm above the shamar. Lungs/pleura: Increased left-sided pneumothorax, now large. Collapse of the left lung. Stable small right apical pneumothorax with opacity throughout the right lung. Possible small pleural effusions. Heart/mediastinum: Stable pneumomediastinum. Rightward shift of the mediastinal structures suggests component of tension. Soft tissues: Subcutaneous emphysema throughout the chest wall. Bones: No acute fracture. Upper abdomen: Nonspecific gas-filled stomach. IMPRESSION: 1. Left-sided chest tube. Increased left-sided pneumothorax, now large. Collapse of the left lung. Rightward shift of the mediastinal structures suggests component of tension. 2. Stable small right apical pneumothorax with opacity throughout the right lung. Possible small pleural effusions. 3. Interval placement of an enteric tube which terminates in the region of the mid thoracic trachea, approximately 3.7 cm above the shamar. 4. Stable pneumomediastinum.
--- NOTE | 2020-05-21 16:47 | Diagnostic Imaging Report ---
EXAM: XR Chest, 1 View CLINICAL HISTORY: PNEUMOTX TECHNIQUE: Frontal view of the chest. COMPARISON: Chest radiograph on 05/21/2020 at 1552 hrs. FINDINGS: Hardware: Left-sided chest tube. Endotracheal tube which terminates in the region of the mid thoracic trachea, approximately 5.2 cm above the shamar. Interval placement of an enteric tube which terminates in the region of the gastric antrum. Lungs/pleura: Stable large left-sided pneumothorax. Collapse of the left lung. Stable small right apical pneumothorax with opacity throughout the right lung. Possible small pleural effusions. Heart/mediastinum: Pneumomediastinum. Rightward shift of the mediastinal structures suggests component of tension. Soft tissues: Subcutaneous emphysema throughout the chest wall. Bones: No acute fracture. Upper abdomen: Nonspecific gas-filled stomach. IMPRESSION: 1. Left-sided chest tube. Stable large left-sided pneumothorax. Collapse of the left lung. Rightward shift of the mediastinal structures suggests component of tension. 2. Stable small right apical pneumothorax with opacity throughout the right lung. Possible small pleural effusions. 3. Endotracheal tube which terminates in the region of the mid thoracic trachea, approximately 5.2 cm above the shamar. Interval placement of an enteric tube which terminates in the region of the gastric antrum. 4. Pneumomediastinum.
--- NOTE | 2020-05-21 17:07 | Diagnostic Imaging Report ---
EXAM: XR Chest, 1 View CLINICAL HISTORY: PNEUMOTX TECHNIQUE: Frontal view of the chest. COMPARISON: Chest radiograph on 05/21/2020 at 1614 hrs. FINDINGS: Hardware: Left-sided chest tube. Stable endotracheal tube and enteric tube. Lungs/pleura: Significantly decreased left-sided pneumothorax. Small left apical pneumothorax. Stable small right apical pneumothorax. Patchy opacities throughout the lungs. Heart/mediastinum: Pneumomediastinum. Mild enlargement of the cardiac silhouette. Decreased shift of the mediastinal structures. Soft tissues: Subcutaneous emphysema throughout the chest wall and supraclavicular regions. Bones: No acute fracture. Upper abdomen: Normal. IMPRESSION: 1. Left-sided chest tube. Stable endotracheal tube and enteric tube. 2. Significantly decreased left-sided pneumothorax. Small left apical pneumothorax. Stable small right apical pneumothorax. 3. Patchy opacities throughout the lungs. 4. Subcutaneous emphysema. 5. Pneumomediastinum.
--- NOTE | 2020-05-21 17:10 | Diagnostic Imaging Report ---
EXAM: XR Chest, 1 View CLINICAL HISTORY: TUBE PLCMT TECHNIQUE: Frontal view of the chest. COMPARISON: Chest radiograph on 05/21/2020 at 1624 hrs. FINDINGS: Hardware: Left-sided chest tube. Stable endotracheal tube and enteric tube. Lungs/pleura: Stable small biapical pneumothoraces. Patchy opacities throughout the lungs. Heart/mediastinum: Pneumomediastinum. Mild enlargement of the cardiac silhouette. Decreased shift of the mediastinal structures. Soft tissues: Subcutaneous emphysema throughout the chest wall and supraclavicular regions. Bones: No acute fracture. Upper abdomen: Normal. IMPRESSION: 1. Left-sided chest tube. Stable endotracheal tube and enteric tube. 2. Stable small biapical pneumothoraces. 3. Patchy opacities throughout the lungs. 4. Subcutaneous emphysema. 5. Pneumomediastinum.
[2020-05-21] MEDS: Piperacillin/Tazobactam 4.5 GM in NS 110 ML IVPB SCH (17:21)
[2020-05-21] MEDS: dilTIAZem HCl 90mg tab ORAL SCH (17:22)
--- NOTE | 2020-05-21 19:23 | Diagnostic Imaging Report ---
EXAM: XR Chest, 1 View CLINICAL HISTORY: LINE TECHNIQUE: Frontal view of the chest. COMPARISON: Chest radiograph performed earlier the same day. FINDINGS: Lungs: Patchy bilateral opacities are unchanged. Pleural space: Small biapical pneumothoraces are unchanged. Heart: Cardiac size is enlarged. Mediastinum: Pneumomediastinum is reidentified. Bones/joints: Unremarkable. Soft tissues: There is extensive bilateral subcutaneous emphysema in the thorax. Tubes, lines and devices: Endotracheal tube tip is 3.5 cm above the shamar. Left-sided chest tube is unchanged in position. Feeding tube is no longer identified. IMPRESSION: Bilateral pulmonary opacities are unchanged.
[2020-05-21] MEDS: fentaNYL 2500mcg/NS 250ml 250 ML IV SCH (19:51)
--- NOTE | 2020-05-21 20:20 | Diagnostic Imaging Report ---
EXAM: XR Abdomen, 2 Views CLINICAL HISTORY: TUBE PLCMT TECHNIQUE: Frontal view of the abdomen/pelvis with upright view of the abdomen. COMPARISON: No relevant prior studies available. FINDINGS: Gastrointestinal tract: Unremarkable. No dilation. Bones/joints: Unremarkable. Tubes, lines and devices: Nasogastric tube tip is within the stomach. IMPRESSION: Nasogastric tube tip is within the stomach.
[2020-05-21] MEDS: Heparin 5000 units/ml inj SUBQ SCH (21:00)
--- NOTE | 2020-05-21 21:47 | Diagnostic Imaging Report ---
EXAM: XR Chest, 2 Views CLINICAL HISTORY: SOB TECHNIQUE: Frontal and lateral views of the chest. COMPARISON: Chest radiograph performed earlier the same day. FINDINGS: Lungs: Bilateral pulmonary opacities are unchanged. Pleural space: Right apical pneumothorax is unchanged. Left apical pneumothorax has shown slight increase in size since the prior study. Heart: Unremarkable. No cardiomegaly. Mediastinum: Unremarkable. Bones/joints: Unremarkable. Soft tissues: There is extensive subcutaneous emphysema in the bilateral chest wall and lower neck. Tubes, lines and devices: Endotracheal tube tip is 5.3 cm above the shamar. Feeding tube is in the stomach. IMPRESSION: 1. Biapical pneumothoraces are reidentified with the left apical pneumothorax slightly increased in size. 2. Bilateral hazy pulmonary opacities are unchanged. 3. Pneumomediastinum and extensive subcutaneous emphysema. <MYCVCSECTION> Communications: 05/21/20 21:53 Call Nurse JENY Workman on 05/21 21:53 (-08:00)
--- NOTE | 2020-05-21 21:56 | Emergency Room Report ---
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 COVID-19 Screening: Positive COVID-19 COVID-19 Testing Source: clinic Nursing Documentation-[facility] Past Medical History: No Stated History Hx Cardiac Problems: No Hx Cancer: No Hx Gastrointestinal Problems: No Hx Neurological Problems: No Physical Exam Vital Signs Date Time Temp Pulse Resp B/P (MAP) Pulse Ox O2 Delivery O2 Flow Rate FiO2 05/17/20 07:00 107 25 146/74 (98) 87 05/17/20 08:00 97.8 05/17/20 08:00 Non-Rebreather 15.0 05/17/20 19:29 100 Procedures Intubation Intubation : Consent: Emergent Time of Intubation: 21:30 Intubation Method: orotracheal Tube Size (cm): 7.5 Medications: Etomidate, Ketamine Breath Sounds after Intubation: equal Intubation Complications: no complications Post Intubation Xray: Yes Progress/Xray Impression: 1 Attempts: One Patient Tolerated: Well Complications: None Progress Patient was reintubated due to recent self extubation. ET tube secured to 23 cm at the teeth. Medical Decision Making Diagnostic Impression: Primary Impression: Coronavirus infection Additional Impressions: Lactic acid acidosis Abnormal EKG Diabetes Last Vital Signs Date Time Temp Pulse Resp B/P (MAP) Pulse Ox O2 Delivery O2 Flow Rate FiO2 05/21/20 19:51 40 148/70 Mechanical Ventilator 100 05/21/20 19:00 97 93 05/21/20 16:00 98.4 05/21/20 12:00 15.0 Disposition: ADMITTED INPATIENT Condition: Serious Referrals: Pedro DURON,REFERRING (PCP) Sixto Blood MD May 21, 2020 21:56
--- NOTE | 2020-05-21 21:57 | Emergency Room Report ---
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 COVID-19 Screening: Positive COVID-19 COVID-19 Testing Source: clinic Nursing Documentation-[facility] Past Medical History: No Stated History Hx Cardiac Problems: No Hx Cancer: No Hx Gastrointestinal Problems: No Hx Neurological Problems: No Physical Exam Vital Signs Date Time Temp Pulse Resp B/P (MAP) Pulse Ox O2 Delivery O2 Flow Rate FiO2 05/17/20 07:00 107 25 146/74 (98) 87 05/17/20 08:00 97.8 05/17/20 08:00 Non-Rebreather 15.0 05/17/20 19:29 100 Procedures Additional Procedure Procedure Narrative I was called to evaluate patient on after Thora vent had been pulled by the patient. Patient had prior history of left-sided pneumothorax on positive pressure ventilation. Patient had intubation recently. Patient was on a fentanyl drip. I placed a Thora vent via sterile technique the anterior chest wall. Patient tolerated this well with adequate reinflation. Post procedure chest x-ray showed adequate reexpansion of pneumothorax. Medical Decision Making Diagnostic Impression: Primary Impression: Coronavirus infection Additional Impressions: Lactic acid acidosis Abnormal EKG Diabetes Last Vital Signs Date Time Temp Pulse Resp B/P (MAP) Pulse Ox O2 Delivery O2 Flow Rate FiO2 05/21/20 19:51 40 148/70 Mechanical Ventilator 100 05/21/20 19:00 97 93 05/21/20 16:00 98.4 05/21/20 12:00 15.0 Disposition: ADMITTED INPATIENT Condition: Serious Referrals: Pedro DURON,REFERRING (PCP) Sixto Blood MD May 21, 2020 21:57
--- NOTE | 2020-05-21 22:22 | Diagnostic Imaging Report ---
EXAM: XR Chest, 1 View CLINICAL HISTORY: PNEUMOTX TECHNIQUE: Frontal view of the chest. COMPARISON: Chest radiograph performed earlier the same day. FINDINGS: Lungs: Diffuse bilateral pulmonary opacities are reidentified which appear slightly worse than the previous exam. Pleural space: A small right pneumothorax is unchanged. Heart: Unremarkable. No cardiomegaly. Mediastinum: There is pneumomediastinum and subcutaneous emphysema. Bones/joints: Unremarkable. Tubes, lines and devices: Interval placement of chest tube at the left thorax with reexpansion of the left lung. Endotracheal tube tip is 2.5 cm above the shamar. Feeding tube is present in the stomach. IMPRESSION: 1. Placement of chest tube in the left thorax with reexpansion of the left lung. 2. Bilateral extensive pulmonary consolidations appears somewhat worse than the previous exam.
[2020-05-21] MEDS ORDERED: NS 275ml ONE (22:23)
[2020-05-22] VITALS (47 sets, daily range): BP systolic 99–169; BP diastolic 51–74
[2020-05-22] MEDS: Hydrocortisone 100mg Inj IV SCH ×5 (00:26→23:33)
[2020-05-22] MEDS: Piperacillin/Tazobactam 4.5 GM in NS 110 ML IVPB SCH ×3 (02:04→17:53)
[2020-05-22] MEDS: NovoLOG Insulin Flexpen SUBQ SCH ×5 (06:00→17:55)
[2020-05-22] MEDS: dilTIAZem HCl 90mg tab ORAL SCH ×5 (06:21→23:33)
--- NOTE | 2020-05-22 07:06 | General Progress Note ---
Subjective ROS Limited/Unobtainable: Yes Allergies: Coded Allergies: No Known Allergies (Unverified , 05/11/20) Subjective events noted in ICU intubated Item Value Date Time Bedside Blood Glucose 94 mg/dl 05/22/20 0630 Bedside Blood Glucose 334 mg/dl H 05/22/20 0040 Bedside Blood Glucose 130 mg/dl H 05/21/20 2100 Bedside Blood Glucose 252 mg/dl H 05/21/20 1723 Bedside Blood Glucose 118 mg/dl 05/21/20 1150 Bedside Blood Glucose 119 mg/dl 05/21/20 0803 Bedside Blood Glucose 136 mg/dl H 05/21/20 0630 Objective Last 24 Hour Vital Signs Date Time Temp Pulse Resp B/P (MAP) Pulse Ox O2 Delivery O2 Flow Rate FiO2 05/22/20 06:21 99 126/51 05/22/20 05:30 99 20 123/53 (76) 84 05/22/20 05:21 19 119/52 Mechanical Ventilator 100 05/22/20 05:00 100 19 119/52 (74) 84 05/22/20 04:30 100 20 111/56 (74) 85 05/22/20 04:21 20 111/53 Mechanical Ventilator 100 05/22/20 04:00 101 05/22/20 04:00 99.5 100 20 111/53 (72) 84 05/22/20 04:00 100 05/22/20 04:00 Mechanical Ventilator 05/22/20 03:30 101 22 111/53 (72) 83 05/22/20 03:21 20 109/55 Mechanical Ventilator 100 05/22/20 03:21 99 28 100 05/22/20 03:00 103 20 109/55 (73) 86 05/22/20 02:30 104 21 99/51 (67) 84 05/22/20 02:21 24 110/56 Mechanical Ventilator 100 05/22/20 02:06 24 106/54 Mechanical Ventilator 100 05/22/20 02:00 106 24 106/54 (71) 84 05/22/20 01:30 104 27 109/55 (73) 81 05/22/20 01:06 37 131/52 Mechanical Ventilator 100 05/22/20 01:00 102 37 131/52 (78) 81 05/22/20 00:46 99.9 05/22/20 00:30 111 28 121/54 (76) 81 05/22/20 00:06 37 138/66 Mechanical Ventilator 100 05/22/20 00:00 111 05/22/20 00:00 100.5 116 29 138/66 (90) 85 05/22/20 00:00 115 125/62 05/22/20 00:00 Mechanical Ventilator 05/22/20 00:00 100 05/21/20 23:30 111 27 125/62 (83) 89 05/21/20 23:16 110 27 100 05/21/20 23:06 26 115/53 Non-Rebreather 100 05/21/20 23:00 109 26 115/53 (73) 92 05/21/20 22:51 27 111/54 Mechanical Ventilator 100 05/21/20 22:36 27 108/59 Mechanical Ventilator 100 05/21/20 22:30 104 27 111/53 (72) 90 05/21/20 22:21 29 105/60 Mechanical Ventilator 100 05/21/20 22:06 29 109/54 Mechanical Ventilator 100 05/21/20 22:00 100 29 109/54 (72) 83 05/21/20 21:51 29 120/54 Mechanical Ventilator 100 05/21/20 21:36 28 150/64 Mechanical Ventilator 100 05/21/20 21:30 110 33 153/67 (95) 82 05/21/20 21:21 32 158/68 Mechanical Ventilator 100 05/21/20 21:06 28 140/72 Mechanical Ventilator 100 05/21/20 21:00 111 28 151/68 (95) 92 05/21/20 21:00 112 28 140/71 (94) 88 05/21/20 20:51 26 160/65 Mechanical Ventilator 100 05/21/20 20:36 22 170/71 Mechanical Ventilator 100 05/21/20 20:21 38 160/70 Mechanical Ventilator 100 05/21/20 20:06 26 159/68 Mechanical Ventilator 100 05/21/20 20:00 98.9 101 26 159/68 (98) 92 05/21/20 20:00 Mechanical Ventilator 05/21/20 20:00 105 05/21/20 20:00 100 05/21/20 19:51 40 148/70 Mechanical Ventilator 100 05/21/20 19:30 99 34 148/70 (96) 91 05/21/20 19:14 100 05/21/20 19:00 97 34 148/70 (96) 93 05/21/20 18:59 98 34 93 Mechanical Ventilator 100 05/21/20 18:59 98 34 100 05/21/20 18:00 100 32 141/47 (78) 81 05/21/20 17:52 96 40 162/65 85 05/21/20 17:22 99 29 166/72 92 05/21/20 17:22 97 166/72 05/21/20 17:00 97 30 162/65 (97) 93 05/21/20 16:50 100 05/21/20 16:00 98.4 05/21/20 16:00 Mechanical Ventilator 05/21/20 16:00 94 20 193/78 (116) 91 05/21/20 16:00 81 05/21/20 15:30 100 05/21/20 15:30 106 16 100 05/21/20 15:00 90 29 150/65 (93) 86 05/21/20 15:00 101 46 89 100 05/21/20 14:00 99 36 173/76 (108) 87 05/21/20 13:00 91 33 173/76 (108) 91 05/21/20 12:00 Non-Rebreather 15.0 05/21/20 12:00 98.2 85 32 178/75 (109) 95 05/21/20 12:00 88 05/21/20 11:48 91 149/73 05/21/20 11:00 91 44 189/76 (113) 89 05/21/20 10:00 89 32 157/72 (100) 89 05/21/20 09:00 93 34 178/69 (105) 86 05/21/20 08:00 98.0 93 31 169/75 (106) 92 05/21/20 08:00 Non-Rebreather 15.0 05/21/20 08:00 75 05/21/20 07:30 98 Non-Rebreather 15.0 100 Intake and Output 05/21/20 05/22/20 18:59 06:59 Intake Total 425.75 ml 1020.25 ml Output Total 350 ml 530 ml Balance 75.75 ml 490.25 ml Intake Oral 220 ml IV Total 205.75 ml 1020.25 ml Output Urine Total 350 ml 500 ml Chest Tube Drainage Total 30 ml # Bowel Movements 1 Laboratory Tests 05/21/20 08:58: Arterial Blood pH 7.510H, Arterial Blood Partial Pressure CO2 29.7L, Arterial Blood Partial Pressure O2 48.4*L, Arterial Blood HCO3 23.2, Arterial Blood Oxygen Saturation 86.1*L, Arterial Blood Base Excess 1.1, Haim Test Positive 05/21/20 17:59: Arterial Blood pH 7.371, Arterial Blood Partial Pressure CO2 38.8, Arterial Blood Partial Pressure O2 46.1*L, Arterial Blood HCO3 22.0, Arterial Blood Oxygen Saturation 77.1*L, Arterial Blood Base Excess -2.9L, Haim Test Positive 05/21/20 20:40: Arterial Blood pH 7.416, Arterial Blood Partial Pressure CO2 33.6L, Arterial Blood Partial Pressure O2 52.9L, Arterial Blood HCO3 21.1L, Arterial Blood Oxygen Saturation 86.0*L, Arterial Blood Base Excess -2.7L, Haim Test Positive 05/22/20 00:08: POC Whole Blood Glucose [Pending] 05/22/20 00:23: POC Whole Blood Glucose [Pending] 05/22/20 00:31: POC Whole Blood Glucose [Pending] 05/22/20 00:33: Arterial Blood pH 7.393, Arterial Blood Partial Pressure CO2 38.9, Arterial Blood Partial Pressure O2 40.5*L, Arterial Blood HCO3 23.2, Arterial Blood Oxygen Saturation 72.6*L, Arterial Blood Base Excess -1.5, Haim Test Positive 05/22/20 06:05: White Blood Count [Pending], Red Blood Count [Pending], Hemoglobin [Pending], Hematocrit [Pending], Mean Corpuscular Volume [Pending], Mean Corpuscular Hemoglobin [Pending], Mean Corpuscular Hemoglobin Concent [Pending], Red Cell Distribution Width [Pending], Platelet Count [Pending], Mean Platelet Volume [Pending], Neutrophils (%) (Auto) [Pending], Lymphocytes (%) (Auto) [Pending], Monocytes (%) (Auto) [Pending], Eosinophils (%) (Auto) [Pending], Basophils (%) (Auto) [Pending], Sodium Level [Pending], Potassium Level [Pending], Chloride Level [Pending], Carbon Dioxide Level [Pending], Blood Urea Nitrogen [Pending], Creatinine [Pending], Estimat Glomerular Filtration Rate [Pending], Glucose Level [Pending], Hemoglobin A1c [Pending], Calcium Level [Pending], Phosphorus Level [Pending], Magnesium Level [Pending], Total Bilirubin [Pending], Aspartate Amino Transf (AST/SGOT) [Pending], Alanine Aminotransferase (ALT/SGPT) [Pending], Alkaline Phosphatase [Pending], Total Protein [Pending], Albumin [Pending], Globulin [Pending] 05/22/20 06:27: POC Whole Blood Glucose [Pending] Height (Feet): 5 Height (Inches): 5.00 Weight (Pounds): 149 Objective Current Medications Medications (Trade) Dose Ordered Sig/Vasiliy Route PRN Reason Start Time Stop Time Status Last Admin Dose Admin Acetaminophen (Tylenol) 650 mg Q4H PRN ORAL Temp >100.5 05/11/20 18:15 06/10/20 18:14 05/22/20 00:16 Albuterol/ Ipratropium (Combivent Respimat) 1 puff Q4H PRN INH Shortness of Breath 05/11/20 21:30 06/10/20 21:29 Clonidine HCl (Catapres tab) 0.2 mg Q2H PRN ORAL For High Blood Pressure 05/19/20 21:15 08/17/20 21:14 05/21/20 06:19 Dextrose (Dextrose 50%) 25 ml Q30M PRN IV Hypoglycemia 05/12/20 11:00 08/10/20 10:59 05/22/20 00:28 Dextrose (Dextrose 50%) 50 ml Q30M PRN IV Hypoglycemia 05/12/20 11:00 08/10/20 10:59 Diltiazem HCl (Cardizem Tab) 90 mg EVERY 6 HOURS ORAL 05/21/20 18:00 06/16/20 11:59 05/22/20 06:21 Fentanyl Citrate 250 ml @ 1 mls/hr Q24H IV 05/21/20 19:15 05/23/20 19:14 05/21/20 19:51 Heparin Sodium (Porcine) (Heparin 5000 units/ml) 5,000 units EVERY 12 HOURS SUBQ 05/21/20 21:00 07/05/20 20:59 Hydralazine HCl (Apresoline) 10 mg Q2H PRN IV For High Blood Pressure 05/20/20 17:45 08/18/20 17:44 05/20/20 18:37 Hydrocortisone (Solu-CORTEF) 50 mg Q6HR IV 05/22/20 00:00 08/20/20 00:00 05/22/20 06:21 Insulin Aspart (NovoLOG) Q6HR SUBQ 05/22/20 00:00 08/10/20 09:59 Insulin Aspart (NovoLOG) 20 units NOVOTIAC SUBQ 05/21/20 06:30 08/13/20 06:29 Insulin Detemir (Levemir) 30 units BID SUBQ 05/19/20 09:00 08/13/20 08:59 05/21/20 17:23 Lorazepam (Ativan 2mg/ml 1ml) 2 mg Q2H PRN IV For Anxiety 05/21/20 18:00 05/28/20 15:59 Lorazepam (Ativan 2mg/ml 1ml) 2 mg Q2H PRN IV Agitation 05/21/20 18:15 05/28/20 18:14 Morphine Sulfate (Morphine Sulfate) 4 mg Q4H PRN IVP For Pain 05/21/20 16:00 05/28/20 15:59 Ondansetron HCl (Zofran) 4 mg Q6H PRN IVP Nausea & Vomiting 05/11/20 18:15 06/10/20 18:14 Pantoprazole (Protonix) 40 mg DAILY IV 05/22/20 09:00 06/21/20 08:59 Piperacillin Sod/ Tazobactam Sod 4.5 gm/Sodium Chloride 110 ml @ 27.5 mls/hr Q8H IVPB 05/21/20 18:00 05/28/20 17:59 05/22/20 02:04 Polyethylene Glycol (Miralax) 17 gm DAILYPRN PRN ORAL Constipation 05/11/20 18:15 06/10/20 18:14 05/21/20 04:43 Promethazine HCl/ Codeine (Phenergan with Codeine) 5 ml Q4H PRN ORAL For Cough 05/13/20 17:15 06/12/20 17:14 05/13/20 22:50 Sitagliptin Phosphate (Januvia) 100 mg ACBREAKFAST ORAL 05/16/20 08:00 06/15/20 06:29 05/22/20 06:21 Sodium Chloride 1,000 ml @ 50 mls/hr Q20H IV 05/21/20 18:00 06/20/20 17:59 05/21/20 17:00 Assessment/Plan Problem List: (1) Coronavirus infection ICD Codes: B34.2 - Coronavirus infection, unspecified SNOMED: 825023511 (2) Diabetes ICD Codes: E11.9 - Type 2 diabetes mellitus without complications SNOMED: 33438004 (3) Lactic acid acidosis ICD Codes: E87.2 - Acidosis SNOMED: 21434569 Assessment/Plan: DC Novolog 20 units ac tid continue Levemir to 30 units bid continue to hold Metformin due to lactic acidosis on presentation continue Januvia 100 mg daily continue Novolog sliding scale every 6 hours hypoglycemia protocol in order Jose Brown MD May 22, 2020 07:06
[2020-05-22 07:29] LABS: HEMATOCRIT 32.1 % (42.0-52.0); HEMOGLOBIN 11.8 G/DL (14.2-18.0); MEAN CORPUSCULAR VOLUME 78 FL (80-99); PLATELET COUNT 169 K/UL (150-450); RED CELL DISTRIBUTION WIDTH 14.9 % (11.6-14.8)
[2020-05-22] MEDS: fentaNYL 2500mcg/NS 250ml 250 ML IV SCH ×2 (07:30→18:07)
[2020-05-22 07:31] LABS: WHITE BLOOD COUNT 28.7 K/UL (4.8-10.8)
[2020-05-22 07:53] LABS: PHOSPHORUS 4.7 MG/DL (2.5-4.9)
[2020-05-22 07:56] LABS: ALANINE AMINOTRANSFERASE 31 U/L (12-78); ALBUMIN/GLOBULIN RATIO 0.5 (1.0-2.7); ALKALINE PHOSPHATASE 121 U/L (46-116); ANION GAP 4 mmol/L (5-15); ASPARTATE AMINO TRANSFERASE 30 U/L (15-37); BILIRUBIN,TOTAL 0.7 MG/DL (0.2-1.0); BLOOD UREA NITROGEN 33 mg/dL (7-18); CALCIUM 7.7 MG/DL (8.5-10.1); CARBON DIOXIDE 27 MMOL/L (21-32); CHLORIDE 104 MMOL/L (98-107); POTASSIUM 4.5 MMOL/L (3.5-5.1); SODIUM 135 MMOL/L (136-145)
[2020-05-22] MEDS: Pantoprazole Inj IV SCH (08:38)
[2020-05-22] MEDS: Heparin 5000 units/ml inj SUBQ SCH ×2 (08:39→21:07)
--- NOTE | 2020-05-22 09:01 | Infectious Diseases Prog Note ---
Assessment/Plan 59yo M with: Febrile to 100.9; SP Luekocytosis ( Sp steroids,) Lymphopenia Hypoxic resp failure 2/2 COVID pna, on NRB mask >> intubated 05/21 Severe COVID pna, tested positive 05/05 R apical PTX and pneumomediastinum, new 05/17 L apical PTX, s/p chest tube 05/21 05/21 Sp chest tube placement 05/05 COVID positive 05/11 BCx NTD COVID PCR+ CXR: No acute process Influenza EIA neg 05/14 CXR: Mildly increased interstitial markings. This is nonspecific but may suggest mild pulmonary vascular congestion or pneumonitis. No focal consolidation. 05/17 CXR: 1. New moderate right apical pneumothorax. 2. New pneumomediastinum. 3. New supraclavicular bilateral subcutaneous emphysema. 4. Development of bilateral airspace disease suspicious for atypical/viral pneumonia. 05/18 CXR: 1. Interval worsening in aeration of the lungs with increasing airspace consolidation bilaterally. 2. Stable right apical pneumothorax. 3. Persistent pneumomediastinum. 05/19 Resp cx normal joana 05/21 Resp cx p UCx neg 05/21 CXR: 1. Placement of chest tube in the left thorax with reexpansion of the left lung. 2. Bilateral extensive pulmonary consolidations appears somewhat worse than the previous exam. BLE US neg for DVT DM2 Plan: Cont Zosyn #2 given worsening resp status On hydrocort 50mg q6hrs per Pulm/Primary F/u resp cx 05/21 Trend WBC, increased likely 2/2 steroids 05/19 SP dexa #10 05/16 SP CTX/azithro #5 05/16 SP RDV #5 This [facility] does not have convalescent plasma, and as pt 1 week out from diagnosis, unlikely to benefit from it at this point Monitor CBC/CMP Monitor temp curve, hemodynamics Monitor resp status D/w RN Thank you for this consult. [facility] will continue to follow. Subjective Allergies: Coded Allergies: No Known Allergies (Unverified , 05/11/20) AF Intubated in ICU WBC up to 28 on high dose steroids On vent 100% satting high 80s to low 90s L upper thoracic CT Objective Last 24 Hour Vital Signs Date Time Temp Pulse Resp B/P (MAP) Pulse Ox O2 Delivery O2 Flow Rate FiO2 05/22/20 08:00 100.5 96 19 115/59 (77) 86 05/22/20 07:30 19 117/54 Mechanical Ventilator 100 05/22/20 07:21 20 117/59 Mechanical Ventilator 100 05/22/20 07:00 89 20 117/54 (75) 80 05/22/20 06:50 100 05/22/20 06:30 97 21 123/57 (79) 83 05/22/20 06:21 20 126/51 Mechanical Ventilator 100 05/22/20 06:21 99 126/51 05/22/20 06:00 99 20 126/51 (76) 84 05/22/20 05:30 99 20 123/53 (76) 84 05/22/20 05:21 19 119/52 Mechanical Ventilator 100 05/22/20 05:00 100 19 119/52 (74) 84 05/22/20 04:30 100 20 111/56 (74) 85 05/22/20 04:21 20 111/53 Mechanical Ventilator 100 05/22/20 04:00 101 05/22/20 04:00 99.5 100 20 111/53 (72) 84 05/22/20 04:00 100 05/22/20 04:00 Mechanical Ventilator 05/22/20 03:30 101 22 111/53 (72) 83 05/22/20 03:21 20 109/55 Mechanical Ventilator 100 05/22/20 03:21 99 28 100 05/22/20 03:00 103 20 109/55 (73) 86 05/22/20 02:30 104 21 99/51 (67) 84 05/22/20 02:21 24 110/56 Mechanical Ventilator 100 05/22/20 02:06 24 106/54 Mechanical Ventilator 100 05/22/20 02:00 106 24 106/54 (71) 84 05/22/20 01:30 104 27 109/55 (73) 81 05/22/20 01:06 37 131/52 Mechanical Ventilator 100 05/22/20 01:00 102 37 131/52 (78) 81 05/22/20 00:46 99.9 05/22/20 00:30 111 28 121/54 (76) 81 05/22/20 00:06 37 138/66 Mechanical Ventilator 100 05/22/20 00:00 111 05/22/20 00:00 100.5 116 29 138/66 (90) 85 05/22/20 00:00 115 125/62 05/22/20 00:00 Mechanical Ventilator 05/22/20 00:00 100 05/21/20 23:30 111 27 125/62 (83) 89 05/21/20 23:16 110 27 100 05/21/20 23:06 26 115/53 Non-Rebreather 100 05/21/20 23:00 109 26 115/53 (73) 92 05/21/20 22:51 27 111/54 Mechanical Ventilator 100 05/21/20 22:36 27 108/59 Mechanical Ventilator 100 05/21/20 22:30 104 27 111/53 (72) 90 05/21/20 22:21 29 105/60 Mechanical Ventilator 100 05/21/20 22:06 29 109/54 Mechanical Ventilator 100 05/21/20 22:00 100 29 109/54 (72) 83 05/21/20 21:51 29 120/54 Mechanical Ventilator 100 05/21/20 21:36 28 150/64 Mechanical Ventilator 100 05/21/20 21:30 110 33 153/67 (95) 82 05/21/20 21:21 32 158/68 Mechanical Ventilator 100 05/21/20 21:06 28 140/72 Mechanical Ventilator 100 05/21/20 21:00 111 28 151/68 (95) 92 05/21/20 21:00 112 28 140/71 (94) 88 05/21/20 20:51 26 160/65 Mechanical Ventilator 100 05/21/20 20:36 22 170/71 Mechanical Ventilator 100 05/21/20 20:21 38 160/70 Mechanical Ventilator 100 05/21/20 20:06 26 159/68 Mechanical Ventilator 100 05/21/20 20:00 98.9 101 26 159/68 (98) 92 05/21/20 20:00 Mechanical Ventilator 05/21/20 20:00 105 05/21/20 20:00 100 05/21/20 19:51 40 148/70 Mechanical Ventilator 100 05/21/20 19:30 99 34 148/70 (96) 91 05/21/20 19:14 100 05/21/20 19:00 97 34 148/70 (96) 93 05/21/20 18:59 98 34 93 Mechanical Ventilator 100 05/21/20 18:59 98 34 100 05/21/20 18:00 100 32 141/47 (78) 81 05/21/20 17:52 96 40 162/65 85 05/21/20 17:22 99 29 166/72 92 05/21/20 17:22 97 166/72 05/21/20 17:00 97 30 162/65 (97) 93 05/21/20 16:50 100 05/21/20 16:00 98.4 05/21/20 16:00 Mechanical Ventilator 05/21/20 16:00 94 20 193/78 (116) 91 05/21/20 16:00 81 05/21/20 15:30 100 05/21/20 15:30 106 16 100 05/21/20 15:00 90 29 150/65 (93) 86 05/21/20 15:00 101 46 89 100 05/21/20 14:00 99 36 173/76 (108) 87 05/21/20 13:00 91 33 173/76 (108) 91 05/21/20 12:00 Non-Rebreather 15.0 05/21/20 12:00 98.2 85 32 178/75 (109) 95 05/21/20 12:00 88 05/21/20 11:48 91 149/73 05/21/20 11:00 91 44 189/76 (113) 89 05/21/20 10:00 89 32 157/72 (100) 89 05/21/20 09:00 93 34 178/69 (105) 86 Height (Feet): 5 Height (Inches): 5.00 Weight (Pounds): 149 Gen: NAD HEENT: NCAT, ETT Pulm: BL chest rise on vent Abd: Non-distended Ext: No c/c/e Skin: No visible rashes Neuro: Sedated Lines: L upper chest tube Microbiology Date/Time Source Procedure Growth Status 05/21/20 16:00 Urine,Clean Catch Urine Culture - Preliminary NO GROWTH Resulted 05/21/20 15:00 Sputum Gram Stain - Final Resulted 05/21/20 15:00 Sputum Sputum Culture Pending Resulted 05/20/20 04:00 Sputum Expectorated Gram Stain - Final Resulted 05/20/20 04:00 Sputum Expectorated Sputum Culture - Preliminary NORMAL UPPER RESPIRATORY JOANA AT 24 ... Resulted Laboratory Tests Test 05/21/20 08:58 05/21/20 17:59 05/21/20 20:40 05/22/20 00:08 Arterial Blood pH 7.510 (7.350-7.450) 7.371 (7.350-7.450) 7.416 (7.350-7.450) Arterial Blood Partial Pressure CO2 29.7 mmHg (35.0-45.0) L 38.8 mmHg (35.0-45.0) 33.6 mmHg (35.0-45.0) L Arterial Blood Partial Pressure O2 48.4 mmHg (75.0-100.0) 46.1 mmHg (75.0-100.0) 52.9 mmHg (75.0-100.0) L Arterial Blood HCO3 23.2 mmol/L (22.0-26.0) 22.0 mmol/L (22.0-26.0) 21.1 mmol/L (22.0-26.0) L Arterial Blood Oxygen Saturation 86.1 % (95-100) *L 77.1 % (95-100) *L 86.0 % (95-100) *L Arterial Blood Base Excess 1.1 (-2-2) -2.9 (-2-2) L -2.7 (-2-2) L Haim Test Positive Positive Positive POC Whole Blood Glucose Pending Test 05/22/20 00:23 05/22/20 00:31 05/22/20 00:33 05/22/20 06:05 POC Whole Blood Glucose Pending Pending Arterial Blood pH 7.393 (7.350-7.450) Arterial Blood Partial Pressure CO2 38.9 mmHg (35.0-45.0) Arterial Blood Partial Pressure O2 40.5 mmHg (75.0-100.0) Arterial Blood HCO3 23.2 mmol/L (22.0-26.0) Arterial Blood Oxygen Saturation 72.6 % (95-100) *L Arterial Blood Base Excess -1.5 (-2-2) Haim Test Positive White Blood Count 28.7 K/UL (4.8-10.8) *H Red Blood Count 4.10 M/UL (4.70-6.10) L Hemoglobin 11.8 G/DL (14.2-18.0) L Hematocrit 32.1 % (42.0-52.0) L Mean Corpuscular Volume 78 FL (80-99) L Mean Corpuscular Hemoglobin 28.8 PG (27.0-31.0) Mean Corpuscular Hemoglobin Concent 36.8 G/DL (32.0-36.0) H Red Cell Distribution Width 14.9 % (11.6-14.8) H Platelet Count 169 K/UL (150-450) # Mean Platelet Volume 7.4 FL (6.5-10.1) Neutrophils (%) (Auto) % (45.0-75.0) Lymphocytes (%) (Auto) % (20.0-45.0) Monocytes (%) (Auto) % (1.0-10.0) Eosinophils (%) (Auto) % (0.0-3.0) Basophils (%) (Auto) % (0.0-2.0) Neutrophils % (Manual) Pending Lymphocytes % (Manual) Pending Platelet Estimate Pending Platelet Morphology Pending Sodium Level 135 MMOL/L (136-145) L Potassium Level 4.5 MMOL/L (3.5-5.1) Chloride Level 104 MMOL/L (98-107) Carbon Dioxide Level 27 MMOL/L (21-32) Anion Gap 4 mmol/L (5-15) L Blood Urea Nitrogen 33 mg/dL (7-18) H Creatinine 1.0 MG/DL (0.55-1.30) Estimat Glomerular Filtration Rate > 60 mL/min (>60) Glucose Level 72 MG/DL (74-106) L Hemoglobin A1c 10.2 % (4.3-6.0) H Calcium Level 7.7 MG/DL (8.5-10.1) L Phosphorus Level 4.7 MG/DL (2.5-4.9) Magnesium Level 2.4 MG/DL (1.8-2.4) Total Bilirubin 0.7 MG/DL (0.2-1.0) Aspartate Amino Transf (AST/SGOT) 30 U/L (15-37) Alanine Aminotransferase (ALT/SGPT) 31 U/L (12-78) Alkaline Phosphatase 121 U/L (46-116) H Total Protein 6.0 G/DL (6.4-8.2) L Albumin 2.0 G/DL (3.4-5.0) L Globulin 4.0 g/dL Albumin/Globulin Ratio 0.5 (1.0-2.7) L Test 05/22/20 06:27 POC Whole Blood Glucose Pending Current Medications Medications (Trade) Dose Ordered Sig/Vasiliy Route PRN Reason Start Time Stop Time Status Last Admin Dose Admin Acetaminophen (Tylenol) 650 mg Q4H PRN ORAL Temp >100.5 05/11/20 18:15 06/10/20 18:14 05/22/20 08:40 Albuterol/ Ipratropium (Combivent Respimat) 1 puff Q4H PRN INH Shortness of Breath 05/11/20 21:30 06/10/20 21:29 Clonidine HCl (Catapres tab) 0.2 mg Q2H PRN ORAL For High Blood Pressure 05/19/20 21:15 08/17/20 21:14 05/21/20 06:19 Dextrose (Dextrose 50%) 25 ml Q30M PRN IV Hypoglycemia 05/12/20 11:00 08/10/20 10:59 05/22/20 00:28 Dextrose (Dextrose 50%) 50 ml Q30M PRN IV Hypoglycemia 05/12/20 11:00 08/10/20 10:59 Diltiazem HCl (Cardizem Tab) 90 mg EVERY 6 HOURS ORAL 05/21/20 18:00 06/16/20 11:59 05/22/20 06:21 Fentanyl Citrate 250 ml @ 1 mls/hr Q24H IV 05/21/20 19:15 05/23/20 19:14 05/22/20 07:30 Heparin Sodium (Porcine) (Heparin 5000 units/ml) 5,000 units EVERY 12 HOURS SUBQ 05/21/20 21:00 07/05/20 20:59 05/22/20 08:39 Hydralazine HCl (Apresoline) 10 mg Q2H PRN IV For High Blood Pressure 05/20/20 17:45 08/18/20 17:44 05/20/20 18:37 Hydrocortisone (Solu-CORTEF) 50 mg Q6HR IV 05/22/20 00:00 08/20/20 00:00 05/22/20 06:21 Insulin Aspart (NovoLOG) Q6HR SUBQ 05/22/20 00:00 08/10/20 09:59 Insulin Detemir (Levemir) 30 units BID SUBQ 05/19/20 09:00 08/13/20 08:59 05/21/20 17:23 Lorazepam (Ativan 2mg/ml 1ml) 2 mg Q2H PRN IV For Anxiety 05/21/20 18:00 05/28/20 15:59 Lorazepam (Ativan 2mg/ml 1ml) 2 mg Q2H PRN IV Agitation 05/21/20 18:15 05/28/20 18:14 Morphine Sulfate (Morphine Sulfate) 4 mg Q4H PRN IVP For Pain 05/21/20 16:00 05/28/20 15:59 Ondansetron HCl (Zofran) 4 mg Q6H PRN IVP Nausea & Vomiting 05/11/20 18:15 06/10/20 18:14 Pantoprazole (Protonix) 40 mg DAILY IV 05/22/20 09:00 06/21/20 08:59 05/22/20 08:38 Piperacillin Sod/ Tazobactam Sod 4.5 gm/Sodium Chloride 110 ml @ 27.5 mls/hr Q8H IVPB 05/21/20 18:00 05/28/20 17:59 05/22/20 02:04 Polyethylene Glycol (Miralax) 17 gm DAILYPRN PRN ORAL Constipation 05/11/20 18:15 06/10/20 18:14 05/21/20 04:43 Promethazine HCl/ Codeine (Phenergan with Codeine) 5 ml Q4H PRN ORAL For Cough 05/13/20 17:15 06/12/20 17:14 05/13/20 22:50 Sitagliptin Phosphate (Januvia) 100 mg ACBREAKFAST ORAL 05/16/20 08:00 06/15/20 06:29 05/22/20 06:21 Sodium Chloride 1,000 ml @ 50 mls/hr Q20H IV 05/21/20 18:00 06/20/20 17:59 05/21/20 17:00 Meme Leggett M.D. May 22, 2020 09:00
--- NOTE | 2020-05-22 09:03 | Consultation ---
DATE OF CONSULTATION: 05/21/2020 ENDOCRINOLOGY CONSULTATION CONSULTING PHYSICIAN: Jm Duque MD REFERRING PHYSICIAN: Daniel Jung MD REASON FOR CONSULTATION: I was asked to see this 59-year-old male by Dr. Daniel Jung in Endocrinology consultation for evaluation and management of type 2 diabetes mellitus out of control. Apparently, the patient is on Decadron 6 mg mg p.o. daily. FAMILY HISTORY: Unremarkable. PERSONAL HISTORY: Unremarkable. REVIEW OF SYSTEMS: Unremarkable. PHYSICAL EXAMINATION: GENERAL: The patient is on 100%. VITAL SIGNS: Blood pressure 116/74, pulse 79, respiratory rate 18, temperature . HEAD AND NECK: Unremarkable. No jugular venous distention. LUNGS: Clear. HEART: Distant. ABDOMEN: Bowel sounds present. EXTREMITIES: No edema. NEUROLOGIC: Cranial nerves II through XII are grossly intact with toes downgoing to plantar stimulation. LABORATORY DATA: Glucose . ASSESSMENT: 1. Diabetes type 2, out of control. 2. COVID pneumonia. 3. . PLAN: The patient was given Levemir insulin 30 units q.12 hours, NovoLog 30 units . Jm Duque M.D. DR: MANDO JOB#: [id number] CC:
[2020-05-22] MEDS: Levemir Flexpen SUBQ SCH ×2 (09:08→17:55)
--- NOTE | 2020-05-22 12:57 | Cardiac Electrophysiology PN ---
Assessment/Plan Status Narrative 1. New moderate right apical pneumothorax. 2. New pneumomediastinum. 3. New supraclavicular bilateral subcutaneous emphysema. 4. Development of bilateral airspace disease suspicious for atypical/viral pneumonia. Assessment/Plan 1. Atrial fibrillation with rapid ventricular response, heart rate of 160s. This is in the setting of COVID. He already converted back to sinus rhythm after he got 10 mg of IV Cardizem. On Cardizem to 90 mg p.o. every 6 hours and off heparin drip Echo Nl EF 2. COVID pneumonia. Re-Intubated on the Vent 100% Fio2 3. Left Apical PTX and Pneumomediastinum. Evaluation and S/P chest tube by Dr GIBSON 4. Diabetes on insulin and Januvia, per Dr. Brown. 5. Lactic acidosis. KIM RN Subjective Subjective In ICU on 100% Fio2, PEEP 5. S/P Left side chest tube placement by Dr GIBSON for pneumothorax Converted to SR. Off heparin drip Objective Last 24 Hour Vital Signs Date Time Temp Pulse Resp B/P (MAP) Pulse Ox O2 Delivery O2 Flow Rate FiO2 05/22/20 12:21 99 135/63 05/22/20 12:00 100 05/22/20 11:30 22 130/66 Mechanical Ventilator 100 05/22/20 11:22 96 20 100 05/22/20 11:00 96 17 126/64 (84) 92 05/22/20 10:30 97 17 122/60 (80) 91 05/22/20 10:30 26 126/64 Mechanical Ventilator 100 05/22/20 10:00 100 05/22/20 10:00 97 18 122/58 (79) 91 05/22/20 09:30 26 122/58 Mechanical Ventilator 100 05/22/20 09:10 100.3 05/22/20 09:00 100.3 98 29 118/59 (78) 86 05/22/20 08:30 97 20 122/57 (78) 87 05/22/20 08:30 25 122/57 Mechanical Ventilator 100 05/22/20 08:00 Mechanical Ventilator 05/22/20 08:00 100.5 96 19 115/59 (77) 86 05/22/20 08:00 100 05/22/20 07:30 19 117/54 Mechanical Ventilator 100 05/22/20 07:29 98 19 100 05/22/20 07:21 20 117/59 Mechanical Ventilator 100 05/22/20 07:00 89 20 117/54 (75) 80 05/22/20 06:50 100 05/22/20 06:30 97 21 123/57 (79) 83 05/22/20 06:21 20 126/51 Mechanical Ventilator 100 05/22/20 06:21 99 126/51 05/22/20 06:00 99 20 126/51 (76) 84 05/22/20 05:30 99 20 123/53 (76) 84 05/22/20 05:21 19 119/52 Mechanical Ventilator 100 05/22/20 05:00 100 19 119/52 (74) 84 05/22/20 04:30 100 20 111/56 (74) 85 05/22/20 04:21 20 111/53 Mechanical Ventilator 100 05/22/20 04:00 101 05/22/20 04:00 99.5 100 20 111/53 (72) 84 05/22/20 04:00 100 05/22/20 04:00 Mechanical Ventilator 05/22/20 03:30 101 22 111/53 (72) 83 05/22/20 03:21 20 109/55 Mechanical Ventilator 100 05/22/20 03:21 99 28 100 05/22/20 03:00 103 20 109/55 (73) 86 05/22/20 02:30 104 21 99/51 (67) 84 05/22/20 02:21 24 110/56 Mechanical Ventilator 100 05/22/20 02:06 24 106/54 Mechanical Ventilator 100 05/22/20 02:00 106 24 106/54 (71) 84 05/22/20 01:30 104 27 109/55 (73) 81 05/22/20 01:06 37 131/52 Mechanical Ventilator 100 05/22/20 01:00 102 37 131/52 (78) 81 05/22/20 00:46 99.9 05/22/20 00:30 111 28 121/54 (76) 81 05/22/20 00:06 37 138/66 Mechanical Ventilator 100 05/22/20 00:00 111 05/22/20 00:00 100.5 116 29 138/66 (90) 85 05/22/20 00:00 115 125/62 05/22/20 00:00 Mechanical Ventilator 05/22/20 00:00 100 05/21/20 23:30 111 27 125/62 (83) 89 05/21/20 23:16 110 27 100 05/21/20 23:06 26 115/53 Non-Rebreather 100 05/21/20 23:00 109 26 115/53 (73) 92 05/21/20 22:51 27 111/54 Mechanical Ventilator 100 05/21/20 22:36 27 108/59 Mechanical Ventilator 100 05/21/20 22:30 104 27 111/53 (72) 90 05/21/20 22:21 29 105/60 Mechanical Ventilator 100 05/21/20 22:06 29 109/54 Mechanical Ventilator 100 05/21/20 22:00 100 29 109/54 (72) 83 05/21/20 21:51 29 120/54 Mechanical Ventilator 100 05/21/20 21:36 28 150/64 Mechanical Ventilator 100 05/21/20 21:30 110 33 153/67 (95) 82 05/21/20 21:21 32 158/68 Mechanical Ventilator 100 05/21/20 21:06 28 140/72 Mechanical Ventilator 100 05/21/20 21:00 111 28 151/68 (95) 92 05/21/20 21:00 112 28 140/71 (94) 88 05/21/20 20:51 26 160/65 Mechanical Ventilator 100 05/21/20 20:36 22 170/71 Mechanical Ventilator 100 05/21/20 20:21 38 160/70 Mechanical Ventilator 100 05/21/20 20:06 26 159/68 Mechanical Ventilator 100 05/21/20 20:00 98.9 101 26 159/68 (98) 92 05/21/20 20:00 Mechanical Ventilator 05/21/20 20:00 105 05/21/20 20:00 100 05/21/20 19:51 40 148/70 Mechanical Ventilator 100 05/21/20 19:30 99 34 148/70 (96) 91 05/21/20 19:14 100 05/21/20 19:00 97 34 148/70 (96) 93 05/21/20 18:59 98 34 93 Mechanical Ventilator 100 05/21/20 18:59 98 34 100 05/21/20 18:00 100 32 141/47 (78) 81 05/21/20 17:52 96 40 162/65 85 05/21/20 17:22 99 29 166/72 92 05/21/20 17:22 97 166/72 05/21/20 17:00 97 30 162/65 (97) 93 05/21/20 16:50 100 05/21/20 16:00 98.4 05/21/20 16:00 Mechanical Ventilator 05/21/20 16:00 94 20 193/78 (116) 91 05/21/20 16:00 81 05/21/20 15:30 100 05/21/20 15:30 106 16 100 05/21/20 15:00 90 29 150/65 (93) 86 05/21/20 15:00 101 46 89 100 05/21/20 14:00 99 36 173/76 (108) 87 05/21/20 13:00 91 33 173/76 (108) 91 Intake and Output 05/21/20 05/22/20 19:00 07:00 Intake Total 442.00 ml 1020.25 ml Output Total 430 ml 541 ml Balance 12.00 ml 479.25 ml Intake Oral 220 ml IV Total 222.00 ml 1020.25 ml Output Urine Total 400 ml 540 ml Chest Tube Drainage Total 30 ml 1 ml # Bowel Movements 1 Laboratory Tests Test 05/21/20 17:59 05/21/20 20:40 05/22/20 00:08 05/22/20 00:23 Arterial Blood pH 7.371 (7.350-7.450) 7.416 (7.350-7.450) Arterial Blood Partial Pressure CO2 38.8 mmHg (35.0-45.0) 33.6 mmHg (35.0-45.0) L Arterial Blood Partial Pressure O2 46.1 mmHg (75.0-100.0) 52.9 mmHg (75.0-100.0) L Arterial Blood HCO3 22.0 mmol/L (22.0-26.0) 21.1 mmol/L (22.0-26.0) L Arterial Blood Oxygen Saturation 77.1 % (95-100) *L 86.0 % (95-100) *L Arterial Blood Base Excess -2.9 (-2-2) L -2.7 (-2-2) L Haim Test Positive Positive POC Whole Blood Glucose Pending Pending Test 05/22/20 00:31 05/22/20 00:33 05/22/20 06:05 05/22/20 06:27 POC Whole Blood Glucose Pending Pending Arterial Blood pH 7.393 (7.350-7.450) Arterial Blood Partial Pressure CO2 38.9 mmHg (35.0-45.0) Arterial Blood Partial Pressure O2 40.5 mmHg (75.0-100.0) Arterial Blood HCO3 23.2 mmol/L (22.0-26.0) Arterial Blood Oxygen Saturation 72.6 % (95-100) *L Arterial Blood Base Excess -1.5 (-2-2) Haim Test Positive White Blood Count 28.7 K/UL (4.8-10.8) *H Red Blood Count 4.10 M/UL (4.70-6.10) L Hemoglobin 11.8 G/DL (14.2-18.0) L Hematocrit 32.1 % (42.0-52.0) L Mean Corpuscular Volume 78 FL (80-99) L Mean Corpuscular Hemoglobin 28.8 PG (27.0-31.0) Mean Corpuscular Hemoglobin Concent 36.8 G/DL (32.0-36.0) H Red Cell Distribution Width 14.9 % (11.6-14.8) H Platelet Count 169 K/UL (150-450) # Mean Platelet Volume 7.4 FL (6.5-10.1) Neutrophils (%) (Auto) % (45.0-75.0) Lymphocytes (%) (Auto) % (20.0-45.0) Monocytes (%) (Auto) % (1.0-10.0) Eosinophils (%) (Auto) % (0.0-3.0) Basophils (%) (Auto) % (0.0-2.0) Differential Total Cells Counted 100 Neutrophils % (Manual) 92 % (45-75) H Lymphocytes % (Manual) 2 % (20-45) L Monocytes % (Manual) 3 % (1-10) Eosinophils % (Manual) 0 % (0-3) Basophils % (Manual) 0 % (0-2) Band Neutrophils 3 % (0-8) Platelet Estimate Adequate Platelet Morphology Normal Anisocytosis 1+ Microcytosis 1+ Sodium Level 135 MMOL/L (136-145) L Potassium Level 4.5 MMOL/L (3.5-5.1) Chloride Level 104 MMOL/L (98-107) Carbon Dioxide Level 27 MMOL/L (21-32) Anion Gap 4 mmol/L (5-15) L Blood Urea Nitrogen 33 mg/dL (7-18) H Creatinine 1.0 MG/DL (0.55-1.30) Estimat Glomerular Filtration Rate > 60 mL/min (>60) Glucose Level 72 MG/DL (74-106) L Hemoglobin A1c 10.2 % (4.3-6.0) H Calcium Level 7.7 MG/DL (8.5-10.1) L Phosphorus Level 4.7 MG/DL (2.5-4.9) Magnesium Level 2.4 MG/DL (1.8-2.4) Total Bilirubin 0.7 MG/DL (0.2-1.0) Aspartate Amino Transf (AST/SGOT) 30 U/L (15-37) Alanine Aminotransferase (ALT/SGPT) 31 U/L (12-78) Alkaline Phosphatase 121 U/L (46-116) H Total Protein 6.0 G/DL (6.4-8.2) L Albumin 2.0 G/DL (3.4-5.0) L Globulin 4.0 g/dL Albumin/Globulin Ratio 0.5 (1.0-2.7) L Test 05/22/20 08:58 05/22/20 09:00 POC Whole Blood Glucose 115 MG/DL (74-106) H Arterial Blood pH 7.322 (7.350-7.450) Arterial Blood Partial Pressure CO2 48.8 mmHg (35.0-45.0) H Arterial Blood Partial Pressure O2 50.7 mmHg (75.0-100.0) L Arterial Blood HCO3 24.7 mmol/L (22.0-26.0) Arterial Blood Oxygen Saturation 81.5 % (95-100) *L Arterial Blood Base Excess -1.7 (-2-2) Haim Test Positive Microbiology Date/Time Source Procedure Growth Status 05/21/20 16:00 Urine,Clean Catch Urine Culture - Preliminary NO GROWTH Resulted 05/21/20 15:00 Sputum Gram Stain - Final Resulted 05/21/20 15:00 Sputum Sputum Culture - Preliminary NORMAL UPPER RESPIRATORY MACARIO AT 24 ... Resulted 05/20/20 04:00 Sputum Expectorated Gram Stain - Final Complete 05/20/20 04:00 Sputum Culture - Final Charis Albicans Usual Respiratory Macario Complete Objective HEAD AND NECK: Orally intubated LUNGS: Coarse rhonchi.Left chest tube is in CARDIOVASCULAR: Regular S1 and S2 with no gallop. ABDOMEN: Soft. EXTREMITIES: No pitting edema. Al Alarcon MD May 22, 2020 12:57
--- NOTE | 2020-05-22 13:28 | Diagnostic Imaging Report ---
Indication: Dyspnea Technique: One view of the chest Comparison: 05/21/2020 Findings: Interim considerable improvement in previously demonstrated pneumomediastinum and bilateral chest wall subcutaneous emphysema. Bilateral extensive infiltrates are again demonstrated, unchanged. Left chest thoracic vent device is again demonstrated, appearing to be well positioned. There is a tiny left apical pneumothorax. There is trace right pneumothorax, unchanged. Right pleural effusion is unchanged. The heart size is normal. Stable satisfactory positions of endotracheal and orogastric tubes Impression: Markedly improved pneumomediastinum and subcutaneous emphysema, over one day, with some residual Stable small bilateral pneumothoraces Unchanged bilateral extensive infiltrates versus edema
--- NOTE | 2020-05-22 16:29 | Consultation ---
History of Present Illness General Date patient seen: May 22, 2020 Chief Complaint: Dyspnea/Respdistress Referring physician: PCP Reason for Consultation: COVID pna Present Illness HPI 59 covid pna noted right ptx stable recent spontaneous left ptx s/p chest tube thoravent 05/21. subsequently declining now intubated. pulled out thoravent and replaced by ED MD. vent management / tube management. unable to provide history. chart reviewed. Allergies: Coded Allergies: No Known Allergies (Unverified , 05/11/20) Medication History Scheduled Lisinopril* (Lisinopril*), 10 MG ORAL DAILY, (Reported) Metformin Hcl* (Metformin Hcl*), 500 MG ORAL TWICE A DAY, (Reported) Patient History Limited by: medical condition History Provided By: Medical Record, PMD Healthcare decision maker N Resuscitation status Advanced Directive on File Past Medical/Surgical History Past Medical/Surgical History: (1) Acute respiratory failure (2) Rapid atrial fibrillation (3) Pneumothorax (4) Diabetes (5) Lactic acid acidosis (6) Abnormal EKG (7) Coronavirus infection Review of Systems All Other Systems: negative except mentioned in HPI Physical Exam General Appearance: lethargic, mild distress Lines, tubes and drains: peripheral, endotracheal tube HEENT: normocephalic, atraumatic, anicteric, mucous membranes moist Neck: supple, normal inspection Respiratory/Chest: decreased breath sounds, on vent Cardiovascular/Chest: regular rhythm Abdomen: soft, no organomegaly, no mass Extremities: normal inspection, no calf tenderness Skin Exam: warm/dry Neurologic: unresponsiveness Last 24 Hour Vital Signs Date Time Temp Pulse Resp B/P (MAP) Pulse Ox O2 Delivery O2 Flow Rate FiO2 05/22/20 16:00 100 05/22/20 15:40 97 22 100 05/22/20 15:30 22 127/61 Mechanical Ventilator 100 05/22/20 14:30 22 126/62 Mechanical Ventilator 100 05/22/20 14:00 90 17 124/58 (80) 89 05/22/20 13:30 91 16 127/57 (80) 89 05/22/20 13:30 22 127/57 Mechanical Ventilator 100 05/22/20 13:00 90 16 122/60 (80) 88 05/22/20 12:30 90 26 117/57 (77) 88 05/22/20 12:30 26 117/57 Mechanical Ventilator 100 05/22/20 12:21 99 135/63 05/22/20 12:00 100 05/22/20 12:00 100.3 98 30 135/63 (87) 92 05/22/20 12:00 Mechanical Ventilator 05/22/20 11:30 97 17 130/66 (87) 92 05/22/20 11:30 22 130/66 Mechanical Ventilator 100 05/22/20 11:22 96 20 100 05/22/20 11:00 96 17 126/64 (84) 92 05/22/20 10:30 97 17 122/60 (80) 91 05/22/20 10:30 26 126/64 Mechanical Ventilator 100 05/22/20 10:00 100 05/22/20 10:00 97 18 122/58 (79) 91 05/22/20 09:30 26 122/58 Mechanical Ventilator 100 05/22/20 09:10 100.3 05/22/20 09:00 100.3 98 29 118/59 (78) 86 05/22/20 08:30 97 20 122/57 (78) 87 05/22/20 08:30 25 122/57 Mechanical Ventilator 100 05/22/20 08:00 Mechanical Ventilator 05/22/20 08:00 100.5 96 19 115/59 (77) 86 05/22/20 08:00 100 05/22/20 07:30 19 117/54 Mechanical Ventilator 100 05/22/20 07:29 98 19 100 05/22/20 07:21 20 117/59 Mechanical Ventilator 100 05/22/20 07:00 89 20 117/54 (75) 80 05/22/20 06:50 100 05/22/20 06:30 97 21 123/57 (79) 83 05/22/20 06:21 20 126/51 Mechanical Ventilator 100 05/22/20 06:21 99 126/51 05/22/20 06:00 99 20 126/51 (76) 84 05/22/20 05:30 99 20 123/53 (76) 84 05/22/20 05:21 19 119/52 Mechanical Ventilator 100 05/22/20 05:00 100 19 119/52 (74) 84 05/22/20 04:30 100 20 111/56 (74) 85 05/22/20 04:21 20 111/53 Mechanical Ventilator 100 05/22/20 04:00 101 05/22/20 04:00 99.5 100 20 111/53 (72) 84 05/22/20 04:00 100 05/22/20 04:00 Mechanical Ventilator 05/22/20 03:30 101 22 111/53 (72) 83 05/22/20 03:21 20 109/55 Mechanical Ventilator 100 05/22/20 03:21 99 28 100 05/22/20 03:00 103 20 109/55 (73) 86 05/22/20 02:30 104 21 99/51 (67) 84 05/22/20 02:21 24 110/56 Mechanical Ventilator 100 05/22/20 02:06 24 106/54 Mechanical Ventilator 100 05/22/20 02:00 106 24 106/54 (71) 84 05/22/20 01:30 104 27 109/55 (73) 81 05/22/20 01:06 37 131/52 Mechanical Ventilator 100 05/22/20 01:00 102 37 131/52 (78) 81 05/22/20 00:46 99.9 05/22/20 00:30 111 28 121/54 (76) 81 05/22/20 00:06 37 138/66 Mechanical Ventilator 100 05/22/20 00:00 111 05/22/20 00:00 100.5 116 29 138/66 (90) 85 05/22/20 00:00 115 125/62 05/22/20 00:00 Mechanical Ventilator 05/22/20 00:00 100 05/21/20 23:30 111 27 125/62 (83) 89 05/21/20 23:16 110 27 100 05/21/20 23:06 26 115/53 Non-Rebreather 100 05/21/20 23:00 109 26 115/53 (73) 92 05/21/20 22:51 27 111/54 Mechanical Ventilator 100 05/21/20 22:36 27 108/59 Mechanical Ventilator 100 05/21/20 22:30 104 27 111/53 (72) 90 05/21/20 22:21 29 105/60 Mechanical Ventilator 100 05/21/20 22:06 29 109/54 Mechanical Ventilator 100 05/21/20 22:00 100 29 109/54 (72) 83 05/21/20 21:51 29 120/54 Mechanical Ventilator 100 05/21/20 21:36 28 150/64 Mechanical Ventilator 100 05/21/20 21:30 110 33 153/67 (95) 82 05/21/20 21:21 32 158/68 Mechanical Ventilator 100 05/21/20 21:06 28 140/72 Mechanical Ventilator 100 05/21/20 21:00 111 28 151/68 (95) 92 05/21/20 21:00 112 28 140/71 (94) 88 05/21/20 20:51 26 160/65 Mechanical Ventilator 100 05/21/20 20:36 22 170/71 Mechanical Ventilator 100 05/21/20 20:21 38 160/70 Mechanical Ventilator 100 05/21/20 20:06 26 159/68 Mechanical Ventilator 100 05/21/20 20:00 98.9 101 26 159/68 (98) 92 05/21/20 20:00 Mechanical Ventilator 05/21/20 20:00 105 05/21/20 20:00 100 05/21/20 19:51 40 148/70 Mechanical Ventilator 100 05/21/20 19:30 99 34 148/70 (96) 91 05/21/20 19:14 100 05/21/20 19:00 97 34 148/70 (96) 93 05/21/20 18:59 98 34 93 Mechanical Ventilator 100 05/21/20 18:59 98 34 100 05/21/20 18:00 100 32 141/47 (78) 81 05/21/20 17:52 96 40 162/65 85 05/21/20 17:22 99 29 166/72 92 05/21/20 17:22 97 166/72 05/21/20 17:00 97 30 162/65 (97) 93 05/21/20 16:50 100 Intake and Output 05/21/20 05/22/20 19:00 07:00 Intake Total 442.00 ml 1020.25 ml Output Total 430 ml 541 ml Balance 12.00 ml 479.25 ml Intake Oral 220 ml IV Total 222.00 ml 1020.25 ml Output Urine Total 400 ml 540 ml Chest Tube Drainage Total 30 ml 1 ml # Bowel Movements 1 Laboratory Tests Test 05/21/20 17:59 05/21/20 20:40 05/22/20 00:08 05/22/20 00:23 Arterial Blood pH 7.371 (7.350-7.450) 7.416 (7.350-7.450) Arterial Blood Partial Pressure CO2 38.8 mmHg (35.0-45.0) 33.6 mmHg (35.0-45.0) L Arterial Blood Partial Pressure O2 46.1 mmHg (75.0-100.0) 52.9 mmHg (75.0-100.0) L Arterial Blood HCO3 22.0 mmol/L (22.0-26.0) 21.1 mmol/L (22.0-26.0) L Arterial Blood Oxygen Saturation 77.1 % (95-100) *L 86.0 % (95-100) *L Arterial Blood Base Excess -2.9 (-2-2) L -2.7 (-2-2) L Haim Test Positive Positive POC Whole Blood Glucose Pending Pending Test 05/22/20 00:31 05/22/20 00:33 05/22/20 06:05 05/22/20 06:27 POC Whole Blood Glucose Pending Pending Arterial Blood pH 7.393 (7.350-7.450) Arterial Blood Partial Pressure CO2 38.9 mmHg (35.0-45.0) Arterial Blood Partial Pressure O2 40.5 mmHg (75.0-100.0) Arterial Blood HCO3 23.2 mmol/L (22.0-26.0) Arterial Blood Oxygen Saturation 72.6 % (95-100) *L Arterial Blood Base Excess -1.5 (-2-2) Haim Test Positive White Blood Count 28.7 K/UL (4.8-10.8) *H Red Blood Count 4.10 M/UL (4.70-6.10) L Hemoglobin 11.8 G/DL (14.2-18.0) L Hematocrit 32.1 % (42.0-52.0) L Mean Corpuscular Volume 78 FL (80-99) L Mean Corpuscular Hemoglobin 28.8 PG (27.0-31.0) Mean Corpuscular Hemoglobin Concent 36.8 G/DL (32.0-36.0) H Red Cell Distribution Width 14.9 % (11.6-14.8) H Platelet Count 169 K/UL (150-450) # Mean Platelet Volume 7.4 FL (6.5-10.1) Neutrophils (%) (Auto) % (45.0-75.0) Lymphocytes (%) (Auto) % (20.0-45.0) Monocytes (%) (Auto) % (1.0-10.0) Eosinophils (%) (Auto) % (0.0-3.0) Basophils (%) (Auto) % (0.0-2.0) Differential Total Cells Counted 100 Neutrophils % (Manual) 92 % (45-75) H Lymphocytes % (Manual) 2 % (20-45) L Monocytes % (Manual) 3 % (1-10) Eosinophils % (Manual) 0 % (0-3) Basophils % (Manual) 0 % (0-2) Band Neutrophils 3 % (0-8) Platelet Estimate Adequate Platelet Morphology Normal Anisocytosis 1+ Microcytosis 1+ Sodium Level 135 MMOL/L (136-145) L Potassium Level 4.5 MMOL/L (3.5-5.1) Chloride Level 104 MMOL/L (98-107) Carbon Dioxide Level 27 MMOL/L (21-32) Anion Gap 4 mmol/L (5-15) L Blood Urea Nitrogen 33 mg/dL (7-18) H Creatinine 1.0 MG/DL (0.55-1.30) Estimat Glomerular Filtration Rate > 60 mL/min (>60) Glucose Level 72 MG/DL (74-106) L Hemoglobin A1c 10.2 % (4.3-6.0) H Calcium Level 7.7 MG/DL (8.5-10.1) L Phosphorus Level 4.7 MG/DL (2.5-4.9) Magnesium Level 2.4 MG/DL (1.8-2.4) Total Bilirubin 0.7 MG/DL (0.2-1.0) Aspartate Amino Transf (AST/SGOT) 30 U/L (15-37) Alanine Aminotransferase (ALT/SGPT) 31 U/L (12-78) Alkaline Phosphatase 121 U/L (46-116) H Total Protein 6.0 G/DL (6.4-8.2) L Albumin 2.0 G/DL (3.4-5.0) L Globulin 4.0 g/dL Albumin/Globulin Ratio 0.5 (1.0-2.7) L Test 05/22/20 08:58 05/22/20 09:00 POC Whole Blood Glucose 115 MG/DL (74-106) H Arterial Blood pH 7.322 (7.350-7.450) Arterial Blood Partial Pressure CO2 48.8 mmHg (35.0-45.0) H Arterial Blood Partial Pressure O2 50.7 mmHg (75.0-100.0) L Arterial Blood HCO3 24.7 mmol/L (22.0-26.0) Arterial Blood Oxygen Saturation 81.5 % (95-100) *L Arterial Blood Base Excess -1.7 (-2-2) Haim Test Positive Height (Feet): 5 Height (Inches): 5.00 Weight (Pounds): 149 Medications Current Medications Medications (Trade) Dose Ordered Sig/Vasiliy Route PRN Reason Start Time Stop Time Status Last Admin Dose Admin Acetaminophen (Tylenol) 650 mg Q4H PRN ORAL Temp >100.5 05/11/20 18:15 06/10/20 18:14 05/22/20 08:40 Albuterol/ Ipratropium (Combivent Respimat) 1 puff Q4H PRN INH Shortness of Breath 05/11/20 21:30 06/10/20 21:29 Clonidine HCl (Catapres tab) 0.2 mg Q2H PRN ORAL For High Blood Pressure 05/19/20 21:15 08/17/20 21:14 05/21/20 06:19 Dextrose (Dextrose 50%) 25 ml Q30M PRN IV Hypoglycemia 05/12/20 11:00 08/10/20 10:59 05/22/20 00:28 Dextrose (Dextrose 50%) 50 ml Q30M PRN IV Hypoglycemia 05/12/20 11:00 08/10/20 10:59 Diltiazem HCl (Cardizem Tab) 90 mg EVERY 6 HOURS ORAL 05/21/20 18:00 06/16/20 11:59 05/22/20 12:21 Fentanyl Citrate 250 ml @ 1 mls/hr Q24H IV 05/21/20 19:15 05/23/20 19:14 05/22/20 07:30 Heparin Sodium (Porcine) (Heparin 5000 units/ml) 5,000 units EVERY 12 HOURS SUBQ 05/21/20 21:00 07/05/20 20:59 05/22/20 08:39 Hydralazine HCl (Apresoline) 10 mg Q2H PRN IV For High Blood Pressure 05/20/20 17:45 08/18/20 17:44 05/20/20 18:37 Hydrocortisone (Solu-CORTEF) 50 mg Q6HR IV 05/22/20 00:00 08/20/20 00:00 05/22/20 12:21 Insulin Aspart (NovoLOG) Q6HR SUBQ 05/22/20 00:00 08/10/20 09:59 Insulin Detemir (Levemir) 30 units BID SUBQ 05/19/20 09:00 08/13/20 08:59 05/22/20 09:08 Lorazepam (Ativan 2mg/ml 1ml) 2 mg Q2H PRN IV For Anxiety 05/21/20 18:00 05/28/20 15:59 Lorazepam (Ativan 2mg/ml 1ml) 2 mg Q2H PRN IV Agitation 05/21/20 18:15 05/28/20 18:14 Morphine Sulfate (Morphine Sulfate) 4 mg Q4H PRN IVP For Pain 05/21/20 16:00 05/28/20 15:59 Ondansetron HCl (Zofran) 4 mg Q6H PRN IVP Nausea & Vomiting 05/11/20 18:15 06/10/20 18:14 Pantoprazole (Protonix) 40 mg DAILY IV 05/22/20 09:00 06/21/20 08:59 05/22/20 08:38 Piperacillin Sod/ Tazobactam Sod 4.5 gm/Sodium Chloride 110 ml @ 27.5 mls/hr Q8H IVPB 05/21/20 18:00 05/28/20 17:59 05/22/20 09:10 Polyethylene Glycol (Miralax) 17 gm DAILYPRN PRN ORAL Constipation 05/11/20 18:15 06/10/20 18:14 05/21/20 04:43 Promethazine HCl/ Codeine (Phenergan with Codeine) 5 ml Q4H PRN ORAL For Cough 05/13/20 17:15 06/12/20 17:14 05/13/20 22:50 Sitagliptin Phosphate (Januvia) 100 mg ACBREAKFAST ORAL 05/16/20 08:00 06/15/20 06:29 05/22/20 06:21 Sodium Chloride 1,000 ml @ 50 mls/hr Q20H IV 05/21/20 18:00 06/20/20 17:59 05/22/20 13:00 Assessment/Plan Problem List: (1) Acute respiratory failure ICD Codes: J96.00 - Acute respiratory failure, unspecified whether with hypoxia or hypercapnia SNOMED: 10103206 (2) Rapid atrial fibrillation ICD Codes: I48.91 - Unspecified atrial fibrillation SNOMED: 103145623 (3) Pneumothorax Assessment & Plan: right stable apical ptx left large s/p tube. tube removed during agitation. replaced ptx stable intubated on support weaning vent cont chest tube to pleuravac suction am cxr will follow with recs than you ICD Codes: J93.9 - Pneumothorax, unspecified SNOMED: 81106158 (4) Diabetes ICD Codes: E11.9 - Type 2 diabetes mellitus without complications SNOMED: 84913271 (5) Lactic acid acidosis ICD Codes: E87.2 - Acidosis SNOMED: 75861147 (6) Abnormal EKG ICD Codes: R94.31 - Abnormal electrocardiogram [ECG] [EKG] SNOMED: 644657838 (7) Coronavirus infection ICD Codes: B34.2 - Coronavirus infection, unspecified SNOMED: 521332652 Erik Avendaño May 22, 2020 16:29
--- NOTE | 2020-05-22 17:47 | Pulmonolgy Critical Care Note ---
Critical Care - Asmt/Plan Problems: (1) Rapid atrial fibrillation (2) Acute respiratory failure (3) Coronavirus infection (4) Diabetes Respiratory: monitor respiratory rate, adjust FIO2, CXR Cardiac: continue pressors, continue to monitor HR/BP Renal: F/U I&O, check electrolytes Infectious Disease: check cultures Gastrointestinal: continue feedings/current rate Endocrine: monitor blood sugar, continue sliding scale insulin Hematologic: monitor H/H, transfuse if hgb<8.5 Neurologic: PRN Ativan, keep patient comfortable Prophylaxis: Protonix Time Spent (Minutes): 40 Notes Reviewed: button sewer hand, cardio, renal Discussed with: nurses, consultants, complex case managerreal estate firm manager - Objective Last 24 Hour Vital Signs Date Time Temp Pulse Resp B/P (MAP) Pulse Ox O2 Delivery O2 Flow Rate FiO2 05/22/20 16:30 97 17 135/62 (86) 90 05/22/20 16:30 22 135/62 Mechanical Ventilator 100 05/22/20 16:00 100 05/22/20 16:00 96 18 139/62 (87) 88 05/22/20 15:40 97 22 100 05/22/20 15:30 22 127/61 Mechanical Ventilator 100 05/22/20 15:30 95 27 127/61 (83) 87 05/22/20 15:00 93 17 128/63 (84) 89 05/22/20 14:30 91 17 126/62 (83) 89 05/22/20 14:30 22 126/62 Mechanical Ventilator 100 05/22/20 14:00 90 17 124/58 (80) 89 05/22/20 13:30 91 16 127/57 (80) 89 05/22/20 13:30 22 127/57 Mechanical Ventilator 100 05/22/20 13:00 90 16 122/60 (80) 88 05/22/20 12:30 90 26 117/57 (77) 88 05/22/20 12:30 26 117/57 Mechanical Ventilator 100 05/22/20 12:21 99 135/63 05/22/20 12:00 100 05/22/20 12:00 100.3 98 30 135/63 (87) 92 05/22/20 12:00 Mechanical Ventilator 05/22/20 11:30 97 17 130/66 (87) 92 05/22/20 11:30 22 130/66 Mechanical Ventilator 100 05/22/20 11:22 96 20 100 05/22/20 11:00 96 17 126/64 (84) 92 05/22/20 10:30 97 17 122/60 (80) 91 05/22/20 10:30 26 126/64 Mechanical Ventilator 100 05/22/20 10:00 100 05/22/20 10:00 97 18 122/58 (79) 91 05/22/20 09:30 26 122/58 Mechanical Ventilator 100 05/22/20 09:10 100.3 05/22/20 09:00 100.3 98 29 118/59 (78) 86 05/22/20 08:30 97 20 122/57 (78) 87 05/22/20 08:30 25 122/57 Mechanical Ventilator 100 05/22/20 08:00 Mechanical Ventilator 05/22/20 08:00 100.5 96 19 115/59 (77) 86 05/22/20 08:00 100 05/22/20 07:30 19 117/54 Mechanical Ventilator 100 05/22/20 07:29 98 19 100 05/22/20 07:21 20 117/59 Mechanical Ventilator 100 05/22/20 07:00 89 20 117/54 (75) 80 05/22/20 06:50 100 05/22/20 06:30 97 21 123/57 (79) 83 05/22/20 06:21 20 126/51 Mechanical Ventilator 100 05/22/20 06:21 99 126/51 05/22/20 06:00 99 20 126/51 (76) 84 05/22/20 05:30 99 20 123/53 (76) 84 05/22/20 05:21 19 119/52 Mechanical Ventilator 100 05/22/20 05:00 100 19 119/52 (74) 84 05/22/20 04:30 100 20 111/56 (74) 85 05/22/20 04:21 20 111/53 Mechanical Ventilator 100 05/22/20 04:00 101 05/22/20 04:00 99.5 100 20 111/53 (72) 84 05/22/20 04:00 100 05/22/20 04:00 Mechanical Ventilator 05/22/20 03:30 101 22 111/53 (72) 83 05/22/20 03:21 20 109/55 Mechanical Ventilator 100 12/14/20 03:21 99 28 100 05/22/20 03:00 103 20 109/55 (73) 86 05/22/20 02:30 104 21 99/51 (67) 84 05/22/20 02:21 24 110/56 Mechanical Ventilator 100 05/22/20 02:06 24 106/54 Mechanical Ventilator 100 05/22/20 02:00 106 24 106/54 (71) 84 05/22/20 01:30 104 27 109/55 (73) 81 05/22/20 01:06 37 131/52 Mechanical Ventilator 100 05/22/20 01:00 102 37 131/52 (78) 81 05/22/20 00:46 99.9 05/22/20 00:30 111 28 121/54 (76) 81 05/22/20 00:06 37 138/66 Mechanical Ventilator 100 05/22/20 00:00 111 05/22/20 00:00 100.5 116 29 138/66 (90) 85 05/22/20 00:00 115 125/62 05/22/20 00:00 Mechanical Ventilator 05/22/20 00:00 100 05/21/20 23:30 111 27 125/62 (83) 89 05/21/20 23:16 110 27 100 05/21/20 23:06 26 115/53 Non-Rebreather 100 05/21/20 23:00 109 26 115/53 (73) 92 05/21/20 22:51 27 111/54 Mechanical Ventilator 100 05/21/20 22:36 27 108/59 Mechanical Ventilator 100 05/21/20 22:30 104 27 111/53 (72) 90 05/21/20 22:21 29 105/60 Mechanical Ventilator 100 05/21/20 22:06 29 109/54 Mechanical Ventilator 100 05/21/20 22:00 100 29 109/54 (72) 83 05/21/20 21:51 29 120/54 Mechanical Ventilator 100 05/21/20 21:36 28 150/64 Mechanical Ventilator 100 05/21/20 21:30 110 33 153/67 (95) 82 05/21/20 21:21 32 158/68 Mechanical Ventilator 100 05/21/20 21:06 28 140/72 Mechanical Ventilator 100 05/21/20 21:00 111 28 151/68 (95) 92 05/21/20 21:00 112 28 140/71 (94) 88 12/13/20 20:51 26 160/65 Mechanical Ventilator 100 05/21/20 20:36 22 170/71 Mechanical Ventilator 100 05/21/20 20:21 38 160/70 Mechanical Ventilator 100 05/21/20 20:06 26 159/68 Mechanical Ventilator 100 05/21/20 20:00 98.9 101 26 159/68 (98) 92 05/21/20 20:00 Mechanical Ventilator 05/21/20 20:00 105 05/21/20 20:00 100 05/21/20 19:51 40 148/70 Mechanical Ventilator 100 05/21/20 19:30 99 34 148/70 (96) 91 05/21/20 19:14 100 05/21/20 19:00 97 34 148/70 (96) 93 05/21/20 18:59 98 34 93 Mechanical Ventilator 100 05/21/20 18:59 98 34 100 05/21/20 18:00 100 32 141/47 (78) 81 05/21/20 17:52 96 40 162/65 85 Status: somnolent, obtunded Condition: critical HEENT: atraumatic Lungs: clear Heart: HR/BP stable Abdomen: soft, non-tender Extremities: no C/C/E Micro: Microbiology Date/Time Source Procedure Growth Status 05/21/20 16:00 Urine,Clean Catch Urine Culture - Preliminary NO GROWTH Resulted 05/21/20 15:00 Sputum Gram Stain - Final Resulted 05/21/20 15:00 Sputum Sputum Culture - Preliminary NORMAL UPPER RESPIRATORY MACARIO AT 24 ... Resulted 05/20/20 04:00 Sputum Expectorated Gram Stain - Final Complete 05/20/20 04:00 Sputum Culture - Final Charis Albicans Usual Respiratory Macario Complete Accucheck: 121 Critical Care - Subjective FI02: 100 Vent Support Breath Rate: 16 Vent Support Mode: AC Vent Tidal Volume: 500 Sputum Amount: Scant PEEP: 5.0 PIP: 18 Tube Feeding Amount: 25 I&O: Intake and Output 05/21/20 05/22/20 19:00 07:00 Intake Total 442.00 ml 1020.25 ml Output Total 430 ml 541 ml Balance 12.00 ml 479.25 ml Intake Oral 220 ml IV Total 222.00 ml 1020.25 ml Output Urine Total 400 ml 540 ml Chest Tube Drainage Total 30 ml 1 ml # Bowel Movements 1 CXR: chest tube at left ET-Tube: 7.5 ET Position: 23 Labs: Laboratory Tests Test 05/21/20 17:59 05/21/20 20:40 05/22/20 00:08 05/22/20 00:23 Arterial Blood pH 7.371 (7.350-7.450) 7.416 (7.350-7.450) Arterial Blood Partial Pressure CO2 38.8 mmHg (35.0-45.0) 33.6 mmHg (35.0-45.0) L Arterial Blood Partial Pressure O2 46.1 mmHg (75.0-100.0) 52.9 mmHg (75.0-100.0) L Arterial Blood HCO3 22.0 mmol/L (22.0-26.0) 21.1 mmol/L (22.0-26.0) L Arterial Blood Oxygen Saturation 77.1 % (95-100) *L 86.0 % (95-100) *L Arterial Blood Base Excess -2.9 (-2-2) L -2.7 (-2-2) L Haim Test Positive Positive POC Whole Blood Glucose Pending Pending Test 05/22/20 00:31 05/22/20 00:33 05/22/20 06:05 05/22/20 06:27 POC Whole Blood Glucose Pending Pending Arterial Blood pH 7.393 (7.350-7.450) Arterial Blood Partial Pressure CO2 38.9 mmHg (35.0-45.0) Arterial Blood Partial Pressure O2 40.5 mmHg (75.0-100.0) Arterial Blood HCO3 23.2 mmol/L (22.0-26.0) Arterial Blood Oxygen Saturation 72.6 % (95-100) *L Arterial Blood Base Excess -1.5 (-2-2) Haim Test Positive White Blood Count 28.7 K/UL (4.8-10.8) *H Red Blood Count 4.10 M/UL (4.70-6.10) L Hemoglobin 11.8 G/DL (14.2-18.0) L Hematocrit 32.1 % (42.0-52.0) L Mean Corpuscular Volume 78 FL (80-99) L Mean Corpuscular Hemoglobin 28.8 PG (27.0-31.0) Mean Corpuscular Hemoglobin Concent 36.8 G/DL (32.0-36.0) H Red Cell Distribution Width 14.9 % (11.6-14.8) H Platelet Count 169 K/UL (150-450) # Mean Platelet Volume 7.4 FL (6.5-10.1) Neutrophils (%) (Auto) % (45.0-75.0) Lymphocytes (%) (Auto) % (20.0-45.0) Monocytes (%) (Auto) % (1.0-10.0) Eosinophils (%) (Auto) % (0.0-3.0) Basophils (%) (Auto) % (0.0-2.0) Differential Total Cells Counted 100 Neutrophils % (Manual) 92 % (45-75) H Lymphocytes % (Manual) 2 % (20-45) L Monocytes % (Manual) 3 % (1-10) Eosinophils % (Manual) 0 % (0-3) Basophils % (Manual) 0 % (0-2) Band Neutrophils 3 % (0-8) Platelet Estimate Adequate Platelet Morphology Normal Anisocytosis 1+ Microcytosis 1+ Sodium Level 135 MMOL/L (136-145) L Potassium Level 4.5 MMOL/L (3.5-5.1) Chloride Level 104 MMOL/L (98-107) Carbon Dioxide Level 27 MMOL/L (21-32) Anion Gap 4 mmol/L (5-15) L Blood Urea Nitrogen 33 mg/dL (7-18) H Creatinine 1.0 MG/DL (0.55-1.30) Estimat Glomerular Filtration Rate > 60 mL/min (>60) Glucose Level 72 MG/DL (74-106) L Hemoglobin A1c 10.2 % (4.3-6.0) H Calcium Level 7.7 MG/DL (8.5-10.1) L Phosphorus Level 4.7 MG/DL (2.5-4.9) Magnesium Level 2.4 MG/DL (1.8-2.4) Total Bilirubin 0.7 MG/DL (0.2-1.0) Aspartate Amino Transf (AST/SGOT) 30 U/L (15-37) Alanine Aminotransferase (ALT/SGPT) 31 U/L (12-78) Alkaline Phosphatase 121 U/L (46-116) H Total Protein 6.0 G/DL (6.4-8.2) L Albumin 2.0 G/DL (3.4-5.0) L Globulin 4.0 g/dL Albumin/Globulin Ratio 0.5 (1.0-2.7) L Test 05/22/20 08:58 05/22/20 09:00 POC Whole Blood Glucose 115 MG/DL (74-106) H Arterial Blood pH 7.322 (7.350-7.450) Arterial Blood Partial Pressure CO2 48.8 mmHg (35.0-45.0) H Arterial Blood Partial Pressure O2 50.7 mmHg (75.0-100.0) L Arterial Blood HCO3 24.7 mmol/L (22.0-26.0) Arterial Blood Oxygen Saturation 81.5 % (95-100) *L Arterial Blood Base Excess -1.7 (-2-2) Haim Test Positive Yohannes Gibson MD May 22, 2020 17:47
--- NOTE | 2020-05-22 19:17 | Internal Med Progress Note ---
Subjective Date of Service: May 22, 2020 Physician Name ChirinosFrederick Attending Physician Daniel Jung MD Current Medications Medications (Trade) Dose Ordered Sig/Vasiliy Route PRN Reason Start Time Stop Time Status Last Admin Dose Admin Acetaminophen (Tylenol) 650 mg Q4H PRN ORAL Temp >100.5 05/11/20 18:15 06/10/20 18:14 05/22/20 18:14 Albuterol/ Ipratropium (Combivent Respimat) 1 puff Q4H PRN INH Shortness of Breath 05/11/20 21:30 06/10/20 21:29 Clonidine HCl (Catapres tab) 0.2 mg Q2H PRN ORAL For High Blood Pressure 05/19/20 21:15 08/17/20 21:14 05/21/20 06:19 Dextrose (Dextrose 50%) 25 ml Q30M PRN IV Hypoglycemia 05/12/20 11:00 08/10/20 10:59 05/22/20 00:28 Dextrose (Dextrose 50%) 50 ml Q30M PRN IV Hypoglycemia 05/12/20 11:00 08/10/20 10:59 Diltiazem HCl (Cardizem Tab) 90 mg EVERY 6 HOURS ORAL 05/21/20 18:00 06/16/20 11:59 05/22/20 17:54 Fentanyl Citrate 250 ml @ 1 mls/hr Q24H IV 05/21/20 19:15 05/23/20 19:14 05/22/20 18:07 Heparin Sodium (Porcine) (Heparin 5000 units/ml) 5,000 units EVERY 12 HOURS SUBQ 05/21/20 21:00 07/05/20 20:59 05/22/20 08:39 Hydralazine HCl (Apresoline) 10 mg Q2H PRN IV For High Blood Pressure 05/20/20 17:45 08/18/20 17:44 05/20/20 18:37 Hydrocortisone (Solu-CORTEF) 50 mg Q6HR IV 05/22/20 00:00 08/20/20 00:00 05/22/20 17:53 Insulin Aspart (NovoLOG) Q6HR SUBQ 05/22/20 00:00 08/10/20 09:59 05/22/20 17:55 Insulin Detemir (Levemir) 30 units BID SUBQ 05/19/20 09:00 08/13/20 08:59 05/22/20 17:55 Lorazepam (Ativan 2mg/ml 1ml) 2 mg Q2H PRN IV For Anxiety 05/21/20 18:00 05/28/20 15:59 Lorazepam (Ativan 2mg/ml 1ml) 2 mg Q2H PRN IV Agitation 05/21/20 18:15 05/28/20 18:14 Morphine Sulfate (Morphine Sulfate) 4 mg Q4H PRN IVP For Pain 05/21/20 16:00 05/28/20 15:59 Ondansetron HCl (Zofran) 4 mg Q6H PRN IVP Nausea & Vomiting 05/11/20 18:15 06/10/20 18:14 Pantoprazole (Protonix) 40 mg DAILY IV 05/22/20 09:00 06/21/20 08:59 05/22/20 08:38 Piperacillin Sod/ Tazobactam Sod 4.5 gm/Sodium Chloride 110 ml @ 27.5 mls/hr Q8H IVPB 05/21/20 18:00 05/28/20 17:59 05/22/20 17:53 Polyethylene Glycol (Miralax) 17 gm DAILYPRN PRN ORAL Constipation 05/11/20 18:15 06/10/20 18:14 05/21/20 04:43 Promethazine HCl/ Codeine (Phenergan with Codeine) 5 ml Q4H PRN ORAL For Cough 05/13/20 17:15 06/12/20 17:14 05/13/20 22:50 Sitagliptin Phosphate (Januvia) 100 mg ACBREAKFAST ORAL 05/16/20 08:00 06/15/20 06:29 05/22/20 06:21 Sodium Chloride 1,000 ml @ 50 mls/hr Q20H IV 05/21/20 18:00 06/20/20 17:59 05/22/20 13:00 Allergies: Coded Allergies: No Known Allergies (Unverified , 05/11/20) ROS Limited/Unobtainable: Yes Subjective 59 YO M admitted with respiratory failure. Now COVID 19 pneumonia. Cover for Int Med-DR Jung. ICU. S/P Intubation 05/21/20 Objective Last Vital Signs Date Time Temp Pulse Resp B/P (MAP) Pulse Ox O2 Delivery O2 Flow Rate FiO2 05/22/20 19:00 92 17 129/61 (83) 90 05/22/20 18:44 100.2 05/22/20 18:39 100 05/22/20 18:30 Mechanical Ventilator 05/21/20 12:00 15.0 Laboratory Tests Test 05/21/20 20:40 05/22/20 00:08 05/22/20 00:23 05/22/20 00:31 Arterial Blood pH 7.416 (7.350-7.450) Arterial Blood Partial Pressure CO2 33.6 mmHg (35.0-45.0) L Arterial Blood Partial Pressure O2 52.9 mmHg (75.0-100.0) L Arterial Blood HCO3 21.1 mmol/L (22.0-26.0) L Arterial Blood Oxygen Saturation 86.0 % (95-100) *L Arterial Blood Base Excess -2.7 (-2-2) L Haim Test Positive POC Whole Blood Glucose Pending Pending Pending Test 05/22/20 00:33 05/22/20 06:05 05/22/20 06:27 05/22/20 08:58 Arterial Blood pH 7.393 (7.350-7.450) Arterial Blood Partial Pressure CO2 38.9 mmHg (35.0-45.0) Arterial Blood Partial Pressure O2 40.5 mmHg (75.0-100.0) Arterial Blood HCO3 23.2 mmol/L (22.0-26.0) Arterial Blood Oxygen Saturation 72.6 % (95-100) *L Arterial Blood Base Excess -1.5 (-2-2) Haim Test Positive White Blood Count 28.7 K/UL (4.8-10.8) *H Red Blood Count 4.10 M/UL (4.70-6.10) L Hemoglobin 11.8 G/DL (14.2-18.0) L Hematocrit 32.1 % (42.0-52.0) L Mean Corpuscular Volume 78 FL (80-99) L Mean Corpuscular Hemoglobin 28.8 PG (27.0-31.0) Mean Corpuscular Hemoglobin Concent 36.8 G/DL (32.0-36.0) H Red Cell Distribution Width 14.9 % (11.6-14.8) H Platelet Count 169 K/UL (150-450) # Mean Platelet Volume 7.4 FL (6.5-10.1) Neutrophils (%) (Auto) % (45.0-75.0) Lymphocytes (%) (Auto) % (20.0-45.0) Monocytes (%) (Auto) % (1.0-10.0) Eosinophils (%) (Auto) % (0.0-3.0) Basophils (%) (Auto) % (0.0-2.0) Differential Total Cells Counted 100 Neutrophils % (Manual) 92 % (45-75) H Lymphocytes % (Manual) 2 % (20-45) L Monocytes % (Manual) 3 % (1-10) Eosinophils % (Manual) 0 % (0-3) Basophils % (Manual) 0 % (0-2) Band Neutrophils 3 % (0-8) Platelet Estimate Adequate Platelet Morphology Normal Anisocytosis 1+ Microcytosis 1+ Sodium Level 135 MMOL/L (136-145) L Potassium Level 4.5 MMOL/L (3.5-5.1) Chloride Level 104 MMOL/L (98-107) Carbon Dioxide Level 27 MMOL/L (21-32) Anion Gap 4 mmol/L (5-15) L Blood Urea Nitrogen 33 mg/dL (7-18) H Creatinine 1.0 MG/DL (0.55-1.30) Estimat Glomerular Filtration Rate > 60 mL/min (>60) Glucose Level 72 MG/DL (74-106) L Hemoglobin A1c 10.2 % (4.3-6.0) H Calcium Level 7.7 MG/DL (8.5-10.1) L Phosphorus Level 4.7 MG/DL (2.5-4.9) Magnesium Level 2.4 MG/DL (1.8-2.4) Total Bilirubin 0.7 MG/DL (0.2-1.0) Aspartate Amino Transf (AST/SGOT) 30 U/L (15-37) Alanine Aminotransferase (ALT/SGPT) 31 U/L (12-78) Alkaline Phosphatase 121 U/L (46-116) H Total Protein 6.0 G/DL (6.4-8.2) L Albumin 2.0 G/DL (3.4-5.0) L Globulin 4.0 g/dL Albumin/Globulin Ratio 0.5 (1.0-2.7) L POC Whole Blood Glucose Pending 115 MG/DL (74-106) H Test 05/22/20 09:00 Arterial Blood pH 7.322 (7.350-7.450) Arterial Blood Partial Pressure CO2 48.8 mmHg (35.0-45.0) H Arterial Blood Partial Pressure O2 50.7 mmHg (75.0-100.0) L Arterial Blood HCO3 24.7 mmol/L (22.0-26.0) Arterial Blood Oxygen Saturation 81.5 % (95-100) *L Arterial Blood Base Excess -1.7 (-2-2) Haim Test Positive Microbiology Date/Time Source Procedure Growth Status 05/21/20 16:00 Urine,Clean Catch Urine Culture - Preliminary NO GROWTH Resulted 05/21/20 15:00 Sputum Gram Stain - Final Resulted 05/21/20 15:00 Sputum Sputum Culture - Preliminary NORMAL UPPER RESPIRATORY MACARIO AT 24 ... Resulted 05/20/20 04:00 Sputum Expectorated Gram Stain - Final Complete 05/20/20 04:00 Sputum Culture - Final Charis Albicans Usual Respiratory Macario Complete Intake and Output 05/21/20 05/22/20 19:00 07:00 Intake Total 442.00 ml 1020.25 ml Output Total 430 ml 541 ml Balance 12.00 ml 479.25 ml Intake Oral 220 ml IV Total 222.00 ml 1020.25 ml Output Urine Total 400 ml 540 ml Chest Tube Drainage Total 30 ml 1 ml # Bowel Movements 1 Objective PHYSICAL EXAMINATION: GENERAL: The patient is a well-developed, well-nourished male, in no apparent distress. HEENT: Eyes, pupils equal and responsive to light and accommodation. Extraocular movements are intact. NECK: Supple without lymphadenopathy. CHEST: Mech vent; Lungs with decreased breath sounds at bilateral bases without wheezes or rales. CARDIOVASCULAR: Regular rhythm and rate. S1, S2 normal without murmurs, rubs, or gallops. ABDOMEN: Soft, nontender, and nondistended. Positive bowel sounds. No evidence of hepatosplenomegaly. Currently, no rebound or guarding noted. EXTREMITIES: Negative for clubbing, cyanosis, or edema. RECTAL: Not performed. GENITAL: Not performed. NEUROLOGIC: Cranial nerves II through XII are grossly intact without focal deficits. Motor strength is 5/5 bilaterally intact. Deep tendon reflexes are 2+ bilat Assessment/Plan Assessment/Plan ASSESSMENT: This is a 59-year-old male with: 1. COVID-19 positive. 2. COVID-19 pneumonia. 3. Respiratory failure. 4. Diabetes type 2. 5. Hypertension. TREATMENT: 1. COVID-19 positive/pneumonia. Infectious Disease= Dr. Craft. Follow recommendations of Infectious Disease. Continue remdesivir per Infectious Disease. S/P ceftriaxone, azithromycin and decadron 2. Respiratory failure. Pulmonary/critical care= Dr. Yohannes Gibson. The patient is currently intubated and sedated. Follow recommendations of Pulmonary. 3. Diabetes type 2. NovoLog sliding scale has been instituted. 4. Hypertension. Continue lisinopril as above. Frederick Chirinos MD May 22, 2020 19:17
[2020-05-22] MEDS: LORazepam Inj 2mg/ml 1ml IV PRN (21:07)
[2020-05-23] VITALS (31 sets, daily range): BP systolic 112–160; BP diastolic 55–83
[2020-05-23] MEDS: Piperacillin/Tazobactam 4.5 GM in NS 110 ML IVPB SCH ×3 (02:07→18:01)
[2020-05-23] MEDS: fentaNYL 2500mcg/NS 250ml 250 ML IV SCH ×3 (03:58→19:15)
[2020-05-23 04:55] LABS: HEMATOCRIT 31.2 % (42.0-52.0); HEMOGLOBIN 11.1 G/DL (14.2-18.0); MEAN CORPUSCULAR VOLUME 83 FL (80-99); PLATELET COUNT 122 K/UL (150-450); RED BLOOD COUNT 3.75 M/UL (4.70-6.10); RED CELL DISTRIBUTION WIDTH 14.1 % (11.6-14.8); WHITE BLOOD COUNT 21.6 K/UL (4.8-10.8)
[2020-05-23] MEDS: dilTIAZem HCl 90mg tab ORAL SCH ×4 (05:13→23:24)
[2020-05-23] MEDS: Hydrocortisone 100mg Inj IV SCH ×4 (05:13→23:24)
[2020-05-23] MEDS: LORazepam Inj 2mg/ml 1ml IV PRN (05:14)
[2020-05-23 05:52] LABS: ALANINE AMINOTRANSFERASE 31 U/L (12-78); ALBUMIN 1.7 G/DL (3.4-5.0); ALBUMIN/GLOBULIN RATIO 0.4 (1.0-2.7); ALKALINE PHOSPHATASE 122 U/L (46-116); ANION GAP 5 mmol/L (5-15); ASPARTATE AMINO TRANSFERASE 25 U/L (15-37); BILIRUBIN,TOTAL 0.3 MG/DL (0.2-1.0); BLOOD UREA NITROGEN 32 mg/dL (7-18); CALCIUM 7.5 MG/DL (8.5-10.1); CARBON DIOXIDE 28 MMOL/L (21-32); CHLORIDE 104 MMOL/L (98-107); CREATININE 0.8 MG/DL (0.55-1.30); PHOSPHORUS 3.3 MG/DL (2.5-4.9); POTASSIUM 4.6 MMOL/L (3.5-5.1); SODIUM 137 MMOL/L (136-145)
[2020-05-23] MEDS: NovoLOG Insulin Flexpen SUBQ SCH ×4 (06:00→18:25)
--- NOTE | 2020-05-23 06:59 | General Progress Note ---
Subjective ROS Limited/Unobtainable: Yes Allergies: Coded Allergies: No Known Allergies (Unverified , 05/11/20) Subjective events noted in ICU intubated febrile Item Value Date Time Bedside Blood Glucose 230 mg/dl H 05/23/20 0600 Bedside Blood Glucose 212 mg/dl H 05/23/20 0000 Bedside Blood Glucose 170 mg/dl H 05/22/20 1800 Bedside Blood Glucose 121 mg/dl H 05/22/20 1200 Bedside Blood Glucose 115 mg/dl 05/22/20 0908 Bedside Blood Glucose 94 mg/dl 05/22/20 0630 Objective Last 24 Hour Vital Signs Date Time Temp Pulse Resp B/P (MAP) Pulse Ox O2 Delivery O2 Flow Rate FiO2 05/23/20 06:00 101.2 87 18 112/55 (74) 86 05/23/20 05:44 86 18 113/58 93 05/23/20 05:30 94 20 135/64 (87) 90 05/23/20 05:14 100 18 146/69 93 05/23/20 05:13 100 146/69 05/23/20 05:00 98 19 146/69 (94) 93 05/23/20 04:30 96 18 145/65 (91) 94 05/23/20 04:00 Mechanical Ventilator 05/23/20 04:00 97 05/23/20 04:00 100 05/23/20 04:00 98.8 95 18 136/67 (90) 96 05/23/20 03:58 18 135/67 Mechanical Ventilator 100 05/23/20 03:30 16 135/65 Mechanical Ventilator 100 05/23/20 03:30 92 17 135/67 (89) 95 05/23/20 03:00 76 16 125/59 (81) 85 05/23/20 02:40 72 20 100 05/23/20 02:30 99.0 88 18 138/64 (88) 92 05/23/20 02:30 18 138/64 Mechanical Ventilator 100 05/23/20 02:00 87 20 123/63 (83) 93 05/23/20 01:30 89 21 128/64 (85) 93 05/23/20 01:30 16 128/64 Mechanical Ventilator 100 05/23/20 01:00 89 17 134/64 (87) 93 05/23/20 00:36 100.4 05/23/20 00:30 18 125/62 Mechanical Ventilator 80 05/23/20 00:30 87 16 125/62 (83) 92 05/23/20 00:00 90 05/23/20 00:00 100.3 95 20 123/68 (86) 93 05/23/20 00:00 Mechanical Ventilator 05/22/20 23:33 90 153/69 05/22/20 23:30 98 17 143/66 (91) 93 05/22/20 23:30 18 143/66 Mechanical Ventilator 80 05/22/20 23:07 90 22 100 05/22/20 23:00 92 29 169/74 (105) 82 05/22/20 22:30 97 28 153/69 (97) 93 05/22/20 22:30 18 153/69 Mechanical Ventilator 80 05/22/20 22:00 97 28 153/69 (97) 93 05/22/20 21:45 100 18 152/68 (96) 93 05/22/20 21:37 98 30 142/87 91 05/22/20 21:30 95 19 157/66 (96) 89 05/22/20 21:30 18 153/69 Mechanical Ventilator 90 05/22/20 21:07 96 20 142/67 89 05/22/20 21:00 94 18 142/67 (92) 92 05/22/20 20:30 18 138/66 Mechanical Ventilator 90 05/22/20 20:30 93 18 138/66 (90) 91 05/22/20 20:00 Mechanical Ventilator 05/22/20 20:00 100 05/22/20 20:00 101.0 92 17 127/62 (83) 91 05/22/20 19:53 92 05/22/20 19:30 18 133/63 Mechanical Ventilator 90 05/22/20 19:30 93 18 133/63 (86) 90 05/22/20 19:00 92 17 129/61 (83) 90 05/22/20 18:44 100.2 05/22/20 18:39 92 20 100 05/22/20 18:30 22 124/63 Mechanical Ventilator 100 05/22/20 18:30 91 18 124/63 (83) 88 05/22/20 18:07 25 150/67 Mechanical Ventilator 100 05/22/20 18:00 90 30 120/55 (76) 87 05/22/20 17:54 91 150/67 05/22/20 17:30 102 18 150/67 (94) 90 05/22/20 17:30 29 150/67 Mechanical Ventilator 100 05/22/20 17:00 98 18 143/63 (89) 90 05/22/20 16:30 100.6 97 17 135/62 (86) 90 05/22/20 16:30 22 135/62 Mechanical Ventilator 100 05/22/20 16:00 Mechanical Ventilator 05/22/20 16:00 96 05/22/20 16:00 100 05/22/20 16:00 96 18 139/62 (87) 88 05/22/20 15:40 97 22 100 05/22/20 15:30 22 127/61 Mechanical Ventilator 100 05/22/20 15:30 95 27 127/61 (83) 87 05/22/20 15:00 93 17 128/63 (84) 89 05/22/20 14:30 91 17 126/62 (83) 89 05/22/20 14:30 22 126/62 Mechanical Ventilator 100 05/22/20 14:00 90 17 124/58 (80) 89 05/22/20 13:30 91 16 127/57 (80) 89 05/22/20 13:30 22 127/57 Mechanical Ventilator 100 05/22/20 13:00 90 16 122/60 (80) 88 05/22/20 12:30 90 26 117/57 (77) 88 05/22/20 12:30 26 117/57 Mechanical Ventilator 100 05/22/20 12:21 99 135/63 05/22/20 12:00 100 05/22/20 12:00 100.3 98 30 135/63 (87) 92 05/22/20 12:00 98 05/22/20 12:00 Mechanical Ventilator 05/22/20 11:30 97 17 130/66 (87) 92 05/22/20 11:30 22 130/66 Mechanical Ventilator 100 05/22/20 11:22 96 20 100 05/22/20 11:00 96 17 126/64 (84) 92 05/22/20 10:30 97 17 122/60 (80) 91 05/22/20 10:30 26 126/64 Mechanical Ventilator 100 05/22/20 10:00 100 05/22/20 10:00 97 18 122/58 (79) 91 12/14/20 09:30 26 122/58 Mechanical Ventilator 100 05/22/20 09:10 100.3 05/22/20 09:00 100.3 98 29 118/59 (78) 86 05/22/20 08:30 97 20 122/57 (78) 87 05/22/20 08:30 25 122/57 Mechanical Ventilator 100 05/22/20 08:00 Mechanical Ventilator 05/22/20 08:00 100.5 96 19 115/59 (77) 86 05/22/20 08:00 100 05/22/20 08:00 96 05/22/20 07:30 19 117/54 Mechanical Ventilator 100 05/22/20 07:29 98 19 100 05/22/20 07:21 20 117/59 Mechanical Ventilator 100 05/22/20 07:00 89 20 117/54 (75) 80 Intake and Output 05/22/20 05/23/20 19:00 07:00 Intake Total 1282.823 ml 1372.79 ml Output Total 601 ml 690 ml Balance 681.823 ml 682.79 ml Free Water 50 ml IV Total 962.823 ml 722.79 ml Tube Feeding 220 ml 600 ml Other 100 ml Output Urine Total 600 ml 690 ml Chest Tube Drainage Total 1 ml Laboratory Tests 05/22/20 08:58: POC Whole Blood Glucose 115H 05/22/20 09:00: Arterial Blood pH 7.322L, Arterial Blood Partial Pressure CO2 48.8H, Arterial Blood Partial Pressure O2 50.7L, Arterial Blood HCO3 24.7, Arterial Blood Oxygen Saturation 81.5*L, Arterial Blood Base Excess -1.7, Haim Test Positive 05/23/20 04:30: White Blood Count 21.6H, Red Blood Count 3.75L, Hemoglobin 11.1L, Hematocrit 31.2L, Mean Corpuscular Volume 83, Mean Corpuscular Hemoglobin 29.6, Mean Corpuscular Hemoglobin Concent 35.6, Red Cell Distribution Width 14.1, Platelet Count 122L, Mean Platelet Volume 7.7, Neutrophils (%) (Auto) , Lymphocytes (%) (Auto) , Monocytes (%) (Auto) , Eosinophils (%) (Auto) , Basophils (%) (Auto) , Neutrophils % (Manual) [Pending], Lymphocytes % (Manual) [Pending], Platelet Estimate [Pending], Platelet Morphology [Pending], Sodium Level 137, Potassium Level 4.6, Chloride Level 104, Carbon Dioxide Level 28, Anion Gap 5, Blood Urea Nitrogen 32H, Creatinine 0.8, Estimat Glomerular Filtration Rate > 60, Glucose Level 191#H, Calcium Level 7.5L, Phosphorus Level 3.3, Magnesium Level 2.7H, Total Bilirubin 0.3, Aspartate Amino Transf (AST/SGOT) 25, Alanine Aminotransferase (ALT/SGPT) 31, Alkaline Phosphatase 122H, Total Protein 5.9L, Albumin 1.7L, Globulin 4.2, Albumin/Globulin Ratio 0.4L Height (Feet): 5 Height (Inches): 5.00 Weight (Pounds): 149 Objective Current Medications Medications (Trade) Dose Ordered Sig/Vasiliy Route PRN Reason Start Time Stop Time Status Last Admin Dose Admin Acetaminophen (Tylenol) 650 mg Q4H PRN ORAL Temp >100.5 05/11/20 18:15 06/10/20 18:14 05/22/20 23:33 Albuterol/ Ipratropium (Combivent Respimat) 1 puff Q4H PRN INH Shortness of Breath 05/11/20 21:30 06/10/20 21:29 Clonidine HCl (Catapres tab) 0.2 mg Q2H PRN ORAL For High Blood Pressure 05/19/20 21:15 08/17/20 21:14 05/21/20 06:19 Dextrose (Dextrose 50%) 25 ml Q30M PRN IV Hypoglycemia 05/12/20 11:00 08/10/20 10:59 05/22/20 00:28 Dextrose (Dextrose 50%) 50 ml Q30M PRN IV Hypoglycemia 05/12/20 11:00 08/10/20 10:59 Diltiazem HCl (Cardizem Tab) 90 mg EVERY 6 HOURS ORAL 05/21/20 18:00 06/16/20 11:59 05/23/20 05:13 Fentanyl Citrate 250 ml @ 1 mls/hr Q24H IV 05/21/20 19:15 05/23/20 19:14 05/23/20 03:58 Heparin Sodium (Porcine) (Heparin 5000 units/ml) 5,000 units EVERY 12 HOURS SUBQ 05/21/20 21:00 07/05/20 20:59 05/22/20 21:07 Hydralazine HCl (Apresoline) 10 mg Q2H PRN IV For High Blood Pressure 05/20/20 17:45 08/18/20 17:44 05/20/20 18:37 Hydrocortisone (Solu-CORTEF) 50 mg Q6HR IV 05/22/20 00:00 08/20/20 00:00 05/23/20 05:13 Insulin Aspart (NovoLOG) Q6HR SUBQ 05/22/20 00:00 08/10/20 09:59 05/23/20 06:00 Insulin Detemir (Levemir) 30 units BID SUBQ 05/19/20 09:00 08/13/20 08:59 05/22/20 17:55 Lorazepam (Ativan 2mg/ml 1ml) 2 mg Q2H PRN IV For Anxiety 05/21/20 18:00 05/28/20 15:59 Lorazepam (Ativan 2mg/ml 1ml) 2 mg Q2H PRN IV Agitation 05/21/20 18:15 05/28/20 18:14 05/23/20 05:14 Morphine Sulfate (Morphine Sulfate) 4 mg Q4H PRN IVP For Pain 05/21/20 16:00 05/28/20 15:59 Ondansetron HCl (Zofran) 4 mg Q6H PRN IVP Nausea & Vomiting 05/11/20 18:15 06/10/20 18:14 Pantoprazole (Protonix) 40 mg DAILY IV 05/22/20 09:00 06/21/20 08:59 05/22/20 08:38 Piperacillin Sod/ Tazobactam Sod 4.5 gm/Sodium Chloride 110 ml @ 27.5 mls/hr Q8H IVPB 05/21/20 18:00 05/28/20 17:59 05/23/20 02:07 Polyethylene Glycol (Miralax) 17 gm DAILYPRN PRN ORAL Constipation 05/11/20 18:15 06/10/20 18:14 05/21/20 04:43 Promethazine HCl/ Codeine (Phenergan with Codeine) 5 ml Q4H PRN ORAL For Cough 05/13/20 17:15 06/12/20 17:14 05/13/20 22:50 Sitagliptin Phosphate (Januvia) 100 mg ACBREAKFAST ORAL 05/16/20 08:00 06/15/20 06:29 05/23/20 05:13 Sodium Chloride 1,000 ml @ 50 mls/hr Q20H IV 05/21/20 18:00 06/20/20 17:59 05/23/20 05:15 Assessment/Plan Problem List: (1) Coronavirus infection ICD Codes: B34.2 - Coronavirus infection, unspecified SNOMED: 024251550 (2) Diabetes ICD Codes: E11.9 - Type 2 diabetes mellitus without complications SNOMED: 62813666 (3) Lactic acid acidosis ICD Codes: E87.2 - Acidosis SNOMED: 09945704 Assessment/Plan: continue Levemir to 30 units bid continue Januvia 100 mg daily continue Novolog sliding scale every 6 hours hypoglycemia protocol in order Jose Brown MD May 23, 2020 06:59
--- NOTE | 2020-05-23 07:57 | Infectious Diseases Prog Note ---
Assessment/Plan 59yo M with: Febrile to 100.9; SP Luekocytosis ( Sp steroids,) Lymphopenia Hypoxic resp failure 2/2 COVID pna, on NRB mask >> intubated 05/21 Severe COVID pna, tested positive 05/05 R apical PTX and pneumomediastinum, new 05/17 L apical PTX, s/p chest tube 05/21 05/21 Sp chest tube placement 05/05 COVID positive 05/11 BCx NTD COVID PCR+ CXR: No acute process Influenza EIA neg 05/14 CXR: Mildly increased interstitial markings. This is nonspecific but may suggest mild pulmonary vascular congestion or pneumonitis. No focal consolidation. 05/17 CXR: 1. New moderate right apical pneumothorax. 2. New pneumomediastinum. 3. New supraclavicular bilateral subcutaneous emphysema. 4. Development of bilateral airspace disease suspicious for atypical/viral pneumonia. 05/18 CXR: 1. Interval worsening in aeration of the lungs with increasing airspace consolidation bilaterally. 2. Stable right apical pneumothorax. 3. Persistent pneumomediastinum. 05/19 Resp cx normal joana 05/21 Resp cx normal joana UCx neg BCx NTD 05/21 CXR: 1. Placement of chest tube in the left thorax with reexpansion of the left lung. 2. Bilateral extensive pulmonary consolidations appears somewhat worse than the previous exam. 05/22 CXR: Markedly improved pneumomediastinum and subcutaneous emphysema, over one day, with some residual. Stable small bilateral pneumothorax. Unchanged bilateral extensive infiltrates versus edema BLE US neg for DVT DM2 Plan: Cont Zosyn #3 empiric given worsening resp status On hydrocort 50mg q6hrs per Pulm/Primary Trend WBC, increased likely 2/2 steroids, improving Trend temp curve 05/19 SP dexa #10 05/16 SP CTX/azithro #5 05/16 SP RDV #5 This [facility] does not have convalescent plasma, and as pt 1 week out from diagnosis, unlikely to benefit from it at this point Monitor CBC/CMP Monitor temp curve, hemodynamics Monitor resp status D/w RN Thank you for this consult. [facility] will continue to follow. Subjective Allergies: Coded Allergies: No Known Allergies (Unverified , 05/11/20) Febrile to 101.2 Micro neg from 05/21 WBC improving to 21 Sedated on vent, 100% FiO2 satting 93% Dry, minimal secretions per RN Objective Last 24 Hour Vital Signs Date Time Temp Pulse Resp B/P (MAP) Pulse Ox O2 Delivery O2 Flow Rate FiO2 05/23/20 07:00 86 17 113/58 (76) 96 05/23/20 06:30 86 18 113/58 (76) 91 05/23/20 06:30 18 125/65 Mechanical Ventilator 100 05/23/20 06:00 101.2 87 18 112/55 (74) 86 05/23/20 05:44 86 18 113/58 93 05/23/20 05:30 18 136/69 Mechanical Ventilator 100 05/23/20 05:30 94 20 135/64 (87) 90 05/23/20 05:14 100 18 146/69 93 05/23/20 05:13 100 146/69 05/23/20 05:00 98 19 146/69 (94) 93 05/23/20 04:30 18 136/90 Mechanical Ventilator 100 05/23/20 04:30 96 18 145/65 (91) 94 05/23/20 04:00 Mechanical Ventilator 05/23/20 04:00 97 05/23/20 04:00 100 05/23/20 04:00 98.8 95 18 136/67 (90) 96 05/23/20 03:58 18 135/67 Mechanical Ventilator 100 05/23/20 03:30 16 135/65 Mechanical Ventilator 100 05/23/20 03:30 92 17 135/67 (89) 95 05/23/20 03:00 76 16 125/59 (81) 85 05/23/20 02:40 72 20 100 05/23/20 02:30 99.0 88 18 138/64 (88) 92 05/23/20 02:30 18 138/64 Mechanical Ventilator 100 05/23/20 02:00 87 20 123/63 (83) 93 05/23/20 01:30 89 21 128/64 (85) 93 05/23/20 01:30 16 128/64 Mechanical Ventilator 100 05/23/20 01:00 89 17 134/64 (87) 93 05/23/20 00:36 100.4 05/23/20 00:30 18 125/62 Mechanical Ventilator 80 05/23/20 00:30 87 16 125/62 (83) 92 05/23/20 00:00 90 05/23/20 00:00 100.3 95 20 123/68 (86) 93 05/23/20 00:00 Mechanical Ventilator 05/22/20 23:33 90 153/69 05/22/20 23:30 98 17 143/66 (91) 93 05/22/20 23:30 18 143/66 Mechanical Ventilator 80 05/22/20 23:07 90 22 100 05/22/20 23:00 92 29 169/74 (105) 82 05/22/20 22:30 97 28 153/69 (97) 93 05/22/20 22:30 18 153/69 Mechanical Ventilator 80 05/22/20 22:00 97 28 153/69 (97) 93 05/22/20 21:45 100 18 152/68 (96) 93 05/22/20 21:37 98 30 142/87 91 05/22/20 21:30 95 19 157/66 (96) 89 05/22/20 21:30 18 153/69 Mechanical Ventilator 90 05/22/20 21:07 96 20 142/67 89 05/22/20 21:00 94 18 142/67 (92) 92 05/22/20 20:30 18 138/66 Mechanical Ventilator 90 05/22/20 20:30 93 18 138/66 (90) 91 05/22/20 20:00 Mechanical Ventilator 05/22/20 20:00 100 05/22/20 20:00 101.0 92 17 127/62 (83) 91 05/22/20 19:53 92 05/22/20 19:30 18 133/63 Mechanical Ventilator 90 05/22/20 19:30 93 18 133/63 (86) 90 05/22/20 19:00 92 17 129/61 (83) 90 05/22/20 18:44 100.2 05/22/20 18:39 92 20 100 05/22/20 18:30 22 124/63 Mechanical Ventilator 100 05/22/20 18:30 91 18 124/63 (83) 88 05/22/20 18:07 25 150/67 Mechanical Ventilator 100 05/22/20 18:00 90 30 120/55 (76) 87 05/22/20 17:54 91 150/67 05/22/20 17:30 102 18 150/67 (94) 90 05/22/20 17:30 29 150/67 Mechanical Ventilator 100 05/22/20 17:00 98 18 143/63 (89) 90 05/22/20 16:30 100.6 97 17 135/62 (86) 90 05/22/20 16:30 22 135/62 Mechanical Ventilator 100 05/22/20 16:00 Mechanical Ventilator 05/22/20 16:00 96 05/22/20 16:00 100 05/22/20 16:00 96 18 139/62 (87) 88 05/22/20 15:40 97 22 100 05/22/20 15:30 22 127/61 Mechanical Ventilator 100 05/22/20 15:30 95 27 127/61 (83) 87 05/22/20 15:00 93 17 128/63 (84) 89 05/22/20 14:30 91 17 126/62 (83) 89 05/22/20 14:30 22 126/62 Mechanical Ventilator 100 05/22/20 14:00 90 17 124/58 (80) 89 05/22/20 13:30 91 16 127/57 (80) 89 05/22/20 13:30 22 127/57 Mechanical Ventilator 100 05/22/20 13:00 90 16 122/60 (80) 88 05/22/20 12:30 90 26 117/57 (77) 88 05/22/20 12:30 26 117/57 Mechanical Ventilator 100 05/22/20 12:21 99 135/63 05/22/20 12:00 100 05/22/20 12:00 100.3 98 30 135/63 (87) 92 05/22/20 12:00 98 05/22/20 12:00 Mechanical Ventilator 05/22/20 11:30 97 17 130/66 (87) 92 05/22/20 11:30 22 130/66 Mechanical Ventilator 100 05/22/20 11:22 96 20 100 05/22/20 11:00 96 17 126/64 (84) 92 05/22/20 10:30 97 17 122/60 (80) 91 05/22/20 10:30 26 126/64 Mechanical Ventilator 100 05/22/20 10:00 100 05/22/20 10:00 97 18 122/58 (79) 91 05/22/20 09:30 26 122/58 Mechanical Ventilator 100 12/14/20 09:10 100.3 05/22/20 09:00 100.3 98 29 118/59 (78) 86 05/22/20 08:30 97 20 122/57 (78) 87 05/22/20 08:30 25 122/57 Mechanical Ventilator 100 05/22/20 08:00 Mechanical Ventilator 05/22/20 08:00 100.5 96 19 115/59 (77) 86 05/22/20 08:00 100 05/22/20 08:00 96 Height (Feet): 5 Height (Inches): 5.00 Weight (Pounds): 149 Gen: NAD HEENT: NCAT, ETT Pulm: BL chest rise on vent Abd: Non-distended Ext: No c/c/e Skin: No visible rashes Neuro: Sedated Lines: L upper chest tube Microbiology Date/Time Source Procedure Growth Status 05/21/20 16:35 Blood Blood Culture - Preliminary NO GROWTH AFTER 24 HOURS Resulted 05/21/20 16:20 Blood Blood Culture - Preliminary NO GROWTH AFTER 24 HOURS Resulted 05/21/20 16:00 Urine,Clean Catch Urine Culture - Final NO GROWTH AFTER 48 HOURS Complete 05/21/20 15:00 Sputum Gram Stain - Final Resulted 05/21/20 15:00 Sputum Sputum Culture - Preliminary NORMAL UPPER RESPIRATORY JOANA AT 24 ... Resulted Laboratory Tests Test 05/22/20 08:58 05/22/20 09:00 05/23/20 04:30 POC Whole Blood Glucose 115 MG/DL (74-106) H Arterial Blood pH 7.322 (7.350-7.450) Arterial Blood Partial Pressure CO2 48.8 mmHg (35.0-45.0) H Arterial Blood Partial Pressure O2 50.7 mmHg (75.0-100.0) L Arterial Blood HCO3 24.7 mmol/L (22.0-26.0) Arterial Blood Oxygen Saturation 81.5 % (95-100) *L Arterial Blood Base Excess -1.7 (-2-2) Haim Test Positive White Blood Count 21.6 K/UL (4.8-10.8) H Red Blood Count 3.75 M/UL (4.70-6.10) L Hemoglobin 11.1 G/DL (14.2-18.0) L Hematocrit 31.2 % (42.0-52.0) L Mean Corpuscular Volume 83 FL (80-99) Mean Corpuscular Hemoglobin 29.6 PG (27.0-31.0) Mean Corpuscular Hemoglobin Concent 35.6 G/DL (32.0-36.0) Red Cell Distribution Width 14.1 % (11.6-14.8) Platelet Count 122 K/UL (150-450) L Mean Platelet Volume 7.7 FL (6.5-10.1) Neutrophils (%) (Auto) % (45.0-75.0) Lymphocytes (%) (Auto) % (20.0-45.0) Monocytes (%) (Auto) % (1.0-10.0) Eosinophils (%) (Auto) % (0.0-3.0) Basophils (%) (Auto) % (0.0-2.0) Neutrophils % (Manual) Pending Lymphocytes % (Manual) Pending Platelet Estimate Pending Platelet Morphology Pending Sodium Level 137 MMOL/L (136-145) Potassium Level 4.6 MMOL/L (3.5-5.1) Chloride Level 104 MMOL/L (98-107) Carbon Dioxide Level 28 MMOL/L (21-32) Anion Gap 5 mmol/L (5-15) Blood Urea Nitrogen 32 mg/dL (7-18) H Creatinine 0.8 MG/DL (0.55-1.30) Estimat Glomerular Filtration Rate > 60 mL/min (>60) Glucose Level 191 MG/DL (74-106) #H Calcium Level 7.5 MG/DL (8.5-10.1) L Phosphorus Level 3.3 MG/DL (2.5-4.9) Magnesium Level 2.7 MG/DL (1.8-2.4) H Total Bilirubin 0.3 MG/DL (0.2-1.0) Aspartate Amino Transf (AST/SGOT) 25 U/L (15-37) Alanine Aminotransferase (ALT/SGPT) 31 U/L (12-78) Alkaline Phosphatase 122 U/L (46-116) H Total Protein 5.9 G/DL (6.4-8.2) L Albumin 1.7 G/DL (3.4-5.0) L Globulin 4.2 g/dL Albumin/Globulin Ratio 0.4 (1.0-2.7) L Current Medications Medications (Trade) Dose Ordered Sig/Vasiliy Route PRN Reason Start Time Stop Time Status Last Admin Dose Admin Acetaminophen (Tylenol) 650 mg Q4H PRN ORAL Temp >100.5 05/11/20 18:15 06/10/20 18:14 05/22/20 23:33 Albuterol/ Ipratropium (Combivent Respimat) 1 puff Q4H PRN INH Shortness of Breath 05/11/20 21:30 06/10/20 21:29 Clonidine HCl (Catapres tab) 0.2 mg Q2H PRN ORAL For High Blood Pressure 05/19/20 21:15 08/17/20 21:14 05/21/20 06:19 Dextrose (Dextrose 50%) 25 ml Q30M PRN IV Hypoglycemia 05/12/20 11:00 08/10/20 10:59 05/22/20 00:28 Dextrose (Dextrose 50%) 50 ml Q30M PRN IV Hypoglycemia 05/12/20 11:00 08/10/20 10:59 Diltiazem HCl (Cardizem Tab) 90 mg EVERY 6 HOURS ORAL 05/21/20 18:00 06/16/20 11:59 05/23/20 05:13 Fentanyl Citrate 250 ml @ 1 mls/hr Q24H IV 05/21/20 19:15 05/23/20 19:14 05/23/20 03:58 Heparin Sodium (Porcine) (Heparin 5000 units/ml) 5,000 units EVERY 12 HOURS SUBQ 05/21/20 21:00 07/05/20 20:59 05/22/20 21:07 Hydralazine HCl (Apresoline) 10 mg Q2H PRN IV For High Blood Pressure 05/20/20 17:45 08/18/20 17:44 05/20/20 18:37 Hydrocortisone (Solu-CORTEF) 50 mg Q6HR IV 05/22/20 00:00 08/20/20 00:00 05/23/20 05:13 Insulin Aspart (NovoLOG) Q6HR SUBQ 05/22/20 00:00 08/10/20 09:59 05/23/20 06:00 Insulin Detemir (Levemir) 30 units BID SUBQ 05/19/20 09:00 08/13/20 08:59 05/22/20 17:55 Lorazepam (Ativan 2mg/ml 1ml) 2 mg Q2H PRN IV For Anxiety 05/21/20 18:00 05/28/20 15:59 Lorazepam (Ativan 2mg/ml 1ml) 2 mg Q2H PRN IV Agitation 05/21/20 18:15 05/28/20 18:14 05/23/20 05:14 Morphine Sulfate (Morphine Sulfate) 4 mg Q4H PRN IVP For Pain 05/21/20 16:00 05/28/20 15:59 Ondansetron HCl (Zofran) 4 mg Q6H PRN IVP Nausea & Vomiting 05/11/20 18:15 06/10/20 18:14 Pantoprazole (Protonix) 40 mg DAILY IV 05/22/20 09:00 06/21/20 08:59 05/22/20 08:38 Piperacillin Sod/ Tazobactam Sod 4.5 gm/Sodium Chloride 110 ml @ 27.5 mls/hr Q8H IVPB 05/21/20 18:00 05/28/20 17:59 05/23/20 02:07 Polyethylene Glycol (Miralax) 17 gm DAILYPRN PRN ORAL Constipation 05/11/20 18:15 06/10/20 18:14 05/21/20 04:43 Promethazine HCl/ Codeine (Phenergan with Codeine) 5 ml Q4H PRN ORAL For Cough 05/13/20 17:15 06/12/20 17:14 05/13/20 22:50 Sitagliptin Phosphate (Januvia) 100 mg ACBREAKFAST ORAL 05/16/20 08:00 06/15/20 06:29 05/23/20 05:13 Sodium Chloride 1,000 ml @ 50 mls/hr Q20H IV 05/21/20 18:00 06/20/20 17:59 05/23/20 05:15 Meme Leggett M.D. May 23, 2020 07:57
[2020-05-23] MEDS: Heparin 5000 units/ml inj SUBQ SCH ×2 (09:00→20:10)
[2020-05-23] MEDS: Pantoprazole Inj IV SCH (09:00)
[2020-05-23] MEDS: Levemir Flexpen SUBQ SCH ×2 (09:42→18:24)
--- NOTE | 2020-05-23 10:47 | Pulmonolgy Critical Care Note ---
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 Critical Care - Objective Last 24 Hour Vital Signs Date Time Temp Pulse Resp B/P (MAP) Pulse Ox O2 Delivery O2 Flow Rate FiO2 05/23/20 10:00 79 12 126/65 (85) 97 05/23/20 09:30 12 115/62 Mechanical Ventilator 100 05/23/20 09:00 80 12 118/64 (82) 96 05/23/20 08:30 12 121/61 Mechanical Ventilator 100 05/23/20 08:00 100 05/23/20 08:00 Mechanical Ventilator 05/23/20 08:00 81 14 119/62 (81) 97 05/23/20 07:30 14 120/62 Mechanical Ventilator 100 05/23/20 07:28 80 21 100 05/23/20 07:00 86 17 113/58 (76) 96 05/23/20 06:30 86 18 113/58 (76) 91 05/23/20 06:30 18 125/65 Mechanical Ventilator 100 05/23/20 06:00 101.2 87 18 112/55 (74) 86 05/23/20 05:44 86 18 113/58 93 05/23/20 05:30 18 136/69 Mechanical Ventilator 100 05/23/20 05:30 94 20 135/64 (87) 90 05/23/20 05:14 100 18 146/69 93 05/23/20 05:13 100 146/69 05/23/20 05:00 98 19 146/69 (94) 93 05/23/20 04:30 18 136/90 Mechanical Ventilator 100 05/23/20 04:30 96 18 145/65 (91) 94 05/23/20 04:00 Mechanical Ventilator 05/23/20 04:00 97 05/23/20 04:00 100 05/23/20 04:00 98.8 95 18 136/67 (90) 96 05/23/20 03:58 18 135/67 Mechanical Ventilator 100 05/23/20 03:30 16 135/65 Mechanical Ventilator 100 05/23/20 03:30 92 17 135/67 (89) 95 05/23/20 03:00 76 16 125/59 (81) 85 05/23/20 02:40 72 20 100 05/23/20 02:30 99.0 88 18 138/64 (88) 92 05/23/20 02:30 18 138/64 Mechanical Ventilator 100 05/23/20 02:00 87 20 123/63 (83) 93 05/23/20 01:30 89 21 128/64 (85) 93 05/23/20 01:30 16 128/64 Mechanical Ventilator 100 05/23/20 01:00 89 17 134/64 (87) 93 05/23/20 00:36 100.4 05/23/20 00:30 18 125/62 Mechanical Ventilator 80 05/23/20 00:30 87 16 125/62 (83) 92 05/23/20 00:00 90 05/23/20 00:00 100.3 95 20 123/68 (86) 93 05/23/20 00:00 Mechanical Ventilator 05/22/20 23:33 90 153/69 05/22/20 23:30 98 17 143/66 (91) 93 05/22/20 23:30 18 143/66 Mechanical Ventilator 80 05/22/20 23:07 90 22 100 05/22/20 23:00 92 29 169/74 (105) 82 05/22/20 22:30 97 28 153/69 (97) 93 05/22/20 22:30 18 153/69 Mechanical Ventilator 80 05/22/20 22:00 97 28 153/69 (97) 93 05/22/20 21:45 100 18 152/68 (96) 93 05/22/20 21:37 98 30 142/87 91 05/22/20 21:30 95 19 157/66 (96) 89 05/22/20 21:30 18 153/69 Mechanical Ventilator 90 05/22/20 21:07 96 20 142/67 89 05/22/20 21:00 94 18 142/67 (92) 92 12/14/20 20:30 18 138/66 Mechanical Ventilator 90 05/22/20 20:30 93 18 138/66 (90) 91 05/22/20 20:00 Mechanical Ventilator 05/22/20 20:00 100 05/22/20 20:00 101.0 92 17 127/62 (83) 91 05/22/20 19:53 92 05/22/20 19:30 18 133/63 Mechanical Ventilator 90 05/22/20 19:30 93 18 133/63 (86) 90 05/22/20 19:00 92 17 129/61 (83) 90 05/22/20 18:44 100.2 05/22/20 18:39 92 20 100 05/22/20 18:30 22 124/63 Mechanical Ventilator 100 05/22/20 18:30 91 18 124/63 (83) 88 05/22/20 18:07 25 150/67 Mechanical Ventilator 100 05/22/20 18:00 90 30 120/55 (76) 87 05/22/20 17:54 91 150/67 05/22/20 17:30 102 18 150/67 (94) 90 05/22/20 17:30 29 150/67 Mechanical Ventilator 100 05/22/20 17:00 98 18 143/63 (89) 90 05/22/20 16:30 100.6 97 17 135/62 (86) 90 05/22/20 16:30 22 135/62 Mechanical Ventilator 100 05/22/20 16:00 Mechanical Ventilator 05/22/20 16:00 96 05/22/20 16:00 100 05/22/20 16:00 96 18 139/62 (87) 88 05/22/20 15:40 97 22 100 05/22/20 15:30 22 127/61 Mechanical Ventilator 100 05/22/20 15:30 95 27 127/61 (83) 87 05/22/20 15:00 93 17 128/63 (84) 89 05/22/20 14:30 91 17 126/62 (83) 89 05/22/20 14:30 22 126/62 Mechanical Ventilator 100 05/22/20 14:00 90 17 124/58 (80) 89 05/22/20 13:30 91 16 127/57 (80) 89 05/22/20 13:30 22 127/57 Mechanical Ventilator 100 05/22/20 13:00 90 16 122/60 (80) 88 05/22/20 12:30 90 26 117/57 (77) 88 05/22/20 12:30 26 117/57 Mechanical Ventilator 100 05/22/20 12:21 99 135/63 05/22/20 12:00 100 05/22/20 12:00 100.3 98 30 135/63 (87) 92 05/22/20 12:00 98 05/22/20 12:00 Mechanical Ventilator 05/22/20 11:30 97 17 130/66 (87) 92 05/22/20 11:30 22 130/66 Mechanical Ventilator 100 05/22/20 11:22 96 20 100 05/22/20 11:00 96 17 126/64 (84) 92 Status: sedated Condition: critical HEENT: atraumatic, normocephalic Lungs: rales, rhonchi Heart: HR/BP stable Abdomen: soft Extremities: no C/C/E Micro: Microbiology Date/Time Source Procedure Growth Status 05/21/20 16:35 Blood Blood Culture - Preliminary NO GROWTH AFTER 24 HOURS Resulted 05/21/20 16:20 Blood Blood Culture - Preliminary NO GROWTH AFTER 24 HOURS Resulted 05/21/20 16:00 Urine,Clean Catch Urine Culture - Final NO GROWTH AFTER 48 HOURS Complete 05/21/20 15:00 Sputum Gram Stain - Final Complete 05/21/20 15:00 Sputum Culture - Final Charis Albicans Usual Respiratory Marisela Complete Accucheck: 217 Critical Care - Subjective ROS Limited/Unobtainable: Yes Interval Events: on fentanyl drip FI02: 100 Vent Support Breath Rate: 16 Vent Support Mode: AC Vent Tidal Volume: 500 Sputum Amount: Scant PEEP: 5.0 PIP: 29 Tube Feeding Amount: 55 I&O: Intake and Output 05/22/20 05/23/20 19:00 07:00 Intake Total 1282.823 ml 1699.79 ml Output Total 601 ml 730 ml Balance 681.823 ml 969.79 ml Free Water 50 ml IV Total 962.823 ml 994.79 ml Tube Feeding 220 ml 655 ml Other 100 ml Output Urine Total 600 ml 730 ml Chest Tube Drainage Total 1 ml CXR: ET in good position ET-Tube: 7.5 ET Position: 23 Labs: Laboratory Tests Test 05/23/20 04:30 05/23/20 08:15 White Blood Count 21.6 K/UL (4.8-10.8) H Red Blood Count 3.75 M/UL (4.70-6.10) L Hemoglobin 11.1 G/DL (14.2-18.0) L Hematocrit 31.2 % (42.0-52.0) L Mean Corpuscular Volume 83 FL (80-99) Mean Corpuscular Hemoglobin 29.6 PG (27.0-31.0) Mean Corpuscular Hemoglobin Concent 35.6 G/DL (32.0-36.0) Red Cell Distribution Width 14.1 % (11.6-14.8) Platelet Count 122 K/UL (150-450) L Mean Platelet Volume 7.7 FL (6.5-10.1) Neutrophils (%) (Auto) % (45.0-75.0) Lymphocytes (%) (Auto) % (20.0-45.0) Monocytes (%) (Auto) % (1.0-10.0) Eosinophils (%) (Auto) % (0.0-3.0) Basophils (%) (Auto) % (0.0-2.0) Differential Total Cells Counted 100 Neutrophils % (Manual) 96 % (45-75) H Lymphocytes % (Manual) 2 % (20-45) L Monocytes % (Manual) 2 % (1-10) Eosinophils % (Manual) 0 % (0-3) Basophils % (Manual) 0 % (0-2) Band Neutrophils 0 % (0-8) Platelet Estimate Decreased L Platelet Morphology Normal Red Blood Cell Morphology Normal Anisocytosis 1+ Sodium Level 137 MMOL/L (136-145) Potassium Level 4.6 MMOL/L (3.5-5.1) Chloride Level 104 MMOL/L (98-107) Carbon Dioxide Level 28 MMOL/L (21-32) Anion Gap 5 mmol/L (5-15) Blood Urea Nitrogen 32 mg/dL (7-18) H Creatinine 0.8 MG/DL (0.55-1.30) Estimat Glomerular Filtration Rate > 60 mL/min (>60) Glucose Level 191 MG/DL (74-106) #H Calcium Level 7.5 MG/DL (8.5-10.1) L Phosphorus Level 3.3 MG/DL (2.5-4.9) Magnesium Level 2.7 MG/DL (1.8-2.4) H Total Bilirubin 0.3 MG/DL (0.2-1.0) Aspartate Amino Transf (AST/SGOT) 25 U/L (15-37) Alanine Aminotransferase (ALT/SGPT) 31 U/L (12-78) Alkaline Phosphatase 122 U/L (46-116) H Total Protein 5.9 G/DL (6.4-8.2) L Albumin 1.7 G/DL (3.4-5.0) L Globulin 4.2 g/dL Albumin/Globulin Ratio 0.4 (1.0-2.7) L Arterial Blood pH 7.302 (7.350-7.450) Arterial Blood Partial Pressure CO2 58.0 mmHg (35.0-45.0) *H Arterial Blood Partial Pressure O2 54.6 mmHg (75.0-100.0) L Arterial Blood HCO3 28.0 mmol/L (22.0-26.0) H Arterial Blood Oxygen Saturation 85.1 % (95-100) *L Arterial Blood Base Excess 0.7 (-2-2) Haim Test Positive Yohannes Gibosn MD May 23, 2020 10:47
--- NOTE | 2020-05-23 13:36 | Diagnostic Imaging Report ---
Indication: Cough Technique: One view of the chest Comparison: 05/22/2020 Findings: Left chest thoracic vent catheter is again noted. Previously demonstrated tiny left apical pneumothorax is barely if at all visible. Previously demonstrated tiny right apical pneumothorax is likewise only equivocally present. There is further decrease in the amount of subcutaneous emphysema, and hardly any pneumomediastinum is now visible. Bilateral infiltrates are unchanged. There is suggestion of slightly decreased pleural fluid on the right. Impression: Minimal if any residual pneumothoraces visible bilaterally. Decreased right pleural fluid Decreased subcutaneous emphysema and pneumomediastinum Unchanged extensive bilateral infiltrates
--- NOTE | 2020-05-23 14:04 | Surgery Progress Note ---
Surgery Progress Note Subjective Procedure Performed Left tube thoracostomy Thora vent insertion Additional Comments cxr improved labs improved comfortable appearing on support ptx resolved Objective Last 24 Hour Vital Signs Date Time Temp Pulse Resp B/P (MAP) Pulse Ox O2 Delivery O2 Flow Rate FiO2 05/23/20 13:55 19 139/69 Mechanical Ventilator 15.0 100 05/23/20 13:00 85 23 130/65 (86) 95 05/23/20 12:30 24 133/61 Mechanical Ventilator 100 05/23/20 12:00 100 05/23/20 12:00 Mechanical Ventilator 05/23/20 12:00 97.8 83 16 125/60 (81) 93 05/23/20 11:30 13 135/61 Mechanical Ventilator 100 05/23/20 11:20 88 131/67 05/23/20 11:07 86 20 100 05/23/20 11:00 85 19 131/67 (88) 96 05/23/20 10:30 12 120/65 Mechanical Ventilator 100 05/23/20 10:00 79 20 126/65 (85) 97 05/23/20 09:30 12 115/62 Mechanical Ventilator 100 05/23/20 09:00 80 12 118/64 (82) 96 05/23/20 08:30 12 121/61 Mechanical Ventilator 100 05/23/20 08:00 100 05/23/20 08:00 Mechanical Ventilator 05/23/20 08:00 98.7 81 14 119/62 (81) 97 05/23/20 07:45 80 05/23/20 07:30 14 120/62 Mechanical Ventilator 100 05/23/20 07:28 80 21 100 05/23/20 07:00 86 17 113/58 (76) 96 05/23/20 06:30 86 18 113/58 (76) 91 05/23/20 06:30 18 125/65 Mechanical Ventilator 100 05/23/20 06:00 101.2 87 18 112/55 (74) 86 05/23/20 05:44 86 18 113/58 93 05/23/20 05:30 18 136/69 Mechanical Ventilator 100 05/23/20 05:30 94 20 135/64 (87) 90 05/23/20 05:14 100 18 146/69 93 05/23/20 05:13 100 146/69 05/23/20 05:00 98 19 146/69 (94) 93 05/23/20 04:30 18 136/90 Mechanical Ventilator 100 05/23/20 04:30 96 18 145/65 (91) 94 05/23/20 04:00 Mechanical Ventilator 05/23/20 04:00 97 05/23/20 04:00 100 05/23/20 04:00 98.8 95 18 136/67 (90) 96 05/23/20 03:58 18 135/67 Mechanical Ventilator 100 05/23/20 03:30 16 135/65 Mechanical Ventilator 100 05/23/20 03:30 92 17 135/67 (89) 95 05/23/20 03:00 76 16 125/59 (81) 85 05/23/20 02:40 72 20 100 05/23/20 02:30 99.0 88 18 138/64 (88) 92 05/23/20 02:30 18 138/64 Mechanical Ventilator 100 05/23/20 02:00 87 20 123/63 (83) 93 05/23/20 01:30 89 21 128/64 (85) 93 05/23/20 01:30 16 128/64 Mechanical Ventilator 100 05/23/20 01:00 89 17 134/64 (87) 93 05/23/20 00:36 100.4 05/23/20 00:30 18 125/62 Mechanical Ventilator 80 05/23/20 00:30 87 16 125/62 (83) 92 05/23/20 00:00 90 05/23/20 00:00 100.3 95 20 123/68 (86) 93 05/23/20 00:00 Mechanical Ventilator 05/22/20 23:33 90 153/69 05/22/20 23:30 98 17 143/66 (91) 93 05/22/20 23:30 18 143/66 Mechanical Ventilator 80 05/22/20 23:07 90 22 100 05/22/20 23:00 92 29 169/74 (105) 82 05/22/20 22:30 97 28 153/69 (97) 93 05/22/20 22:30 18 153/69 Mechanical Ventilator 80 05/22/20 22:00 97 28 153/69 (97) 93 05/22/20 21:45 100 18 152/68 (96) 93 05/22/20 21:37 98 30 142/87 91 05/22/20 21:30 95 19 157/66 (96) 89 05/22/20 21:30 18 153/69 Mechanical Ventilator 90 05/22/20 21:07 96 20 142/67 89 05/22/20 21:00 94 18 142/67 (92) 92 05/22/20 20:30 18 138/66 Mechanical Ventilator 90 05/22/20 20:30 93 18 138/66 (90) 91 05/22/20 20:00 Mechanical Ventilator 05/22/20 20:00 100 05/22/20 20:00 101.0 92 17 127/62 (83) 91 05/22/20 19:53 92 05/22/20 19:30 18 133/63 Mechanical Ventilator 90 05/22/20 19:30 93 18 133/63 (86) 90 05/22/20 19:00 92 17 129/61 (83) 90 05/22/20 18:44 100.2 05/22/20 18:39 92 20 100 05/22/20 18:30 22 124/63 Mechanical Ventilator 100 05/22/20 18:30 91 18 124/63 (83) 88 05/22/20 18:07 25 150/67 Mechanical Ventilator 100 05/22/20 18:00 90 30 120/55 (76) 87 05/22/20 17:54 91 150/67 05/22/20 17:30 102 18 150/67 (94) 90 05/22/20 17:30 29 150/67 Mechanical Ventilator 100 05/22/20 17:00 98 18 143/63 (89) 90 05/22/20 16:30 100.6 97 17 135/62 (86) 90 05/22/20 16:30 22 135/62 Mechanical Ventilator 100 05/22/20 16:00 Mechanical Ventilator 05/22/20 16:00 96 05/22/20 16:00 100 05/22/20 16:00 96 18 139/62 (87) 88 05/22/20 15:40 97 22 100 05/22/20 15:30 22 127/61 Mechanical Ventilator 100 05/22/20 15:30 95 27 127/61 (83) 87 05/22/20 15:00 93 17 128/63 (84) 89 05/22/20 14:30 91 17 126/62 (83) 89 05/22/20 14:30 22 126/62 Mechanical Ventilator 100 I&O Intake and Output 05/22/20 05/23/20 19:00 07:00 Intake Total 1282.823 ml 1699.79 ml Output Total 601 ml 730 ml Balance 681.823 ml 969.79 ml Free Water 50 ml IV Total 962.823 ml 994.79 ml Tube Feeding 220 ml 655 ml Other 100 ml Output Urine Total 600 ml 730 ml Chest Tube Drainage Total 1 ml Cardiovascular: RSR Respiratory: decreased breath sounds Abdomen: non-tender, present bowel sounds, non-distended Extremities: no tenderness, no cyanosis Laboratory Tests Test 05/23/20 04:30 05/23/20 08:15 White Blood Count 21.6 K/UL (4.8-10.8) H Red Blood Count 3.75 M/UL (4.70-6.10) L Hemoglobin 11.1 G/DL (14.2-18.0) L Hematocrit 31.2 % (42.0-52.0) L Mean Corpuscular Volume 83 FL (80-99) Mean Corpuscular Hemoglobin 29.6 PG (27.0-31.0) Mean Corpuscular Hemoglobin Concent 35.6 G/DL (32.0-36.0) Red Cell Distribution Width 14.1 % (11.6-14.8) Platelet Count 122 K/UL (150-450) L Mean Platelet Volume 7.7 FL (6.5-10.1) Neutrophils (%) (Auto) % (45.0-75.0) Lymphocytes (%) (Auto) % (20.0-45.0) Monocytes (%) (Auto) % (1.0-10.0) Eosinophils (%) (Auto) % (0.0-3.0) Basophils (%) (Auto) % (0.0-2.0) Differential Total Cells Counted 100 Neutrophils % (Manual) 96 % (45-75) H Lymphocytes % (Manual) 2 % (20-45) L Monocytes % (Manual) 2 % (1-10) Eosinophils % (Manual) 0 % (0-3) Basophils % (Manual) 0 % (0-2) Band Neutrophils 0 % (0-8) Platelet Estimate Decreased L Platelet Morphology Normal Red Blood Cell Morphology Normal Anisocytosis 1+ Sodium Level 137 MMOL/L (136-145) Potassium Level 4.6 MMOL/L (3.5-5.1) Chloride Level 104 MMOL/L (98-107) Carbon Dioxide Level 28 MMOL/L (21-32) Anion Gap 5 mmol/L (5-15) Blood Urea Nitrogen 32 mg/dL (7-18) H Creatinine 0.8 MG/DL (0.55-1.30) Estimat Glomerular Filtration Rate > 60 mL/min (>60) Glucose Level 191 MG/DL (74-106) #H Calcium Level 7.5 MG/DL (8.5-10.1) L Phosphorus Level 3.3 MG/DL (2.5-4.9) Magnesium Level 2.7 MG/DL (1.8-2.4) H Total Bilirubin 0.3 MG/DL (0.2-1.0) Aspartate Amino Transf (AST/SGOT) 25 U/L (15-37) Alanine Aminotransferase (ALT/SGPT) 31 U/L (12-78) Alkaline Phosphatase 122 U/L (46-116) H Total Protein 5.9 G/DL (6.4-8.2) L Albumin 1.7 G/DL (3.4-5.0) L Globulin 4.2 g/dL Albumin/Globulin Ratio 0.4 (1.0-2.7) L Arterial Blood pH 7.302 (7.350-7.450) Arterial Blood Partial Pressure CO2 58.0 mmHg (35.0-45.0) *H Arterial Blood Partial Pressure O2 54.6 mmHg (75.0-100.0) L Arterial Blood HCO3 28.0 mmol/L (22.0-26.0) H Arterial Blood Oxygen Saturation 85.1 % (95-100) *L Arterial Blood Base Excess 0.7 (-2-2) Haim Test Positive Plan Problems: (1) Acute respiratory failure (2) Rapid atrial fibrillation (3) Pneumothorax Assessment & Plan: right stable apical ptx left large s/p tube. tube removed during agitation. replaced ptx stable intubated on support weaning vent cont chest tube to pleuravac suction am cxr will follow with recs than you cxr improving ptx resolved still on support weaning as tolerated (4) Diabetes (5) Lactic acid acidosis (6) Abnormal EKG (7) Coronavirus infection Erik Avendaño May 23, 2020 14:04
--- NOTE | 2020-05-23 18:09 | Internal Med Progress Note ---
Subjective Date of Service: May 23, 2020 Physician Name ChirinosFrederick Attending Physician Daniel Jung MD Current Medications Medications (Trade) Dose Ordered Sig/Vasiliy Route PRN Reason Start Time Stop Time Status Last Admin Dose Admin Acetaminophen (Tylenol) 650 mg Q4H PRN ORAL Temp >100.5 05/11/20 18:15 06/10/20 18:14 05/22/20 23:33 Albuterol/ Ipratropium (Combivent Respimat) 1 puff Q4H PRN INH Shortness of Breath 05/11/20 21:30 06/10/20 21:29 Clonidine HCl (Catapres tab) 0.2 mg Q2H PRN ORAL For High Blood Pressure 05/19/20 21:15 08/17/20 21:14 05/21/20 06:19 Dextrose (Dextrose 50%) 25 ml Q30M PRN IV Hypoglycemia 05/12/20 11:00 08/10/20 10:59 05/22/20 00:28 Dextrose (Dextrose 50%) 50 ml Q30M PRN IV Hypoglycemia 05/12/20 11:00 08/10/20 10:59 Diltiazem HCl (Cardizem Tab) 90 mg EVERY 6 HOURS ORAL 05/21/20 18:00 06/16/20 11:59 05/23/20 18:01 Fentanyl Citrate 250 ml @ 1 mls/hr Q24H IV 05/21/20 19:15 05/23/20 19:14 05/23/20 13:55 Heparin Sodium (Porcine) (Heparin 5000 units/ml) 5,000 units EVERY 12 HOURS SUBQ 05/21/20 21:00 07/05/20 20:59 05/22/20 21:07 Hydralazine HCl (Apresoline) 10 mg Q2H PRN IV For High Blood Pressure 05/20/20 17:45 08/18/20 17:44 05/20/20 18:37 Hydrocortisone (Solu-CORTEF) 50 mg Q6HR IV 05/22/20 00:00 08/20/20 00:00 05/23/20 18:02 Insulin Aspart (NovoLOG) Q6HR SUBQ 05/22/20 00:00 08/10/20 09:59 05/23/20 11:39 Insulin Detemir (Levemir) 30 units BID SUBQ 05/19/20 09:00 08/13/20 08:59 05/23/20 09:42 Lorazepam (Ativan 2mg/ml 1ml) 2 mg Q2H PRN IV For Anxiety 05/21/20 18:00 05/28/20 15:59 Lorazepam (Ativan 2mg/ml 1ml) 2 mg Q2H PRN IV Agitation 05/21/20 18:15 05/28/20 18:14 05/23/20 05:14 Morphine Sulfate (Morphine Sulfate) 4 mg Q4H PRN IVP For Pain 05/21/20 16:00 05/28/20 15:59 Ondansetron HCl (Zofran) 4 mg Q6H PRN IVP Nausea & Vomiting 05/11/20 18:15 06/10/20 18:14 Pantoprazole (Protonix) 40 mg DAILY IV 05/22/20 09:00 06/21/20 08:59 05/23/20 09:00 Piperacillin Sod/ Tazobactam Sod 4.5 gm/Sodium Chloride 110 ml @ 27.5 mls/hr Q8H IVPB 05/21/20 18:00 05/28/20 17:59 05/23/20 18:01 Polyethylene Glycol (Miralax) 17 gm DAILYPRN PRN ORAL Constipation 05/11/20 18:15 06/10/20 18:14 05/21/20 04:43 Promethazine HCl/ Codeine (Phenergan with Codeine) 5 ml Q4H PRN ORAL For Cough 05/13/20 17:15 06/12/20 17:14 05/13/20 22:50 Sitagliptin Phosphate (Januvia) 100 mg ACBREAKFAST ORAL 05/16/20 08:00 06/15/20 06:29 05/23/20 05:13 Sodium Chloride 1,000 ml @ 50 mls/hr Q20H IV 05/21/20 18:00 06/20/20 17:59 05/23/20 05:15 Allergies: Coded Allergies: No Known Allergies (Unverified , 05/11/20) Subjective 59 YO M admitted with respiratory failure. Now COVID 19 pneumonia. Cover for Int Med-DR Jung. ICU. S/P Intubation 05/21/20 Objective Last Vital Signs Date Time Temp Pulse Resp B/P (MAP) Pulse Ox O2 Delivery O2 Flow Rate FiO2 05/23/20 18:01 96 160/63 05/23/20 17:00 97.9 17 93 05/23/20 16:30 Mechanical Ventilator 100 05/23/20 13:55 15.0 Laboratory Tests Test 05/23/20 04:30 05/23/20 08:15 White Blood Count 21.6 K/UL (4.8-10.8) H Red Blood Count 3.75 M/UL (4.70-6.10) L Hemoglobin 11.1 G/DL (14.2-18.0) L Hematocrit 31.2 % (42.0-52.0) L Mean Corpuscular Volume 83 FL (80-99) Mean Corpuscular Hemoglobin 29.6 PG (27.0-31.0) Mean Corpuscular Hemoglobin Concent 35.6 G/DL (32.0-36.0) Red Cell Distribution Width 14.1 % (11.6-14.8) Platelet Count 122 K/UL (150-450) L Mean Platelet Volume 7.7 FL (6.5-10.1) Neutrophils (%) (Auto) % (45.0-75.0) Lymphocytes (%) (Auto) % (20.0-45.0) Monocytes (%) (Auto) % (1.0-10.0) Eosinophils (%) (Auto) % (0.0-3.0) Basophils (%) (Auto) % (0.0-2.0) Differential Total Cells Counted 100 Neutrophils % (Manual) 96 % (45-75) H Lymphocytes % (Manual) 2 % (20-45) L Monocytes % (Manual) 2 % (1-10) Eosinophils % (Manual) 0 % (0-3) Basophils % (Manual) 0 % (0-2) Band Neutrophils 0 % (0-8) Platelet Estimate Decreased L Platelet Morphology Normal Red Blood Cell Morphology Normal Anisocytosis 1+ Sodium Level 137 MMOL/L (136-145) Potassium Level 4.6 MMOL/L (3.5-5.1) Chloride Level 104 MMOL/L (98-107) Carbon Dioxide Level 28 MMOL/L (21-32) Anion Gap 5 mmol/L (5-15) Blood Urea Nitrogen 32 mg/dL (7-18) H Creatinine 0.8 MG/DL (0.55-1.30) Estimat Glomerular Filtration Rate > 60 mL/min (>60) Glucose Level 191 MG/DL (74-106) #H Calcium Level 7.5 MG/DL (8.5-10.1) L Phosphorus Level 3.3 MG/DL (2.5-4.9) Magnesium Level 2.7 MG/DL (1.8-2.4) H Total Bilirubin 0.3 MG/DL (0.2-1.0) Aspartate Amino Transf (AST/SGOT) 25 U/L (15-37) Alanine Aminotransferase (ALT/SGPT) 31 U/L (12-78) Alkaline Phosphatase 122 U/L (46-116) H Total Protein 5.9 G/DL (6.4-8.2) L Albumin 1.7 G/DL (3.4-5.0) L Globulin 4.2 g/dL Albumin/Globulin Ratio 0.4 (1.0-2.7) L Arterial Blood pH 7.302 (7.350-7.450) Arterial Blood Partial Pressure CO2 58.0 mmHg (35.0-45.0) *H Arterial Blood Partial Pressure O2 54.6 mmHg (75.0-100.0) L Arterial Blood HCO3 28.0 mmol/L (22.0-26.0) H Arterial Blood Oxygen Saturation 85.1 % (95-100) *L Arterial Blood Base Excess 0.7 (-2-2) Haim Test Positive Microbiology Date/Time Source Procedure Growth Status 05/21/20 16:35 Blood Blood Culture - Preliminary NO GROWTH AFTER 24 HOURS Resulted 05/21/20 16:20 Blood Blood Culture - Preliminary NO GROWTH AFTER 24 HOURS Resulted 05/21/20 16:00 Urine,Clean Catch Urine Culture - Final NO GROWTH AFTER 48 HOURS Complete 05/21/20 15:00 Sputum Gram Stain - Final Complete 05/21/20 15:00 Sputum Culture - Final Charis Albicans Usual Respiratory Marisela Complete Intake and Output 05/22/20 05/23/20 19:00 07:00 Intake Total 1282.823 ml 1699.79 ml Output Total 601 ml 730 ml Balance 681.823 ml 969.79 ml Free Water 50 ml IV Total 962.823 ml 994.79 ml Tube Feeding 220 ml 655 ml Other 100 ml Output Urine Total 600 ml 730 ml Chest Tube Drainage Total 1 ml Objective PHYSICAL EXAMINATION: GENERAL: The patient is a well-developed, well-nourished male, in no apparent distress. HEENT: Eyes, pupils equal and responsive to light and accommodation. Extraocular movements are intact. NECK: Supple without lymphadenopathy. CHEST: Mech vent; Lungs with decreased breath sounds at bilateral bases w ithout wheezes or rales. CARDIOVASCULAR: Regular rhythm and rate. S1, S2 normal without murmurs, rubs, or gallops. ABDOMEN: Soft, nontender, and nondistended. Positive bowel sounds. No evidence of hepatosplenomegaly. Currently, no rebound or guarding noted. EXTREMITIES: Negative for clubbing, cyanosis, or edema. RECTAL: Not performed. GENITAL: Not performed. NEUROLOGIC: Cranial nerves II through XII are grossly intact without focal deficits. Motor strength is 5/5 bilaterally intact. Deep tendon reflexes are 2+ bilat Assessment/Plan Assessment/Plan ASSESSMENT: This is a 59-year-old male with: 1. COVID-19 positive. 2. COVID-19 pneumonia. 3. Respiratory failure. 4. Diabetes type 2. 5. Hypertension. TREATMENT: 1. COVID-19 positive/pneumonia. Infectious Disease= Dr. Craft. Follow recommendations of Infectious Disease. Continue remdesivir per Infectious Disease. S/P ceftriaxone, azithromycin and decadron 2. Respiratory failure. Pulmonary/critical care= Dr. Yohannes Gibson. The patient is currently intubated and sedated. Follow recommendations of Pulmonary. 3. Diabetes type 2. NovoLog sliding scale has been instituted. 4. Hypertension. Continue lisinopril as above. Frederick Chirinos MD May 23, 2020 18:09
--- NOTE | 2020-05-23 19:45 | Cardiac Electrophysiology PN ---
Assessment/Plan Status Narrative 1. New moderate right apical pneumothorax. 2. New pneumomediastinum. 3. New supraclavicular bilateral subcutaneous emphysema. 4. Development of bilateral airspace disease suspicious for atypical/viral pneumonia. Assessment/Plan 1. Atrial fibrillation with rapid ventricular response, heart rate of 160s. This is in the setting of COVID. He already converted back to sinus rhythm after he got 10 mg of IV Cardizem. On Cardizem to 90 mg p.o. every 6 hours and off heparin drip Echo Nl EF 2. COVID pneumonia. Re-Intubated on the Vent 100% Fio2 3. Left Apical PTX and Pneumomediastinum. Evaluation and S/P chest tube reinsertion 4. Diabetes on insulin and Januvia, per Dr. Brown. 5. Lactic acidosis. KIM RN Subjective Subjective In ICU on 100% Fio2, PEEP 5. S/P Left side chest tube placement by Dr GIBSON for pneumothorax that came out and was reinserted Converted to SR. Off heparin drip Objective Last 24 Hour Vital Signs Date Time Temp Pulse Resp B/P (MAP) Pulse Ox O2 Delivery O2 Flow Rate FiO2 05/23/20 19:00 82 15 137/66 (89) 88 05/23/20 18:46 82 20 100 05/23/20 18:30 15 145/75 Mechanical Ventilator 100 05/23/20 18:01 96 160/63 05/23/20 18:00 97 16 160/83 (108) 92 05/23/20 17:30 17 166/78 Mechanical Ventilator 100 05/23/20 17:00 97.9 92 17 160/61 (94) 93 05/23/20 16:30 18 160/61 Mechanical Ventilator 100 05/23/20 16:00 86 14 137/68 (91) 91 05/23/20 16:00 85 17 156/69 (98) 92 05/23/20 16:00 100 05/23/20 16:00 Mechanical Ventilator 05/23/20 15:30 16 144/68 Mechanical Ventilator 100 05/23/20 15:26 88 05/23/20 15:00 86 14 137/68 (91) 91 05/23/20 14:30 22 149/64 Mechanical Ventilator 100 05/23/20 14:12 83 24 100 05/23/20 14:00 81 15 124/67 (86) 95 05/23/20 13:55 19 139/69 Mechanical Ventilator 15.0 100 05/23/20 13:30 14 139/69 Mechanical Ventilator 100 05/23/20 13:00 85 23 130/65 (86) 95 05/23/20 12:30 24 133/61 Mechanical Ventilator 100 05/23/20 12:00 100 05/23/20 12:00 Mechanical Ventilator 05/23/20 12:00 97.8 83 16 125/60 (81) 93 05/23/20 11:39 90 05/23/20 11:30 13 135/61 Mechanical Ventilator 100 05/23/20 11:20 88 131/67 05/23/20 11:07 86 20 100 05/23/20 11:00 85 19 131/67 (88) 96 05/23/20 10:30 12 120/65 Mechanical Ventilator 100 05/23/20 10:00 79 20 126/65 (85) 97 05/23/20 09:30 12 115/62 Mechanical Ventilator 100 05/23/20 09:00 80 12 118/64 (82) 96 05/23/20 08:30 12 121/61 Mechanical Ventilator 100 05/23/20 08:00 100 05/23/20 08:00 Mechanical Ventilator 05/23/20 08:00 98.7 81 14 119/62 (81) 97 05/23/20 07:45 80 05/23/20 07:30 14 120/62 Mechanical Ventilator 100 05/23/20 07:28 80 21 100 05/23/20 07:00 86 17 113/58 (76) 96 05/23/20 06:30 86 18 113/58 (76) 91 05/23/20 06:30 18 125/65 Mechanical Ventilator 100 05/23/20 06:00 101.2 87 18 112/55 (74) 86 05/23/20 05:44 86 18 113/58 93 05/23/20 05:30 18 136/69 Mechanical Ventilator 100 05/23/20 05:30 94 20 135/64 (87) 90 05/23/20 05:14 100 18 146/69 93 05/23/20 05:13 100 146/69 05/23/20 05:00 98 19 146/69 (94) 93 05/23/20 04:30 18 136/90 Mechanical Ventilator 100 05/23/20 04:30 96 18 145/65 (91) 94 05/23/20 04:00 Mechanical Ventilator 05/23/20 04:00 97 05/23/20 04:00 100 05/23/20 04:00 98.8 95 18 136/67 (90) 96 05/23/20 03:58 18 135/67 Mechanical Ventilator 100 05/23/20 03:30 16 135/65 Mechanical Ventilator 100 05/23/20 03:30 92 17 135/67 (89) 95 05/23/20 03:00 76 16 125/59 (81) 85 05/23/20 02:40 72 20 100 05/23/20 02:30 99.0 88 18 138/64 (88) 92 05/23/20 02:30 18 138/64 Mechanical Ventilator 100 05/23/20 02:00 87 20 123/63 (83) 93 05/23/20 01:30 89 21 128/64 (85) 93 05/23/20 01:30 16 128/64 Mechanical Ventilator 100 05/23/20 01:00 89 17 134/64 (87) 93 05/23/20 00:36 100.4 05/23/20 00:30 18 125/62 Mechanical Ventilator 80 05/23/20 00:30 87 16 125/62 (83) 92 05/23/20 00:00 90 05/23/20 00:00 100.3 95 20 123/68 (86) 93 05/23/20 00:00 Mechanical Ventilator 05/22/20 23:33 90 153/69 05/22/20 23:30 98 17 143/66 (91) 93 05/22/20 23:30 18 143/66 Mechanical Ventilator 80 05/22/20 23:07 90 22 100 05/22/20 23:00 92 29 169/74 (105) 82 05/22/20 22:30 97 28 153/69 (97) 93 05/22/20 22:30 18 153/69 Mechanical Ventilator 80 05/22/20 22:00 97 28 153/69 (97) 93 05/22/20 21:45 100 18 152/68 (96) 93 05/22/20 21:37 98 30 142/87 91 05/22/20 21:30 95 19 157/66 (96) 89 05/22/20 21:30 18 153/69 Mechanical Ventilator 90 05/22/20 21:07 96 20 142/67 89 05/22/20 21:00 94 18 142/67 (92) 92 05/22/20 20:30 18 138/66 Mechanical Ventilator 90 05/22/20 20:30 93 18 138/66 (90) 91 05/22/20 20:00 Mechanical Ventilator 05/22/20 20:00 100 05/22/20 20:00 101.0 92 17 127/62 (83) 91 05/22/20 19:53 92 Intake and Output 05/22/20 05/23/20 19:00 07:00 Intake Total 1282.823 ml 1699.79 ml Output Total 601 ml 730 ml Balance 681.823 ml 969.79 ml Free Water 50 ml IV Total 962.823 ml 994.79 ml Tube Feeding 220 ml 655 ml Other 100 ml Output Urine Total 600 ml 730 ml Chest Tube Drainage Total 1 ml Laboratory Tests Test 05/23/20 04:30 05/23/20 08:15 White Blood Count 21.6 K/UL (4.8-10.8) H Red Blood Count 3.75 M/UL (4.70-6.10) L Hemoglobin 11.1 G/DL (14.2-18.0) L Hematocrit 31.2 % (42.0-52.0) L Mean Corpuscular Volume 83 FL (80-99) Mean Corpuscular Hemoglobin 29.6 PG (27.0-31.0) Mean Corpuscular Hemoglobin Concent 35.6 G/DL (32.0-36.0) Red Cell Distribution Width 14.1 % (11.6-14.8) Platelet Count 122 K/UL (150-450) L Mean Platelet Volume 7.7 FL (6.5-10.1) Neutrophils (%) (Auto) % (45.0-75.0) Lymphocytes (%) (Auto) % (20.0-45.0) Monocytes (%) (Auto) % (1.0-10.0) Eosinophils (%) (Auto) % (0.0-3.0) Basophils (%) (Auto) % (0.0-2.0) Differential Total Cells Counted 100 Neutrophils % (Manual) 96 % (45-75) H Lymphocytes % (Manual) 2 % (20-45) L Monocytes % (Manual) 2 % (1-10) Eosinophils % (Manual) 0 % (0-3) Basophils % (Manual) 0 % (0-2) Band Neutrophils 0 % (0-8) Platelet Estimate Decreased L Platelet Morphology Normal Red Blood Cell Morphology Normal Anisocytosis 1+ Sodium Level 137 MMOL/L (136-145) Potassium Level 4.6 MMOL/L (3.5-5.1) Chloride Level 104 MMOL/L (98-107) Carbon Dioxide Level 28 MMOL/L (21-32) Anion Gap 5 mmol/L (5-15) Blood Urea Nitrogen 32 mg/dL (7-18) H Creatinine 0.8 MG/DL (0.55-1.30) Estimat Glomerular Filtration Rate > 60 mL/min (>60) Glucose Level 191 MG/DL (74-106) #H Calcium Level 7.5 MG/DL (8.5-10.1) L Phosphorus Level 3.3 MG/DL (2.5-4.9) Magnesium Level 2.7 MG/DL (1.8-2.4) H Total Bilirubin 0.3 MG/DL (0.2-1.0) Aspartate Amino Transf (AST/SGOT) 25 U/L (15-37) Alanine Aminotransferase (ALT/SGPT) 31 U/L (12-78) Alkaline Phosphatase 122 U/L (46-116) H Total Protein 5.9 G/DL (6.4-8.2) L Albumin 1.7 G/DL (3.4-5.0) L Globulin 4.2 g/dL Albumin/Globulin Ratio 0.4 (1.0-2.7) L Arterial Blood pH 7.302 (7.350-7.450) Arterial Blood Partial Pressure CO2 58.0 mmHg (35.0-45.0) *H Arterial Blood Partial Pressure O2 54.6 mmHg (75.0-100.0) L Arterial Blood HCO3 28.0 mmol/L (22.0-26.0) H Arterial Blood Oxygen Saturation 85.1 % (95-100) *L Arterial Blood Base Excess 0.7 (-2-2) Haim Test Positive Microbiology Date/Time Source Procedure Growth Status 05/21/20 16:35 Blood Blood Culture - Preliminary NO GROWTH AFTER 24 HOURS Resulted 05/21/20 16:20 Blood Blood Culture - Preliminary NO GROWTH AFTER 24 HOURS Resulted 05/21/20 16:00 Urine,Clean Catch Urine Culture - Final NO GROWTH AFTER 48 HOURS Complete 05/21/20 15:00 Sputum Gram Stain - Final Complete 05/21/20 15:00 Sputum Culture - Final Charis Albicans Usual Respiratory Marisela Complete Objective HEAD AND NECK: Orally intubated LUNGS: Coarse rhonchi.Left chest tube is in CARDIOVASCULAR: Regular S1 and S2 with no gallop. ABDOMEN: Soft. EXTREMITIES: No pitting edema. Al Alarcon MD May 23, 2020 19:45
[2020-05-23] MEDS ORDERED: D5W 550ml IV ONE (22:41)
[2020-05-23] MEDS ORDERED: fentaNYL 2500mcg/NS 250ml 250 ML IV SCH (23:00)
[2020-05-24] VITALS (13 sets, daily range): BP systolic 38–186; BP diastolic 18–89
[2020-05-24] MEDS: NovoLOG Insulin Flexpen SUBQ SCH (00:24)
--- NOTE | 2020-05-24 01:46 | Emergency Room Report ---
History of Present Illness General Chief Complaint: Dyspnea/Respdistress Source: Medical Record, PMD Present Illness HPI This is a 59-year-old male who was admitted for Covid pneumonia and subsequently intubated for respiratory failure. He also sustained a pneumothorax. He coded today. I responded to CODE BLUE. Per nursing staff, he lost his pulse. CPR was initiated. By time I got up to the ICU, his pulse came back. He received 1 mg of epinephrine. I placed a central line and shortly afterward he coded again. This time he received 2 mg epinephrine before he got a pulse back. Please see CODE BLUE sheet for full list of medication and time given. Allergies: Coded Allergies: No Known Allergies (Unverified , 05/11/20) COVID-19 Screening Contact w/high risk pt: No Experienced COVID-19 symptoms?: Yes COVID-19 Testing performed PET CARE WORKER: Yes - 05/05/20 COVID-19 Screening: Positive COVID-19 COVID-19 Testing Source: clinic Nursing Documentation-PMH Past Medical History: No Stated History Hx Cardiac Problems: No Hx Cancer: No Hx Gastrointestinal Problems: No Hx Neurological Problems: No Physical Exam Vital Signs Date Time Temp Pulse Resp B/P (MAP) Pulse Ox O2 Delivery O2 Flow Rate FiO2 05/20/20 07:00 83 24 169/69 (102) 96 05/20/20 07:25 Non-Rebreather 15.0 100 05/20/20 08:00 98.2 Procedures Central Line Central Line : Consent: Emergent Central Line Lumen: triple Maximal Sterile Barrier Tech: yes cap, yes mask, yes sterile gown, yes sterile gloves, yes large sterile sheet, yes hand hygiene, yes chlorhexidine prep Central Line Postion: femoral (R) US Guided Line?: No Complications: none Central Line Post Position: sutured, good blood return Attempts: One Patient Tolerated: Well Complications: None CPR/Code Blue CPR/Code Blue Narrative Patient coded with because he became asystolic. return of spontaneous pulse after epinephrine. Please see CODE BLUE sheet for full list of medication and time given. Medical Decision Making Diagnostic Impression: Primary Impression: Coronavirus infection Additional Impressions: Lactic acid acidosis Abnormal EKG Diabetes Cardiac arrest Acute respiratory failure ER Course Patient admitted for Covid infection and subsequently developed respiratory failure requiring intubation. He also developed a pneumothorax. Pulse returned spontaneously after epinephrine. Prognosis is poor. Last Vital Signs Date Time Temp Pulse Resp B/P (MAP) Pulse Ox O2 Delivery O2 Flow Rate FiO2 05/24/20 00:15 23 127/80 Mechanical Ventilator 100 05/24/20 00:00 99.8 92 78 05/23/20 13:55 15.0 Status: improved Disposition: ADMITTED INPATIENT Condition: Critical Referrals: Pedro DURON,REFERRING (PCP) Anderson White MD May 24, 2020 01:46
[2020-05-24] MEDS ORDERED: Phenylephrine 50 MG in D5W 245 ML IV SCH (02:00)
[2020-05-24] MEDS ORDERED: DOPamine 400mg/250ml 250 ML IV SCH (02:00)
[2020-05-24] MEDS ORDERED: Phenylephrine 10mg/ml 5ml vial IV ONE (02:05)
[2020-05-24] MEDS ORDERED: NS 500ML ONE (02:54)
[2020-05-24] MEDS ORDERED: Sterile Water Irrig 1000ml IRRIG ONE (02:54)
[2020-05-24] MEDS ORDERED: Tubing IV Secondary IV ONE (02:54)
[2020-05-24] MEDS ORDERED: NS 275ml ONE (02:54)
--- NOTE | 2020-05-25 12:40 | Discharge Summary ---
Discharge Summary Discharge Summary _ SUMMARY DATE OF ADMISSION: 05/11/2020 DATE OF EXPIRATION: 05/24/2020 REASON FOR ADMISSION: 59 years old male with past medical history of diabetes mellitus, presented to emergency department with difficulty breathing. Patient apparently tested positive for COVID-19 few days ago. He reported being more short of breath. Patient required supplemental oxygen. Patient also reported fevers and nonproductive cough. Rapid COVID-19 in ED was positive . Influenza screen test was negative. Chest x-ray revealed clear lungs and pleural spaces. No acute process. Laboratory work-up demonstrated leukopenia WBC 3.5 , stable hemoglobin and ; platelet platelet count 132. Lymphopenia 9.6. Lactic acid 2.8 , repeated 1.9. Sodium 128, stable other electrolytes and renal parameters. Glucose 331. Ferritin 1217, CRP 24.9, LDH 588.D dimer 0.58. Troponin 0.048 . EKG revealed sinus rhythm , no acute ischemic changes. Patient admitted to isolation room for further management. CONSULTANTS: assembler fitter Dr. Johns pulmonary Dr. Gibson ID specialist Dr. Leggett surgery Dr. Avendaño apparel trimmings sales representative Dr. Brown [facility]: Patient admitted to isolation room Supplemental oxygen provided and titrated to keep pulse oximetry above 92%. Albuterol via MDI provided as needed. Patient started on steroids and remdesivir. Patient also started on empiric antibiotics. Antitussive provided as needed. Anticoagulation provided. Venous duplex bilateral lower extremity revealed no evidence of acute DVT. Supportive care continued. Patient was followed-up with inflammatory markers : CRP started to trend down. Echocardiogram demonstrated no evidence of left ventricular hypertrophy. Normal left ventricular chamber size and systolic function to the extent visualized. Patient noted to have atrial fibrillation with rapid ventricular response , likely due to COVID infection, as per assembler fitter. Heart rate was in 160th. Patient subsequently converted back to sinus rhythm after he received bolus of 10 mg of IV Cardizem. Cardizem changed to oral every 6 hours. Patient was also on anticoagulation with heparin drip. Patient was followed-up with chest x-ray . Chest x-ray on 05/17 revealed new moderate right apical pneumothorax. New pneumomediastinum. New supraclavicular bilateral subcutaneous emphysema. Development of bilateral airspace disease suspicious for atypical/viral pneumonia. Patient was followed-up with daily chest x-ray . Chest x-ray 05/20 revealed mild pneumomediastinum . subcutaneous emphysema and new mild to moderate left apical pneumothorax with stable mild right apical pneumothorax. Chest x-ray on 05/21 re-demonstrated right mild pneumothorax and left mild to moderate left pneumothorax. Patient subsequently undergone placement of left thoracostomy tube/Thora vent insertion on May 21. The same day patient required emergency oral intubation Ventilator support and pulmonary toilet provided. Later on Thora vent was inadvertently removed by the patient. Emergency room physician replaced Thora -vent in the anterior chest wall. Chest x-ray confirmed placement.. Blood sugar was managed as per apparel trimmings sales representative recommendations with long-acting Levemir, Januvia, and sliding scale of insulin every 6 hours. Hypoglycemia protocol was in order. Hemoglobin A1c 10.2. Patient was sedated . on fentanyl drip. Antibiotic continued. Patient condition was deteriorating . Blood pressure dropped. Patient required initiation of multiple pressors on 05/23 for hemodynamic support. On 05/23 patient sustained multiple cardiopulmonary arrests with subsequent r eturn of pulses after intervention. However , during the last Code Blue, all resuscitative efforts failed. Patient remained in asystole . Patient was pronounced at 2:55 AM on 05/24. Cause of : cardiopulmonary arrest FINAL DIAGNOSES: Status post cardiopulmonary arrest Severe COVID 19 pneumonia Acute hypoxic respiratory failure secondary to COVID, requiring intubation Shock Atrial fibrillation with rapid ventricular response Left-sided spontaneous pneumothorax Status post left tube thoracostomy/Thora vent insertion Pneumomediastinum Diabetes mellitus Lactic acidosis I have been assigned to dictate discharge summary for this account. I was not involved in the patient's management. Carolina Courtney OFFSET PROOF PRESS OPERATOR May 25, 2020 12:40
== END 2020-05-24 02:55 | disposition expired | DRG 137 ==
LOC: EDBD 13:43 → EMR 14:32 → 2W 16:00 → EDBEDREQ 16:56 → ICU 05-16 23:20
PROC: XW033E5 Introduction of Remdesivir Anti-infective into Peripheral Vein, Percutaneous Approach, New Technology Group 5 (ICD-10-PCS; 2020-05-12)
PROC: 06HM33Z Insertion of Infusion Device into Right Femoral Vein, Percutaneous Approach (ICD-10-PCS; 2020-05-14)
PROC: 0W9B30Z Drainage of Left Pleural Cavity with Drainage Device, Percutaneous Approach (ICD-10-PCS; principal; 2020-05-21)
PROC: 5A1945Z Respiratory Ventilation, 24-96 Consecutive Hours (ICD-10-PCS; 2020-05-21)
PROC: 0BH17EZ Insertion of Endotracheal Airway into Trachea, Via Natural or Artificial Opening (ICD-10-PCS; 2020-05-21)
DX: U07.1 COVID-19 (principal); J12.89 Other viral pneumonia; E87.2 Acidosis; I10 Essential (primary) hypertension; J93.9 Pneumothorax, unspecified; J96.01 Acute respiratory failure with hypoxia; E11.65 Type 2 diabetes mellitus with hyperglycemia; R94.31 Abnormal electrocardiogram [ECG] [EKG]; D72.810 Lymphocytopenia; I48.91 Unspecified atrial fibrillation; J93.83 Other pneumothorax; J98.2 Interstitial emphysema
CPT/HCPCS: 36415; 71045; 74018; 80053; 80069; 81003; 82248; 82550; 82553; 82728; 82803; 82962; 83036; 83605; 83615; 83690; 83735; 83880; 84100; 84439; 84443; 84484; 85007; 85025; 85379; 85610; 85651; 85730; 86140; 86710; 87040; 87070; 87086; 87205; 92950; 93005; 93306; 93970; 94002; 94003; 96361; 96365; 96367; 96375; 99291; J0171; J1815; J2370; J3490; J7030; S5561